=== PATIENT | male | born 1950 | race Caucasian/White ===

== ENCOUNTER 2016-09-24 10:44 | Inpatient (IN) | payer OTHER, BC ==
[2016-09-24] VITALS (10 sets, daily range): BP systolic 129–177; BP diastolic 84–101
[~2016-09-24] VITALS: Ht 188 cm; Wt 105.7 kg
--- OUTSIDE RECORDS SUMMARY | 2016-09-24 10:48 | XMS REPORT | Continuity of Care Document ---
Author Author [facility] Organization [facility] Address Unknown Phone Unavailable Care Team Providers Care Security Public Safety Officer Name Role Phone PCP Unavailable Source Comments Some departments are not documenting in the electronic medical record. If you do not see the information that you expected, contact Release of Information in the Health Information Management department at [phone] for further assistance in locating additional records.[facility] Active Allergies and Adverse Reactions Not on File Current Medications Not on file Active Problems Not on file Social History Tobacco Use Types Packs/Day Years Used Date Never Assessed Plan of Care Health Maintenance Due Date Last Done Comments Hepatitis C Screening 1950 Physical (Comprehensive) 1959 Exam Pertussis Vaccine 1963 Tetanus Vaccine 1969 Colorectal Cancer 2002 Screening Shingles Vaccine 2012 Influenza Vaccine 04/06/2016 Results from Last 3 Months Not on file
[2016-09-24] MEDS ORDERED: fentaNYL INJECTION 100 MCG/2 ML AMP ONE (10:58)
[2016-09-24] MEDS ORDERED: RT-ALBUINH INH (11:09)
[2016-09-24] MEDS ORDERED: CITA20TA7 PO (11:09)
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
[2016-09-24 11:30] LABS: INR 1.2 (0.8-1.4); MEAN PLATELET VOLUME 8.7 FL (7.4-10.4); PARTIAL THROMBOPLASTIN TIME 36 SEC (24-35); PROTHROMBIN TIME PATIENT 15.2 SEC (12.2-14.7); RED BLOOD COUNT 3.92 10^6/uL (4.35-5.85); RED CELL DISTRIBUTION WIDTH 12.1 % (10.0-14.5); WHITE BLOOD COUNT 12.7 10^3/uL (4.3-11.0)
[2016-09-24] MEDS ORDERED: TETANUS,DIPTH,PERTUSS P/F (BOOSTRIX) 0.5 ML VIAL IM STA (11:37)
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
[2016-09-24 11:43] LABS: ALANINE AMINOTRANSFERASE 159 U/L (0-55); ALBUMIN 3.7 G/DL (3.2-4.5); ALCOHOL 29 MG/DL (<10); ANION GAP 31 MMOL/L (5-14); ASPARTATE AMINO TRANSFERASE 329 U/L (5-34); BILIRUBIN,DIRECT 0.3 MG/DL (0.0-0.3); BILIRUBIN,INDIRECT 0.5 MG/DL; BILIRUBIN,TOTAL 0.8 MG/DL (0.1-1.0); BLOOD UREA NITROGEN 21 MG/DL (7-18); BUN/CREATININE RATIO 12; CARBON DIOXIDE 10 MMOL/L (21-32); CHLORIDE 85 MMOL/L (98-107); CREATINE KINASE 8308 U/L (30-200); CREATININE SERUM 1.72 MG/DL (0.60-1.30); GFR ESTIMATED 40; GLUCOSE 98 MG/DL (70-105); MAGNESIUM 2.3 MG/DL (1.8-2.4); PHOSPHORUS 4.1 MG/DL (2.3-4.7); POTASSIUM 3.8 MMOL/L (3.6-5.0); SODIUM 126 MMOL/L (135-145); TOTAL PROTEIN 6.2 G/DL (6.4-8.2)
[2016-09-24] MEDS ORDERED: DOPamine DRIP 250 ML IV ONE (11:45)
[2016-09-24 11:58] LABS: FIBRINOGEN 215 MG/DL (221-496)
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
--- NOTE | 2016-09-24 12:50 | Diagnostic Imaging Report ---
INDICATION: Line placement. FINDINGS: Right jugular line is present. Tip overlies the confluence of the superior venocaval shadow in right atrium. The lungs are well aerated and clear. The heart is not enlarged. No pneumothorax or pleural effusion. IMPRESSION: Satisfactory right central line placement. Dictated by: Dictated on workstation # [id number]
[2016-09-24] MEDS ORDERED: NS IV 1000 ML 1,000 ML IV ONE (12:51)
[2016-09-24 12:54] LABS: KETONES,URINE 1+ (NEGATIVE); LEUKOCYTE ESTERASE ,URINE 1+ (NEGATIVE); NITRITE,URINE NEGATIVE (NEGATIVE); PH,URINE 5 (5-9); PROTEIN,URINE 3+ (NEGATIVE); UROBILINOGEN,URINE 4 MG/DL (NORMAL)
[2016-09-24] MEDS ORDERED: fentaNYL INJECTION 100 MCG/2 ML AMP IVP STA (12:56)
[2016-09-24] MEDS: NOREPINEPHRINE 4 MG in D5W 250 ML (IVPB) 250 ML IV SCH ×2 (12:59→23:09)
[2016-09-24] MEDS ORDERED: HYDROCORTISONE 100 MG/2 ML (Solu-CORTEF) VIAL IV ONE (13:15)
[2016-09-24 13:25] LABS: BILIRUBIN,URINE 1+ (NEGATIVE); WBC,URINE RARE /HPF
[2016-09-24] MEDS ORDERED: fentaNYL INJECTION 100 MCG/2 ML AMP INJ ONE (14:33)
[2016-09-24] MEDS ORDERED: LEVOTHYROXINE 100 MCG INJ (SYNTHROID) VIAL IV SCH (15:30)
[2016-09-24] MEDS ORDERED: ONDANSETRON 4 MG/2 ML (SDV) Z0FRAN IV PRN (15:30)
[2016-09-24] MEDS ORDERED: SENNA W/DOCUSATE (SENOKOT S) TABLET PO PRN (15:30)
[2016-09-24] MEDS ORDERED: ANTACID SUSP 30 ML UDC (MYLANTA) PO PRN (15:30)
[2016-09-24] MEDS ORDERED: LORazepam INJ 2 MG/ML (ATIVAN) VIAL IM/IV PRN (15:30)
[2016-09-24] MEDS ORDERED: THIAMINE INJECTION 100 MG, FOLIC ACID INJECTION 1 MG, MAGNESIUM SULFATE 2 GM, VITAMIN M... IV SCH ×5 (15:30)
[2016-09-24] MEDS ORDERED: ONDANSETRON 4 MG (ZOFRAN) ORAL DISSOLVE TAB SL PRN (15:30)
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
[2016-09-24] MEDS: THIAMINE IV SCH ×5 (17:00)
[2016-09-24] MEDS: FOLIC ACID IV SCH ×5 (17:00)
[2016-09-24] MEDS: [UNRECOGNIZED DRUG - OTHER] IV SCH ×5 (17:00)
[2016-09-24] MEDS: SODIUM BICARBONATE 8.4% VIAL 100 MEQ in D5W 1000 ML IV SOLUTION 1,000 ML IV SCH ×2 (17:00→23:05)
[2016-09-24] MEDS: MAGNESIUM SULFATE IV SCH ×5 (17:00)
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
[2016-09-24] MEDS: LEVOTHYROXINE 100 MCG (LEVOTHROID) TAB PO SCH (18:50)
[2016-09-24] MEDS: LORazepam 1 MG (ATIVAN) TAB PO PRN (23:09)
[2016-09-25] VITALS (14 sets, daily range): BP systolic 113–148; BP diastolic 70–101
[2016-09-25 04:06] LABS: BASOPHILS % (AUTO) 0 % (0-10); EOSINOPHILS % (AUTO) 0 % (0-10); LYMPHOCYTES # (AUTO) 0.5 X 10^3 (1.0-4.0); LYMPHOCYTES % (AUTO) 5 % (12-44); MEAN CORPUSCULAR HEMOGLOBIN 34 PG (25-34); MEAN CORPUSCULAR HGB CONC 36 G/DL (32-36); MEAN CORPUSCULAR VOLUME 95 FL (80-99); MEAN PLATELET VOLUME 8.6 FL (7.4-10.4); MONOCYTES # (AUTO) 0.9 X 10^3 (0.0-1.0); MONOCYTES % (AUTO) 11 % (0-12); NEUTROPHILS # (AUTO) 7.6 X 10^3 (1.8-7.8); NEUTROPHILS % (AUTO) 84 % (42-75); PLATELET COUNT 147 10^3/uL (130-400); RED BLOOD COUNT 3.53 10^6/uL (4.35-5.85); RED CELL DISTRIBUTION WIDTH 12.5 % (10.0-14.5)
[2016-09-25 04:28] LABS: ALANINE AMINOTRANSFERASE 152 U/L (0-55); ALBUMIN 3.3 G/DL (3.2-4.5); ANION GAP 13 MMOL/L (5-14); ASPARTATE AMINO TRANSFERASE 371 U/L (5-34); BILIRUBIN,TOTAL 1.1 MG/DL (0.1-1.0); BLOOD UREA NITROGEN 19 MG/DL (7-18); BUN/CREATININE RATIO 18; CALCIUM 7.9 MG/DL (8.5-10.1); CARBON DIOXIDE 28 MMOL/L (21-32); CHLORIDE 87 MMOL/L (98-107); CREATININE SERUM 1.05 MG/DL (0.60-1.30); GFR ESTIMATED > 60; GLUCOSE 125 MG/DL (70-105); MAGNESIUM 2.3 MG/DL (1.8-2.4); PHOSPHORUS 2.4 MG/DL (2.3-4.7); SODIUM 128 MMOL/L (135-145); TOTAL PROTEIN 5.3 G/DL (6.4-8.2)
[2016-09-25 04:51] LABS: BAND NEUTROPHILS 7 %; BASOPHILS % (MANUAL) 0 %; EOSINOPHILS % (MANUAL) 0 %; LYMPHOCYTES % (MANUAL) 6 %; NEUTROPHILS % (MANUAL) 72 %
[2016-09-25] MEDS: KCL 20 MEQ TAB (K-DUR) PO SCH ×3 (05:25→13:09)
[2016-09-25] MEDS: LEVOTHYROXINE 100 MCG (LEVOTHROID) TAB PO SCH (05:25)
[2016-09-25] MEDS: SODIUM BICARBONATE 8.4% VIAL 100 MEQ in D5W 1000 ML IV SOLUTION 1,000 ML IV SCH (05:26)
[2016-09-25 05:43] LABS: CREATINE KINASE 15906 U/L (30-200)
[2016-09-25] MEDS ORDERED: MAGNESIUM 1 GM/100 ML IVPB 100 ML IV SCH (06:00)
[2016-09-25] MEDS ORDERED: KCL 20 MEQ TAB (K-DUR) PO SCH (06:00)
[2016-09-25] MEDS ORDERED: POTASSIUM CL 10MEQ/50ML IVPB 50 ML IV SCH (06:00)
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
[2016-09-25] MEDS: RT-ALBUTEROL/IPRATROPIUM 3 ML (DUONEB) VIAL INH SCH ×4 (08:26→19:22)
[2016-09-25] MEDS ORDERED: NS IV 1000 ML 1,000 ML ONE (08:53)
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
[2016-09-25] MEDS: NS IV 1000 ML 1,000 ML IV SCH ×2 (09:00→16:04)
[2016-09-25] MEDS ORDERED: LISI1TAB10 PO (09:49)
[2016-09-25] MEDS ORDERED: LEVO175T2 PO (09:49)
[2016-09-25] MEDS ORDERED: ASPI325T32 PO (09:49)
[2016-09-25] MEDS ORDERED: MULT-35 PO (09:49)
[2016-09-25] MEDS ORDERED: OMEP20TA33 PO (09:49)
[2016-09-25] MEDS ORDERED: TRAZ150T72 PO (09:49)
[2016-09-25] MEDS ORDERED: CYAN5000 SL (09:49)
[2016-09-25] MEDS ORDERED: NAPR220T66 PO (09:49)
[2016-09-25] MEDS: LORazepam 1 MG (ATIVAN) TAB PO PRN (10:06)
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
[2016-09-25] MEDS: RT-ALBUTEROL/IPRATROPIUM 3 ML (DUONEB) VIAL INH PRN (11:36)
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
[2016-09-25] MEDS: ENOXAPARIN 40 MG/0.4 ML (LOVENOX) SYR SC SCH (13:10)
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
[2016-09-25] MEDS: fentaNYL INJECTION 100 MCG/2 ML AMP IV PRN ×2 (15:03→18:32)
[2016-09-25] MEDS: MAGNESIUM SULFATE IV SCH ×5 (16:15)
[2016-09-25] MEDS: [UNRECOGNIZED DRUG - OTHER] IV SCH ×5 (16:15)
[2016-09-25] MEDS: FOLIC ACID IV SCH ×5 (16:15)
[2016-09-25] MEDS: THIAMINE IV SCH ×5 (16:15)
[2016-09-25] MEDS: LORazepam INJ 2 MG/ML (ATIVAN) VIAL IV PRN (22:22)
[2016-09-26] VITALS: BP 147/86
[2016-09-26] MEDS: RT-ALBUTEROL/IPRATROPIUM 3 ML (DUONEB) VIAL INH SCH ×2 (02:10→07:12)
[2016-09-26] MEDS: LORazepam INJ 2 MG/ML (ATIVAN) VIAL IV PRN (02:30)
[2016-09-26 05:17] LABS: BASOPHILS % (AUTO) 0 % (0-10); EOSINOPHILS % (AUTO) 0 % (0-10); LYMPHOCYTES # (AUTO) 0.4 X 10^3 (1.0-4.0); LYMPHOCYTES % (AUTO) 5 % (12-44); MEAN CORPUSCULAR HEMOGLOBIN 35 PG (25-34); MEAN CORPUSCULAR HGB CONC 36 G/DL (32-36); MEAN CORPUSCULAR VOLUME 98 FL (80-99); MEAN PLATELET VOLUME 8.6 FL (7.4-10.4); MONOCYTES # (AUTO) 1.2 X 10^3 (0.0-1.0); MONOCYTES % (AUTO) 13 % (0-12); NEUTROPHILS # (AUTO) 7.5 X 10^3 (1.8-7.8); NEUTROPHILS % (AUTO) 82 % (42-75); PLATELET COUNT 134 10^3/uL (130-400); RED BLOOD COUNT 2.98 10^6/uL (4.35-5.85); RED CELL DISTRIBUTION WIDTH 12.5 % (10.0-14.5); WHITE BLOOD COUNT 9.1 10^3/uL (4.3-11.0)
[2016-09-26 05:31] LABS: ANION GAP 10 MMOL/L (5-14); BLOOD UREA NITROGEN 15 MG/DL (7-18); BUN/CREATININE RATIO 19; CALCIUM 8.1 MG/DL (8.5-10.1); CARBON DIOXIDE 29 MMOL/L (21-32); CHLORIDE 92 MMOL/L (98-107); CREATININE SERUM 0.78 MG/DL (0.60-1.30); GFR ESTIMATED > 60; GLUCOSE 108 MG/DL (70-105); POTASSIUM 3.7 MMOL/L (3.6-5.0); SODIUM 131 MMOL/L (135-145)
[2016-09-26 05:57] LABS: CREATINE KINASE 11726 U/L (30-200)
[2016-09-26] MEDS: NS IV 1000 ML 1,000 ML IV SCH ×2 (06:22→12:02)
[2016-09-26] MEDS: LEVOTHYROXINE 100 MCG (LEVOTHROID) TAB PO SCH (06:22)
[2016-09-26 08:00] VITALS: BP 198/106
[2016-09-26] MEDS: RT-ALBUTEROL/IPRATROPIUM 3 ML (DUONEB) VIAL INH PRN (09:23)
[2016-09-26] MEDS ORDERED: methylPREDNISolone 125 MG (Solu-MEDROL) VIAL IVP NR (09:30)
--- NOTE | 2016-09-26 09:33 | Physical Therapy Daily Note ---
PT Daily Note-Current Subjective Patient agrees to PT. Pain Numeric Pain Scale: 5-Moderate Pain Location: Right Location Body Site: Thigh Pain Description: Ache Appearance agitated, anxious, etc Mental Status Patient Orientation: Person, Time, Situation Attachments: IV Transfers Functional [place] Measure 0=Not Assessed/NA 4=Minimal Assistance 1=Total Assistance 5=Supervision or Setup 2=Maximal Assistance 6=Modified [place] 3=Moderate Assistance 7=Complete IndependenceIRFPAI Quality Coding Scale 6 Independent with activity with or without an assistive device 5 Patient requires set up or clean up by helper. Patient completes activity by themselves 4 Supervision or touching assist (CGA). [place] provide cues , steadying assist 3 The helper provides less than half the effort to complete the activity 2 The helper provides more than half the effort to complete the activity 1 Dependent. The helper does all the effort to complete an activity 7 Patient refused to complete or attempt activity 9 The patient did not perform the activity before the current illness or injury 88 Not attempted due to Medical conditions or safety concerns Transfers (B, C, W/C) (FIM): 4 Scootin Sit to/from Stand: 4 Patient requires skilled verbal instruction for hand placement to stand and sit to prevent vertebral compression. Gait Training Gait (FIM): 4 Distance (FIM): 3=150 ft Distance: 300' Gait Level of Assist: 4 Gait Persons Needed: 1 Gait Assistive Device: FWW ataxic and unsafe; 2 episodes LOB with PT correction Exercises Seated Therapy Exercises: Ankle pumps, Long arc quads, Hip flexion Seated Reps: 25 Assessment Patient appears to be anxious and slightly agitated due to alcohol detox process. RN is aware. Patient tolerates minimal activity and presents with elevated HR of 154 after ambulation. PT to increase activity as tolerated by patient. PT Printer'S Devil Goals Intermediate Goals PT Printer'S Devil Goals Time Frame: Oct 02, 2016 Transfers (B,C,W/C) (FIM): 7 Gait (FIM): 7 Gait distance (FIM): 3=150 ft Gait Level of Assist: 7 Gait Assistive Device: None, FWW PT Plan Treatment/Plan Treatment Plan: Continue Plan of Care Treatment Plan: Education, Functional Activity Mya, Functional Strength, Gait , Safety, Therapeutic Exercise Treatment Duration: Oct 02, 2016 Visits Per Week: 5-6 Time/GCodes Time In: 851 Time Out: 914 Total Billed Treatment Time: 23 Total Billed Treatment 1 visit GT 15 min EX 8 min SAI BILLINGSLEY PT Sep 26, 2016 09:33
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
--- NOTE | 2016-09-26 11:40 | Occupational Ther Daily Note ---
OT Current Status-Daily Note Subjective Pt. does not report pain but reports that she is short of breath. Pt. showered with no oxygen on. Sats taken at end of shower. Sats at 96%. Notified respiratory therapy. Appearance Pt. is up in chair. Agrees to shower reluctantly. Pt. is encouraged and then agrees. Mental Status/Objective Patient Orientation: Unable to Assess Functional [place] Measure 0=Not Assessed/NA 4=Minimal Assistance 1=Total Assistance 5=Supervision or Setup 2=Maximal Assistance 6=Modified [place] 3=Moderate Assistance 7=Complete [place] Pt. is somewhat slow to respond at times. Impulsive. Required frequent cues to take his time. ADL-Treatment Grooming (FIM): 2 (Max assist to comb hair due to wounds on head.) Lower Body Dressing (FIM): 2 (Pt. requires max assist to don socks.) Toileting (FIM): 3 (Pt. requires mod assist to cleanse self after toileting.) Transfers (B, C, W/C) (FIM): 4 (Pt. requires min assist to stand out of chair, and to ambulate to shower.) Toilet/Commode Transfer (FIM): 4 Shower Transfer(FIM): 4 Education OT Patient Education: Correct positioning, Modified ADL techniques, Progress toward Goal/Update tx plan, Purpose of tx/functional activities, Reviewed precautions, Rehab process, Transfer techniques Teaching Recipient: Patient Teaching Methods: Demonstration, Discussion Response to Teaching: Verbalize Understanding, Return Demonstration OT Short Term Goals Short Term Goals 1=Demonstrate adherence to instructed precautions during ADL tasks. 2=Patient will verbalize/demonstrate understanding of assistive devices/ modifications for ADL. 3=Patient will improve strength/tolerance for activity to enable patient to perform ADL's. OT [facility] Goals Vulcanizing Press Operator Goals Time Frame: Oct 09, 2016 Eating (FIM): 6 Grooming(FIM): 6 Bathing(FIM): 6 Upper Body Dressing(FIM): 6 Lower Body Dressing(FIM): 6 Toileting(FIM): 6 Toilet/Commode Transfer(FIM): 6 Shower Transfer(FIM): 6 Additional Goals: 1-Demonstrate ADL Tasks, 2-Verbalize Understanding, 3- ImproveStrength/Mya 1=Demonstrate adherence to instructed precautions during ADL tasks. 2=Patient will verbalize/demonstrate understanding of assistive devices/ modifications for ADL. 3=Patient will improve strength/tolerance for activity to enable patient to perform ADL's. OT Education/Plan Problem List/Assessment Assessment: Decreased Activ Tolerance, Decreased UE Strength, Dependent Transfers, Impaired Bed Mobility, Impaired Funct Balance, Impaired I ADL's, Impaired Self-Care Skills, Restricted Funct UE ROM Pt to benefit from skilled OT intervention for ADL training, transfers, strengthening, and home safety education to maximize level of function and allow safe return home. Discharge Recommendations Plan/Recommendations: Continue POC Therapy D/C Recommendations: Acute Rehab Barriers to Progress cognition, impulsivity Treatment Plan/Plan of Care Treatment,Training & Education: Yes Patient would benefit from OT for education, treatment and training to promote independence in ADL's, mobility, safety and/or upper extremity function for ADL' s. Plan of Care: ADL Retraining, Functional Mobility, UE Funct Exercise/Act Treatment Duration: Oct 09, 2016 Visits Per Week: 5 Agreement: Yes Rehab Potential: Good Time/GCodes Start Time: 10:00 Stop Time: 10:35 Total Time Billed (hr/min): 35 Billed Treatment Time 1, ADL x 2 ALINA JARRELL OT Sep 26, 2016 11:40
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
[2016-09-26] MEDS: ENOXAPARIN 40 MG/0.4 ML (LOVENOX) SYR SC SCH (11:56)
[2016-09-26] MEDS: fentaNYL INJECTION 100 MCG/2 ML AMP IV PRN (12:02)
--- NOTE | 2016-09-26 12:20 | Progress Note ---
Subjective Subjective/Events-last exam Pt seen and examined. Pt reports he is better today, still some back pain. Tolerating diet, pain mostly controlled. Appreciate PT and OT consults and recommendations. Review of Systems HEENT: Head AchesNo Visual Changes Pulmonary: No Dyspnea, No Cough Cardiovascular: : Chest Pain Gastrointestinal: No: Abdominal Pain, Nausea, Vomiting Objective Exam Vital Signs Date Time Temp Pulse Resp B/P Pulse Ox O2 Delivery O2 Flow Rate FiO2 09/26/16 09:23 98 09/26/16 08:00 98.8 113 20 198/106 97 Nasal Cannula 4.00 09/26/16 07:13 94 09/26/16 02:10 92 09/26/16 00:00 97.8 85 20 147/86 94 Nasal Cannula 4.00 09/25/16 22:00 93 4.00 09/25/16 20:00 99.3 86 20 130/78 94 Room Air 09/25/16 19:22 92 09/25/16 19:00 86 09/25/16 16:00 98.5 83 20 133/79 92 Nasal Cannula 4.00 09/25/16 13:00 89 I & O 09/26/16 07:00 Intake Total 900 ml Output Total 1650 ml Balance -750 ml Capillary Refill : Less Than 3 SecondsLess Than 3 Seconds General Appearance: Mild Distress Other HEENT: PERRL/EOMI Other Neck: Full Range of Motion Normal Inspection Non Tender Supple Other Respiratory: Chest Non Tender Decreased Breath Sounds Wheezing Cardiovascular: Regular Rate, Rhythm No Gallop No JVD No Murmur Gastrointestinal: normal bowel sounds soft Extremity: Normal Capillary Refill Normal Range of Motion No Calf Tenderness No Pedal Edema Other Neurologic/Psychiatric: Alert Oriented x3 No Motor/Sensory Deficits Normal Mood/Affect Depressed Affect Skin: Normal Color Warm/Dry Results Lab Laboratory Tests 09/25/16 14:06: Glucometer 158H 09/25/16 15:24: Potassium Level 3.8 09/25/16 16:05: Glucometer 124H 09/25/16 21:38: Glucometer 136H 09/26/16 05:00: Anion Gap 10, BUN/Creatinine Ratio 19, Basophils # (Auto) 0.0, Basophils (%) ( Auto) 0, Blood Urea Nitrogen 15, Calcium Level 8.1L, Carbon Dioxide Level 29, Chloride Level 92L, Creatinine 0.78, Eosinophils # (Auto) 0.0, Eosinophils (%) ( Auto) 0, Estimat Glomerular Filtration Rate > 60, Glucose Level 108H, Hematocrit 29L, Hemoglobin 10.4L, Lymphocytes # (Auto) 0.4L, Lymphocytes (%) ( Auto) 5L, Mean Corpuscular Hemoglobin 35H, Mean Corpuscular Hemoglobin Concent 36, Mean Corpuscular Volume 98, Mean Platelet Volume 8.6, Monocytes # (Auto) 1.2H, Monocytes (%) (Auto) 13H, Neutrophils # (Auto) 7.5, Neutrophils (%) (Auto ) 82H, Platelet Count 134, Potassium Level 3.7, Red Blood Count 2.98L, Red Cell Distribution Width 12.5, Sodium Level 131L, Total Creatine Kinase 61996J, White Blood Count 9.1 09/26/16 10:45: Glucometer 142H Assessment/Plan Assessment/Plan Assessment/Plan Anemia- probably dilutional, but will stop Lovenox, pt is ambulating and will not need S/P Trauma Level 1 Activation Transverse process fracture - non-operative management L4 and L5 compression fractures with minimal height loss Hypotensive - resolved now, off levophed Renal insufficiency - resolved, Creatnine normal, pt with good urine output Plan continue PT/OT and transfer to Short term care Multiple episodes of syncope, ? siezures. Pt probably will need to be sent to Neurologist and won't be able to drive until cleared. Clinical Quality Measures DVT/VTE Risk/Contraindication: Risk Factor Score Per Nursin RFS Level Per Nursing on Admit: 4+=Very High TEE LAMBERT DO Sep 26, 2016 12:20
[2016-09-26] MEDS ORDERED: RT-ADVAIR HFA 115/21 MCG PER PUFF IH SCH (20:00)
[2016-09-27] MEDS ORDERED: predniSONE 10 MG TAB PO SCH (12:00)
[2016-10-09] MEDS ORDERED: predniSONE 5 MG TAB PO SCH (12:00)
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
[2016-10-24] MEDS ORDERED: LISI40TA PO (12:31)
[2016-10-24] MEDS ORDERED: HYDR-756 PO ×2 (13:17→13:25)
== END 2016-09-26 12:40 | DRG 89 ==
LOC: EDUNIT# 10:44 → ER 10:45 → ICU 13:20 → 4TH 09-25 14:34
PROVIDERS: ADMIT Surgery; ATTEND Surgery
DX: S06.0X1A Concussion with loss of consciousness of 30 minutes or less, initial encounter (principal); S32.029A Unspecified fracture of second lumbar vertebra, initial encounter for closed fracture; S32.039A Unspecified fracture of third lumbar vertebra, initial encounter for closed fracture; S32.049A Unspecified fracture of fourth lumbar vertebra, initial encounter for closed fracture; E87.1 Hypo-osmolality and hyponatremia; S20.211A Contusion of right front wall of thorax, initial encounter; S30.1XXA Contusion of abdominal wall, initial encounter; S70.11XA Contusion of right thigh, initial encounter; S70.12XA Contusion of left thigh, initial encounter; S40.021A Contusion of right upper arm, initial encounter; S40.022A Contusion of left upper arm, initial encounter; S00.83XA Contusion of other part of head, initial encounter; E89.0 Postprocedural hypothyroidism; I10 Essential (primary) hypertension; I95.9 Hypotension, unspecified; F10.20 Alcohol dependence, uncomplicated; Y90.8 Blood alcohol level of 240 mg/100 ml or more; N28.9 Disorder of kidney and ureter, unspecified; J44.9 Chronic obstructive pulmonary disease, unspecified; J45.909 Unspecified asthma, uncomplicated; R55 Syncope and collapse; E87.6 Hypokalemia; F17.210 Nicotine dependence, cigarettes, uncomplicated; V48.5XXA Car driver injured in noncollision transport accident in traffic accident, initial encounter; Y92.488 Other paved roadways as the place of occurrence of the external cause; Y99.8 Other external cause status
CPT/HCPCS: 36415; 51702; 70450; 71010; 71260; 72125; 72170; 74177; 80048; 80053; 80076; 80306; 80320; 81000; 82533; 82550; 82962; 83735; 84100; 84132; 84439; 84443; 84484; 85007; 85025; 85027; 85379; 85384; 85610; 85730; 86850; 86900; 86901; 86920; 90471; 90715; 94640; 96365; 96366; 96367; 96375; 99291; 99292

== ENCOUNTER 2016-09-26 12:40 | Inpatient (IN) | payer OTHER, BC ==
[~2016-09-26] VITALS: Ht 188 cm; Wt 105.7 kg
[~2016-09-26 12:40] MED LIST: ASPI325T32 PO; CITA20TA7 PO; CYAN5000 SL; LEVO175T2 PO; LISI1TAB10 PO; MULT-35 PO; NAPR220T66 PO; OMEP20TA33 PO; RT-ALBUINH INH; TRAZ150T72 PO
--- OUTSIDE RECORDS SUMMARY | 2016-09-26 13:41 | XMS REPORT | Continuity of Care Document ---
Author Author [facility] Organization [facility] Address Unknown Phone Unavailable Care Team Providers Care Job Change Crew Member Name Role Phone PCP Unavailable Source Comments Some departments are not documenting in the electronic medical record. If you do not see the information that you expected, contact Release of Information in the Health Information Management department at [phone] for further assistance in locating additional records.[facility] Active Allergies and Adverse Reactions Not [...]
[2016-09-26] MEDS ORDERED: SENNA W/DOCUSATE (SENOKOT S) TABLET PO PRN (14:00)
[2016-09-26] MEDS ORDERED: RT-ALBUTEROL/IPRATROPIUM 3 ML (DUONEB) VIAL INH PRN (14:00)
[2016-09-26] MEDS ORDERED: ASPIRIN 325 MG (5 GR) TABLET PO PRN (14:00)
[2016-09-26] MEDS ORDERED: ONDANSETRON 4 MG (ZOFRAN) ORAL DISSOLVE TAB SL PRN (14:00)
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
[2016-09-26] MEDS: RT-ALBUTEROL/IPRATROPIUM 3 ML (DUONEB) VIAL INH SCH ×3 (15:37→22:37)
[2016-09-26] MEDS: LORazepam 1 MG (ATIVAN) TAB PO PRN ×2 (15:40→19:25)
[2016-09-26 16:28] VITALS: BP 188/91
[2016-09-26] MEDS ORDERED: cloNIDine 0.1 MG (CATAPRES) TAB PO NR (16:45)
[2016-09-26 18:11] VITALS: BP 142/83
[2016-09-26] MEDS: RT-ADVAIR HFA 115/21 MCG PER PUFF IH SCH (19:40)
[2016-09-26] MEDS: traZODone 150 MG (DESYREL) TABLET PO SCH (19:46)
[2016-09-26] MEDS ORDERED: FOLIC ACID IV NR ×5 (20:30)
[2016-09-26] MEDS ORDERED: MAGNESIUM SULFATE IV NR ×5 (20:30)
[2016-09-26] MEDS ORDERED: THIAMINE IV NR ×5 (20:30)
[2016-09-26] MEDS ORDERED: [UNRECOGNIZED DRUG - OTHER] IV NR ×5 (20:30)
[2016-09-27] MEDS: LORazepam 1 MG (ATIVAN) TAB PO PRN ×2 (00:57→13:33)
[2016-09-27] MEDS: NAPROXEN 250 MG (NAPROSYN) TABLET PO PRN ×3 (00:57→18:10)
[2016-09-27] MEDS: RT-ALBUTEROL/IPRATROPIUM 3 ML (DUONEB) VIAL INH SCH ×6 (02:18→22:00)
[2016-09-27 06:00] VITALS: BP 146/74
[2016-09-27] MEDS: MULTIVIT W/MINERALS TAB (THERAGRAN M) PO SCH (06:26)
[2016-09-27] MEDS: LEVOTHYROXINE 75 MCG (LEVOTHROID) TABLET PO SCH (06:26)
[2016-09-27] MEDS: PANTOPRAZOLE 20 MG TABLET (PROTONIX) PO SCH (06:27)
[2016-09-27] MEDS: LEVOTHYROXINE 100 MCG (LEVOTHROID) TAB PO SCH (06:27)
[2016-09-27] MEDS ORDERED: LEVOTHYROXINE 100 MCG (LEVOTHROID) TAB PO SCH (06:30)
[2016-09-27 06:46] LABS: BASOPHILS % (AUTO) 0 % (0-10); EOSINOPHILS % (AUTO) 0 % (0-10); LYMPHOCYTES # (AUTO) 0.4 X 10^3 (1.0-4.0); LYMPHOCYTES % (AUTO) 5 % (12-44); MEAN CORPUSCULAR HEMOGLOBIN 35 PG (25-34); MEAN CORPUSCULAR HGB CONC 35 G/DL (32-36); MEAN CORPUSCULAR VOLUME 100 FL (80-99); MEAN PLATELET VOLUME 8.6 FL (7.4-10.4); MONOCYTES # (AUTO) 0.9 X 10^3 (0.0-1.0); MONOCYTES % (AUTO) 11 % (0-12); NEUTROPHILS # (AUTO) 6.6 X 10^3 (1.8-7.8); NEUTROPHILS % (AUTO) 84 % (42-75); PLATELET COUNT 116 10^3/uL (130-400); RED BLOOD COUNT 2.42 10^6/uL (4.35-5.85); RED CELL DISTRIBUTION WIDTH 12.7 % (10.0-14.5); WHITE BLOOD COUNT 7.8 10^3/uL (4.3-11.0)
[2016-09-27 07:06] LABS: ALANINE AMINOTRANSFERASE 130 U/L (0-55); ALBUMIN 3.1 G/DL (3.2-4.5); ANION GAP 8 MMOL/L (5-14); ASPARTATE AMINO TRANSFERASE 213 U/L (5-34); BILIRUBIN,TOTAL 0.9 MG/DL (0.1-1.0); BLOOD UREA NITROGEN 21 MG/DL (7-18); BUN/CREATININE RATIO 28; CALCIUM 8.1 MG/DL (8.5-10.1); CARBON DIOXIDE 29 MMOL/L (21-32); CHLORIDE 95 MMOL/L (98-107); CREATININE SERUM 0.75 MG/DL (0.60-1.30); GFR ESTIMATED > 60; GLUCOSE 98 MG/DL (70-105); POTASSIUM 3.4 MMOL/L (3.6-5.0); SODIUM 132 MMOL/L (135-145)
[2016-09-27] MEDS: RT-ADVAIR HFA 115/21 MCG PER PUFF IH SCH ×2 (07:17→18:18)
[2016-09-27] MEDS: lisINopril 20 MG (ZESTRIL) TAB PO SCH (08:18)
[2016-09-27] MEDS: HYDROCHLOROTHIAZIDE 25 MG (HCTZ) TAB PO SCH (08:18)
[2016-09-27] MEDS: CYANOCOBALAMIN 500 MCG TAB (VITAMIN B-12) PO SCH (08:18)
[2016-09-27] MEDS ORDERED: KCL 20 MEQ TAB (K-DUR) PO NR (08:45)
[2016-09-27] MEDS ORDERED: NON-FORMULARY MEDICATION 1 EA EA PO SCH (09:00)
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
[2016-09-27] MEDS: DICLOFENAC 1% GEL 100 GM (VOLTAREN) TUBE TOP SCH ×4 (09:15→19:50)
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
--- NOTE | 2016-09-27 09:35 | Speech Therapy Daily Note ---
Speech Daily Progress Note Subjective The patient was seated on the edge of bed upon entrance. The patient reported discomfort in his back and legs and stated he had recently requested pain medication from his RN. The RN was notified by the clinician and stated she was aware of the patient's current pain level. The patient was agreeable to continued cognitive assessment on this date. Objective The patient was administrated the Rinku Cognitive Assessment (Version One): - Visuospatial/Executive: The patient was able to accurately complete trail- making activity, as well as, cube copying. The patient was able to draw a clock face with accurate numbers, however, was unable to place the accurate time on the clock. - Naming: The patient was able to provide the names of three of three single words. - Memory: The patient was able to recall four of five single words immediately. - Attention: The patient was able to identify a letter from a list of letters read by the clinician and repeat five digits immediately. The patient demonstrated mild difficulty with serial subtraction of seven. - Language: The patient was able to repeat two simple phrases. - Abstraction: The patient was able to provide a similarity between two items. - Delayed Recall: The patient recalled four of five single words following a five minute delay. - Orientation: The patient was oriented to location, city, month, day of week, date, and year. The patient demonstrated an overall score of +27/30 which correlates to cognitive linguistic functions within normal limits. The patient demonstrated impairments with delayed recall and attention. As the patient lives alone and does report intermittent memory issues, the clinician believes he will benefit from continued skilled speech services to target functional memory strategies for improved safety at home. Assessment Assessment Current Status: Good Progress Treatment Plan Continue Plan of Care Communication Comprehension: 3 Expression: 4 Social Cognition Social Interaction: 3 Problem Solvin Memory: 3 Speech Short Term Goals Short Term Goals Short Term Goals 1. The patient will display 80% accuracy with functional safety problem solving (independently). 2. The patient will recall and demonstrate three functional memory strategies for use at home and throughout skilled tasks (mild clinician prompting). 3. The patient will recall three to four items immediately and following a five minute delay (independently). Time Frame-STG: Two Weeks Speech Security Solutions Architect Goals Retirement Goals 1. The patient will display improved cognitive skills for increased function and safety with ADL's in the least restrictive setting. Time Frame: Four Weeks Comprehension: 5 Expression: 5 Social Interaction: 5 Problem Solvin Memory: 4 Speech-Plan Treatment Plan Speech Therapy Treatment Plan: Continue Plan of Care Continue skilled speech services to target functional problem solving and memory strategies. Treatment Duration: Oct 24, 2016 # of days/week Four to five. Visits Per Week: Four to five Minutes/Day (M-F): 30 Rehab Potential: Guarded Safety Risks/Education Teaching Recipient: Patient Teaching Methods: Discussion Response to Teaching: Reinforcement Needed Education Topics Provided: Plan of Care Time Speech Therapy Time In: 08:45 Speech Therapy Time Out: 09:15 Total Billed Time: 30 Billed Treatment Time 1, NICKIE NEWMAN Sep 27, 2016 09:35
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
[2016-09-27] MEDS: ENOXAPARIN 40 MG/0.4 ML (LOVENOX) SYR SC SCH (11:49)
[2016-09-27] MEDS: predniSONE 10 MG TAB PO SCH (11:50)
[2016-09-27] MEDS: HYDROcodone/APAP 7.5 MG/325 MG (LORTAB, LORCET PLUS) TABLET PO PRN ×3 (11:50→19:50)
[2016-09-27] MEDS ORDERED: predniSONE 5 MG TAB PO SCH (12:00)
--- NOTE | 2016-09-27 14:55 | Occupational Ther Daily Note ---
OT Current Status-Daily Note Subjective Pt. reports pain in upper right thigh, but does not give a pain level. Nursing notified and asked for pain meds. Appearance Pt. is sitting on side of bed. Agrees to shower. Mental Status/Objective Patient Orientation: Person Functional [place] Measure 0=Not Assessed/NA 4=Minimal Assistance 1=Total Assistance 5=Supervision or Setup 2=Maximal Assistance 6=Modified [place] 3=Moderate Assistance 7=Complete [place] ADL-Treatment Functional [place] Measure 0=Not Assessed/NA 4=Minimal Assistance 1=Total Assistance 5=Supervision or Setup 2=Maximal Assistance 6=Modified [place] 3=Moderate Assistance 7=Complete IndependenceIRFPAI Quality Coding Scale 6 Independent with activity with or without an assistive device 5 Patient requires set up or clean up by helper. Patient completes activity by themselves 4 Supervision or touching assist (CGA). [place] provide cues , steadying assist 3 The helper provides less than half the effort to complete the activity 2 The helper provides more than half the effort to complete the activity 1 Dependent. The helper does all the effort to complete an activity 7 Patient refused to complete or attempt activity 9 The patient did not perform the activity before the current illness or injury 88 Not attempted due to Medical conditions or safety concerns Grooming (FIM): 5 (Pt. requires SBA to comb hair.) Bathing (FIM): 4 (Pt. requires CGA for stance in shower.) Shower/Bathe Self (QC): 4 Upper Body (FIM): 5 (Set up with shirt.) Upper Body Dressing (QC): 5 Lower Body Dressing (FIM): 3 (Pt. requires mod assist overall for LE dressing. Has difficulty manipulating pants over feet., or donning socks.) Lower Body Dressing (QC): 3 On/Off Footwear (QC): 3 (Able to doff them, but has difficulty in shower setting getting feet up to put them back on.) Toileting (FIM): 5 (Pt. is able to cleanse rear thu area after toileting.) Toileting Hygiene (QC): 4 Transfers (B, C, W/C) (FIM): 4 (CGA in stance to ambualate to therapy gym.) Toilet/Commode Transfer (FIM): 4 Toilet Transfer (QC): 4 Pt. ambulated to therapy gym. Donned 1 lb. wrist weights and completed series of fine motor coordination tasks. Noted that pt. seemed to be having difficulty with pincer grasp strength on left hand. Did not note this yesterday , but pt. states that he was having this weakness for at least the last two months. Does not know why. Tolerated treatment well but continued to have difficulty with pincer grasp with small items. Ambulated back to room after treatment. Education OT Patient Education: Correct positioning, Exercise program, Modified ADL techniques, Progress toward Goal/Update tx plan, Purpose of tx/functional activities, Reviewed precautions, Rehab process, Transfer techniques Teaching Recipient: Patient Teaching Methods: Demonstration, Discussion Response to Teaching: Verbalize Understanding, Return Demonstration OT Short Term Goals Short Term Goals Time Frame: Oct 03, 2016 Eating(FIM): 5 Grooming(FIM): 5 Bathing(FIM): 5 Upper Body Dressing(FIM): 5 Lower Body Dressing(FIM): 5 Toileting(FIM): 5 Transfers (B,C,W/C) (FIM): 5 Toilet/Commode Transfer(FIM): 5 Shower Transfer(FIM): 5 Additional Short Term Goals: 1-Demonstrate ADL Tasks, 2-Verbalize Understanding , 3-ImproveStrength/Mya 1=Demonstrate adherence to instructed precautions during ADL tasks. 2=Patient will verbalize/demonstrate understanding of assistive devices/ modifications for ADL. 3=Patient will improve strength/tolerance for activity to enable patient to perform ADL's. OT Ethnology Teacher Goals Skilled Nursing Goals Time Frame: Oct 10, 2016 Eating (FIM): 6 Eating (QC): 6 Groomin Oral Hygiene (QC): 6 Bathing(FIM): 5 Shower/Bathe Self (QC): 5 Upper Body Dressing(FIM): 6 Upper Body Dressing (QC): 6 Lower Body Dressing(FIM): 6 Lower Body Dressing (QC): 6 On/Off Footwear (QC): 6 Toileting(FIM): 6 Toileting Hygiene (QC): 6 Transfers (B,C,W/C) (FIM): 6 Toilet/Commode Transfer(FIM): 6 Toilet/Commode Transfer (QC): 6 Shower Transfer(FIM): 5 Comprehension(FIM): 5 Expression (FIM): 5 Social Interaction(FIM): 5 Problem Solving(FIM): 4 Memory(FIM): 4 Additional Goals: 1-Demonstrate ADL Tasks, 2-Verbalize Understanding, 3- ImproveStrength/Mya 1=Demonstrate adherence to instructed precautions during ADL tasks. 2=Patient will verbalize/demonstrate understanding of assistive devices/ modifications for ADL. 3=Patient will improve strength/tolerance for activity to enable patient to perform ADL's. OT Education/Plan Problem List/Assessment Assessment: Decreased Activ Tolerance, Decreased Safety Aware, Decreased UE Strength, Dependent Transfers, Impaired Bed Mobility, Impaired Cognition, Impaired Coordination, Impaired Funct Balance, Impaired I ADL's, Impaired Self- Care Skills, Restricted Funct UE ROM Discharge Recommendations Plan/Recommendations: Continue POC Therapy D/C Recommendations: Assisted Living Equpiment Recommendations-D/C: Bath Chair Barriers to Progress Cognition Target Placement Pt. to transfer home. However, would benefit from assisted living. Treatment Plan/Plan of Care Treatment,Training & Education: Yes Patient would benefit from OT for education, treatment and training to promote independence in ADL's, mobility, safety and/or upper extremity function for ADL' s. Plan of Care: ADL Retraining, Functional Mobility, UE Funct Exercise/Act Treatment Duration: Oct 10, 2016 Visits Per Week: 10-12 Agreement: Yes (-) Rehab Potential: Fair Time/GCodes Start Time: 10:30 Stop Time: 11:45 Total Time Billed (hr/min): 75 Billed Treatment Time 1, ADL x 45minutes, FA x 30minutes ALINA JARRELL OT Sep 27, 2016 14:55
--- NOTE | 2016-09-27 15:07 | Physical Therapy Daily Note ---
PT Daily Note-Current Subjective Pt sitting at EOB with nursing assisting pt in dressing upon arrival. Pt reports pain of 8/10 in both BLE and low back. Pt agrees to PT. Pain Numeric Pain Scale: 8 Location: Lower, Dorsal Location Body Site: Back Pain Description: Ache Comment: Pt reports pain in both low back and BLE. Mental Status Patient Orientation: Person, Confused Transfers Functional [place] Measure 0=Not Assessed/NA 4=Minimal Assistance 1=Total Assistance 5=Supervision or Setup 2=Maximal Assistance 6=Modified [place] 3=Moderate Assistance 7=Complete IndependenceIRFPAI Quality Coding Scale 6 Independent with activity with or without an assistive device 5 Patient requires set up or clean up by helper. Patient completes activity by themselves 4 Supervision or touching assist (CGA). [place] provide cues , steadying assist 3 The helper provides less than half the effort to complete the activity 2 The helper provides more than half the effort to complete the activity 1 Dependent. The helper does all the effort to complete an activity 7 Patient refused to complete or attempt activity 9 The patient did not perform the activity before the current illness or injury 88 Not attempted due to Medical conditions or safety concerns Transfers (B, C, W/C) (FIM): 5 Scootin Sit to/from Stand: 5 Sit to Stand (QC): 5 Weight Bearing Weight Bearing Restriction: Full Weight Bearing Location Restriction: LE Bilateral Gait Training Does the Patient Walk?: Yes Gait (FIM): 4 Distance (FIM): 3=150 ft Distance: 100 + 150= 250' Walk 10 feet (QC): 5 Walk 50 ft with 2 Turns(QC): 4 Walk 150 ft (QC): 4 Gait Level of Assist: 4 Gait Persons Needed: 1 Gait Assistive Device: FWW Pt walks with normalized gait pattern although pt fatigues easy and gets SOB. Wheelchair Training Does the Pt Use a Wheelchair?: No Stair Training Stair Training: Handrails/: 2 handrails Stairs (FIM): 2 #of Steps: 4 1 Step (curb) (QC): 5 4 Steps (QC): 5 12 Steps (QC): 88 Stairs: Pattern: Reciprocal Level of Assist: 5 Pt is unsteady when ambulating stairs at the end of descending last couple of stairs and is fatigued. Pt didn't attempt additional stairs due to SOB and fatigue. Exercises NuStep Minutes: 8 NuStep Workload: 3 Treatments Pt transfers from EOB to standing using FWW at close SBA. Pt ambulates in [facility] using FWW at [facility] due to unsteadiness and fatigue. Pt transfers to NuStep chair at SBA to rest before using for 8m at Workload 3. Pt again takes short rest break before ambulating stairs. Pt then takes short rest and transfers from chair to standing using FWW at close SBA. Pt ambulates back to room using FWW at [facility]. Pt transfers back to EOB at SBA with all needs met at end of tx. Assessment Current Status: Fair Progress Pt is impulsive and unaware of when he gets SOB and fatigued. Pt needs VC for hand placement and sequencing during transfers. PT Short Term Goals Short Term Goals Time Frame: Oct 03, 2016 Transfers (B,C,W/C) (FIM): 5 Gait (FIM): 5 Gait Distance Comment: 200' Gait Level of Assist: 5 Gait Assistive Device: FWW PT Chcf Goals Product Marketing Manager Goals PT Product Marketing Manager Goals Time Frame: Oct 17, 2016 Transfers (B,C,W/C) (FIM): 6 Sit to Lying (QC): 6 Lying-Sitting on Side/Bed(QC): 6 Sit to Stand (QC): 6 Rollin Roll Left to Right (QC): 6 Car Transfer (QC): 4 Does the Patient Walk: Yes Gait (FIM): 6 Distance: 300' Walk 10 feet (QC): 6 Walk 10ft-Uneven Surface(QC): 6 Walk 50ft with 2 Turns (QC): 6 Walk 150 ft (QC): 6 Gait Assistive Device: FWW Stairs (FIM): 5 # of Steps: 12 1 Step (curb) (QC): 4 4 Steps (QC): 4 12 Steps (QC): 4 Stairs Level Of Assist: 5 Picking up an Object (QC): 4 PT Plan Problem List Problem List: Activity Tolerance, Functional Strength, Safety, Balance, Gait, Transfer Treatment/Plan Treatment Plan: Continue Plan of Care Treatment Plan: Bed Mobility, Education, Functional Activity Mya, Functional Strength, Group Therapy, Gait, Safety, Therapeutic Exercise, Transfers Treatment Duration: Oct 17, 2016 Visits Per Week: 10-11 Minutes/Day (M-F): 60-90 Minutes/Day (Sat/[place]ardo): 15-30 Safety Risks/Education Patient Education: Gait Training, Transfer Techniques, Correct Positioning, Safety Issues Teaching Recipient: Patient Teaching Methods: Discussion Response to Teaching: Reinforcement Needed Time/GCodes Time In: 915 Time Out: 1000 Total Billed Treatment Time: 45 Total Billed Treatment visit, EX (15m), GT (15m) & FA (15m) AUSTIN JAMES PTA Sep 27, 2016 15:07
--- NOTE | 2016-09-27 16:39 | Physical Therapy Daily Note ---
PT Daily Note-Current Subjective Pt sitting at EOB upon arrival. Pt agrees to PT. Pain Numeric Pain Scale: 8 Location: Right, Left Location Body Site: Thigh Pain Description: Ache Mental Status Patient Orientation: Person, Place Transfers Functional [place] Measure 0=Not Assessed/NA 4=Minimal Assistance 1=Total Assistance 5=Supervision or Setup 2=Maximal Assistance 6=Modified [place] 3=Moderate Assistance 7=Complete IndependenceIRFPAI Quality Coding Scale 6 Independent with activity with or without an assistive device 5 Patient requires set up or clean up by helper. Patient completes activity by themselves 4 Supervision or touching assist (CGA). [place] provide cues , steadying assist 3 The helper provides less than half the effort to complete the activity 2 The helper provides more than half the effort to complete the activity 1 Dependent. The helper does all the effort to complete an activity 7 Patient refused to complete or attempt activity 9 The patient did not perform the activity before the current illness or injury 88 Not attempted due to Medical conditions or safety concerns Transfers (B, C, W/C) (FIM): 5 Scootin Sit to/from Stand: 5 Sit to Stand (QC): 5 Weight Bearing Weight Bearing Restriction: Full Weight Bearing Location Restriction: LE Bilateral Gait Training Does the Patient Walk?: Yes Gait (FIM): 4 Distance (FIM): 3=150 ft Distance: 200' Walk 10 feet (QC): 4 Walk 50 ft with 2 Turns(QC): 4 Walk 150 ft (QC): 4 Gait Level of Assist: 4 Gait Persons Needed: 1 Gait Assistive Device: FWW Pt walks with FWW but is slightly unsteady so PT uses [facility] for ambulation. Wheelchair Training Does the Pt Use a Wheelchair?: No Exercises Standing: Hip Abduction, Heel/toe raises, Marching, Mini squats, Sit to Stand ( 5 reps) Standing Reps: 20 Treatments Pt transferred from EOB to standing using FWW at A. Pt ambulates using FWW at [facility]. Pt ambulates to Therapy Gym and rest in chair when arrived. Pt then completes sit to stands at //bars with brief rest in between each. Pt then completes standing EX at //bars with a couple short rests. Pt then ambulates back to room due to fatigue. Pt transfers to EOB at A at end of tx. Pt is left with all needs met. Assessment Current Status: Good Progress Pt reports ambulation was easier to complete and able to increase trisha after EX. Pt is making progress with strengthening. PT Short Term Goals Short Term Goals Time Frame: Oct 03, 2016 Transfers (B,C,W/C) (FIM): 5 Gait (FIM): 5 Gait Distance Comment: 200' Gait Level of Assist: 5 Gait Assistive Device: FWW PT Nut Picker Goals Half-Way Goals PT Half-Way Goals Time Frame: Oct 17, 2016 Transfers (B,C,W/C) (FIM): 6 Sit to Lying (QC): 6 Lying-Sitting on Side/Bed(QC): 6 Sit to Stand (QC): 6 Rollin Roll Left to Right (QC): 6 Car Transfer (QC): 4 Does the Patient Walk: Yes Gait (FIM): 6 Distance: 300' Walk 10 feet (QC): 6 Walk 10ft-Uneven Surface(QC): 6 Walk 50ft with 2 Turns (QC): 6 Walk 150 ft (QC): 6 Gait Assistive Device: FWW Stairs (FIM): 5 # of Steps: 12 1 Step (curb) (QC): 4 4 Steps (QC): 4 12 Steps (QC): 4 Stairs Level Of Assist: 5 Picking up an Object (QC): 4 PT Plan Problem List Problem List: Activity Tolerance, Functional Strength, Safety, Balance, Gait Treatment/Plan Treatment Plan: Continue Plan of Care Treatment Plan: Bed Mobility, Education, Functional Activity Mya, Functional Strength, Group Therapy, Gait, Safety, Therapeutic Exercise, Transfers Treatment Duration: Oct 17, 2016 Visits Per Week: 10-11 Minutes/Day (M-F): 60-90 Minutes/Day (Sat/Fajardo): 15-30 Safety Risks/Education Patient Education: Gait Training, Transfer Techniques, Correct Positioning, Safety Issues Teaching Recipient: Patient Teaching Methods: Discussion Response to Teaching: Verbalize Understanding Time/GCodes Time In: 1400 Time Out: 1430 Total Billed Treatment Time: 30 Total Billed Treatment visit, GT (15m) & EX (15m) AUSTIN JAMES PTA Sep 27, 2016 16:39
[2016-09-27 17:25] VITALS: BP 147/88
[2016-09-27] MEDS: traZODone 150 MG (DESYREL) TABLET PO SCH (19:50)
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
[2016-09-28] MEDS: RT-ALBUTEROL/IPRATROPIUM 3 ML (DUONEB) VIAL INH SCH ×5 (02:00→20:56)
[2016-09-28] MEDS: LEVOTHYROXINE 100 MCG (LEVOTHROID) TAB PO SCH (05:37)
[2016-09-28] MEDS: PANTOPRAZOLE 20 MG TABLET (PROTONIX) PO SCH (05:37)
[2016-09-28] MEDS: LEVOTHYROXINE 75 MCG (LEVOTHROID) TABLET PO SCH (05:37)
[2016-09-28] MEDS: MULTIVIT W/MINERALS TAB (THERAGRAN M) PO SCH (05:38)
[2016-09-28] MEDS: HYDROcodone/APAP 7.5 MG/325 MG (LORTAB, LORCET PLUS) TABLET PO PRN ×4 (05:38→18:01)
[2016-09-28 05:41] VITALS: BP 170/93
[2016-09-28] MEDS: RT-ADVAIR HFA 115/21 MCG PER PUFF IH SCH ×2 (06:16→20:56)
[2016-09-28] MEDS: DICLOFENAC 1% GEL 100 GM (VOLTAREN) TUBE TOP SCH ×4 (08:15→20:23)
[2016-09-28] MEDS: lisINopril 20 MG (ZESTRIL) TAB PO SCH (08:15)
[2016-09-28] MEDS: CYANOCOBALAMIN 500 MCG TAB (VITAMIN B-12) PO SCH (08:15)
[2016-09-28] MEDS: HYDROCHLOROTHIAZIDE 25 MG (HCTZ) TAB PO SCH (08:15)
[2016-09-28] MEDS: NAPROXEN 250 MG (NAPROSYN) TABLET PO PRN ×2 (08:19→18:23)
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
[2016-09-28] MEDS: MUPIROCIN 2% OINT 22 GM (BACTROBAN) TUBE TOP SCH ×2 (11:24→20:24)
[2016-09-28] MEDS: ENOXAPARIN 40 MG/0.4 ML (LOVENOX) SYR SC SCH (11:24)
[2016-09-28] MEDS: predniSONE 10 MG TAB PO SCH (11:25)
[2016-09-28] MEDS: LORazepam 1 MG (ATIVAN) TAB PO PRN (11:48)
--- NOTE | 2016-09-28 13:06 | Occupational Ther Daily Note ---
OT Current Status-Daily Note Subjective Pt. reports pain in calf of right LE. Does not state pain level, and has had pain medication per nursing. Pt. does report that he is unsure of why he has this pain, but that he does have some bruising in calf. Appearance Pt. is on side of bed. Declines showering, as he had a shower yesterday. Does agree however to work with OT. Mental Status/Objective Patient Orientation: Person Functional [place] Measure 0=Not Assessed/NA 4=Minimal Assistance 1=Total Assistance 5=Supervision or Setup 2=Maximal Assistance 6=Modified [place] 3=Moderate Assistance 7=Complete [place] ADL-Treatment Functional [place] Measure 0=Not Assessed/NA 4=Minimal Assistance 1=Total Assistance 5=Supervision or Setup 2=Maximal Assistance 6=Modified [place] 3=Moderate Assistance 7=Complete IndependenceIRFPAI Quality Coding Scale 6 Independent with activity with or without an assistive device 5 Patient requires set up or clean up by helper. Patient completes activity by themselves 4 Supervision or touching assist (CGA). [place] provide cues , steadying assist 3 The helper provides less than half the effort to complete the activity 2 The helper provides more than half the effort to complete the activity 1 Dependent. The helper does all the effort to complete an activity 7 Patient refused to complete or attempt activity 9 The patient did not perform the activity before the current illness or injury 88 Not attempted due to Medical conditions or safety concerns On/Off Footwear (QC): 4 (Pt. issued adaptive equipment today. Practiced doffing/donning socks with dressing stick, drill press set up operator radial, and sock aide. Required frequent cues and min assist.) Pt. ambulated to therapy gym with CGA. Pt. does require cues each time he goes to stand up, to push up from chair. Once in the gym, pt. practiced doffing/ donning socks utilizing adaptive equipment. Required min assist for this, even after practicing a couple of times. In therapy gym, pt. tolerated 15 minutes on armbike, at 5 minute intervals. OT continually monitored oxygen sats, as he did not have oxygen on. Sats stayed between 91-96%. Completed armbike to increase overall strength for daily tasks. Pt. states that his left hand feels weaker. States that he does not know why this is, but that he thinks it has been this way for several months. Completed several brief fine motor coordination tasks. Pt. completed peg activity with left hand, but quit detention through stating, "I'm tired." Pt. then participated in beading activity with left hand, and was able to complete this task well. Ambulated again approximately 150 feet, but requested to sit down. Rested approximately 5 minutes, and then finished ambulating. Went back to room where all needs were met. Education OT Patient Education: Correct positioning, Exercise program, Modified ADL techniques, Progress toward Goal/Update tx plan, Purpose of tx/functional activities, Reviewed precautions, Rehab process, Transfer techniques, Use of adapted equipment Teaching Recipient: Patient Teaching Methods: Demonstration, Discussion Response to Teaching: Verbalize Understanding, Return Demonstration OT Short Term Goals Short Term Goals Time Frame: Oct 03, 2016 Eating(FIM): 5 Grooming(FIM): 5 Bathing(FIM): 5 Upper Body Dressing(FIM): 5 Lower Body Dressing(FIM): 5 Toileting(FIM): 5 Transfers (B,C,W/C) (FIM): 5 Toilet/Commode Transfer(FIM): 5 Shower Transfer(FIM): 5 Additional Short Term Goals: 1-Demonstrate ADL Tasks, 2-Verbalize Understanding , 3-ImproveStrength/Mya 1=Demonstrate adherence to instructed precautions during ADL tasks. 2=Patient will verbalize/demonstrate understanding of assistive devices/ modifications for ADL. 3=Patient will improve strength/tolerance for activity to enable patient to perform ADL's. OT Detention Goals Highway Maintenance Worker Goals Time Frame: Oct 10, 2016 Eating (FIM): 6 Eating (QC): 6 Groomin Oral Hygiene (QC): 6 Bathing(FIM): 5 Shower/Bathe Self (QC): 5 Upper Body Dressing(FIM): 6 Upper Body Dressing (QC): 6 Lower Body Dressing(FIM): 6 Lower Body Dressing (QC): 6 On/Off Footwear (QC): 6 Toileting(FIM): 6 Toileting Hygiene (QC): 6 Transfers (B,C,W/C) (FIM): 6 Toilet/Commode Transfer(FIM): 6 Toilet/Commode Transfer (QC): 6 Shower Transfer(FIM): 5 Comprehension(FIM): 5 Expression (FIM): 5 Social Interaction(FIM): 5 Problem Solving(FIM): 4 Memory(FIM): 4 Additional Goals: 1-Demonstrate ADL Tasks, 2-Verbalize Understanding, 3- ImproveStrength/Mya 1=Demonstrate adherence to instructed precautions during ADL tasks. 2=Patient will verbalize/demonstrate understanding of assistive devices/ modifications for ADL. 3=Patient will improve strength/tolerance for activity to enable patient to perform ADL's. OT Education/Plan Problem List/Assessment Assessment: Decreased Activ Tolerance, Decreased Safety Aware, Decreased UE Strength, Dependent Transfers, Impaired Bed Mobility, Impaired Cognition, Impaired Coordination, Impaired Funct Balance, Impaired I ADL's, Impaired Self- Care Skills, Restricted Funct UE ROM Discharge Recommendations Plan/Recommendations: Continue POC Therapy D/C Recommendations: Home Independently, Occupational Therapy Home Care Treatment Plan/Plan of Care Treatment,Training & Education: Yes Patient would benefit from OT for education, treatment and training to promote independence in ADL's, mobility, safety and/or upper extremity function for ADL' s. Plan of Care: ADL Retraining, Functional Mobility, UE Funct Exercise/Act Treatment Duration: Oct 10, 2016 Visits Per Week: 10-12 Minutes/Day (M-F): 60-90 Minutes/Day (Sat/Fajardo): 15-30 Agreement: Yes (10-12) Rehab Potential: Fair Time/GCodes Start Time: 09:30 Stop Time: 10:45 Total Time Billed (hr/min): 75 Billed Treatment Time 1, EX x 30minutes, FA x 45minutes ALINA JARRELL OT Sep 28, 2016 13:06
--- NOTE | 2016-09-28 13:12 | Speech Therapy Daily Note ---
Speech Daily Progress Note Subjective The patient was seated upright in bed upon entrance. The patient greeted the clinician appropriately and agreed to participate in the cognitive treatment session on this date. Objective Assessment of Language Related Functional Activities (FABIO) was initiated on this date to evaluate functional tasks in the patient's environment: - Telling Time: The patient demonstrated 90% accuracy with telling time on an analog clock. - Solving Daily Math Problems: The patient demonstrated 70% accuracy with mild clinician verbal cueing with simple math problems (time calculations, bill addition, etc.) - Reading a Calendar: The patient was unable to complete all calendar tasks due to reduced vision and the absence of his reading glasses. The verbal portions of the calendar, the patient completed with 100% accuracy, independently. - Writing a Phone Message: The patient was able to repeat phone messages ( important details) with 70% accuracy and moderate clinician verbal cueing for repetition. Assessment Assessment Current Status: Fair Progress Treatment Plan Continue Plan of Care Communication Comprehension: 3 Expression: 3 Social Cognition Social Interaction: 3 Problem Solvin Memory: 2 Speech Short Term Goals Short Term Goals Short Term Goals 1. The patient will display 80% accuracy with functional safety problem solving (independently). 2. The patient will recall and demonstrate three functional memory strategies for use at home and throughout skilled tasks (mild clinician prompting). 3. The patient will recall three to four items immediately and following a five minute delay (independently). Time Frame-STG: Two Weeks Speech Dispatcher Radio Goals [facility] Goals 1. The patient will display improved cognitive skills for increased function and safety with ADL's in the least restrictive setting. Time Frame: Four Weeks Comprehension: 5 Expression: 5 Social Interaction: 5 Problem Solvin Memory: 4 Speech-Plan Treatment Plan Speech Therapy Treatment Plan: Continue Plan of Care Continued skilled speech services to target functional problem solving and memory strategies for use at home. Treatment Duration: Oct 24, 2016 # of days/week Four to five. Visits Per Week: Four to five Minutes/Day (M-F): 30 Rehab Potential: Fair Safety Risks/Education Teaching Recipient: Patient Teaching Methods: Discussion Response to Teaching: Verbalize Understanding, Return Demonstration Education Topics Provided: Orientation Strategies Time Speech Therapy Time In: 08:45 Speech Therapy Time Out: 09:15 Total Billed Time: 30 Billed Treatment Time 1EDER ELIZABETH Sep 28, 2016 13:12
--- NOTE | 2016-09-28 15:25 | Physical Therapy Daily Note ---
PT Daily Note-Current Subjective Pt sitting at EOB upon arrival. Pt reports 10/10 pain in BLE as well as low back. Pt is given pain meds per nursing. Pt reports more pain while ambulating /WB then when not. Pt agrees to PT. Pt needs breathing tx before leaving room for PT. Pain Numeric Pain Scale: 10-Worst Possible Pain Location: Right, Lower Location Body Site: Calf Pain Description: Sharp Mental Status Patient Orientation: Person, Place, Situation Transfers Functional [place] Measure 0=Not Assessed/NA 4=Minimal Assistance 1=Total Assistance 5=Supervision or Setup 2=Maximal Assistance 6=Modified [place] 3=Moderate Assistance 7=Complete IndependenceIRFPAI Quality Coding Scale 6 Independent with activity with or without an assistive device 5 Patient requires set up or clean up by helper. Patient completes activity by themselves 4 Supervision or touching assist (CGA). [place] provide cues , steadying assist 3 The helper provides less than half the effort to complete the activity 2 The helper provides more than half the effort to complete the activity 1 Dependent. The helper does all the effort to complete an activity 7 Patient refused to complete or attempt activity 9 The patient did not perform the activity before the current illness or injury 88 Not attempted due to Medical conditions or safety concerns Scootin Sit to/from Stand: 5 Sit to Stand (QC): 5 Weight Bearing Weight Bearing Restriction: Full Weight Bearing Location Restriction: LE Bilateral Gait Training Does the Patient Walk?: Yes Gait (FIM): 5 Distance (FIM): 3=150 ft Distance: 150' Walk 10 feet (QC): 5 Walk 50 ft with 2 Turns(QC): 5 Walk 150 ft (QC): 5 Gait Level of Assist: 5 Gait Persons Needed: 1 Gait Assistive Device: FWW Pt walks with slight antalgic gait pattern due to pain in LE. Wheelchair Training Does the Pt Use a Wheelchair?: No Exercises Standing: Hip Abduction, Heel/toe raises, Marching, Mini squats Standing Reps: 20 NuStep Minutes: 16 NuStep Workload: 3 Treatments Pt transfers sit to stand from EOB using FWW at SBA. RT then arrives for breathing tx. After Pt ambulates in Therapy Commons to Therapy Gym. Pt is a little SOB and rests at NuStep at SBA. Pt uses NuStep for 16m at Workload 3. Pt takes rest break at 10m adwoa but wants to continue using NuStep a little longer due to less pain when working. Pt transfers to standing and completes Standing Ex at //bars with a couple of brief rest breaks during Ex. Pt then ambulates back to room to rest at EOB. Pt is left with all needs met at end of tx. Assessment Current Status: Good Progress RT reports to PT that pt is suppose to be on 3L of O2 so PT puts pt on O2 during tx and continues when back in room. O2 SATs at WNL with O2 on. Pt tolerates tx better after NuStep. Pt reports it helps loosen up tight LE muscles. Pt still fatigues easy but not as SOB. PT Short Term Goals Short Term Goals Time Frame: Oct 03, 2016 Transfers (B,C,W/C) (FIM): 5 Gait (FIM): 5 Gait Distance Comment: 200' Gait Level of Assist: 5 Gait Assistive Device: FWW PT Manager Patient Goals Manager Patient Goals PT Residential Goals Time Frame: Oct 17, 2016 Transfers (B,C,W/C) (FIM): 6 Sit to Lying (QC): 6 Lying-Sitting on Side/Bed(QC): 6 Sit to Stand (QC): 6 Rollin Roll Left to Right (QC): 6 Car Transfer (QC): 4 Does the Patient Walk: Yes Gait (FIM): 6 Distance: 300' Walk 10 feet (QC): 6 Walk 10ft-Uneven Surface(QC): 6 Walk 50ft with 2 Turns (QC): 6 Walk 150 ft (QC): 6 Gait Assistive Device: FWW Stairs (FIM): 5 # of Steps: 12 1 Step (curb) (QC): 4 4 Steps (QC): 4 12 Steps (QC): 4 Stairs Level Of Assist: 5 Picking up an Object (QC): 4 PT Plan Problem List Problem List: Activity Tolerance, Safety, Balance, Gait Treatment/Plan Treatment Plan: Continue Plan of Care Treatment Plan: Bed Mobility, Education, Functional Activity Mya, Functional Strength, Group Therapy, Gait, Safety, Therapeutic Exercise, Transfers Treatment Duration: Oct 17, 2016 Visits Per Week: 10-11 Minutes/Day (M-F): 60-90 Minutes/Day (Sat/[place]): 15-30 Safety Risks/Education Patient Education: Gait Training, Transfer Techniques, Correct Positioning, Safety Issues Teaching Recipient: Patient Teaching Methods: Discussion Response to Teaching: Verbalize Understanding Time/GCodes Time In: 1045 Time Out: 1130 Total Billed Treatment Time: 45 Total Billed Treatment visit, GT (15m) & EX X2 (30m) AUSTIN JAMES CONTINUOUS IMPROVEMENT DIRECTOR Sep 28, 2016 15:25
--- NOTE | 2016-09-28 15:54 | Physical Therapy Daily Note ---
PT Daily Note-Current Subjective Pt is supine in bed upon arrival. Pt agrees to PT although reports pain in BLE. Pain Numeric Pain Scale: 8 Location: Right, Left Location Body Site: Thigh Pain Description: Ache, Tightness Mental Status Patient Orientation: Person, Place, Situation Attachments: Oxygen Transfers Functional [place] Measure 0=Not Assessed/NA 4=Minimal Assistance 1=Total Assistance 5=Supervision or Setup 2=Maximal Assistance 6=Modified [place] 3=Moderate Assistance 7=Complete IndependenceIRFPAI Quality Coding Scale 6 Independent with activity with or without an assistive device 5 Patient requires set up or clean up by helper. Patient completes activity by themselves 4 Supervision or touching assist (CGA). [place] provide cues , steadying assist 3 The helper provides less than half the effort to complete the activity 2 The helper provides more than half the effort to complete the activity 1 Dependent. The helper does all the effort to complete an activity 7 Patient refused to complete or attempt activity 9 The patient did not perform the activity before the current illness or injury 88 Not attempted due to Medical conditions or safety concerns Transfers (B, C, W/C) (FIM): 5 Scootin Rollin Roll Left to Right (QC): 5 Supine to/from Sit: 5 Sit to/from Stand: 5 Sit to Lying (QC): 5 Sit to Stand (QC): 5 Weight Bearing Weight Bearing Restriction: Full Weight Bearing Location Restriction: LE Bilateral Gait Training Does the Patient Walk?: Yes Gait (FIM): 2 Distance (FIM): 1=up to 49 ft Distance: 25' Walk 10 feet (QC): 5 Gait Assistive Device: FWW Pt reports pain with ambulation/WB in R calf. Wheelchair Training Does the Pt Use a Wheelchair?: No Exercises Supine Ex: Ankle pumps, Quad Set, Rolling, Heel Slides, Scooting, Straight leg raise, Hip abd/add Supine Reps: 20 Treatments Pt completes supine EX in bed. Pt then reports needing to use restroom for BM. Pt ambulates to restroom using FWW at SBA. After toileting, pt returns to supine in bed using FWW at SBA. Pt left with all needs met at end of tx. Assessment Pt not able to have BM. PT reports pain with WB/ambulation. PT Short Term Goals Short Term Goals Time Frame: Oct 03, 2016 Transfers (B,C,W/C) (FIM): 5 Gait (FIM): 5 Gait Distance Comment: 200' Gait Level of Assist: 5 Gait Assistive Device: FWW PT Skilled Nursing Goals Skilled Nursing Goals PT Skilled Nursing Goals Time Frame: Oct 17, 2016 Transfers (B,C,W/C) (FIM): 6 Sit to Lying (QC): 6 Lying-Sitting on Side/Bed(QC): 6 Sit to Stand (QC): 6 Rollin Roll Left to Right (QC): 6 Car Transfer (QC): 4 Does the Patient Walk: Yes Gait (FIM): 6 Distance: 300' Walk 10 feet (QC): 6 Walk 10ft-Uneven Surface(QC): 6 Walk 50ft with 2 Turns (QC): 6 Walk 150 ft (QC): 6 Gait Assistive Device: FWW Stairs (FIM): 5 # of Steps: 12 1 Step (curb) (QC): 4 4 Steps (QC): 4 12 Steps (QC): 4 Stairs Level Of Assist: 5 Picking up an Object (QC): 4 PT Plan Problem List Problem List: Activity Tolerance, Functional Strength, Safety, Balance, Gait Treatment/Plan Treatment Plan: Continue Plan of Care Treatment Plan: Bed Mobility, Education, Functional Activity Mya, Functional Strength, Group Therapy, Gait, Safety, Therapeutic Exercise, Transfers Treatment Duration: Oct 17, 2016 Visits Per Week: 10-11 Minutes/Day (M-F): 60-90 Minutes/Day (Sat/[place]): 15-30 Safety Risks/Education Patient Education: Gait Training, Transfer Techniques, Correct Positioning, Safety Issues Teaching Recipient: Patient Teaching Methods: Discussion Response to Teaching: Verbalize Understanding Time/GCodes Time In: 1345 Time Out: 1415 Total Billed Treatment Time: 30 Total Billed Treatment visit, FA (10m) & EX (20m) AUSTIN JAMES JOB PLACEMENT COUNSELOR Sep 28, 2016 15:54
[2016-09-28 17:59] VITALS: BP 145/80
[2016-09-28] MEDS: traZODone 150 MG (DESYREL) TABLET PO SCH (20:23)
[2016-09-29] MEDS: RT-ALBUTEROL/IPRATROPIUM 3 ML (DUONEB) VIAL INH SCH ×6 (02:25→20:38)
[2016-09-29] MEDS: HYDROcodone/APAP 7.5 MG/325 MG (LORTAB, LORCET PLUS) TABLET PO PRN ×5 (02:36→20:03)
[2016-09-29 05:50] VITALS: BP 147/83
[2016-09-29] MEDS: LEVOTHYROXINE 100 MCG (LEVOTHROID) TAB PO SCH (06:14)
[2016-09-29] MEDS: PANTOPRAZOLE 20 MG TABLET (PROTONIX) PO SCH (06:15)
[2016-09-29] MEDS: LEVOTHYROXINE 75 MCG (LEVOTHROID) TABLET PO SCH (06:15)
[2016-09-29] MEDS: MULTIVIT W/MINERALS TAB (THERAGRAN M) PO SCH (06:15)
[2016-09-29 06:39] LABS: BASOPHILS % (AUTO) 0 % (0-10); EOSINOPHILS % (AUTO) 0 % (0-10); LYMPHOCYTES # (AUTO) 0.7 X 10^3 (1.0-4.0); LYMPHOCYTES % (AUTO) 10 % (12-44); MEAN CORPUSCULAR HEMOGLOBIN 35 PG (25-34); MEAN CORPUSCULAR HGB CONC 34 G/DL (32-36); MEAN CORPUSCULAR VOLUME 103 FL (80-99); MEAN PLATELET VOLUME 8.4 FL (7.4-10.4); MONOCYTES # (AUTO) 0.9 X 10^3 (0.0-1.0); MONOCYTES % (AUTO) 13 % (0-12); NEUTROPHILS # (AUTO) 5.4 X 10^3 (1.8-7.8); NEUTROPHILS % (AUTO) 78 % (42-75); PLATELET COUNT 192 10^3/uL (130-400); RED CELL DISTRIBUTION WIDTH 13.2 % (10.0-14.5); WHITE BLOOD COUNT 6.9 10^3/uL (4.3-11.0)
[2016-09-29] MEDS: RT-ADVAIR HFA 115/21 MCG PER PUFF IH SCH ×2 (06:39→20:37)
[2016-09-29 06:56] LABS: ANION GAP 8 MMOL/L (5-14); BLOOD UREA NITROGEN 23 MG/DL (7-18); BUN/CREATININE RATIO 27; CALCIUM 9.1 MG/DL (8.5-10.1); CARBON DIOXIDE 31 MMOL/L (21-32); CHLORIDE 94 MMOL/L (98-107); CREATININE SERUM 0.85 MG/DL (0.60-1.30); GFR ESTIMATED > 60; GLUCOSE 90 MG/DL (70-105); POTASSIUM 4.5 MMOL/L (3.6-5.0); SODIUM 133 MMOL/L (135-145)
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
--- NOTE | 2016-09-29 08:42 | Physical Therapy Daily Note ---
PT Daily Note-Current Subjective Pt supine in bed with head raised upon arrival. Pt reports still having pain of 8-9/10 in R calf when WB/ambulating. Pt reports Dr Laguna has ordered an Xray due to pain, nursing confirmed. Pt's O2 is at 2L at beginning of tx. PT used portable tank at 2L during tx and monitored with Pulse Ox. Pt agreed to PT. Pain Numeric Pain Scale: 9 Location: Right Location Body Site: Calf Pain Description: Ache Mental Status Patient Orientation: Person, Place, Situation Attachments: Oxygen Transfers Functional [place] Measure 0=Not Assessed/NA 4=Minimal Assistance 1=Total Assistance 5=Supervision or Setup 2=Maximal Assistance 6=Modified [place] 3=Moderate Assistance 7=Complete IndependenceIRFPAI Quality Coding Scale 6 Independent with activity with or without an assistive device 5 Patient requires set up or clean up by helper. Patient completes activity by themselves 4 Supervision or touching assist (CGA). [place] provide cues , steadying assist 3 The helper provides less than half the effort to complete the activity 2 The helper provides more than half the effort to complete the activity 1 Dependent. The helper does all the effort to complete an activity 7 Patient refused to complete or attempt activity 9 The patient did not perform the activity before the current illness or injury 88 Not attempted due to Medical conditions or safety concerns Scootin Rollin Roll Left to Right (QC): 6 Supine to/from Sit: 6 Sit to/from Stand: 5 Sit to Lying (QC): 5 Sit to Stand (QC): 5 Weight Bearing Weight Bearing Restriction: Full Weight Bearing Location Restriction: LE Bilateral Gait Training Does the Patient Walk?: Yes Gait (FIM): 5 Distance (FIM): 3=150 ft Distance: 250' Walk 10 feet (QC): 5 Walk 50 ft with 2 Turns(QC): 5 Walk 150 ft (QC): 5 Gait Level of Assist: 5 Gait Persons Needed: 1 Gait Assistive Device: FWW Pt walks with normalized gait pattern.despite report of pain. PT walks with pt at A due to pain. Wheelchair Training Does the Pt Use a Wheelchair?: No Exercises NuStep Minutes: 8 NuStep Workload: 5 Treatments Pt transfers from supine to EOB at Mod I then EOB to standing using FWW at [facility]. Pt ambulates in Therapy Commons using FWW at [facility] to Therapy Gym. Pt rests at NuStep. Pt uses NuStep for 4m at Workload 5 then 4m at Workload 4. Pt's O2 stay between 95-97% during Ex. Pt takes brief rest in chair before standing to ambulate in Therapy Commons. Pt ambulates using FWW at SBA. Xray arrives to take pt for Xray. Pt is left with Xray staff and PT will see pt for session this afternoon. Assessment Current Status: Good Progress Pt's O2 stays between 95-97% during tx at 2L. Pt is more steady with ambulation today although still reporting pain in R calf upon WB/ambulation. PT Short Term Goals Short Term Goals Time Frame: Oct 03, 2016 Transfers (B,C,W/C) (FIM): 5 Gait (FIM): 5 Gait Distance Comment: 200' Gait Level of Assist: 5 Gait Assistive Device: FWW PT Range Technician Goals Range Technician Goals PT Range Technician Goals Time Frame: Oct 17, 2016 Transfers (B,C,W/C) (FIM): 6 Sit to Lying (QC): 6 Lying-Sitting on Side/Bed(QC): 6 Sit to Stand (QC): 6 Rollin Roll Left to Right (QC): 6 Car Transfer (QC): 4 Does the Patient Walk: Yes Gait (FIM): 6 Distance: 300' Walk 10 feet (QC): 6 Walk 10ft-Uneven Surface(QC): 6 Walk 50ft with 2 Turns (QC): 6 Walk 150 ft (QC): 6 Gait Assistive Device: FWW Stairs (FIM): 5 # of Steps: 12 1 Step (curb) (QC): 4 4 Steps (QC): 4 12 Steps (QC): 4 Stairs Level Of Assist: 5 Picking up an Object (QC): 4 PT Plan Problem List Problem List: Activity Tolerance, Safety, Balance, Gait Treatment/Plan Treatment Plan: Continue Plan of Care Treatment Plan: Bed Mobility, Education, Functional Activity Mya, Functional Strength, Group Therapy, Gait, Safety, Therapeutic Exercise, Transfers Treatment Duration: Oct 17, 2016 Visits Per Week: 10-11 Minutes/Day (M-F): 60-90 Minutes/Day (Sat/[place]): 15-30 Safety Risks/Education Patient Education: Gait Training, Transfer Techniques, Correct Positioning, Safety Issues Teaching Recipient: Patient Teaching Methods: Discussion Response to Teaching: Verbalize Understanding Time/GCodes Time In: 800 Time Out: 830 Total Billed Treatment Time: 30 Total Billed Treatment visit, GT (15m) & EX (15m) AUSTIN JAMES PTA Sep 29, 2016 08:41
[2016-09-29] MEDS: HYDROCHLOROTHIAZIDE 25 MG (HCTZ) TAB PO SCH (08:52)
[2016-09-29] MEDS: CYANOCOBALAMIN 500 MCG TAB (VITAMIN B-12) PO SCH (08:52)
[2016-09-29] MEDS: lisINopril 20 MG (ZESTRIL) TAB PO SCH (08:52)
[2016-09-29] MEDS: MUPIROCIN 2% OINT 22 GM (BACTROBAN) TUBE TOP SCH ×2 (08:52→20:03)
[2016-09-29] MEDS: DICLOFENAC 1% GEL 100 GM (VOLTAREN) TUBE TOP SCH ×4 (08:53→20:03)
[2016-09-29] MEDS: NAPROXEN 250 MG (NAPROSYN) TABLET PO PRN (09:16)
--- NOTE | 2016-09-29 10:32 | Speech Therapy Daily Note ---
Speech Daily Progress Note Subjective The patient was seated upright in bed upon entrance. The patient reported a headache and asked for pain medication. The RN was notified of the patient's request and addressed the discomfort for the patient. The patient was agreeable to cognitive treatment on this date. Objective Functional Safety Problem Solving (Picture Description): The patient was provided pictures that showed safety issues in the home environment. The patient was asked to describe the photograph to the clinician, state the safety issue, and provide a solution to make the situation more safe. The patient demonstrated fair accuracy with this task with mild clinician verbal cueing for more complete, lengthy, descriptive responses. Assessment Assessment Current Status: Good Progress Treatment Plan Continue Plan of Care Communication Comprehension: 3 Expression: 4 Social Cognition Social Interaction: 4 Problem Solvin Memory: 3 Speech Short Term Goals Short Term Goals Short Term Goals 1. The patient will display 80% accuracy with functional safety problem solving (independently). 2. The patient will recall and demonstrate three functional memory strategies for use at home and throughout skilled tasks (mild clinician prompting). 3. The patient will recall three to four items immediately and following a five minute delay (independently). Time Frame-STG: Two Weeks Speech Live In Housekeeper Goals Live In Housekeeper Goals 1. The patient will display improved cognitive skills for increased function and safety with ADL's in the least restrictive setting. Time Frame: Four Weeks Comprehension: 5 Expression: 5 Social Interaction: 5 Problem Solvin Memory: 4 Speech-Plan Treatment Plan Speech Therapy Treatment Plan: Continue Plan of Care Continue cognitive therapy to focus on safety problem solving and functional memory strategies for use at home. Treatment Duration: Oct 24, 2016 # of days/week Four to five. Visits Per Week: Four to five Minutes/Day (M-F): 30 Rehab Potential: Fair Safety Risks/Education Teaching Recipient: Patient Teaching Methods: Discussion Response to Teaching: Verbalize Understanding, Reinforcement Needed Education Topics Provided: Orientation Strategies (use of in-room white board) Time Speech Therapy Time In: 08:45 Speech Therapy Time Out: 09:15 Total Billed Time: 30 Billed Treatment Time EDER Zamora ELIZABETH Sep 29, 2016 10:32
--- NOTE | 2016-09-29 11:49 | Occupational Ther Daily Note ---
OT Current Status-Daily Note Subjective Pt sitting EOB, requests shower this morning. Mental Status/Objective Functional [place] Measure 0=Not Assessed/NA 4=Minimal Assistance 1=Total Assistance 5=Supervision or Setup 2=Maximal Assistance 6=Modified [place] 3=Moderate Assistance 7=Complete [place] Attachments: Oxygen (2L via nasal cannula) ADL-Treatment Pt sit to stand with SBA. Gait to restroom with FWW. Transfer to walk in shower with SBA. Pt requires minimal assistance for LE bathing. Able to bathe all other areas. Don pullover shirt with set up. Pt donned shorts with minimal assistance to start over feet. Stood with supervision for balance during pant hike. Pt donned socks with minimal assistance using sock aid. Stood at sink to trim rodgers with electric razor with SBA. Increased time for ADL tasks. Functional [place] Measure 0=Not Assessed/NA 4=Minimal Assistance 1=Total Assistance 5=Supervision or Setup 2=Maximal Assistance 6=Modified [place] 3=Moderate Assistance 7=Complete IndependenceIRFPAI Quality Coding Scale 6 Independent with activity with or without an assistive device 5 Patient requires set up or clean up by helper. Patient completes activity by themselves 4 Supervision or touching assist (CGA). [place] provide cues , steadying assist 3 The helper provides less than half the effort to complete the activity 2 The helper provides more than half the effort to complete the activity 1 Dependent. The helper does all the effort to complete an activity 7 Patient refused to complete or attempt activity 9 The patient did not perform the activity before the current illness or injury 88 Not attempted due to Medical conditions or safety concerns Grooming (FIM): 5 Bathing (FIM): 4 Upper Body (FIM): 5 Lower Body Dressing (FIM): 4 Shower Transfer(FIM): 5 Other Treatment Gait to therapy gym with FWW. Arm bike [id number] to increase overall strength and activity tolerance needed for functional tasks. Pt completed activity with minimal resistance and slow pace. Two rest breaks needed. Graded clothespin activity with bilateral hands to increase energy and conservation technician/pinch strength. Pt has some difficulty with left hand, but able to complete with increased time. Grooved pegboard activity with bilateral hands to increase coordination skills. Pt has increased difficulty with left hand with fatigue. Pt returned to room with needs met after session. OT Short Term Goals Short Term Goals Time Frame: Oct 03, 2016 Eating(FIM): 5 Grooming(FIM): 5 Bathing(FIM): 5 Upper Body Dressing(FIM): 5 Lower Body Dressing(FIM): 5 Toileting(FIM): 5 Transfers (B,C,W/C) (FIM): 5 Toilet/Commode Transfer(FIM): 5 Shower Transfer(FIM): 5 Additional Short Term Goals: 1-Demonstrate ADL Tasks, 2-Verbalize Understanding , 3-ImproveStrength/Mya 1=Demonstrate adherence to instructed precautions during ADL tasks. 2=Patient will verbalize/demonstrate understanding of assistive devices/ modifications for ADL. 3=Patient will improve strength/tolerance for activity to enable patient to perform ADL's. OT Non Licensed Operator Goals Non Licensed Operator Goals Time Frame: Oct 10, 2016 Eating (FIM): 6 Eating (QC): 6 Groomin Oral Hygiene (QC): 6 Bathing(FIM): 5 Shower/Bathe Self (QC): 5 Upper Body Dressing(FIM): 6 Upper Body Dressing (QC): 6 Lower Body Dressing(FIM): 6 Lower Body Dressing (QC): 6 On/Off Footwear (QC): 6 Toileting(FIM): 6 Toileting Hygiene (QC): 6 Transfers (B,C,W/C) (FIM): 6 Toilet/Commode Transfer(FIM): 6 Toilet/Commode Transfer (QC): 6 Shower Transfer(FIM): 5 Comprehension(FIM): 5 Expression (FIM): 5 Social Interaction(FIM): 5 Problem Solving(FIM): 4 Memory(FIM): 4 Additional Goals: 1-Demonstrate ADL Tasks, 2-Verbalize Understanding, 3- ImproveStrength/Mya 1=Demonstrate adherence to instructed precautions during ADL tasks. 2=Patient will verbalize/demonstrate understanding of assistive devices/ modifications for ADL. 3=Patient will improve strength/tolerance for activity to enable patient to perform ADL's. OT Education/Plan Discharge Recommendations Plan/Recommendations: Continue POC Treatment Plan/Plan of Care Patient would benefit from OT for education, treatment and training to promote independence in ADL's, mobility, safety and/or upper extremity function for ADL' s. Plan of Care: ADL Retraining, Functional Mobility, UE Funct Exercise/Act Treatment Duration: Oct 10, 2016 Visits Per Week: 10-12 Minutes/Day (M-F): 60-90 Minutes/Day (Sat/[place]): 15-30 Agreement: Yes (05-17) Rehab Potential: Fair Time/GCodes Start Time: 09:15 Stop Time: 10:30 Total Time Billed (hr/min): 75 Billed Treatment Time 1 visit, ADLx3(45minutes), EXx2(30minutes) SACHA GODINEZ OT Sep 29, 2016 11:49
[2016-09-29] MEDS: ENOXAPARIN 40 MG/0.4 ML (LOVENOX) SYR SC SCH (12:16)
[2016-09-29] MEDS: predniSONE 10 MG TAB PO SCH (12:16)
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
--- NOTE | 2016-09-29 14:21 | Physical Therapy Daily Note ---
PT Daily Note-Current Subjective Pt supine in bed upon arrival. Pt continues to report pain in R calf. Per nursing, Xray came back okay. Pt agreed to PT. Pain Numeric Pain Scale: 4 Location: Right Location Body Site: Calf Pain Description: Ache Mental Status Patient Orientation: Person, Place, Situation Attachments: Oxygen Pt decreased to 1.5 L of O2 during tx and O2 stayed at 95-97%. Transfers Functional [place] Measure 0=Not Assessed/NA 4=Minimal Assistance 1=Total Assistance 5=Supervision or Setup 2=Maximal Assistance 6=Modified [place] 3=Moderate Assistance 7=Complete IndependenceIRFPAI Quality Coding Scale 6 Independent with activity with or without an assistive device 5 Patient requires set up or clean up by helper. Patient completes activity by themselves 4 Supervision or touching assist (CGA). [place] provide cues , steadying assist 3 The helper provides less than half the effort to complete the activity 2 The helper provides more than half the effort to complete the activity 1 Dependent. The helper does all the effort to complete an activity 7 Patient refused to complete or attempt activity 9 The patient did not perform the activity before the current illness or injury 88 Not attempted due to Medical conditions or safety concerns Scootin Rollin Roll Left to Right (QC): 6 Supine to/from Sit: 6 Sit to/from Stand: 5 Sit to Lying (QC): 6 Sit to Stand (QC): 5 Weight Bearing Weight Bearing Restriction: Full Weight Bearing Location Restriction: LE Bilateral Gait Training Does the Patient Walk?: Yes Gait (FIM): 5 Distance (FIM): 3=150 ft Distance: 150' Walk 10 feet (QC): 5 Walk 50 ft with 2 Turns(QC): 5 Walk 150 ft (QC): 5 Gait Level of Assist: 5 Gait Persons Needed: 1 Gait Assistive Device: FWW Pt ambulates at beginning of tx with normalized gait but starts to limp a little on RLE by end of tx. Wheelchair Training Does the Pt Use a Wheelchair?: No Exercises Standing: Hip Abduction, Heel/toe raises, Marching, Mini squats, Weight shifts Standing Reps: 20 NuStep Minutes: 15 NuStep Workload: 4 Treatments Pt transfers from supine to EOB at Mod I then EOB to standing at SBA using FWW. Pt ambulates to Therapy Gym at [facility] using FWW. Pt uses NuStep for 15m at Workload 4. Pt then takes short rest break for standing at //bars for Standing EX. Pt then ambulates back to room to rest at end of tx. Pt transfers from standing to EOB to supine at Mod I. Pt is left with all needs met at end of tx. Assessment Current Status: Good Progress Pt reports continued pain in R calf when WB/ambulation. PT Short Term Goals Short Term Goals Time Frame: Oct 03, 2016 Transfers (B,C,W/C) (FIM): 5 Gait (FIM): 5 Gait Distance Comment: 200' Gait Level of Assist: 5 Gait Assistive Device: FWW PT Assisted Goals Assisted Goals PT Hospital Education Coordinator Goals Time Frame: Oct 17, 2016 Transfers (B,C,W/C) (FIM): 6 Sit to Lying (QC): 6 Lying-Sitting on Side/Bed(QC): 6 Sit to Stand (QC): 6 Rollin Roll Left to Right (QC): 6 Car Transfer (QC): 4 Does the Patient Walk: Yes Gait (FIM): 6 Distance: 300' Walk 10 feet (QC): 6 Walk 10ft-Uneven Surface(QC): 6 Walk 50ft with 2 Turns (QC): 6 Walk 150 ft (QC): 6 Gait Assistive Device: FWW Stairs (FIM): 5 # of Steps: 12 1 Step (curb) (QC): 4 4 Steps (QC): 4 12 Steps (QC): 4 Stairs Level Of Assist: 5 Picking up an Object (QC): 4 PT Plan Problem List Problem List: Activity Tolerance, Functional Strength, Balance, Gait Treatment/Plan Treatment Plan: Continue Plan of Care Treatment Plan: Bed Mobility, Education, Functional Activity Mya, Functional Strength, Group Therapy, Gait, Safety, Therapeutic Exercise, Transfers Treatment Duration: Oct 17, 2016 Visits Per Week: 10-11 Minutes/Day (M-F): 60-90 Minutes/Day (Sat/[place]ardo): 15-30 Safety Risks/Education Patient Education: Transfer Techniques, Correct Positioning, Safety Issues Teaching Recipient: Patient Teaching Methods: Discussion Response to Teaching: Verbalize Understanding Time/GCodes Time In: 1245 Time Out: 1330 Total Billed Treatment Time: 45 Total Billed Treatment visit, GT (15m) & EX X2 (30m) AUSTIN JAMES PTA Sep 29, 2016 14:20
[2016-09-29] MEDS: LORazepam 1 MG (ATIVAN) TAB PO PRN (14:58)
[2016-09-29 18:31] VITALS: BP 154/91
[2016-09-29] MEDS: traZODone 150 MG (DESYREL) TABLET PO SCH (20:03)
[2016-09-30 05:13] LABS: BASOPHILS % (AUTO) 0 % (0-10); EOSINOPHILS % (AUTO) 0 % (0-10); LYMPHOCYTES # (AUTO) 0.8 X 10^3 (1.0-4.0); LYMPHOCYTES % (AUTO) 11 % (12-44); MEAN CORPUSCULAR HEMOGLOBIN 34 PG (25-34); MEAN CORPUSCULAR HGB CONC 34 G/DL (32-36); MEAN CORPUSCULAR VOLUME 103 FL (80-99); MEAN PLATELET VOLUME 8.6 FL (7.4-10.4); MONOCYTES # (AUTO) 0.9 X 10^3 (0.0-1.0); MONOCYTES % (AUTO) 13 % (0-12); NEUTROPHILS # (AUTO) 5.5 X 10^3 (1.8-7.8); NEUTROPHILS % (AUTO) 76 % (42-75); PLATELET COUNT 211 10^3/uL (130-400); RED BLOOD COUNT 2.59 10^6/uL (4.35-5.85); RED CELL DISTRIBUTION WIDTH 13.4 % (10.0-14.5); WHITE BLOOD COUNT 7.2 10^3/uL (4.3-11.0)
[2016-09-30] MEDS: MULTIVIT W/MINERALS TAB (THERAGRAN M) PO SCH (05:16)
[2016-09-30] MEDS: LEVOTHYROXINE 100 MCG (LEVOTHROID) TAB PO SCH (05:16)
[2016-09-30] MEDS: HYDROcodone/APAP 7.5 MG/325 MG (LORTAB, LORCET PLUS) TABLET PO PRN ×3 (05:16→19:24)
[2016-09-30] MEDS: LEVOTHYROXINE 75 MCG (LEVOTHROID) TABLET PO SCH (05:16)
[2016-09-30] MEDS: PANTOPRAZOLE 20 MG TABLET (PROTONIX) PO SCH (05:16)
[2016-09-30 05:28] VITALS: BP 168/95
[2016-09-30 05:35] LABS: ALANINE AMINOTRANSFERASE 105 U/L (0-55); ALBUMIN 3.3 G/DL (3.2-4.5); ANION GAP 10 MMOL/L (5-14); ASPARTATE AMINO TRANSFERASE 85 U/L (5-34); BLOOD UREA NITROGEN 21 MG/DL (7-18); BUN/CREATININE RATIO 25; CALCIUM 9.1 MG/DL (8.5-10.1); CARBON DIOXIDE 28 MMOL/L (21-32); CHLORIDE 94 MMOL/L (98-107); CREATININE SERUM 0.83 MG/DL (0.60-1.30); GFR ESTIMATED > 60; GLUCOSE 88 MG/DL (70-105); POTASSIUM 4.4 MMOL/L (3.6-5.0); SODIUM 132 MMOL/L (135-145); TOTAL PROTEIN 5.3 G/DL (6.4-8.2)
[2016-09-30] MEDS: RT-ALBUTEROL/IPRATROPIUM 3 ML (DUONEB) VIAL INH SCH ×3 (08:12→20:06)
[2016-09-30] MEDS: RT-ADVAIR HFA 115/21 MCG PER PUFF IH SCH ×2 (08:13→20:06)
[2016-09-30] MEDS: DICLOFENAC 1% GEL 100 GM (VOLTAREN) TUBE TOP SCH ×4 (08:33→20:06)
[2016-09-30] MEDS: CYANOCOBALAMIN 500 MCG TAB (VITAMIN B-12) PO SCH (08:33)
[2016-09-30] MEDS: MUPIROCIN 2% OINT 22 GM (BACTROBAN) TUBE TOP SCH ×2 (08:33→20:06)
[2016-09-30] MEDS: HYDROCHLOROTHIAZIDE 25 MG (HCTZ) TAB PO SCH (08:33)
[2016-09-30] MEDS: lisINopril 20 MG (ZESTRIL) TAB PO SCH (08:33)
--- NOTE | 2016-09-30 10:15 | Occupational Ther Daily Note ---
OT Current Status-Daily Note Subjective Pt. reports that his right leg is hurting when he is completing armbike activity. Does not report pain level. Has had pain medication per pt. Appearance Pt. is up in chair in gym. Nursing had ambulated him there as he was asking to walk. OT came in to work with pt. Mental Status/Objective Patient Orientation: Person Functional [place] Measure 0=Not Assessed/NA 4=Minimal Assistance 1=Total Assistance 5=Supervision or Setup 2=Maximal Assistance 6=Modified [place] 3=Moderate Assistance 7=Complete [place] ADL-Treatment Functional [place] Measure 0=Not Assessed/NA 4=Minimal Assistance 1=Total Assistance 5=Supervision or Setup 2=Maximal Assistance 6=Modified [place] 3=Moderate Assistance 7=Complete IndependenceIRFPAI Quality Coding Scale 6 Independent with activity with or without an assistive device 5 Patient requires set up or clean up by helper. Patient completes activity by themselves 4 Supervision or touching assist (CGA). [place] provide cues , steadying assist 3 The helper provides less than half the effort to complete the activity 2 The helper provides more than half the effort to complete the activity 1 Dependent. The helper does all the effort to complete an activity 7 Patient refused to complete or attempt activity 9 The patient did not perform the activity before the current illness or injury 88 Not attempted due to Medical conditions or safety concerns Other Treatment Pt. completed 15 minutes on armbike to improve UE strength and endurance. Pt. required several brief rest breaks. Tolerated armbike at moderate resistance. Ambulated back to room with CGA. All needs met in room. Education OT Patient Education: Correct positioning, Exercise program, Progress toward Goal/Update tx plan, Purpose of tx/functional activities, Reviewed precautions, Rehab process, Transfer techniques Teaching Recipient: Patient Teaching Methods: Demonstration, Discussion Response to Teaching: Verbalize Understanding, Return Demonstration OT Short Term Goals Short Term Goals Time Frame: Oct 03, 2016 Eating(FIM): 5 Grooming(FIM): 5 Bathing(FIM): 5 Upper Body Dressing(FIM): 5 Lower Body Dressing(FIM): 5 Toileting(FIM): 5 Transfers (B,C,W/C) (FIM): 5 Toilet/Commode Transfer(FIM): 5 Shower Transfer(FIM): 5 Additional Short Term Goals: 1-Demonstrate ADL Tasks, 2-Verbalize Understanding , 3-ImproveStrength/Mya 1=Demonstrate adherence to instructed precautions during ADL tasks. 2=Patient will verbalize/demonstrate understanding of assistive devices/ modifications for ADL. 3=Patient will improve strength/tolerance for activity to enable patient to perform ADL's. OT Alf Goals Alf Goals Time Frame: Oct 10, 2016 Eating (FIM): 6 Eating (QC): 6 Groomin Oral Hygiene (QC): 6 Bathing(FIM): 5 Shower/Bathe Self (QC): 5 Upper Body Dressing(FIM): 6 Upper Body Dressing (QC): 6 Lower Body Dressing(FIM): 6 Lower Body Dressing (QC): 6 On/Off Footwear (QC): 6 Toileting(FIM): 6 Toileting Hygiene (QC): 6 Transfers (B,C,W/C) (FIM): 6 Toilet/Commode Transfer(FIM): 6 Toilet/Commode Transfer (QC): 6 Shower Transfer(FIM): 5 Comprehension(FIM): 5 Expression (FIM): 5 Social Interaction(FIM): 5 Problem Solving(FIM): 4 Memory(FIM): 4 Additional Goals: 1-Demonstrate ADL Tasks, 2-Verbalize Understanding, 3- ImproveStrength/Mya 1=Demonstrate adherence to instructed precautions during ADL tasks. 2=Patient will verbalize/demonstrate understanding of assistive devices/ modifications for ADL. 3=Patient will improve strength/tolerance for activity to enable patient to perform ADL's. OT Education/Plan Problem List/Assessment Assessment: Decreased Activ Tolerance, Impaired Bed Mobility, Impaired Funct Balance, Impaired I ADL's, Impaired Self-Care Skills Discharge Recommendations Plan/Recommendations: Continue POC Therapy D/C Recommendations: Home w/ Family Support Treatment Plan/Plan of Care Treatment,Training & Education: Yes Patient would benefit from OT for education, treatment and training to promote independence in ADL's, mobility, safety and/or upper extremity function for ADL' s. Plan of Care: ADL Retraining, Functional Mobility, UE Funct Exercise/Act Treatment Duration: Oct 10, 2016 Visits Per Week: 10-12 Minutes/Day (M-F): 60-90 Minutes/Day (Sat/Fajardo): 15-30 Agreement: Yes (-12) Rehab Potential: Fair Time/GCodes Start Time: 09:35 Stop Time: 10:00 Total Time Billed (hr/min): 25 Billed Treatment Time 1, EXx 25minutes LAINA JARRELL OT Sep 30, 2016 10:15
--- NOTE | 2016-09-30 11:09 | Physical Therapy Daily Note ---
PT Daily Note-Current Subjective Agrees to PT. Transfers Functional [place] Measure 0=Not Assessed/NA 4=Minimal Assistance 1=Total Assistance 5=Supervision or Setup 2=Maximal Assistance 6=Modified [place] 3=Moderate Assistance 7=Complete IndependenceIRFPAI Quality Coding Scale 6 Independent with activity with or without an assistive device 5 Patient requires set up or clean up by helper. Patient completes activity by themselves 4 Supervision or touching assist (CGA). [place] provide cues , steadying assist 3 The helper provides less than half the effort to complete the activity 2 The helper provides more than half the effort to complete the activity 1 Dependent. The helper does all the effort to complete an activity 7 Patient refused to complete or attempt activity 9 The patient did not perform the activity before the current illness or injury 88 Not attempted due to Medical conditions or safety concerns Treatments Pt is SBA with bed mobility. Pt ambulated x 150ft, 200 ft and 150 ft with FWW with SBA. Nu step x 10 minutes. Kept oxygen off throughout treatment and patient's sats were 94% or greater throughout entire treatment. Pt in bed post treatment with needs met. O2 in situ post treatment Assessment Current Status: Good Progress PT Short Term Goals Short Term Goals Time Frame: Oct 03, 2016 Transfers (B,C,W/C) (FIM): 5 (met) Gait (FIM): 5 (met) Gait Distance Comment: 200' Gait Level of Assist: 5 Gait Assistive Device: FWW PT Group Home Goals Appellate Court Judge Goals PT Appellate Court Judge Goals Time Frame: Oct 17, 2016 Transfers (B,C,W/C) (FIM): 6 Sit to Lying (QC): 6 Lying-Sitting on Side/Bed(QC): 6 Sit to Stand (QC): 6 Rollin Roll Left to Right (QC): 6 Car Transfer (QC): 4 Does the Patient Walk: Yes Gait (FIM): 6 Distance: 300' Walk 10 feet (QC): 6 Walk 10ft-Uneven Surface(QC): 6 Walk 50ft with 2 Turns (QC): 6 Walk 150 ft (QC): 6 Gait Assistive Device: FWW Stairs (FIM): 5 # of Steps: 12 1 Step (curb) (QC): 4 4 Steps (QC): 4 12 Steps (QC): 4 Stairs Level Of Assist: 5 Picking up an Object (QC): 4 PT Plan Problem List Problem List: Activity Tolerance, Functional Strength Treatment/Plan Treatment Plan: Continue Plan of Care Treatment Plan: Bed Mobility, Education, Functional Activity Mya, Functional Strength, Group Therapy, Gait, Safety, Therapeutic Exercise, Transfers Treatment Duration: Oct 17, 2016 Visits Per Week: 10-11 Minutes/Day (M-F): 60-90 Minutes/Day (Sat/Fajardo): 15-30 Safety Risks/Education Patient Education: Gait Training, Transfer Techniques Teaching Recipient: Patient Teaching Methods: Demonstration, Discussion Response to Teaching: Reinforcement Needed Time/GCodes Time In: 745 Time Out: 808 Total Billed Treatment Time: 23 Total Billed Treatment visit EX 10 GT 13 KANE MALAVE PT Sep 30, 2016 11:09
[2016-09-30] MEDS: ENOXAPARIN 40 MG/0.4 ML (LOVENOX) SYR SC SCH (11:34)
[2016-09-30] MEDS: predniSONE 10 MG TAB PO SCH (11:34)
[2016-09-30] MEDS: ANTACID SUSP 30 ML UDC (MYLANTA) PO PRN (13:48)
[2016-09-30 18:00] VITALS: BP 167/91
[2016-09-30] MEDS: traZODone 150 MG (DESYREL) TABLET PO SCH (20:06)
[2016-10-01] MEDS: HYDROcodone/APAP 7.5 MG/325 MG (LORTAB, LORCET PLUS) TABLET PO PRN ×4 (05:14→20:02)
[2016-10-01] MEDS: LEVOTHYROXINE 100 MCG (LEVOTHROID) TAB PO SCH (05:14)
[2016-10-01] MEDS: LEVOTHYROXINE 75 MCG (LEVOTHROID) TABLET PO SCH (05:14)
[2016-10-01 05:38] VITALS: BP 170/91
[2016-10-01] MEDS: MULTIVIT W/MINERALS TAB (THERAGRAN M) PO SCH (06:07)
[2016-10-01] MEDS: PANTOPRAZOLE 20 MG TABLET (PROTONIX) PO SCH (06:07)
[2016-10-01] MEDS: ANTACID SUSP 30 ML UDC (MYLANTA) PO PRN (07:32)
[2016-10-01] MEDS: RT-ADVAIR HFA 115/21 MCG PER PUFF IH SCH ×2 (07:37→19:51)
[2016-10-01] MEDS: RT-ALBUTEROL/IPRATROPIUM 3 ML (DUONEB) VIAL INH SCH ×3 (07:47→19:51)
[2016-10-01] MEDS: DICLOFENAC 1% GEL 100 GM (VOLTAREN) TUBE TOP SCH ×4 (08:14→20:02)
[2016-10-01] MEDS: MUPIROCIN 2% OINT 22 GM (BACTROBAN) TUBE TOP SCH ×2 (08:15→20:02)
[2016-10-01] MEDS: lisINopril 20 MG (ZESTRIL) TAB PO SCH (08:15)
[2016-10-01] MEDS: CYANOCOBALAMIN 500 MCG TAB (VITAMIN B-12) PO SCH (08:15)
[2016-10-01] MEDS: HYDROCHLOROTHIAZIDE 25 MG (HCTZ) TAB PO SCH (08:15)
[2016-10-01] MEDS: ENOXAPARIN 40 MG/0.4 ML (LOVENOX) SYR SC SCH (11:11)
[2016-10-01] MEDS: predniSONE 10 MG TAB PO SCH (11:11)
[2016-10-01 17:55] VITALS: BP 149/86
[2016-10-01] MEDS: traZODone 150 MG (DESYREL) TABLET PO SCH (20:01)
[2016-10-02] MEDS: HYDROcodone/APAP 7.5 MG/325 MG (LORTAB, LORCET PLUS) TABLET PO PRN ×5 (02:25→18:35)
[2016-10-02 05:28] VITALS: BP 153/94
[2016-10-02] MEDS: MULTIVIT W/MINERALS TAB (THERAGRAN M) PO SCH (06:07)
[2016-10-02] MEDS: LEVOTHYROXINE 100 MCG (LEVOTHROID) TAB PO SCH (06:07)
[2016-10-02] MEDS: LEVOTHYROXINE 75 MCG (LEVOTHROID) TABLET PO SCH (06:07)
[2016-10-02] MEDS: PANTOPRAZOLE 20 MG TABLET (PROTONIX) PO SCH (06:07)
[2016-10-02] MEDS: RT-ADVAIR HFA 115/21 MCG PER PUFF IH SCH ×2 (06:55→19:35)
[2016-10-02] MEDS: RT-ALBUTEROL/IPRATROPIUM 3 ML (DUONEB) VIAL INH SCH ×3 (06:55→19:35)
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
[2016-10-02] MEDS: lisINopril 20 MG (ZESTRIL) TAB PO SCH (08:16)
[2016-10-02] MEDS: CYANOCOBALAMIN 500 MCG TAB (VITAMIN B-12) PO SCH (08:16)
[2016-10-02] MEDS: HYDROCHLOROTHIAZIDE 25 MG (HCTZ) TAB PO SCH (08:16)
[2016-10-02] MEDS: MUPIROCIN 2% OINT 22 GM (BACTROBAN) TUBE TOP SCH ×2 (08:16→20:51)
[2016-10-02] MEDS: DICLOFENAC 1% GEL 100 GM (VOLTAREN) TUBE TOP SCH ×4 (08:16→20:50)
--- NOTE | 2016-10-02 08:57 | Physical Therapy Daily Note ---
PT Daily Note-Current Subjective Pt supine in bed with head raised upon arrival. Pt reports pain of 4/10 to start tx in R calf. Nursing gives morning meds. Pt agrees to PT. Pain Numeric Pain Scale: 4 Location: Right, Lateral Location Body Site: Calf Pain Description: Ache, Tingling, Numbness Comment: Pt reports pain that radiates from LB down through lat. calf 8/10 w /move. Mental Status Patient Orientation: Person, Place, Time, Situation Attachments: Oxygen Pt is on 2L of O2 during tx as well as back in room. Transfers Functional [place] Measure 0=Not Assessed/NA 4=Minimal Assistance 1=Total Assistance 5=Supervision or Setup 2=Maximal Assistance 6=Modified [place] 3=Moderate Assistance 7=Complete IndependenceIRFPAI Quality Coding Scale 6 Independent with activity with or without an assistive device 5 Patient requires set up or clean up by helper. Patient completes activity by themselves 4 Supervision or touching assist (CGA). [place] provide cues , steadying assist 3 The helper provides less than half the effort to complete the activity 2 The helper provides more than half the effort to complete the activity 1 Dependent. The helper does all the effort to complete an activity 7 Patient refused to complete or attempt activity 9 The patient did not perform the activity before the current illness or injury 88 Not attempted due to Medical conditions or safety concerns Scootin Rollin Roll Left to Right (QC): 6 Supine to/from Sit: 6 Sit to/from Stand: 6 Sit to Lying (QC): 6 Sit to Stand (QC): 6 Weight Bearing Weight Bearing Restriction: Full Weight Bearing Location Restriction: LE Bilateral Gait Training Does the Patient Walk?: Yes Gait (FIM): 3 Distance (FIM): 6=065-66 ft Distance: 125' Walk 10 feet (QC): 5 Walk 50 ft with 2 Turns(QC): 5 Walk 150 ft (QC): 88 (Didn't attempt due to pain pt reports whle ambulating) Gait Level of Assist: 5 Gait Persons Needed: 1 Gait Assistive Device: FWW Pt walks with antalgic gait pattern on RLE. Pt reports increase in pain from 4 to 7-8/10 with WB and ambulation. Pt discribes sciatic pain starting in LB and radiates down lateral side of RLE with numbness & tingling. Wheelchair Training Does the Pt Use a Wheelchair?: No Exercises Standing: Heel/toe raises (20 reps), Side steps, Weight shifts Standing Reps: 10 NuStep Minutes: 12 NuStep Workload: 4 Treatments Pt transfers from supine to EOB to standing at Mod I. Pt ambulates to use restroom before leaving for tx. Nursing gives morning meds. Pt transfers to NuStep at Mod I and uses for 12m at Workload 4. Pt reports continued pain during tx. Pt takes short rest break before ambulating to //bars for Standing EX. Pt takes short rest in between EX. Pt then ambulates back to room to rest. Pt transfers standing to EOB to supine in bed at Mod I. Pt is left with all needs met at end of tx. Assessment Current Status: Fair Progress Pt reports pain in LB and RLE but is inconsistent with what he reports to PT and what he reports to nursing. Pt is walking with more of antalgic gait pattern than when seen by PT on Sunday. PT Short Term Goals Short Term Goals Time Frame: Oct 03, 2016 Transfers (B,C,W/C) (FIM): 5 (met) Gait (FIM): 5 (met) Gait Distance Comment: 200' Gait Level of Assist: 5 Gait Assistive Device: FWW PT Retirement Goals Retirement Goals PT Hose Sprayer Goals Time Frame: Oct 17, 2016 Transfers (B,C,W/C) (FIM): 6 Sit to Lying (QC): 6 Lying-Sitting on Side/Bed(QC): 6 Sit to Stand (QC): 6 Rollin Roll Left to Right (QC): 6 Car Transfer (QC): 4 Does the Patient Walk: Yes Gait (FIM): 6 Distance: 300' Walk 10 feet (QC): 6 Walk 10ft-Uneven Surface(QC): 6 Walk 50ft with 2 Turns (QC): 6 Walk 150 ft (QC): 6 Gait Assistive Device: FWW Stairs (FIM): 5 # of Steps: 12 1 Step (curb) (QC): 4 4 Steps (QC): 4 12 Steps (QC): 4 Stairs Level Of Assist: 5 Picking up an Object (QC): 4 PT Plan Problem List Problem List: Activity Tolerance, Functional Strength, Gait Treatment/Plan Treatment Plan: Continue Plan of Care Treatment Plan: Bed Mobility, Education, Functional Activity Mya, Functional Strength, Group Therapy, Gait, Safety, Therapeutic Exercise, Transfers Treatment Duration: Oct 17, 2016 Visits Per Week: 10-11 Minutes/Day (M-F): 60-90 Minutes/Day (Sat/Fajardo): 15-30 Safety Risks/Education Patient Education: Gait Training, Correct Positioning, Disease Process, Safety Issues Teaching Recipient: Patient Teaching Methods: Discussion Response to Teaching: Verbalize Understanding Time/GCodes Time In: 800 Time Out: 845 Total Billed Treatment Time: 45 Total Billed Treatment visit, FA (15m), GT (15m) & EX (15m) AUSTIN JAMES RN PRODUCTION Oct 02, 2016 08:57
--- NOTE | 2016-10-02 09:53 | Speech Therapy Daily Note ---
Speech Daily Progress Note Subjective The patient was seated upright in bed upon entrance. The patient greeted the clinician appropriately and agreed to participate in the cognitive treatment session on this date. Objective Functional Memory Tasks: The patient was read short paragraphs containing functional information, such as, doctor's appointments and meeting agendas. The patient was asked questions regarding the information immediately following two readings of the information. The patient demonstrated +33/43 (77%) accuracy with mild clinician verbal cueing. Orientation: The patient was oriented to month, date, day of week, and year ( independently). Assessment Assessment Current Status: Good Progress Treatment Plan Continue Plan of Care Communication Comprehension: 4 Expression: 4 Social Cognition Social Interaction: 4 Problem Solvin Memory: 3 Speech Short Term Goals Short Term Goals Short Term Goals 1. The patient will display 80% accuracy with functional safety problem solving (independently). 2. The patient will recall and demonstrate three functional memory strategies for use at home and throughout skilled tasks (mild clinician prompting). 3. The patient will recall three to four items immediately and following a five minute delay (independently). Time Frame-STG: Two Weeks Speech Nuclear Power Plant Engineer Goals Nuclear Power Plant Engineer Goals 1. The patient will display improved cognitive skills for increased function and safety with ADL's in the least restrictive setting. Time Frame: Four Weeks Comprehension: 5 Expression: 5 Social Interaction: 5 Problem Solvin Memory: 4 Speech-Plan Treatment Plan Speech Therapy Treatment Plan: Continue Plan of Care Continue skilled speech therapy to focus on functional problem solving and memory strategies. Treatment Duration: Oct 24, 2016 # of days/week Four to five. Visits Per Week: Four to five Minutes/Day (M-F): 30 Rehab Potential: Fair Safety Risks/Education Teaching Recipient: Patient Teaching Methods: Demonstration, Discussion Response to Teaching: Verbalize Understanding, Return Demonstration, Reinforcement Needed Education Topics Provided: Memory Strategies Time Speech Therapy Time In: 08:45 Speech Therapy Time Out: 09:15 Total Billed Time: 30 Billed Treatment Time 1EDER ELIZABETH Oct 02, 2016 09:53
--- NOTE | 2016-10-02 10:43 | Occupational Ther Daily Note ---
OT Current Status-Daily Note Subjective Pt in bed, agrees to treatment. Pt reports 7/10 pain in right LE. RN notified of pt's request for pain medication. Mental Status/Objective Functional [place] Measure 0=Not Assessed/NA 4=Minimal Assistance 1=Total Assistance 5=Supervision or Setup 2=Maximal Assistance 6=Modified [place] 3=Moderate Assistance 7=Complete [place] Attachments: Oxygen ADL-Treatment Supine to sit with modified independence. Sit to stand with modified independence. Gait to restroom with FWW. Transfer to walk in shower with SBA using grab bars; cues for safety. Pt able to wash all areas with SBA and increased time. Stood with supervision for balance while washing buttocks. Don pullover shirt with set up. Pt donned shorts with SBA for balance during pant hike. Dons socks with SBA using sock aid. Increased time for ADL tasks. [place] hair with modified independence. Functional [place] Measure 0=Not Assessed/NA 4=Minimal Assistance 1=Total Assistance 5=Supervision or Setup 2=Maximal Assistance 6=Modified [place] 3=Moderate Assistance 7=Complete IndependenceIRFPAI Quality Coding Scale 6 Independent with activity with or without an assistive device 5 Patient requires set up or clean up by helper. Patient completes activity by themselves 4 Supervision or touching assist (CGA). [place] provide cues , steadying assist 3 The helper provides less than half the effort to complete the activity 2 The helper provides more than half the effort to complete the activity 1 Dependent. The helper does all the effort to complete an activity 7 Patient refused to complete or attempt activity 9 The patient did not perform the activity before the current illness or injury 88 Not attempted due to Medical conditions or safety concerns Bathing (FIM): 5 Upper Body (FIM): 5 Lower Body Dressing (FIM): 5 Shower Transfer(FIM): 5 Other Treatment Gait to therapy gym with FWW. Arm bike x15 minutes to increase overall strength and activity tolerance needed for functional tasks. Pt completed activity with moderate resistance and steady pace. Two brief rest breaks taken during activity. Pt returned to room and completed bilateral UE exercises to increase strength needed for ADLs and transfers. Pt performed shoulder flexion, abduction , biceps curls, and triceps extension exercises x20 reps with moderate resistance (red) theraband. Rest breaks between exercises. Pt resting in bed with needs met after session. OT Short Term Goals Short Term Goals Time Frame: Oct 03, 2016 Eating(FIM): 5 Grooming(FIM): 5 Bathing(FIM): 5 Upper Body Dressing(FIM): 5 Lower Body Dressing(FIM): 5 Toileting(FIM): 5 Transfers (B,C,W/C) (FIM): 5 (met) Toilet/Commode Transfer(FIM): 5 Shower Transfer(FIM): 5 Additional Short Term Goals: 1-Demonstrate ADL Tasks, 2-Verbalize Understanding , 3-ImproveStrength/Mya 1=Demonstrate adherence to instructed precautions during ADL tasks. 2=Patient will verbalize/demonstrate understanding of assistive devices/ modifications for ADL. 3=Patient will improve strength/tolerance for activity to enable patient to perform ADL's. OT Special Deputy Sheriff Goals Special Deputy Sheriff Goals Time Frame: Oct 10, 2016 Eating (FIM): 6 Eating (QC): 6 Groomin Oral Hygiene (QC): 6 Bathing(FIM): 5 Shower/Bathe Self (QC): 5 Upper Body Dressing(FIM): 6 Upper Body Dressing (QC): 6 Lower Body Dressing(FIM): 6 Lower Body Dressing (QC): 6 On/Off Footwear (QC): 6 Toileting(FIM): 6 Toileting Hygiene (QC): 6 Transfers (B,C,W/C) (FIM): 6 Toilet/Commode Transfer(FIM): 6 Toilet/Commode Transfer (QC): 6 Shower Transfer(FIM): 5 Comprehension(FIM): 5 Expression (FIM): 5 Social Interaction(FIM): 5 Problem Solving(FIM): 4 Memory(FIM): 4 Additional Goals: 1-Demonstrate ADL Tasks, 2-Verbalize Understanding, 3- ImproveStrength/Mya 1=Demonstrate adherence to instructed precautions during ADL tasks. 2=Patient will verbalize/demonstrate understanding of assistive devices/ modifications for ADL. 3=Patient will improve strength/tolerance for activity to enable patient to perform ADL's. OT Education/Plan Discharge Recommendations Plan/Recommendations: Continue POC Treatment Plan/Plan of Care Patient would benefit from OT for education, treatment and training to promote independence in ADL's, mobility, safety and/or upper extremity function for ADL' s. Plan of Care: ADL Retraining, Functional Mobility, UE Funct Exercise/Act Treatment Duration: Oct 10, 2016 Visits Per Week: 10-12 Minutes/Day (M-F): 60-90 Minutes/Day (Sat/[place]): 15-30 Agreement: Yes (05-17) Rehab Potential: Fair Time/GCodes Start Time: 09:15 Stop Time: 10:30 Total Time Billed (hr/min): 75 Billed Treatment Time 1 visit, ADLx3(45minutes), EXx2(30minutes) SACHA GODINEZ OT Oct 02, 2016 10:43
[2016-10-02] MEDS: predniSONE 10 MG TAB PO SCH (12:43)
[2016-10-02] MEDS: ENOXAPARIN 40 MG/0.4 ML (LOVENOX) SYR SC SCH (12:44)
--- NOTE | 2016-10-02 15:19 | Physical Therapy Daily Note ---
PT Daily Note-Current Subjective Pt supine in bed with head raised upon arrival. Pt reports wanting pain med but nursing advised could not have until 1430. Pt agreed to PT. Pain Numeric Pain Scale: 5-Moderate Pain Location: Right, Lateral Location Body Site: Calf Pain Description: Ache Mental Status Patient Orientation: Person, Place, Situation Attachments: Oxygen Transfers Functional [place] Measure 0=Not Assessed/NA 4=Minimal Assistance 1=Total Assistance 5=Supervision or Setup 2=Maximal Assistance 6=Modified [place] 3=Moderate Assistance 7=Complete IndependenceIRFPAI Quality Coding Scale 6 Independent with activity with or without an assistive device 5 Patient requires set up or clean up by helper. Patient completes activity by themselves 4 Supervision or touching assist (CGA). [place] provide cues , steadying assist 3 The helper provides less than half the effort to complete the activity 2 The helper provides more than half the effort to complete the activity 1 Dependent. The helper does all the effort to complete an activity 7 Patient refused to complete or attempt activity 9 The patient did not perform the activity before the current illness or injury 88 Not attempted due to Medical conditions or safety concerns Scootin Rollin Roll Left to Right (QC): 6 Supine to/from Sit: 6 Sit to/from Stand: 6 Sit to Lying (QC): 6 Sit to Stand (QC): 6 Weight Bearing Weight Bearing Restriction: Full Weight Bearing Location Restriction: LE Bilateral Gait Training Does the Patient Walk?: Yes Gait (FIM): 5 Distance (FIM): 3=150 ft Distance: 150' Walk 10 feet (QC): 5 Walk 50 ft with 2 Turns(QC): 5 Walk 150 ft (QC): 5 Gait Level of Assist: 5 Gait Persons Needed: 1 Gait Assistive Device: FWW Pt reports continued sciatic pain from LB radiating down RLE with numbness & tingling. Pt walks with more antalgic gait pattern today. Pt has no LOB. Wheelchair Training Does the Pt Use a Wheelchair?: No Exercises NuStep Minutes: 11 NuStep Workload: 4 Treatments Pt transfers from supine in bed to EOB to standing using FWW at Mod I. Pt ambulates to Therapy Gym using FWW at SBA. Pt then wants to use NuStep for 11m at Workload 4. Pt then takes short rest break. Pt then ambulates back to room using FWW at Mod I. Pt transfers from standing to EOB to supine in bed at Mod I. Pt is left with all needs met at end of tx. Nursing is present to give pt hsi pain med. Assessment Current Status: Fair Progress Pt reports needing pain med although pain level rated wasn't high. Pt also wanting to make sure he will have pain meds when he goes home. Pt's O2 was monitored during tx & remained 93-95% w/o O2 on during tx. PT put pt back on 1L of O2 when back in room although pt seems fine w/o it. PT Short Term Goals Short Term Goals Time Frame: Oct 03, 2016 Transfers (B,C,W/C) (FIM): 5 (met) Gait (FIM): 5 (met) Gait Distance Comment: 200' Gait Level of Assist: 5 Gait Assistive Device: FWW PT Fpc Goals Fpc Goals PT Lard Bleacher Goals Time Frame: Oct 17, 2016 Transfers (B,C,W/C) (FIM): 6 Sit to Lying (QC): 6 Lying-Sitting on Side/Bed(QC): 6 Sit to Stand (QC): 6 Rollin Roll Left to Right (QC): 6 Car Transfer (QC): 4 Does the Patient Walk: Yes Gait (FIM): 6 Distance: 300' Walk 10 feet (QC): 6 Walk 10ft-Uneven Surface(QC): 6 Walk 50ft with 2 Turns (QC): 6 Walk 150 ft (QC): 6 Gait Assistive Device: FWW Stairs (FIM): 5 # of Steps: 12 1 Step (curb) (QC): 4 4 Steps (QC): 4 12 Steps (QC): 4 Stairs Level Of Assist: 5 Picking up an Object (QC): 4 PT Plan Problem List Problem List: Activity Tolerance, Safety, Gait Treatment/Plan Treatment Plan: Continue Plan of Care Treatment Plan: Bed Mobility, Education, Functional Activity Mya, Functional Strength, Group Therapy, Gait, Safety, Therapeutic Exercise, Transfers Treatment Duration: Oct 17, 2016 Visits Per Week: 10-11 Minutes/Day (M-F): 60-90 Minutes/Day (Sat/[place]): 15-30 Safety Risks/Education Patient Education: Gait Training, Safety Issues Teaching Recipient: Patient Teaching Methods: Discussion Response to Teaching: Verbalize Understanding Time/GCodes Time In: 1400 Time Out: 1430 Total Billed Treatment Time: 30 Total Billed Treatment visit, GT (15m) & EX (15m) AUSTIN JAMES SENIOR UX DEVELOPER Oct 02, 2016 15:19
[2016-10-02 18:15] VITALS: BP 140/80
[2016-10-02] MEDS: ANTACID SUSP 30 ML UDC (MYLANTA) PO PRN (18:36)
[2016-10-02] MEDS: traZODone 150 MG (DESYREL) TABLET PO SCH (20:47)
[2016-10-02] MEDS: NAPROXEN 250 MG (NAPROSYN) TABLET PO PRN (20:50)
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
[2016-10-02] MEDS: CYCLOBENZAPRINE 10 MG (FLEXERIL) TAB PO SCH (22:57)
[2016-10-03] MEDS: HYDROcodone/APAP 7.5 MG/325 MG (LORTAB, LORCET PLUS) TABLET PO PRN ×4 (04:11→17:59)
[2016-10-03] MEDS: LEVOTHYROXINE 75 MCG (LEVOTHROID) TABLET PO SCH (05:43)
[2016-10-03] MEDS: LEVOTHYROXINE 100 MCG (LEVOTHROID) TAB PO SCH (05:43)
[2016-10-03 06:00] VITALS: BP 135/83
[2016-10-03] MEDS: MULTIVIT W/MINERALS TAB (THERAGRAN M) PO SCH (06:17)
[2016-10-03] MEDS: PANTOPRAZOLE 20 MG TABLET (PROTONIX) PO SCH (06:18)
[2016-10-03 06:47] LABS: ALANINE AMINOTRANSFERASE 93 U/L (0-55); ALBUMIN 3.6 G/DL (3.2-4.5); ANION GAP 11 MMOL/L (5-14); ASPARTATE AMINO TRANSFERASE 44 U/L (5-34); BLOOD UREA NITROGEN 20 MG/DL (7-18); BUN/CREATININE RATIO 24; CARBON DIOXIDE 27 MMOL/L (21-32); CHLORIDE 93 MMOL/L (98-107); CREATININE SERUM 0.84 MG/DL (0.60-1.30); GFR ESTIMATED > 60; GLUCOSE 87 MG/DL (70-105); POTASSIUM 4.8 MMOL/L (3.6-5.0); SODIUM 131 MMOL/L (135-145); TOTAL PROTEIN 5.7 G/DL (6.4-8.2)
[2016-10-03] MEDS: ANTACID SUSP 30 ML UDC (MYLANTA) PO PRN (07:52)
[2016-10-03] MEDS: lisINopril 20 MG (ZESTRIL) TAB PO SCH (07:54)
[2016-10-03] MEDS: CYANOCOBALAMIN 500 MCG TAB (VITAMIN B-12) PO SCH (07:54)
[2016-10-03] MEDS: HYDROCHLOROTHIAZIDE 25 MG (HCTZ) TAB PO SCH (07:54)
[2016-10-03] MEDS: CYCLOBENZAPRINE 10 MG (FLEXERIL) TAB PO SCH ×3 (07:54→20:53)
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
[2016-10-03] MEDS: MUPIROCIN 2% OINT 22 GM (BACTROBAN) TUBE TOP SCH ×2 (08:31→20:55)
[2016-10-03] MEDS: DICLOFENAC 1% GEL 100 GM (VOLTAREN) TUBE TOP SCH ×4 (08:31→20:54)
--- NOTE | 2016-10-03 09:15 | Physical Therapy Daily Note ---
PT Daily Note-Current Subjective Pt supine in bed with head raised upon arrival. Pt report pain of 8/10 when WB/ ambulation in LB and radiates down RLE especially in R calf. Pt agreed to PT. Pain Numeric Pain Scale: 8 Location: Right, Lateral Location Body Site: Calf Pain Description: Ache Mental Status Patient Orientation: Person, Place, Time, Situation Attachments: Oxygen Pt doesn't use O2 during tx although PT keeps nasal canula on and monitors O2 for drop during tx. O2 remains 95% during tx. Transfers Functional [place] Measure 0=Not Assessed/NA 4=Minimal Assistance 1=Total Assistance 5=Supervision or Setup 2=Maximal Assistance 6=Modified [place] 3=Moderate Assistance 7=Complete IndependenceIRFPAI Quality Coding Scale 6 Independent with activity with or without an assistive device 5 Patient requires set up or clean up by helper. Patient completes activity by themselves 4 Supervision or touching assist (CGA). [place] provide cues , steadying assist 3 The helper provides less than half the effort to complete the activity 2 The helper provides more than half the effort to complete the activity 1 Dependent. The helper does all the effort to complete an activity 7 Patient refused to complete or attempt activity 9 The patient did not perform the activity before the current illness or injury 88 Not attempted due to Medical conditions or safety concerns Scootin Rollin Roll Left to Right (QC): 6 Supine to/from Sit: 6 Sit to/from Stand: 6 Sit to Lying (QC): 6 Sit to Stand (QC): 6 Weight Bearing Weight Bearing Restriction: Full Weight Bearing Location Restriction: LE Bilateral Gait Training Does the Patient Walk?: Yes Gait (FIM): 5 Distance (FIM): 3=150 ft Distance: 150' Walk 10 feet (QC): 5 Walk 50 ft with 2 Turns(QC): 5 Walk 150 ft (QC): 5 Gait Level of Assist: 5 Gait Persons Needed: 1 Gait Assistive Device: FWW Pt reports pain of 8/10 from LB radiating down RLE when WB/ambulating. Pt walks with only slight antalgic gait pattern. Pt has no LOB and doesn't use O2 during tx. Wheelchair Training Does the Pt Use a Wheelchair?: No Exercises Seated Therapy Exercises: Ankle pumps, Long arc quads, Hip flexion, Kicking activity Seated Reps: 15 NuStep Minutes: 10 NuStep Workload: 4 Treatments PT transfers from supine to EOB to standing using FWW at Mod I. Pt ambulates in Therapy Commons to Therapy Gym using FWW at SBA due to pt reporting pain. Pt then transfers to NuStep at Mod I. Pt uses NuStep for 10m at Workload 4. Pt takes a couple brief rests (a couple seconds)due to pt reported pain although when rated pt rates 3/10. After finished, pt transfers from NuStep to standing using FWW at Mod I then to sitting in chair at Mod I. Pt completes seated Ex. Pt takes short rest before returning to room to use urinal. Pt transfers from standing to EOB to supine in bed at Mod I. Pt is left with all needs met at end of tx. Assessment Current Status: Fair Progress Pt continues to report pain especially when WB/ambulating although pt has no facial grimace or Flax scale to indicate pain. Pt is more anxious to receive pain med and often asks when he can receive even if it has not been long since last given. Pt has improved with safety and independence of mobility and transfers. PT Short Term Goals Short Term Goals Time Frame: Oct 03, 2016 Transfers (B,C,W/C) (FIM): 5 (met) Gait (FIM): 5 (met) Gait Distance Comment: 200' Gait Level of Assist: 5 Gait Assistive Device: FWW PT Halfway Goals Halfway Goals PT Construction Project Assistant Goals Time Frame: Oct 17, 2016 Transfers (B,C,W/C) (FIM): 6 Sit to Lying (QC): 6 Lying-Sitting on Side/Bed(QC): 6 Sit to Stand (QC): 6 Rollin Roll Left to Right (QC): 6 Car Transfer (QC): 4 Does the Patient Walk: Yes Gait (FIM): 6 Distance: 300' Walk 10 feet (QC): 6 Walk 10ft-Uneven Surface(QC): 6 Walk 50ft with 2 Turns (QC): 6 Walk 150 ft (QC): 6 Gait Assistive Device: FWW Stairs (FIM): 5 # of Steps: 12 1 Step (curb) (QC): 4 4 Steps (QC): 4 12 Steps (QC): 4 Stairs Level Of Assist: 5 Picking up an Object (QC): 4 PT Plan Problem List Problem List: Activity Tolerance, Gait Treatment/Plan Treatment Plan: Continue Plan of Care Treatment Plan: Bed Mobility, Education, Functional Activity Mya, Functional Strength, Group Therapy, Gait, Safety, Therapeutic Exercise, Transfers Treatment Duration: Oct 17, 2016 Visits Per Week: 10-11 Minutes/Day (M-F): 60-90 Minutes/Day (Sat/[place]): 15-30 Safety Risks/Education Patient Education: Gait Training, Correct Positioning, Disease Process, Safety Issues Teaching Recipient: Patient Teaching Methods: Discussion Response to Teaching: Verbalize Understanding Time/GCodes Time In: 800 Time Out: 845 Total Billed Treatment Time: 45 Total Billed Treatment visit, GT (15m) & EX X2 (30m) AUSTIN JAMES PTA Oct 03, 2016 09:15
--- NOTE | 2016-10-03 09:17 | Speech Therapy Daily Note ---
Speech Daily Progress Note Subjective The patient was seated upright in bed upon entrance. The patient was agreeable to ST on this date. Objective Functional Memory Tasks: The patient was read short paragraphs containing functional information, such as, meetings and appointments. The patient was asked questions regarding the information immediately following two readings of the information. The patient demonstrated +44/50 (88%) accuracy with mild clinician verbal cueing. The patient demonstrated improvement from the previous session. Orientation: The patient was oriented to month, date, day of week, and year ( independently). Assessment Assessment Current Status: Good Progress Treatment Plan Continue Plan of Care Communication Comprehension: 4 Expression: 4 Social Cognition Social Interaction: 5 Problem Solvin Memory: 4 Speech Short Term Goals Short Term Goals Short Term Goals 1. The patient will display 80% accuracy with functional safety problem solving (independently). 2. The patient will recall and demonstrate three functional memory strategies for use at home and throughout skilled tasks (mild clinician prompting). 3. The patient will recall three to four items immediately and following a five minute delay (independently). Time Frame-STG: Two Weeks Speech Fci Goals Fci Goals 1. The patient will display improved cognitive skills for increased function and safety with ADL's in the least restrictive setting. Time Frame: Four Weeks Comprehension: 5 Expression: 5 Social Interaction: 5 Problem Solvin Memory: 4 Speech-Plan Treatment Plan Speech Therapy Treatment Plan: Continue Plan of Care Continue skilled speech services to target functional memory strategies and safety problem solving. Treatment Duration: Oct 24, 2016 # of days/week Four to five. Visits Per Week: Four to five Minutes/Day (M-F): 30 Rehab Potential: Fair Safety Risks/Education Teaching Recipient: Patient Teaching Methods: Discussion Response to Teaching: Verbalize Understanding, Return Demonstration, Reinforcement Needed Education Topics Provided: Memory Strategies Time Speech Therapy Time In: 08:45 Speech Therapy Time Out: 09:15 Total Billed Time: 30 Billed Treatment Time 1 KIMGLORIA ZAIDISHEY SUTTON Oct 03, 2016 09:16
[2016-10-03] MEDS: RT-ALBUTEROL/IPRATROPIUM 3 ML (DUONEB) VIAL INH SCH ×3 (09:24→20:36)
[2016-10-03] MEDS: RT-ADVAIR HFA 115/21 MCG PER PUFF IH SCH ×2 (09:24→20:36)
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
--- NOTE | 2016-10-03 11:17 | Occupational Ther Daily Note ---
OT Current Status-Daily Note Subjective Pt seen in room, u p in bed, agreeable to OT (sponge bath but not shower). Pain increased R leg to 6/10 when sitting in gym, 9/10 when walking, 0/10 when supine in bed. Not described Appearance Alert, cooperative Mental Status/Objective Functional [place] Measure 0=Not Assessed/NA 4=Minimal Assistance 1=Total Assistance 5=Supervision or Setup 2=Maximal Assistance 6=Modified [place] 3=Moderate Assistance 7=Complete [place] ADL-Treatment Pt did a sponge bath with setup but did not wash feet or lower legs. SBA to stand to wash thu area and bottom. Pt has smell of stale urine even after washing and changing clothes. Functional [place] Measure 0=Not Assessed/NA 4=Minimal Assistance 1=Total Assistance 5=Supervision or Setup 2=Maximal Assistance 6=Modified [place] 3=Moderate Assistance 7=Complete IndependenceIRFPAI Quality Coding Scale 6 Independent with activity with or without an assistive device 5 Patient requires set up or clean up by helper. Patient completes activity by themselves 4 Supervision or touching assist (CGA). [place] provide cues , steadying assist 3 The helper provides less than half the effort to complete the activity 2 The helper provides more than half the effort to complete the activity 1 Dependent. The helper does all the effort to complete an activity 7 Patient refused to complete or attempt activity 9 The patient did not perform the activity before the current illness or injury 88 Not attempted due to Medical conditions or safety concerns Upper Body (FIM): 5 (setup) Lower Body Dressing (FIM): 5 (SBA. Struggled to get pants over slipper socks) Toileting (FIM): 5 (SBA, tall toilet, grab bar, FWW. Managed clothing and hygiene) Transfers (B, C, W/C) (FIM): 5 (SBA, FWW. ) Toilet/Commode Transfer (FIM): 5 (Struggled a little getting off taller toilet , grab bar, FWW) Other Treatment Pt walked to gym, SBA for safety, FWW. In gym he did 16 minutes bilat UE exercise (increased time) set at 15W resistance (moderate), taking a couple of breaks to shift R leg to try to manage pain. Pt walked back to room and transferred back to bed without assistance. Pain in R leg went away, per his report. In room, pt did bilat UE exercise with red theraband, doing 20 reps several different exercises. Also did bilat UE ex with 2# weight, working on shoulders, elbows, forearms and wrists. All exercise to strengthen muscles used in transfers, especially sit to stand where he struggles. Pt left up in bed, all needs met. Education OT Patient Education: Exercise program, Modified ADL techniques, Progress toward Goal/Update tx plan, Transfer techniques Teaching Recipient: Patient Teaching Methods: Discussion Response to Teaching: Return Demonstration OT Short Term Goals Short Term Goals Time Frame: Oct 03, 2016 Eating(FIM): 5 Grooming(FIM): 5 Bathing(FIM): 5 Upper Body Dressing(FIM): 5 Lower Body Dressing(FIM): 5 Toileting(FIM): 5 Transfers (B,C,W/C) (FIM): 5 (met) Toilet/Commode Transfer(FIM): 5 Shower Transfer(FIM): 5 Additional Short Term Goals: 1-Demonstrate ADL Tasks, 2-Verbalize Understanding , 3-ImproveStrength/Mya 1=Demonstrate adherence to instructed precautions during ADL tasks. 2=Patient will verbalize/demonstrate understanding of assistive devices/ modifications for ADL. 3=Patient will improve strength/tolerance for activity to enable patient to perform ADL's. OT Senior Living Goals Senior Living Goals Time Frame: Oct 10, 2016 Eating (FIM): 6 Eating (QC): 6 Groomin Oral Hygiene (QC): 6 Bathing(FIM): 5 Shower/Bathe Self (QC): 5 Upper Body Dressing(FIM): 6 Upper Body Dressing (QC): 6 Lower Body Dressing(FIM): 6 Lower Body Dressing (QC): 6 On/Off Footwear (QC): 6 Toileting(FIM): 6 Toileting Hygiene (QC): 6 Transfers (B,C,W/C) (FIM): 6 Toilet/Commode Transfer(FIM): 6 Toilet/Commode Transfer (QC): 6 Shower Transfer(FIM): 5 Comprehension(FIM): 5 Expression (FIM): 5 Social Interaction(FIM): 5 Problem Solving(FIM): 4 Memory(FIM): 4 Additional Goals: 1-Demonstrate ADL Tasks, 2-Verbalize Understanding, 3- ImproveStrength/Mya 1=Demonstrate adherence to instructed precautions during ADL tasks. 2=Patient will verbalize/demonstrate understanding of assistive devices/ modifications for ADL. 3=Patient will improve strength/tolerance for activity to enable patient to perform ADL's. OT Education/Plan Discharge Recommendations Plan/Recommendations: Continue POC Treatment Plan/Plan of Care Patient would benefit from OT for education, treatment and training to promote independence in ADL's, mobility, safety and/or upper extremity function for ADL' s. Plan of Care: ADL Retraining, Functional Mobility, UE Funct Exercise/Act Treatment Duration: Oct 10, 2016 Visits Per Week: 10-12 Minutes/Day (M-F): 60-90 Minutes/Day (Sat/[place]): 15-30 Agreement: Yes (-12) Rehab Potential: Fair Time/GCodes Start Time: 09:30 Stop Time: 10:45 Total Time Billed (hr/min): 75 Billed Treatment Time visit, 30 minutes ADL, 45 minutes exercise ARMANDO COWAN OT Oct 03, 2016 11:17
--- NOTE | 2016-10-03 13:01 | Diagnostic Imaging Report ---
EXAMINATION: AP and lateral views of the lumbar spine. INDICATION: Right leg pain. FINDINGS: There is suggestion of mild compression fractures depressing the inferior endplates of the L4 and L5 vertebral bodies. This is associated with small posterior osteophytes at L4-5 without significant alignment abnormality. There is mild disc height loss at the L4-5 level. There is satisfactory alignment at the SI joints with mild degenerative changes. IMPRESSION: Compression fractures mildly depress the inferior endplates of the L4 and L5 vertebral bodies. This was seen on the recent CT scan of the abdomen and pelvis. Dictated by: Dictated on workstation # [id number]
[2016-10-03] MEDS: predniSONE 10 MG TAB PO SCH (13:10)
[2016-10-03] MEDS: ENOXAPARIN 40 MG/0.4 ML (LOVENOX) SYR SC SCH (13:11)
--- NOTE | 2016-10-03 14:45 | Physical Therapy Daily Note ---
PT Daily Note-Current Subjective Pt supine in bed with head raised upon arrival. Pt reports pain in LB & radiating down RLE. Pt agrees to PT. Pain Numeric Pain Scale: 8 Location: Right, Lateral Location Body Site: Thigh Pain Description: Ache Mental Status Patient Orientation: Person, Place, Situation Attachments: Oxygen Pt is still on 1L O2 in room although O2 stays 95% during tx w/o O2 used. Transfers Functional [place] Measure 0=Not Assessed/NA 4=Minimal Assistance 1=Total Assistance 5=Supervision or Setup 2=Maximal Assistance 6=Modified [place] 3=Moderate Assistance 7=Complete IndependenceIRFPAI Quality Coding Scale 6 Independent with activity with or without an assistive device 5 Patient requires set up or clean up by helper. Patient completes activity by themselves 4 Supervision or touching assist (CGA). [place] provide cues , steadying assist 3 The helper provides less than half the effort to complete the activity 2 The helper provides more than half the effort to complete the activity 1 Dependent. The helper does all the effort to complete an activity 7 Patient refused to complete or attempt activity 9 The patient did not perform the activity before the current illness or injury 88 Not attempted due to Medical conditions or safety concerns Transfers (B, C, W/C) (FIM): 6 Scootin Rollin Roll Left to Right (QC): 6 Supine to/from Sit: 6 Sit to/from Stand: 6 Sit to Lying (QC): 6 Sit to Stand (QC): 6 Chair/[id number]-[id number] Xfer(QC): 6 Bed to/from Chair: 6 Weight Bearing Weight Bearing Restriction: Full Weight Bearing Location Restriction: LE Bilateral Gait Training Does the Patient Walk?: Yes Gait (FIM): 5 Distance (FIM): 3=150 ft Distance: 200' Walk 10 feet (QC): 5 Walk 50 ft with 2 Turns(QC): 5 Walk 150 ft (QC): 5 Gait Level of Assist: 5 Gait Persons Needed: 1 Gait Assistive Device: FWW Pt walks with more normalized gait pattern and less antalgic gait. Pt has no LOB. Wheelchair Training Does the Pt Use a Wheelchair?: No Exercises Seated Therapy Exercises: Ankle pumps, Long arc quads, Hip flexion, Kicking activity Seated Reps: 20 Standing: Hamstring curls, 3 way Ex=Flex, Abd, Ext, Mini squats (Attempted but caused too much pain so discontinued) Standing Reps: 20 Treatments Pt transferred from supine to EOB to standing using FWW at Mod I. Pt ambulated using FWW at SBA. Pt then transfers to chair for short rest and then seated EX. Pt takes short rest then transfers to standing at //bars for Standing Ex. Pt then ambulates back to room and transfers from standing to EOB to supine in bed at Mod I. Pt is put back on O2 and is left with all needs met at end of tx. Assessment Current Status: Good Progress Pt has improved with independence and safety of transfers and mobility. Pt still has pain in LB & RLE. PT Short Term Goals Short Term Goals Time Frame: Oct 03, 2016 Transfers (B,C,W/C) (FIM): 5 (met) Gait (FIM): 5 (met) Gait Distance Comment: 200' Gait Level of Assist: 5 Gait Assistive Device: FWW PT Men'S Basketball Coach Goals Men'S Basketball Coach Goals PT Group Home Goals Time Frame: Oct 17, 2016 Transfers (B,C,W/C) (FIM): 6 Sit to Lying (QC): 6 Lying-Sitting on Side/Bed(QC): 6 Sit to Stand (QC): 6 Rollin Roll Left to Right (QC): 6 Car Transfer (QC): 4 Does the Patient Walk: Yes Gait (FIM): 6 Distance: 300' Walk 10 feet (QC): 6 Walk 10ft-Uneven Surface(QC): 6 Walk 50ft with 2 Turns (QC): 6 Walk 150 ft (QC): 6 Gait Assistive Device: FWW Stairs (FIM): 5 # of Steps: 12 1 Step (curb) (QC): 4 4 Steps (QC): 4 12 Steps (QC): 4 Stairs Level Of Assist: 5 Picking up an Object (QC): 4 PT Plan Problem List Problem List: Activity Tolerance, Gait Treatment/Plan Treatment Plan: Continue Plan of Care Treatment Plan: Bed Mobility, Education, Functional Activity Mya, Functional Strength, Group Therapy, Gait, Safety, Therapeutic Exercise, Transfers Treatment Duration: Oct 17, 2016 Visits Per Week: 10-11 Minutes/Day (M-F): 60-90 Minutes/Day (Sat/[place]): 15-30 Safety Risks/Education Patient Education: Gait Training, Correct Positioning, Safety Issues Teaching Recipient: Patient Teaching Methods: Discussion Response to Teaching: Verbalize Understanding Time/GCodes Time In: 1300 Time Out: 1330 Total Billed Treatment Time: 30 Total Billed Treatment visit, GT (10m) & EX (20m) AUSTIN JAMES PTA Oct 03, 2016 14:45
[2016-10-03 18:19] VITALS: BP 126/76
[2016-10-03] MEDS: traZODone 150 MG (DESYREL) TABLET PO SCH (20:52)
[2016-10-04] MEDS: HYDROcodone/APAP 7.5 MG/325 MG (LORTAB, LORCET PLUS) TABLET PO PRN ×5 (00:49→23:25)
[2016-10-04 06:00] VITALS: BP 133/69
[2016-10-04] MEDS: MULTIVIT W/MINERALS TAB (THERAGRAN M) PO SCH (06:03)
[2016-10-04] MEDS: LEVOTHYROXINE 75 MCG (LEVOTHROID) TABLET PO SCH (06:03)
[2016-10-04] MEDS: LEVOTHYROXINE 100 MCG (LEVOTHROID) TAB PO SCH (06:03)
[2016-10-04] MEDS: PANTOPRAZOLE 20 MG TABLET (PROTONIX) PO SCH (06:03)
[2016-10-04] MEDS: RT-ALBUTEROL/IPRATROPIUM 3 ML (DUONEB) VIAL INH SCH ×3 (07:32→20:23)
[2016-10-04] MEDS: RT-ADVAIR HFA 115/21 MCG PER PUFF IH SCH ×2 (07:38→20:23)
[2016-10-04] MEDS: HYDROCHLOROTHIAZIDE 25 MG (HCTZ) TAB PO SCH (08:12)
[2016-10-04] MEDS: lisINopril 20 MG (ZESTRIL) TAB PO SCH (08:12)
[2016-10-04] MEDS: CYCLOBENZAPRINE 10 MG (FLEXERIL) TAB PO SCH ×3 (08:12→20:30)
[2016-10-04] MEDS: CYANOCOBALAMIN 500 MCG TAB (VITAMIN B-12) PO SCH (08:12)
[2016-10-04] MEDS: MUPIROCIN 2% OINT 22 GM (BACTROBAN) TUBE TOP SCH ×2 (08:15→20:31)
[2016-10-04] MEDS: DICLOFENAC 1% GEL 100 GM (VOLTAREN) TUBE TOP SCH ×4 (08:15→20:31)
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
--- NOTE | 2016-10-04 09:44 | Physical Therapy Daily Note ---
PT Daily Note-Current Subjective Pt supine in bed with head raised upon arrival. Pt reports pain of 8/10 in LB radiating down RLE lateral side. Nursing has already given morning meds including pain med. Pt agrees to PT. Pain Numeric Pain Scale: 8 Location: Right, Lateral Location Body Site: Calf Pain Description: Ache Comment: Pt reports pain increases during WB/ambulation. Mental Status Patient Orientation: Person, Place, Situation Attachments: Oxygen Pt continues to be on 1L of O2 in room but pt's O2 is staying at 95% or above during tx so pt doesn't use O2 during tx but is monitored. Transfers Functional [place] Measure 0=Not Assessed/NA 4=Minimal Assistance 1=Total Assistance 5=Supervision or Setup 2=Maximal Assistance 6=Modified [place] 3=Moderate Assistance 7=Complete IndependenceIRFPAI Quality Coding Scale 6 Independent with activity with or without an assistive device 5 Patient requires set up or clean up by helper. Patient completes activity by themselves 4 Supervision or touching assist (CGA). [place] provide cues , steadying assist 3 The helper provides less than half the effort to complete the activity 2 The helper provides more than half the effort to complete the activity 1 Dependent. The helper does all the effort to complete an activity 7 Patient refused to complete or attempt activity 9 The patient did not perform the activity before the current illness or injury 88 Not attempted due to Medical conditions or safety concerns Transfers (B, C, W/C) (FIM): 6 Scootin Rollin Roll Left to Right (QC): 6 Supine to/from Sit: 6 Sit to/from Stand: 6 Sit to Lying (QC): 6 Sit to Stand (QC): 6 Chair/Mbn-zg-[id number] Xfer(QC): 6 Bed to/from Chair: 6 Car Transfer (QC): 6 Pt performs simulated car transfer in Therapy Gym. Weight Bearing Weight Bearing Restriction: Full Weight Bearing Location Restriction: LE Bilateral Gait Training Does the Patient Walk?: Yes Gait (FIM): 6 Distance (FIM): 3=150 ft Distance: 200' Walk 10 feet (QC): 6 Walk 50 ft with 2 Turns(QC): 6 Walk 150 ft (QC): 6 Walking 10ft/uneven surface-QC: 6 Gait Level of Assist: 6 Gait Persons Needed: 1 Gait Assistive Device: FWW Pt walks with slight antalgic gait pattern at beginning of tx although after using NuStep and completing sitting and standing EX, pt walks with normalized gait pattern and less tightness and pain. Wheelchair Training Does the Pt Use a Wheelchair?: No Stair Training Stair Training: Handrails/: 2 handrails Stairs (FIM): 3 #of Steps: 8 1 Step (curb) (QC): 5 4 Steps (QC): 5 12 Steps (QC): 88 Stairs: Pattern: Step to Level of Assist: 5 Pt felt fatigued at end of 2 sets/8 stairs so didn't continue with 3 set. Balance Picking up an Object (QC): 4 Special Test Comments Pt is able to complete activity independently although pt is a little unsteady so PT is CGA to complete task. Exercises Seated Therapy Exercises: Ankle pumps, Long arc quads, Hip flexion, Kicking activity Seated Reps: 20 Standing: Hamstring curls, 3 way Ex=Flex, Abd, Ext, Marching, Weight shifts Standing Reps: 20 NuStep Minutes: 10 NuStep Workload: 4 Treatments Pt transfers from supine to EOB to standing at [facility] using FWW. Pt ambulates to Therapy Gym for tx using FWW at [facility]. Pt transfers to Step at [facility] and uses it for 10m at Workload 4. Pt then takes a short rest break before ambulating to chair at //bars. Pt completes seated EX in chair before short rest. Pt then stands at //bars for Standing Ex. Pt completes 2 sets or 8 stairs using 2 handrails at step to gait pattern at A. Pt then ambulates back to room using FWW at [facility]. Pt transfers from standing to EOB to supine in bed at [facility]. Pt then rolls side to side [facility] although facial grimace and pt report of discomfort and increased difficulty with rolling due to pain. Pt is left supine in bed with head raised and all needs met at end of tx. Pt is put back on 1L of O2 in room. Assessment Current Status: Good Progress Pt continues to make progress with independence, safety and even speed at which he is able to accomplish tasks but continues to report 8/10 pain especially with ambulation. Dr Shanks has ordered MRI due to continued pain. PT Short Term Goals Short Term Goals Time Frame: Oct 03, 2016 Transfers (B,C,W/C) (FIM): 5 (met) Gait (FIM): 5 (met) Gait Distance Comment: 200' Gait Level of Assist: 5 Gait Assistive Device: FWW PT Correction Goals Hot Stick Worker Goals PT Hot Stick Worker Goals Time Frame: Oct 17, 2016 Transfers (B,C,W/C) (FIM): 6 Sit to Lying (QC): 6 Lying-Sitting on Side/Bed(QC): 6 Sit to Stand (QC): 6 Rollin Roll Left to Right (QC): 6 Car Transfer (QC): 4 Does the Patient Walk: Yes Gait (FIM): 6 Distance: 300' Walk 10 feet (QC): 6 Walk 10ft-Uneven Surface(QC): 6 Walk 50ft with 2 Turns (QC): 6 Walk 150 ft (QC): 6 Gait Assistive Device: FWW Stairs (FIM): 5 # of Steps: 12 1 Step (curb) (QC): 4 4 Steps (QC): 4 12 Steps (QC): 4 Stairs Level Of Assist: 5 Picking up an Object (QC): 4 PT Plan Problem List Problem List: Activity Tolerance, Gait Treatment/Plan Treatment Plan: Continue Plan of Care Treatment Plan: Bed Mobility, Education, Functional Activity Mya, Functional Strength, Group Therapy, Gait, Safety, Therapeutic Exercise, Transfers Treatment Duration: Oct 17, 2016 Visits Per Week: 10-11 Minutes/Day (M-F): 60-90 Minutes/Day (Sat/[place]ardo): 15-30 Safety Risks/Education Patient Education: Gait Training, Correct Positioning, Safety Issues Teaching Recipient: Patient Teaching Methods: Discussion Response to Teaching: Verbalize Understanding Time/GCodes Time In: 800 Time Out: 845 Total Billed Treatment Time: 45 Total Billed Treatment visit, GT (15m), EX (20m) & FA (10m) AUSTIN JAMES PTA Oct 04, 2016 09:44
--- NOTE | 2016-10-04 10:31 | Speech Therapy Daily Note ---
Speech Daily Progress Note Subjective The patient was laying in bed upon entrance. The patient greeted the clinician appropriately and agreed to participate in the cognitive treatment session on this date. Objective Functional Memory Tasks: The patient was read short paragraphs containing functional information, such as, meetings and appointments. The patient was asked questions regarding the information immediately following two readings of the information. The patient demonstrated 70% accuracy with mild clinician verbal cueing. The patient demonstrated a slight decline from the previous session. Orientation: The patient was oriented to month, date, day of week, and year ( independently). Assessment Assessment Current Status: Fair Progress Treatment Plan Continue Plan of Care Communication Comprehension: 4 Expression: 4 Social Cognition Social Interaction: 5 Problem Solvin Memory: 4 Speech Short Term Goals Short Term Goals Short Term Goals 1. The patient will display 80% accuracy with functional safety problem solving (independently). 2. The patient will recall and demonstrate three functional memory strategies for use at home and throughout skilled tasks (mild clinician prompting). 3. The patient will recall three to four items immediately and following a five minute delay (independently). Time Frame-STG: Two Weeks Speech Multimedia Manager Goals [facility] Goals 1. The patient will display improved cognitive skills for increased function and safety with ADL's in the least restrictive setting. Time Frame: Four Weeks Comprehension: 5 Expression: 5 Social Interaction: 5 Problem Solvin Memory: 4 Speech-Plan Treatment Plan Speech Therapy Treatment Plan: Continue Plan of Care Continue skilled speech services to improve functional problem solving and memory strategies. Treatment Duration: Oct 24, 2016 # of days/week Four to five. Visits Per Week: Four to five Minutes/Day (M-F): 30 Rehab Potential: Fair Safety Risks/Education Teaching Recipient: Patient Teaching Methods: Demonstration, Discussion Response to Teaching: Verbalize Understanding, Return Demonstration, Reinforcement Needed Education Topics Provided: Memory Strategies Time Speech Therapy Time In: 08:45 Speech Therapy Time Out: 09:15 Total Billed Time: 30 Billed Treatment Time [address] [facility] [facility] Oct 04, 2016 10:31
--- NOTE | 2016-10-04 10:49 | Occupational Ther Daily Note ---
OT Current Status-Daily Note Subjective Pt in bed, agrees to treatment. Pt reports continued pain in right LE, rates 6/ 10. Pt requests pain medication at end of session, RN notified. Mental Status/Objective Functional [place] Measure 0=Not Assessed/NA 4=Minimal Assistance 1=Total Assistance 5=Supervision or Setup 2=Maximal Assistance 6=Modified [place] 3=Moderate Assistance 7=Complete [place] ADL-Treatment Pt supine to sit with modified independence. Gait to restroom with FWW. Transfer to toilet with modified independence using grab bar. Pt completed toileting with modified independence. Transfer to walk in shower with modified independence using grab bars. Pt able to wash all areas with SBA. Don pullover shirt with set up. Pt donned pants with SBA using FWW for balance during pant hike. Pt donned socks with set up using sock aid. Stood at sink for grooming tasks. Pt brushed teeth and combed hair with modified independence. Pt performed gait to laundry room, assist to carry dirty laundry. Pt placed laundry in washer and managed washer settings with SBA. Functional [place] Measure 0=Not Assessed/NA 4=Minimal Assistance 1=Total Assistance 5=Supervision or Setup 2=Maximal Assistance 6=Modified [place] 3=Moderate Assistance 7=Complete IndependenceIRFPAI Quality Coding Scale 6 Independent with activity with or without an assistive device 5 Patient requires set up or clean up by helper. Patient completes activity by themselves 4 Supervision or touching assist (CGA). [place] provide cues , steadying assist 3 The helper provides less than half the effort to complete the activity 2 The helper provides more than half the effort to complete the activity 1 Dependent. The helper does all the effort to complete an activity 7 Patient refused to complete or attempt activity 9 The patient did not perform the activity before the current illness or injury 88 Not attempted due to Medical conditions or safety concerns Eating (FIM): 7 (Pt reports feeding self, managing containers, and cutting food without assistance.) Eating (QC): 6 Grooming (FIM): 6 Oral Hygiene (QC): 6 Bathing (FIM): 5 Shower/Bathe Self (QC): 5 Upper Body (FIM): 5 Upper Body Dressing (QC): 5 Lower Body Dressing (FIM): 5 Lower Body Dressing (QC): 5 On/Off Footwear (QC): 5 Toileting (FIM): 6 Toileting Hygiene (QC): 6 Toilet/Commode Transfer (FIM): 6 Toilet Transfer (QC): 6 Shower Transfer(FIM): 6 Other Treatment Gait to therapy gym with FWW. Arm bike [id number] to increase overall strength and activity tolerance needed for functional tasks. Pt performed task with moderate resistance. No rest breaks needed. Pt performed bilateral UE exercises to increase strength needed for ADLs and transfers. Pt performed shoulder flexion, abduction, biceps curls, and triceps extension exercises x20 reps with red theraband. Brief rest breaks between exercises. Pt in bed with needs met after session. OT Short Term Goals Short Term Goals Time Frame: Oct 03, 2016 Eating(FIM): 5 Grooming(FIM): 5 Bathing(FIM): 5 Upper Body Dressing(FIM): 5 Lower Body Dressing(FIM): 5 Toileting(FIM): 5 Transfers (B,C,W/C) (FIM): 5 (met) Toilet/Commode Transfer(FIM): 5 Shower Transfer(FIM): 5 Additional Short Term Goals: 1-Demonstrate ADL Tasks, 2-Verbalize Understanding , 3-ImproveStrength/Mya 1=Demonstrate adherence to instructed precautions during ADL tasks. 2=Patient will verbalize/demonstrate understanding of assistive devices/ modifications for ADL. 3=Patient will improve strength/tolerance for activity to enable patient to perform ADL's. OT Hinging Machine Operator Goals Shelter Goals Time Frame: Oct 10, 2016 Eating (FIM): 6 Eating (QC): 6 Groomin Oral Hygiene (QC): 6 Bathing(FIM): 5 Shower/Bathe Self (QC): 5 Upper Body Dressing(FIM): 6 Upper Body Dressing (QC): 6 Lower Body Dressing(FIM): 6 Lower Body Dressing (QC): 6 On/Off Footwear (QC): 6 Toileting(FIM): 6 Toileting Hygiene (QC): 6 Transfers (B,C,W/C) (FIM): 6 Toilet/Commode Transfer(FIM): 6 Toilet/Commode Transfer (QC): 6 Shower Transfer(FIM): 5 Comprehension(FIM): 5 Expression (FIM): 5 Social Interaction(FIM): 5 Problem Solving(FIM): 4 Memory(FIM): 4 Additional Goals: 1-Demonstrate ADL Tasks, 2-Verbalize Understanding, 3- ImproveStrength/Mya 1=Demonstrate adherence to instructed precautions during ADL tasks. 2=Patient will verbalize/demonstrate understanding of assistive devices/ modifications for ADL. 3=Patient will improve strength/tolerance for activity to enable patient to perform ADL's. OT Education/Plan Discharge Recommendations Plan/Recommendations: Continue POC Treatment Plan/Plan of Care Patient would benefit from OT for education, treatment and training to promote independence in ADL's, mobility, safety and/or upper extremity function for ADL' s. Plan of Care: ADL Retraining, Functional Mobility, UE Funct Exercise/Act Treatment Duration: Oct 10, 2016 Visits Per Week: 10-12 Minutes/Day (M-F): 60-90 Minutes/Day (Sat/[place]): 15-30 Agreement: Yes (10-12) Rehab Potential: Fair Time/GCodes Start Time: 09:30 Stop Time: 10:30 Total Time Billed (hr/min): 60 Billed Treatment Time 1 visit, ADLx2(30minutes), EXx2(30minutes) SACHA GODINEZ OT Oct 04, 2016 10:49
[2016-10-04] MEDS: ENOXAPARIN 40 MG/0.4 ML (LOVENOX) SYR SC SCH (11:18)
[2016-10-04] MEDS: predniSONE 10 MG TAB PO SCH (11:18)
[2016-10-04] MEDS: ANTACID SUSP 30 ML UDC (MYLANTA) PO PRN (12:54)
--- NOTE | 2016-10-04 14:33 | Therapy Group Daily Note ---
Therapy Daily Group Note Patient Education Topic Other List Below (Rehab process/expectations) Exercises LE Seated Exercise, UE Exercise Other/Notes Pt ambulated to/from group therapy session with FWW. Pt introduced self to group and actively participated in socialization/group discussion and memory activity. Education was provided regarding rehab process/expectations. Pt participated in group education/discussion and was able to identify home safety hazards. Pt participated in seated UE/LE exercises to improve strength and activity tolerance. Pt in gym with PT present after session. Start Time: 13:00 Stop Time: 14:10 Total Billed Treatment Time: 70 Total Billed Treatment 1 visit, GRP(70minutes) SACHA GODINEZ OT Oct 04, 2016 14:33
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
[2016-10-04 18:00] VITALS: BP 160/86
--- NOTE | 2016-10-04 19:53 | Diagnostic Imaging Report ---
PROCEDURE: MRI lumbar spine. TECHNIQUE: Multiplanar, multisequence MRI of the lumbar spine was performed without contrast. INDICATION: Increased pain. COMPARISON: Radiographs of the lumbar spine dated October 03, 2016. FINDINGS: Alignment of the lumbar spine is well maintained. Mild superior endplate compression deformity of L4 is identified with minimal marrow edema identified within the superior endplate. [id number] compression deformity of L5 is also identified with marrow edema present and persistent fracture plane noted with minimal fluid within the fracture plane. Overall appearance is similar to the prior radiographs and prior CT. Vertebral body heights are otherwise well maintained. Disc desiccation at L4/L5. Disc space heights are predominantly well maintained. A 3.2 x 2.8 x 1.2 cm T2 hyperintense and T1 hypointense extradural lesion is identified within the right T12/L1 neuroforamina with resulting expansion of this neuroforamina. There is associated mild mass effect upon the adjacent thecal sac. Increased T2-weighted signal is noted within the left iliopsoas musculature. T2 hyperintense cysts noted within the left kidney. Paraspinal soft tissues are otherwise unremarkable. Left transverse process fractures of L2, L3, and L4 are noted. T12/L1: T2 hyperintense lesion within the right neuroforamina, as described above. No significant disc bulge. No central canal stenosis or left neuroforaminal stenosis. L1/L2: Mild bilateral facet joint degenerative changes. No significant central canal or neuroforaminal stenosis. L2/L3: Mild bilateral facet joint degenerative changes. No significant central canal or neuroforaminal stenosis. L3/L4: Bilateral facet joint degenerative changes. Small diffuse disc bulge, eccentric to the left. No significant central canal or neuroforaminal stenosis. L4/L5: Fracture of the left transverse process of L4, which is mildly displaced. This is associated with adjacent soft tissue edema. Bilateral facet joint degenerative changes. Tiny diffuse disc bulge. There is resulting moderate central canal stenosis with minimal left neuroforaminal stenosis and [id number] right neuroforaminal stenosis. L5/S1: Bilateral facet joint degenerative changes. Tiny diffuse disc bulge. Mild bilateral neuroforaminal stenosis. No significant central canal stenosis. IMPRESSION: 1. Recent compression deformities of L4 and L5, appearing stable from the prior examination. No significant retropulsion. 2. Left transverse process fractures of L2, L3, and L4 with associated hematoma within the left iliopsoas musculature. 3. T2 bilobed hyperintense extradural mass within the right T12/L1 neuroforamina. Findings may relate to a meningioma or neurofibroma. 4. Multilevel degenerative changes with multilevel central canal and neuroforaminal stenosis, as above. Dictated by: Dictated on workstation # [id number]
[2016-10-04] MEDS: traZODone 150 MG (DESYREL) TABLET PO SCH (20:30)
[2016-10-05] MEDS: HYDROcodone/APAP 7.5 MG/325 MG (LORTAB, LORCET PLUS) TABLET PO PRN ×5 (04:16→20:09)
[2016-10-05 05:28] LABS: BASOPHILS % (AUTO) 0 % (0-10); EOSINOPHILS # (AUTO) 0.1 10^3/uL (0.0-0.3); EOSINOPHILS % (AUTO) 1 % (0-10); LYMPHOCYTES # (AUTO) 0.8 X 10^3 (1.0-4.0); LYMPHOCYTES % (AUTO) 9 % (12-44); MEAN CORPUSCULAR HEMOGLOBIN 35 PG (25-34); MEAN CORPUSCULAR HGB CONC 33 G/DL (32-36); MEAN CORPUSCULAR VOLUME 104 FL (80-99); MEAN PLATELET VOLUME 8.1 FL (7.4-10.4); MONOCYTES # (AUTO) 0.7 X 10^3 (0.0-1.0); MONOCYTES % (AUTO) 8 % (0-12); NEUTROPHILS # (AUTO) 6.9 X 10^3 (1.8-7.8); NEUTROPHILS % (AUTO) 81 % (42-75); PLATELET COUNT 353 10^3/uL (130-400); RED BLOOD COUNT 2.91 10^6/uL (4.35-5.85); RED CELL DISTRIBUTION WIDTH 13.7 % (10.0-14.5); WHITE BLOOD COUNT 8.5 10^3/uL (4.3-11.0)
[2016-10-05 05:52] LABS: ALANINE AMINOTRANSFERASE 76 U/L (0-55); ALBUMIN 3.4 G/DL (3.2-4.5); ANION GAP 9 MMOL/L (5-14); ASPARTATE AMINO TRANSFERASE 32 U/L (5-34); BILIRUBIN,TOTAL 0.8 MG/DL (0.1-1.0); BLOOD UREA NITROGEN 17 MG/DL (7-18); BUN/CREATININE RATIO 20; CALCIUM 8.8 MG/DL (8.5-10.1); CARBON DIOXIDE 28 MMOL/L (21-32); CHLORIDE 98 MMOL/L (98-107); CREATININE SERUM 0.85 MG/DL (0.60-1.30); GFR ESTIMATED > 60; GLUCOSE 86 MG/DL (70-105); POTASSIUM 4.4 MMOL/L (3.6-5.0); SODIUM 135 MMOL/L (135-145); TOTAL PROTEIN 5.4 G/DL (6.4-8.2)
[2016-10-05] MEDS: LEVOTHYROXINE 75 MCG (LEVOTHROID) TABLET PO SCH (05:56)
[2016-10-05] MEDS: PANTOPRAZOLE 20 MG TABLET (PROTONIX) PO SCH (05:57)
[2016-10-05] MEDS: MULTIVIT W/MINERALS TAB (THERAGRAN M) PO SCH (05:57)
[2016-10-05] MEDS: LEVOTHYROXINE 100 MCG (LEVOTHROID) TAB PO SCH (05:57)
[2016-10-05 06:38] VITALS: BP 128/80
[2016-10-05] MEDS: RT-ADVAIR HFA 115/21 MCG PER PUFF IH SCH ×2 (07:53→20:53)
[2016-10-05] MEDS: RT-ALBUTEROL/IPRATROPIUM 3 ML (DUONEB) VIAL INH SCH ×3 (07:53→20:53)
[2016-10-05] MEDS: CYANOCOBALAMIN 500 MCG TAB (VITAMIN B-12) PO SCH (08:06)
[2016-10-05] MEDS: DICLOFENAC 1% GEL 100 GM (VOLTAREN) TUBE TOP SCH ×4 (08:07→20:10)
[2016-10-05] MEDS: HYDROCHLOROTHIAZIDE 25 MG (HCTZ) TAB PO SCH (08:07)
[2016-10-05] MEDS: CYCLOBENZAPRINE 10 MG (FLEXERIL) TAB PO SCH ×3 (08:07→20:09)
[2016-10-05] MEDS: lisINopril 20 MG (ZESTRIL) TAB PO SCH (08:07)
[2016-10-05] MEDS: MUPIROCIN 2% OINT 22 GM (BACTROBAN) TUBE TOP SCH ×2 (08:08→20:10)
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
--- NOTE | 2016-10-05 08:47 | Physical Therapy Daily Note ---
PT Daily Note-Current Subjective Pt supine in bed upon arrival. Pt reports pain of 8/10 in LB radiating down lateral RLE into R calf. Pt agrees to PT. Pain Numeric Pain Scale: 8 Location: Right, Lateral Location Body Site: Calf Pain Description: Ache Mental Status Patient Orientation: Person, Place, Situation Attachments: Oxygen Pt on 1L of O2 in room although O2 stays above 95% during tx so O2 isn't used during tx. Transfers Functional [place] Measure 0=Not Assessed/NA 4=Minimal Assistance 1=Total Assistance 5=Supervision or Setup 2=Maximal Assistance 6=Modified [place] 3=Moderate Assistance 7=Complete IndependenceIRFPAI Quality Coding Scale 6 Independent with activity with or without an assistive device 5 Patient requires set up or clean up by helper. Patient completes activity by themselves 4 Supervision or touching assist (CGA). [place] provide cues , steadying assist 3 The helper provides less than half the effort to complete the activity 2 The helper provides more than half the effort to complete the activity 1 Dependent. The helper does all the effort to complete an activity 7 Patient refused to complete or attempt activity 9 The patient did not perform the activity before the current illness or injury 88 Not attempted due to Medical conditions or safety concerns Transfers (B, C, W/C) (FIM): 6 Scootin Rollin Roll Left to Right (QC): 6 Supine to/from Sit: 6 Sit to/from Stand: 6 Sit to Lying (QC): 6 Sit to Stand (QC): 6 Chair/Ahz-iv-Coinx Xfer(QC): 6 Bed to/from Chair: 6 Car Transfer (QC): 6 Pt transfers at [facility] [place], [place] I even with simulated car transfer in Therapy Gym.6 Weight Bearing Weight Bearing Restriction: Full Weight Bearing Location Restriction: LE Bilateral Gait Training Does the Patient Walk?: Yes Gait (FIM): 6 Distance (FIM): 3=150 ft Distance: 150' Walk 10 feet (QC): 6 Walk 50 ft with 2 Turns(QC): 6 Walk 150 ft (QC): 6 Walking 10ft/uneven surface-QC: 6 Gait Level of Assist: 6 Gait Persons Needed: 1 Gait Assistive Device: FWW Pt walks with antalgic gait pattern especially at beginning of tx until legs loosen up/not as tight. Wheelchair Training Does the Pt Use a Wheelchair?: No Stair Training Stair Training: Handrails/: 2 handrails Stairs (FIM): 3 #of Steps: 8 1 Step (curb) (QC): 5 4 Steps (QC): 5 12 Steps (QC): 88 Stairs: Pattern: Step to Level of Assist: 5 Pt fatigues at end of of 8 stairs and cannot attempt 3rd set/12 stairs for safety. Exercises Supine Ex: Rolling Seated Therapy Exercises: Ankle pumps, Sit to stand (for transfer purposes), Long arc quads, Hip flexion, Kicking activity Seated Reps: 20 NuStep Minutes: 5 NuStep Workload: 4 Treatments Pt completes transfers and ambulation at Mod I with FWW. Pt completes 8 stairs at SBA for safety. Pt uses seated EX and NuStep to help loosen up tight LE muscles. Pt left with all needs met at end of tx. Assessment Current Status: Good Progress Pt continues to have pain in LB radiating down lateral RLE especially into calf. Pt is given pain med but pt reports they don't help. Dr Shanks reports MRI shows benign lesion and wants Neuro Dr consulted. PT Short Term Goals Short Term Goals Time Frame: Oct 03, 2016 Transfers (B,C,W/C) (FIM): 5 (met) Gait (FIM): 5 (met) Gait Distance Comment: 200' Gait Level of Assist: 5 Gait Assistive Device: FWW PT Fpc Goals Aquatics Assistant Department Head Goals PT Aquatics Assistant Department Head Goals Time Frame: Oct 17, 2016 Transfers (B,C,W/C) (FIM): 6 Sit to Lying (QC): 6 Lying-Sitting on Side/Bed(QC): 6 Sit to Stand (QC): 6 Rollin Roll Left to Right (QC): 6 Car Transfer (QC): 4 Does the Patient Walk: Yes Gait (FIM): 6 Distance: 300' Walk 10 feet (QC): 6 Walk 10ft-Uneven Surface(QC): 6 Walk 50ft with 2 Turns (QC): 6 Walk 150 ft (QC): 6 Gait Assistive Device: FWW Stairs (FIM): 5 # of Steps: 12 1 Step (curb) (QC): 4 4 Steps (QC): 4 12 Steps (QC): 4 Stairs Level Of Assist: 5 Picking up an Object (QC): 4 PT Plan Problem List Problem List: Gait Treatment/Plan Treatment Plan: Continue Plan of Care Treatment Plan: Bed Mobility, Education, Functional Activity Mya, Functional Strength, Group Therapy, Gait, Safety, Therapeutic Exercise, Transfers Treatment Duration: Oct 17, 2016 Visits Per Week: 10-11 Minutes/Day (M-F): 60-90 Minutes/Day (Sat/[place]): 15-30 Safety Risks/Education Patient Education: Gait Training, Correct Positioning, Safety Issues Teaching Recipient: Patient Teaching Methods: Discussion Response to Teaching: Verbalize Understanding Time/GCodes Time In: 800 Time Out: 845 Total Billed Treatment Time: 45 Total Billed Treatment visit, GT (15m), EX (15m) & FA (15m) AUSTIN JAMES PTA Oct 05, 2016 08:47
--- NOTE | 2016-10-05 09:21 | Speech Therapy Daily Note ---
Speech Daily Progress Note Subjective The patient was laying in bed upon entrance. The patient greeted the clinician appropriately and agreed to participate in the cognitive treatment session on this date. Objective Functional Memory Tasks: The patient was read short paragraphs containing functional information, such as, meetings and appointments. The patient was asked questions regarding the information immediately following two readings of the information. The patient demonstrated 80% (+23/29) accuracy with mild clinician verbal cueing. The patient demonstrated a slight improvement from the previous session. Orientation: The patient was oriented to month, date, day of week, and year ( independently). Assessment Assessment Current Status: Good Progress Treatment Plan Continue Plan of Care Communication Comprehension: 4 Expression: 4 Social Cognition Social Interaction: 5 Problem Solvin Memory: 4 Speech Short Term Goals Short Term Goals Short Term Goals 1. The patient will display 80% accuracy with functional safety problem solving (independently). 2. The patient will recall and demonstrate three functional memory strategies for use at home and throughout skilled tasks (mild clinician prompting). 3. The patient will recall three to four items immediately and following a five minute delay (independently). Time Frame-STG: Two Weeks Speech Recycling Crew Supervisor Goals Half-Way Goals 1. The patient will display improved cognitive skills for increased function and safety with ADL's in the least restrictive setting. Time Frame: Four Weeks Comprehension: 5 Expression: 5 Social Interaction: 5 Problem Solvin Memory: 4 Speech-Plan Treatment Plan Speech Therapy Treatment Plan: Continue Plan of Care Continue skilled speech services to target safety problem solving and memory strategies. Treatment Duration: Oct 24, 2016 # of days/week Four to five. Visits Per Week: Four to five Minutes/Day (M-F): 30 Rehab Potential: Fair Safety Risks/Education Teaching Recipient: Patient Teaching Methods: Discussion Response to Teaching: Verbalize Understanding, Reinforcement Needed Education Topics Provided: Memory Strategies Time Speech Therapy Time In: 08:45 Speech Therapy Time Out: 09:15 Total Billed Time: 30 Billed Treatment Time 1, NICKIE NEWMAN Oct 05, 2016 09:21
[2016-10-05] MEDS: predniSONE 10 MG TAB PO SCH (11:19)
[2016-10-05] MEDS: ENOXAPARIN 40 MG/0.4 ML (LOVENOX) SYR SC SCH (11:20)
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
--- NOTE | 2016-10-05 11:44 | Occupational Ther Daily Note ---
OT Current Status-Daily Note Subjective Pt in bed, agrees to treatment. Pt reports 4/10 right LE pain. Mental Status/Objective Functional [place] Measure 0=Not Assessed/NA 4=Minimal Assistance 1=Total Assistance 5=Supervision or Setup 2=Maximal Assistance 6=Modified [place] 3=Moderate Assistance 7=Complete [place] ADL-Treatment Pt supine to sit with modified independence. Sit to stand with modified independence. Pt retrieved clothing and ambulated to restroom with FWW, no LOB noted. Transfer to walk in shower with modified independence. Pt able to bathe all areas with SBA. Uses hand held shower. Don pullover shirt with modified independence. Pt donned pants with modified independence. No LOB during standing for pant hike. Pt donned socks with modified independence using sock aid. Stood at sink to brush teeth and comb hair with modified independence. Pt transferred to toilet with modified independence using grab bar for safety. Pt demonstrates ability to perform toileting tasks with modified independence. Functional [place] Measure 0=Not Assessed/NA 4=Minimal Assistance 1=Total Assistance 5=Supervision or Setup 2=Maximal Assistance 6=Modified [place] 3=Moderate Assistance 7=Complete IndependenceIRFPAI Quality Coding Scale 6 Independent with activity with or without an assistive device 5 Patient requires set up or clean up by helper. Patient completes activity by themselves 4 Supervision or touching assist (CGA). [place] provide cues , steadying assist 3 The helper provides less than half the effort to complete the activity 2 The helper provides more than half the effort to complete the activity 1 Dependent. The helper does all the effort to complete an activity 7 Patient refused to complete or attempt activity 9 The patient did not perform the activity before the current illness or injury 88 Not attempted due to Medical conditions or safety concerns Eating (FIM): 7 (Pt reports feeding self, managing containers, and cutting food without assistance.) Eating (QC): 6 Grooming (FIM): 6 Oral Hygiene (QC): 6 Bathing (FIM): 5 Shower/Bathe Self (QC): 5 Upper Body (FIM): 6 Upper Body Dressing (QC): 6 Lower Body Dressing (FIM): 6 Lower Body Dressing (QC): 6 On/Off Footwear (QC): 6 (with adaptive equipment.) Toileting (FIM): 6 Toileting Hygiene (QC): 6 Toilet/Commode Transfer (FIM): 6 Toilet Transfer (QC): 6 Shower Transfer(FIM): 6 Other Treatment Gait to therapy gym with FWW. Pt performed bilateral UE exercises to increase strength needed for ADLs and transfers. Pt performed shoulder flexion, forward press, biceps curls, and wrist flexion/extension x20 reps with 2# dowel judson. Rest breaks between exercises. Pt completed fine motor activity with nuts and bolts with 2# weights in place on bilateral UE to increase strength and fine motor coordination. Pt complete grooved pegboard activity with bilateral hands to increase fine motor coordination. Pt has some difficulty with left hand and requires increased time for task completion. 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 Arm bike x15 minutes to increase overall strength and activity tolerance needed for functional tasks. Pt required occasional rest breaks during activity. Pt returned to room, transferred to bed with modified independence. Pt in bed with needs met after session. OT Short Term Goals Short Term Goals Time Frame: Oct 03, 2016 Eating(FIM): 5 Grooming(FIM): 5 Bathing(FIM): 5 Upper Body Dressing(FIM): 5 Lower Body Dressing(FIM): 5 Toileting(FIM): 5 Transfers (B,C,W/C) (FIM): 5 (met) Toilet/Commode Transfer(FIM): 5 Shower Transfer(FIM): 5 Additional Short Term Goals: 1-Demonstrate ADL Tasks, 2-Verbalize Understanding , 3-ImproveStrength/Mya 1=Demonstrate adherence to instructed precautions during ADL tasks. 2=Patient will verbalize/demonstrate understanding of assistive devices/ modifications for ADL. 3=Patient will improve strength/tolerance for activity to enable patient to perform ADL's. OT Senior Care Goals Senior Care Goals Time Frame: Oct 10, 2016 Eating (FIM): 6 (met 10/05/16) Eating (QC): 6 (6-MET) Groomin (met 10/05/16) Oral Hygiene (QC): 6 (6-MET) Bathing(FIM): 5 (met 10/05/16) Shower/Bathe Self (QC): 5 (5-MET) Upper Body Dressing(FIM): 6 (met 10/05/16) Upper Body Dressing (QC): 6 (6-MET) Lower Body Dressing(FIM): 6 (met 10/05/16) Lower Body Dressing (QC): 6 (6-MET) On/Off Footwear (QC): 6 (6-MET) Toileting(FIM): 6 (met 10/05/16) Toileting Hygiene (QC): 6 (6-MET) Transfers (B,C,W/C) (FIM): 6 Toilet/Commode Transfer(FIM): 6 (met 10/05/16) Toilet/Commode Transfer (QC): 6 (6-MET) Shower Transfer(FIM): 5 (met 10/05/16) Comprehension(FIM): 5 Expression (FIM): 5 Social Interaction(FIM): 5 Problem Solving(FIM): 4 Memory(FIM): 4 Additional Goals: 1-Demonstrate ADL Tasks, 2-Verbalize Understanding, 3- ImproveStrength/Mya 1=Demonstrate adherence to instructed precautions during ADL tasks. 2=Patient will verbalize/demonstrate understanding of assistive devices/ modifications for ADL. 3=Patient will improve strength/tolerance for activity to enable patient to perform ADL's. OT Education/Plan Discharge Recommendations Plan/Recommendations: Continue POC Treatment Plan/Plan of Care Patient would benefit from OT for education, treatment and training to promote independence in ADL's, mobility, safety and/or upper extremity function for ADL' s. Plan of Care: ADL Retraining, Functional Mobility, UE Funct Exercise/Act Treatment Duration: Oct 10, 2016 Visits Per Week: 10-12 Minutes/Day (M-F): 60-90 Minutes/Day (Sat/[place]): 15-30 Agreement: Yes (10-12) Rehab Potential: Fair Time/GCodes Start Time: 09:15 Stop Time: 10:30 Total Time Billed (hr/min): 75 Billed Treatment Time 1 visit, ADLx2(30minutes), EXx3(45minutes) SACHA GODINEZ OT Oct 05, 2016 11:44
--- NOTE | 2016-10-05 12:13 | Physical Therapy Daily Note ---
PT Daily Note-Current Subjective Pt supine in bed with head raised upon arrival. Pt agrees to PT. Pain Numeric Pain Scale: 7 Location: Right, Lateral Location Body Site: Calf Pain Description: Ache Comment: Pt reports decrease in pain to 4/10 after EX & NuStep. Mental Status Patient Orientation: Person, Place, Situation Attachments: Oxygen PT didn't take pt to tx with O2 since it has remained 95% or higher during tx. Transfers Functional [place] Measure 0=Not Assessed/NA 4=Minimal Assistance 1=Total Assistance 5=Supervision or Setup 2=Maximal Assistance 6=Modified [place] 3=Moderate Assistance 7=Complete IndependenceIRFPAI Quality Coding Scale 6 Independent with activity with or without an assistive device 5 Patient requires set up or clean up by helper. Patient completes activity by themselves 4 Supervision or touching assist (CGA). [place] provide cues , steadying assist 3 The helper provides less than half the effort to complete the activity 2 The helper provides more than half the effort to complete the activity 1 Dependent. The helper does all the effort to complete an activity 7 Patient refused to complete or attempt activity 9 The patient did not perform the activity before the current illness or injury 88 Not attempted due to Medical conditions or safety concerns Transfers (B, C, W/C) (FIM): 6 Scootin Rollin Roll Left to Right (QC): 6 Supine to/from Sit: 6 Sit to/from Stand: 6 Sit to Lying (QC): 6 Sit to Stand (QC): 6 Chair/Zxo-sm-Qvvrw Xfer(QC): 6 Bed to/from Chair: 6 Weight Bearing Weight Bearing Restriction: Full Weight Bearing Location Restriction: LE Bilateral Gait Training Does the Patient Walk?: Yes Gait (FIM): 6 Distance (FIM): 3=150 ft Distance: 200' Walk 10 feet (QC): 6 Walk 50 ft with 2 Turns(QC): 6 Walk 150 ft (QC): 6 Gait Level of Assist: 6 Gait Persons Needed: 1 Gait Assistive Device: FWW Pt's gait is slightly antalgic at beginning of tx and normalized with report of less pain from pt after tx. Wheelchair Training Does the Pt Use a Wheelchair?: No Exercises Seated Therapy Exercises: Ankle pumps, Long arc quads, Hip flexion, Kicking activity Seated Reps: 20 Standing: Hamstring curls, 3 way Ex=Flex, Abd, Ext (10 reps), Mini squats Standing Reps: 20 NuStep Minutes: 10 NuStep Workload: 4 Treatments Pt transfers and ambulates at Mod I using FWW. Pt requests Standing & Seated EX as well as NuStep because pt notices difference after use in gait and pain. Pt is left with all needs met at end of tx. Assessment Current Status: Good Progress Pt tolerated tx well. Decrease in pain after tx. PT Short Term Goals Short Term Goals Time Frame: Oct 03, 2016 Transfers (B,C,W/C) (FIM): 5 (met) Gait (FIM): 5 (met) Gait Distance Comment: 200' Gait Level of Assist: 5 Gait Assistive Device: FWW PT Long-Term Goals Long-Term Goals PT Long-Term Goals Time Frame: Oct 17, 2016 Transfers (B,C,W/C) (FIM): 6 Sit to Lying (QC): 6 Lying-Sitting on Side/Bed(QC): 6 Sit to Stand (QC): 6 Rollin Roll Left to Right (QC): 6 Car Transfer (QC): 4 Does the Patient Walk: Yes Gait (FIM): 6 Distance: 300' Walk 10 feet (QC): 6 Walk 10ft-Uneven Surface(QC): 6 Walk 50ft with 2 Turns (QC): 6 Walk 150 ft (QC): 6 Gait Assistive Device: FWW Stairs (FIM): 5 # of Steps: 12 1 Step (curb) (QC): 4 4 Steps (QC): 4 12 Steps (QC): 4 Stairs Level Of Assist: 5 Picking up an Object (QC): 4 PT Plan Problem List Problem List: Functional Strength, Gait Treatment/Plan Treatment Plan: Continue Plan of Care Treatment Plan: Bed Mobility, Education, Functional Activity Mya, Functional Strength, Group Therapy, Gait, Safety, Therapeutic Exercise, Transfers Treatment Duration: Oct 17, 2016 Visits Per Week: 10-11 Minutes/Day (M-F): 60-90 Minutes/Day (Sat/[place]): 15-30 Safety Risks/Education Patient Education: Gait Training, Correct Positioning, Safety Issues Teaching Recipient: Patient Teaching Methods: Discussion Response to Teaching: Verbalize Understanding Time/GCodes Time In: 1130 Time Out: 1200 Total Billed Treatment Time: 30 Total Billed Treatment visit, GT (10m) & EX (20m) A[place]IN JAMES TERRAZZO WORKER Oct 05, 2016 12:13
[2016-10-05] MEDS ORDERED: BUP/EPI 0.5% 1:200,000 (SENSORCAINE) 30 ML VIAL INJ ONE (14:00)
[2016-10-05] MEDS ORDERED: BETAMETHASONE ACE/NA PHOS 6 MG/ML (CELESTONE SOLUSPAN) IM ONE (15:30)
[2016-10-05] MEDS: ANTACID SUSP 30 ML UDC (MYLANTA) PO PRN (17:26)
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
[2016-10-05 18:00] VITALS: BP 119/67
[2016-10-05] MEDS: traZODone 150 MG (DESYREL) TABLET PO SCH (20:09)
[2016-10-06] MEDS: HYDROcodone/APAP 7.5 MG/325 MG (LORTAB, LORCET PLUS) TABLET PO PRN ×2 (03:15→08:15)
[2016-10-06 05:38] VITALS: BP 122/69
[2016-10-06] MEDS: LEVOTHYROXINE 100 MCG (LEVOTHROID) TAB PO SCH (05:42)
[2016-10-06] MEDS: LEVOTHYROXINE 75 MCG (LEVOTHROID) TABLET PO SCH (05:42)
[2016-10-06] MEDS: PANTOPRAZOLE 20 MG TABLET (PROTONIX) PO SCH (05:42)
[2016-10-06] MEDS: MULTIVIT W/MINERALS TAB (THERAGRAN M) PO SCH (05:42)
[2016-10-06] MEDS: RT-ALBUTEROL/IPRATROPIUM 3 ML (DUONEB) VIAL INH SCH (06:46)
[2016-10-06] MEDS: RT-ADVAIR HFA 115/21 MCG PER PUFF IH SCH ×2 (06:47→09:12)
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
[2016-10-06] MEDS: lisINopril 20 MG (ZESTRIL) TAB PO SCH (08:07)
[2016-10-06] MEDS: CYCLOBENZAPRINE 10 MG (FLEXERIL) TAB PO SCH (08:07)
[2016-10-06] MEDS: CYANOCOBALAMIN 500 MCG TAB (VITAMIN B-12) PO SCH (08:07)
[2016-10-06] MEDS: HYDROCHLOROTHIAZIDE 25 MG (HCTZ) TAB PO SCH (08:07)
[2016-10-06] MEDS ORDERED: SENN-20 PO (08:19)
[2016-10-06] MEDS ORDERED: PRED5TAB PO (08:19)
[2016-10-06] MEDS ORDERED: HYDR-3816 PO (08:19)
[2016-10-06] MEDS: MUPIROCIN 2% OINT 22 GM (BACTROBAN) TUBE TOP SCH (08:22)
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
[2016-10-06] MEDS: DICLOFENAC 1% GEL 100 GM (VOLTAREN) TUBE TOP SCH (09:45)
[2016-10-06 10:25] VITALS: BP 122/69
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
--- NOTE | 2016-10-06 14:00 | Physician Query ---
PQ-Further Specificity Admission/Discharge Admission Date: Sep 26, 2016 at 12:41 Discharge Date: The medical record reflects the following clinical scenario: History/Risk Factors: CHI Clinical Findings: Mild memory impairment Treatment: Rehab Question: Can you further specify the CHI per the clinical indicators above? Please document below. 1. Closed head injury with brief loss of consciousness 2. Closed head injury with no loss of consciousness 3. Other, with explanation of the clinical findings. 4. Clinically undetermined, no explanation for the clinical findings. PHYSICIAN RESPONSE Can you specify per above: 2 Please remember a lack of response to the above will prompt a phone page by CDI/ coding staff. In responding to this query, please exercise your independent professional judgment. The purpose of this communication is to more accurately reflect the complexity of your patients condition. The fact that a question is asked does not imply that any particular answer is desired or expected. Thank you for your timely response to this clarification. Requestors name: Dory THIS PHYSICIAN QUERY FORM IS A PERMANENT PART OF THE MEDICAL RECORD DORY DOUGLAS Oct 06, 2016 14:00 TEE STEVENSON MD Oct 10, 2016 09:27
[2016-10-09] MEDS ORDERED: predniSONE 5 MG TAB PO SCH (12:00)
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
[2016-10-24] MEDS ORDERED: LISI40TA PO (12:31)
[2016-10-24] MEDS ORDERED: HYDR-756 PO ×2 (13:17→13:25)
== END 2016-10-06 10:25 | disposition home or self-care (01) | DRG 949 ==
PROVIDERS: ADMIT Physical Medicine & Rehabilitation; ATTEND Physical Medicine & Rehabilitation
PROC: 3E0U33Z Introduction of Anti-inflammatory into Joints, Percutaneous Approach (ICD-10-PCS; principal; 2016-10-05)
DX: S09.90XD Unspecified injury of head, subsequent encounter (principal); S00.03XD Contusion of scalp, subsequent encounter; S00.83XD Contusion of other part of head, subsequent encounter; S32.020D Wedge compression fracture of second lumbar vertebra, subsequent encounter for fracture with routine healing; S32.040D Wedge compression fracture of fourth lumbar vertebra, subsequent encounter for fracture with routine healing; S32.050D Wedge compression fracture of fifth lumbar vertebra, subsequent encounter for fracture with routine healing; M70.61 Trochanteric bursitis, right hip; M54.41 Lumbago with sciatica, right side; R26.0 Ataxic gait; M50.30 Other cervical disc degeneration, unspecified cervical region; R00.0 Tachycardia, unspecified; J44.9 Chronic obstructive pulmonary disease, unspecified; F17.210 Nicotine dependence, cigarettes, uncomplicated; E89.0 Postprocedural hypothyroidism; E87.1 Hypo-osmolality and hyponatremia; I10 Essential (primary) hypertension; F10.20 Alcohol dependence, uncomplicated; D64.9 Anemia, unspecified; R74.8 Abnormal levels of other serum enzymes; V47.0XXD Car driver injured in collision with fixed or stationary object in nontraffic accident, subsequent encounter
CPT/HCPCS: 36415; 72100; 72148; 73590; 80048; 80053; 85025; 93005; 94640; 94760; 94761

== ENCOUNTER 2016-10-23 05:36 | Inpatient (IN) | payer BC ==
[~2016-10-23] VITALS: Ht 188 cm; Wt 99.8 kg
[~2016-10-23 05:36] MED LIST changes: +HYDR-3816 PO; +PRED5TAB PO; +SENN-20 PO
[2016-10-23] MEDS ORDERED: RT-ALBUTEROL/IPRATROPIUM 3 ML (DUONEB) VIAL ONE (05:39)
--- OUTSIDE RECORDS SUMMARY | 2016-10-23 05:41 | XMS REPORT | Continuity of Care Document ---
Author Author [facility] Organization [facility] Address Unknown Phone Unavailable Care Team Providers Care Bead Filler Name Role Phone PCP Unavailable Source Comments Some departments are not documenting in the electronic medical record. If you do not see the information that you expected, contact Release of Information in the Health Information Management department at [phone] for further assistance in locating additional records.[facility] Active Allergies and Adverse Reactions Not [...]
[2016-10-23] MEDS ORDERED: RT-ALBUTEROL/IPRATROPIUM 3 ML (DUONEB) VIAL INH ONE (05:45)
[2016-10-23 05:54] LABS: BASOPHILS % (AUTO) 0 % (0-10); EOSINOPHILS # (AUTO) 0.1 10^3/uL (0.0-0.3); EOSINOPHILS % (AUTO) 1 % (0-10); LYMPHOCYTES # (AUTO) 0.4 X 10^3 (1.0-4.0); LYMPHOCYTES % (AUTO) 5 % (12-44); MEAN CORPUSCULAR HEMOGLOBIN 36 PG (25-34); MEAN CORPUSCULAR HGB CONC 35 G/DL (32-36); MEAN CORPUSCULAR VOLUME 102 FL (80-99); MONOCYTES % (AUTO) 11 % (0-12); NEUTROPHILS # (AUTO) 7.4 X 10^3 (1.8-7.8); NEUTROPHILS % (AUTO) 83 % (42-75); PLATELET COUNT 246 10^3/uL (130-400); RED BLOOD COUNT 3.13 10^6/uL (4.35-5.85); RED CELL DISTRIBUTION WIDTH 13.8 % (10.0-14.5)
[2016-10-23 06:24] LABS: ALANINE AMINOTRANSFERASE 33 U/L (0-55); ALBUMIN 3.6 G/DL (3.2-4.5); ANION GAP 10 MMOL/L (5-14); ASPARTATE AMINO TRANSFERASE 40 U/L (5-34); BILIRUBIN,TOTAL 0.6 MG/DL (0.1-1.0); BLOOD UREA NITROGEN 17 MG/DL (7-18); BUN/CREATININE RATIO 22; CALCIUM 8.6 MG/DL (8.5-10.1); CARBON DIOXIDE 27 MMOL/L (21-32); CHLORIDE 87 MMOL/L (98-107); CREATININE SERUM 0.77 MG/DL (0.60-1.30); GFR ESTIMATED > 60; GLUCOSE 103 MG/DL (70-105); POTASSIUM 4.8 MMOL/L (3.6-5.0); TOTAL PROTEIN 5.7 G/DL (6.4-8.2); hs C REACTIVE PROTEIN 1.82 MG/DL (0.00-0.50)
[2016-10-23 06:28] LABS: ALCOHOL < 10 MG/DL (<10); SODIUM 124 MMOL/L (135-145)
[2016-10-23] MEDS ORDERED: NS IV 1000 ML 1,000 ML IV ONE (06:28)
[2016-10-23 06:47] LABS: THYROID STIMULATING HORMONE 8.24 UIU/ML (0.35-4.94); TROPONIN I < 0.30 NG/ML (<0.30)
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
[2016-10-23] MEDS ORDERED: methylPREDNISolone 125 MG (Solu-MEDROL) VIAL IVP ONE (07:00)
[2016-10-23 07:39] LABS: BAND NEUTROPHILS 0 %; NEUTROPHILS % (MANUAL) 83 %
[2016-10-23 07:40] LABS: BASOPHILS % (MANUAL) 0 %; EOSINOPHILS % (MANUAL) 2 %; LYMPHOCYTES % (MANUAL) 4 %; POLYCHROMASIA SLIGHT
[2016-10-23 07:47] LABS: BILIRUBIN,URINE NEGATIVE (NEGATIVE); KETONES,URINE NEGATIVE (NEGATIVE); LEUKOCYTE ESTERASE ,URINE NEGATIVE (NEGATIVE); NITRITE,URINE NEGATIVE (NEGATIVE); PH,URINE 6 (5-9); PROTEIN,URINE NEGATIVE (NEGATIVE); UROBILINOGEN,URINE NORMAL (NORMAL)
[2016-10-23] MEDS ORDERED: CATHETER FLUSH 10 ML SYR IV PRN (08:00)
--- NOTE | 2016-10-23 08:08 | Diagnostic Imaging Report ---
INDICATION: Generalized weakness. DISCUSSION: Single portable upright view of the chest was obtained, comparison 09/24/2016. Stable normal heart size. Low lung volumes. No focal consolidation, pleural fluid, or pneumothorax. No osseous abnormality. IMPRESSION: 1. Negative portable chest. Dictated by: Dictated on workstation # [id number]
[2016-10-23 08:45] VITALS: BP 139/68
[2016-10-23] MEDS: NS IV 1000 ML 1,000 ML IV SCH ×2 (08:46→17:24)
[2016-10-23] MEDS ORDERED: RT-ALBUTEROL/IPRATROPIUM 3 ML (DUONEB) VIAL INH PRN (11:00)
[2016-10-23] MEDS ORDERED: RT-ALBUINH INH (11:08)
[2016-10-23] MEDS ORDERED: HYDR-3816 PO (11:08)
[2016-10-23] MEDS ORDERED: SENN-1 PO (11:08)
[2016-10-23] MEDS ORDERED: PRED5TAB PO (11:08)
[2016-10-23] MEDS ORDERED: LEVO200T6 PO (11:08)
[2016-10-23] MEDS: RT-ALBUTEROL/IPRATROPIUM 3 ML (DUONEB) VIAL INH SCH ×3 (11:16→18:57)
[2016-10-23 12:00] VITALS: BP 139/73
[2016-10-23] MEDS: methylPREDNISolone 40 MG/ML (Solu-MEDROL) VIAL IV SCH ×2 (12:36→18:30)
[2016-10-23] MEDS ORDERED: ASPIRIN E.C. 325 MG (ECOTRIN) TABLET PO PRN (13:15)
[2016-10-23] MEDS ORDERED: SENNA W/DOCUSATE (SENOKOT S) TABLET PO PRN (13:15)
[2016-10-23] MEDS ORDERED: RT-ALBUTEROL HFA (VENTOLIN) PER PUFF IH PRN (13:15)
[2016-10-23] MEDS: HYDROcodone/APAP 7.5 MG/325 MG (LORTAB, LORCET PLUS) TABLET PO PRN ×2 (14:26→20:16)
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
[2016-10-23] MEDS ORDERED: ENOXAPARIN 40 MG/0.4 ML (LOVENOX) SYR SC SCH (15:15)
[2016-10-23 16:59] VITALS: BP 156/79
[2016-10-23 20:00] VITALS: BP 135/69
[2016-10-23] MEDS ORDERED: traZODone 150 MG (DESYREL) TABLET PO SCH (21:00)
[2016-10-24 00:11] VITALS: BP 127/61
[2016-10-24] MEDS: NS IV 1000 ML 1,000 ML IV SCH ×2 (00:13→08:22)
[2016-10-24] MEDS: methylPREDNISolone 40 MG/ML (Solu-MEDROL) VIAL IV SCH ×3 (00:13→11:35)
[2016-10-24] MEDS: HYDROcodone/APAP 7.5 MG/325 MG (LORTAB, LORCET PLUS) TABLET PO PRN ×3 (01:58→11:37)
[2016-10-24 04:00] VITALS: BP 130/70
[2016-10-24] MEDS ORDERED: LEVOTHYROXINE 100 MCG (LEVOTHROID) TAB PO SCH (06:30)
[2016-10-24 06:53] LABS: ANION GAP 9 MMOL/L (5-14); BLOOD UREA NITROGEN 13 MG/DL (7-18); BUN/CREATININE RATIO 18; CALCIUM 8.4 MG/DL (8.5-10.1); CARBON DIOXIDE 28 MMOL/L (21-32); CHLORIDE 97 MMOL/L (98-107); CREATININE SERUM 0.74 MG/DL (0.60-1.30); GFR ESTIMATED > 60; GLUCOSE 145 MG/DL (70-105); POTASSIUM 4.6 MMOL/L (3.6-5.0); SODIUM 134 MMOL/L (135-145)
[2016-10-24] MEDS: RT-ALBUTEROL/IPRATROPIUM 3 ML (DUONEB) VIAL INH SCH ×2 (07:13→10:50)
[2016-10-24 08:00] VITALS: BP 117/63
[2016-10-24 12:00] VITALS: BP 139/72
[2016-10-24] MEDS ORDERED: predniSONE 5 MG TAB PO SCH (12:00)
[2016-10-24] MEDS ORDERED: LISI40TA PO (12:31)
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
[2016-10-24] MEDS ORDERED: HYDR-756 PO ×2 (13:17→13:25)
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
== END 2016-10-24 13:45 | disposition home or self-care (01) | DRG 641 ==
LOC: EDUNIT# 05:36 → ER 05:38 → 4TH 07:26
PROVIDERS: ADMIT Internal Medicine; ATTEND Internal Medicine
DX: E87.1 Hypo-osmolality and hyponatremia (principal); I10 Essential (primary) hypertension; J44.1 Chronic obstructive pulmonary disease with (acute) exacerbation; S32.009D Unspecified fracture of unspecified lumbar vertebra, subsequent encounter for fracture with routine healing; E03.9 Hypothyroidism, unspecified; F10.20 Alcohol dependence, uncomplicated; Z87.891 Personal history of nicotine dependence; V47.0XXD Car driver injured in collision with fixed or stationary object in nontraffic accident, subsequent encounter
CPT/HCPCS: 36415; 71010; 80048; 80053; 80306; 80320; 81000; 83735; 83880; 84439; 84443; 84484; 85007; 85027; 86141; 87804; 93005; 94640; 94760; 96361; 96374

== ENCOUNTER 2016-11-13 16:26 | Inpatient (IN) | payer BC ==
[~2016-11-13] VITALS: Ht 188 cm; Wt 99.8 kg
[~2016-11-13 16:26] MED LIST changes: +HYDR-756 PO; +LEVO200T6 PO; +LISI40TA PO; +SENN-1 PO
[2016-11-13] MEDS ORDERED: NS IV 1000 ML 1,000 ML IV ONE (18:48)
[2016-11-13] MEDS ORDERED: RT-ALBUTEROL/IPRATROPIUM 3 ML (DUONEB) VIAL INH ONE (19:00)
[2016-11-13 19:16] LABS: BASOPHILS # (AUTO) 0.1 10^3/uL (0.0-0.1); BASOPHILS % (AUTO) 1 % (0-10); EOSINOPHILS # (AUTO) 0.1 10^3/uL (0.0-0.3); EOSINOPHILS % (AUTO) 1 % (0-10); LYMPHOCYTES # (AUTO) 0.8 X 10^3 (1.0-4.0); LYMPHOCYTES % (AUTO) 6 % (12-44); MEAN CORPUSCULAR HEMOGLOBIN 34 PG (25-34); MEAN CORPUSCULAR HGB CONC 31 G/DL (32-36); MEAN CORPUSCULAR VOLUME 107 FL (80-99); MEAN PLATELET VOLUME 8.5 FL (7.4-10.4); MONOCYTES # (AUTO) 1.3 X 10^3 (0.0-1.0); MONOCYTES % (AUTO) 10 % (0-12); NEUTROPHILS # (AUTO) 10.5 X 10^3 (1.8-7.8); NEUTROPHILS % (AUTO) 83 % (42-75); PLATELET COUNT 407 10^3/uL (130-400); RED BLOOD COUNT 3.69 10^6/uL (4.35-5.85); RED CELL DISTRIBUTION WIDTH 13.6 % (10.0-14.5); WHITE BLOOD COUNT 12.7 10^3/uL (4.3-11.0)
--- NOTE | 2016-11-13 19:18 | Diagnostic Imaging Report ---
INDICATION: Wheezing and dyspnea. DISCUSSION: Single portable upright view of the chest was obtained, comparison 10/23/2016. Patient is slightly rotated to the left on this exam. Normal heart size. No focal consolidation, pleural fluid, or pneumothorax. No osseous abnormality. IMPRESSION: 1. Negative portable chest. Dictated by: Dictated on workstation # [id number]
[2016-11-13 19:33] LABS: BAND NEUTROPHILS 0 %; BASOPHILS % (MANUAL) 0 %; EOSINOPHILS % (MANUAL) 0 %; LYMPHOCYTES % (MANUAL) 8 %; NEUTROPHILS % (MANUAL) 92 %
[2016-11-13 19:36] LABS: ALANINE AMINOTRANSFERASE 37 U/L (0-55); ALBUMIN 3.3 G/DL (3.2-4.5); ANION GAP 11 MMOL/L (5-14); ASPARTATE AMINO TRANSFERASE 21 U/L (5-34); BILIRUBIN,TOTAL 0.4 MG/DL (0.1-1.0); BLOOD UREA NITROGEN 20 MG/DL (7-18); BUN/CREATININE RATIO 25; CALCIUM 9.2 MG/DL (8.5-10.1); CARBON DIOXIDE 32 MMOL/L (21-32); CHLORIDE 97 MMOL/L (98-107); GFR ESTIMATED > 60; GLUCOSE 97 MG/DL (70-105); POTASSIUM 4.2 MMOL/L (3.6-5.0); SODIUM 140 MMOL/L (135-145); TOTAL PROTEIN 6.1 G/DL (6.4-8.2); hs C REACTIVE PROTEIN 9.62 MG/DL (0.00-0.50)
--- NOTE | 2016-11-13 19:45 | ED General ---
General Chief Complaint: Skin/Wound Problems Stated Complaint: FALL Nursing Triage Note: PT SENT TO ED FOR WOUND ON HIS BOTTOM. PT REPORTS HE HAS HAD CLEAR DRAINAGE SINCE SUNDAY. HE DENIES FEVER. Nursing Sepsis Screen: No Definite Risk Source of Information: Patient Exam Limitations: No Limitations History of Present Illness Time Seen by Provider: 18:38 Initial Comments This 66-year-old man presents to the emergency room as referred by Dr. Nelson for evaluation of a draining wound over the sacrum. During assessment he was found to have a large decubitus ulcer with desquamation. The drainage appears to be serous in nature. He thinks he may have contributed to injury when he fell 2 weeks ago. He reports falling on a glass which may have injured the skin. He denies any fever. He uses oxygen at home. He is found to be quite wheezy and tight on lung exam. Allergies and Home Medications Allergies Coded Allergies: No Known Drug Allergies (Unverified , 10/23/16) Home Medications Albuterol Sulfate 1 Puff Puff, 2 PUFF INH Q6H PRN for SHORTNESS OF BREATH, ( Reported) Aspirin 325 Mg Tablet.dr, 325 MG PO TID PRN for HEADACHE, (Reported) Citalopram Hydrobromide 20 Mg Tablet, 20 MG PO HS, (Reported) Cyanocobalamin (Vitamin B-12) 5,000 Mcg Tab.subl, 5,000 MCG SL DAILY, (Reported) Hydrocodone/Acetaminophen 1 Each Tablet, 1 TAB PO Q4H PRN for PAIN, (Reported) Hydrocodone/Acetaminophen 1 Each Tablet, 1 EACH PO 4 times a day, #20 Prescribed by: SYED HOLLIDAY on 10/24/16 1325 Levothyroxine Sodium 200 Mcg Tablet, 200 MCG PO DAILY, (Reported) Lisinopril 40 Mg Tablet, 40 MG PO DAILY, #30 Prescribed by: SYED HOLLIDAY on 10/24/16 1231 Multivitamin 1 Each Tablet, 1 TAB PO DAILY, (Reported) Naproxen Sodium 220 Mg Tablet, 440 MG PO Q8H PRN for BODY PAIN, (Reported) TAKES 2 (220MG) TABLETS Omeprazole Magnesium 20 Mg Tablet.dr, 20 MG PO DAILY, (Reported) Prednisone 5 Mg Tablet, 5 MG PO 1200, (Reported) #30 FILLED 10-06-16 Sennosides/Docusate Sodium 1 Each Tablet, 2 TAB PO BID PRN for CONSTIPATION, ( Reported) Trazodone HCl 150 Mg Tablet, 150 MG PO HS, (Reported) Constitutional: weakness EENTM: no symptoms reported Respiratory: see HPI Cardiovascular: no symptoms reported Gastrointestinal: no symptoms reported Genitourinary: no symptoms reported Musculoskeletal: no symptoms reported Skin: see HPI Psychiatric/Neurological: No Symptoms Reported Hematologic/Lymphatic: No Symptoms Reported Past Adwmuqf-Mbwnoi-Blpxry Hx Patient Social History Alcohol Use: Occasionally Uses Recreational Drug Use: No Smoking Status: Current Everyday Smoker Type Used: Cigarettes Recent Foreign Travel: No Contact w/Someone Who Travel: No Recent Infectious Disease Expo: No Recent Hopitalizations: No Immunizations Up To Date PED Vaccines UTD: No Date of Influenza Vaccine: May 10, 2016 Seasonal Allergies Seasonal Allergies: No Surgeries HX Surgeries: Yes Surgeries: Thyroidectomy Respiratory Hx Respiratory Disorders: Yes Respiratory Disorders: Asthma, COPD Cardiovascular Hx Cardiac Disorders: Yes Cardiac Disorders: Hypertension Neurological Hx Neurological Disorders: No Reproductive System Hx Reproductive Disorders: No Sexually Transmitted Disease: No HIV/AIDS: No Genitourinary Hx Genitourinary Disorders: No Gastrointestinal Hx Gastrointestinal Disorders: No Musculoskeletal Hx Musculoskeletal Disorders: Yes (chronic debility, walks with a walker) Endocrine Hx Endocrine Disorders: Yes (history of hyponatremia) Endocrine Disorders: Hypothyroidsim HEENT Loss of Vision: Denies Cancer Hx Cancer: Yes (thyroid cancer/skin cancer) Cancer: Thyroid Psychosocial Hx Psychiatric Problems: Yes Behavioral Health Disorders: Sleep Difficulties, Anxiety, Depression Integumentary HX Skin/Integumentary Disorder: No Blood Transfusions Hx Blood Disorders: No Adverse Reaction to a Blood Tr: No Family Medical History Significant Family History: No Pertinent Family Hx Family Medial History: Patient reports no known family medical history. Physical Exam Vital Signs Vital Sign - Last 12Hours 11/13/16 18:18 Temp 98.9 Pulse 95 Resp 20 B/P (MAP) 120/74 Pulse Ox 95 O2 Delivery Room Air Capillary Refill : Less Than 3 Seconds General Appearance: No Apparent Distress, WD/WN, Other (disheveled with soiled clothes and significant odor) HEENT: PERRL/EOMI, Normal ENT Inspection, Pharynx Normal Neck: Normal Inspection Respiratory: Decreased Breath Sounds, Wheezing, Other (tight wheezing with decreased air movement) Cardiovascular: Regular Rate, Rhythm, No Edema, No Murmur Gastrointestinal: Normal Bowel Sounds, Non Tender, Soft Extremity: Normal Inspection, No Pedal Edema Neurologic/Psychiatric: Alert, Oriented x3, No Motor/Sensory Deficits, wharf tender II- XII Norm as Tested, Other (flat affect and depressed mood) Skin: Normal Color, Warm/Dry, Other (large desquamating sacral ulcer) Focused Exam Evaluation Sepsis Stage: Sepsis Possible Source: Skin/Soft Tissue Skin: normal color, warm/dry Lactic Acid Level Progress/Results/Core Measures Results/Orders Lab Results Laboratory Tests Test 11/13/16 19:05 11/13/16 20:39 Range/Units White Blood Count 12.7 H 4.3-11.0 10^3/uL Red Blood Count 3.69 L 4.35-5.85 10^6/uL Hemoglobin 12.4 L 13.3-17.7 G/DL Hematocrit 40 40-54 % Mean Corpuscular Volume 107 H 80-99 FL Mean Corpuscular Hemoglobin 34 25-34 PG Mean Corpuscular Hemoglobin Concent 31 L 32-36 G/DL Red Cell Distribution Width 13.6 10.0-14.5 % Platelet Count 407 H 130-400 10^3/uL Mean Platelet Volume 8.5 7.4-10.4 FL Neutrophils (%) (Auto) 83 H 42-75 % Lymphocytes (%) (Auto) 6 L 12-44 % Monocytes (%) (Auto) 10 0-12 % Eosinophils (%) (Auto) 1 0-10 % Basophils (%) (Auto) 1 0-10 % Neutrophils # (Auto) 10.5 H 1.8-7.8 X 10^3 Lymphocytes # (Auto) 0.8 L 1.0-4.0 X 10^3 Monocytes # (Auto) 1.3 H 0.0-1.0 X 10^3 Eosinophils # (Auto) 0.1 0.0-0.3 10^3/uL Basophils # (Auto) 0.1 0.0-0.1 10^3/uL Neutrophils % (Manual) 92 % Lymphocytes % (Manual) 8 % Monocytes % (Manual) 0 % Eosinophils % (Manual) 0 % Basophils % (Manual) 0 % Band Neutrophils 0 % Macrocytosis SLIGHT Sodium Level 140 135-145 MMOL/L Potassium Level 4.2 3.6-5.0 MMOL/L Chloride Level 97 L 98-107 MMOL/L Carbon Dioxide Level 32 21-32 MMOL/L Anion Gap 11 5-14 MMOL/L Blood Urea Nitrogen 20 H 7-18 MG/DL Creatinine 0.80 0.60-1.30 MG/DL Estimat Glomerular Filtration Rate > 60 BUN/Creatinine Ratio 25 Glucose Level 97 70-105 MG/DL Lactic Acid Level 0.72 0.50-2.00 MMOL/L Calcium Level 9.2 8.5-10.1 MG/DL Total Bilirubin 0.4 0.1-1.0 MG/DL Aspartate Amino Transf (AST/SGOT) 21 5-34 U/L Alanine Aminotransferase (ALT/SGPT) 37 0-55 U/L Alkaline Phosphatase 94 40-136 U/L C-Reactive Protein High Sensitivity 9.62 H 0.00-0.50 MG/DL Total Protein 6.1 L 6.4-8.2 G/DL Albumin 3.3 3.2-4.5 G/DL Thyroid Stimulating Hormone (TSH) 8.98 H 0.35-4.94 UIU/ML Free Thyroxine 0.93 0.70-1.48 NG/DL Urine Color YELLOW Urine Clarity CLEAR Urine pH 7 5-9 Urine Specific [place] 1.015 L 1.016-1.022 Urine Protein 1+ H NEGATIVE Urine Glucose (UA) NEGATIVE NEGATIVE Urine Ketones 2+ H NEGATIVE Urine Nitrite NEGATIVE NEGATIVE Urine Bilirubin 1+ H NEGATIVE Urine Urobilinogen 4 H NORMAL MG/DL Urine Leukocyte Esterase 1+ H NEGATIVE Urine RBC (Auto) NEGATIVE NEGATIVE Urine RBC NONE /HPF Urine WBC 2-5 /HPF Urine Crystals NONE /LPF Urine Bacteria NEGATIVE /HPF Urine Casts NONE /LPF Urine Mucus LARGE H /LPF Urine Culture Indicated NO My Orders Orders - DA MCGARRY MD Cbc With Automated Diff (11/13/16 18:46) Comprehensive Metabolic Panel (11/13/16 18:46) Hs C Reactive Protein (11/13/16 18:46) Lactic Acid Analyzer (11/13/16 18:46) Thyroid Stimulating Hormone (11/13/16 18:46) Ua Culture If Indicated (11/13/16 18:46) Blood Culture (11/13/16 18:46) Saline Lock/Iv-Start (11/13/16 18:46) Chest 1 View, Ap/Pa Only (11/13/16 18:46) Albuterol/Ipra Inhalation Soln (Duoneb I (11/13/16 19:00) Svn Sm Volume Nebulizer Rt-Rfs (11/13/16 18:46) Free T4 (Free Thyroxine) (11/13/16 18:46) Ns Iv 1000 Ml (Sodium Chloride 0.9%) (11/13/16 18:48) Manual Differential (11/13/16 19:05) Wound Culture (11/13/16 19:47) Piperacillin Sodium/Tazobactam (Zosyn Vi (11/13/16 20:30) Piperacillin Sodium/Tazobactam (Zosyn Vi (11/13/16 20:27) Ns (Ivpb) (Sodium Chloride 0.9% Ivpb Bag (11/13/16 20:27) Dipht,Pertuss(Acell),Tet Adult (Boostrix (11/13/16 21:45) Medications Given in ED Current Medications Medications Dose Ordered Sig/Christiano Route Start Time Stop Time Status Last Admin Dose Admin Albuterol/ Ipratropium 3 ml ONCE ONCE INH 11/13/16 19:00 11/13/16 19:01 DC 11/13/16 19:07 3 ML Piperacillin Sod/ Tazobactam Sod 4.5 gm/Sodium Chloride 100 ml @ 200 mls/hr ONCE ONCE IV 11/13/16 20:30 11/13/16 20:59 DC 11/13/16 20:40 200 MLS/HR Sodium Chloride 1,000 ml @ 0 mls/hr Q0M ONCE IV 11/13/16 18:48 11/13/16 18:49 DC 11/13/16 19:07 0 MLS/HR Vital Signs/I&O Vital Sign - Last 12Hours 11/13/16 11/13/16 11/14/16 11/14/16 18:18 22:22 00:00 04:00 Temp 98.9 98.7 98.7 Pulse 95 79 74 Resp 20 18 16 B/P (MAP) 120/74 146/83 142/72 Pulse Ox 95 97 97 93 O2 Delivery Room Air Room Air Room Air Intake and Output 11/13/16 23:59 Intake Total 1100 ml Balance 1100 ml Blood Pressure Mean: 89 Progress Note : Progress Note Patient was felt to have possible sepsis with leukocytosis, elevated heart rate , and source of infection with a large decubitus ulcer. He was started on Zosyn and vancomycin. Blood cultures were obtained. Admission was felt important in this patient did not seem able to care for himself. Wound was rinsed with saline and dressed with Xeroform. Tetanus booster was administered. IV fluids were infused. DuoNeb was given for COPD exacerbation. Diagnostic Imaging Diagonstic Imaging: Xray Plain Films/CT/US/NM/MRI: chest Comments chest x-ray viewed by me and report reviewed. See report below: NAME: JAMIE CARVAJAL [facility] REC#: [id number] PT STATUS: REG ER : 1950 PHYSICIAN: DA MCGARRY MD ADMIT DATE: 11/13/16/ER Signed Date of Exam:11/13/16 CHEST 1 VIEW, AP/PA ONLY INDICATION: Wheezing and dyspnea. DISCUSSION: Single portable upright view of the chest was obtained, comparison 10/23/2016. Patient is slightly rotated to the left on this exam. Normal heart size. No focal consolidation, pleural fluid, or pneumothorax. No osseous abnormality. IMPRESSION: 1. Negative portable chest. Dictated by: Dictated on workstation # [id number] Dict: 11/13/161914 Trans: 11/13/161932 [facility] [id number] Interpreted by: OSWALDO ORLANDO MD Electronically signed by: OSWALDO ORLANDO MD 11/13/161932 Departure Communication Time/Spoke to Admitting Phy: 21:[address] Nelson Impression Impression: Primary Impression: Sepsis Qualified Codes: A41.9 - Sepsis, unspecified organism Additional Impressions: Decubitus ulcer of sacral area Qualified Codes: L89.159 - Pressure ulcer of sacral region, unspecified stage COPD exacerbation Disposition: ADMITTED INPATIENT Condition: Improved Decision to Admit Reason: Admit from ER (General) Decision to Admit/Date: Nov 13, 2016 Time/Decision to Admit Time: 20:17 Departure-Patient Inst. Referrals: SELF,LISY FERGUSON (PCP/Family) Primary Care Physician DA MCGARRY MD Nov 13, 2016 19:45
[2016-11-13 19:57] LABS: THYROID STIMULATING HORMONE 8.98 UIU/ML (0.35-4.94)
[2016-11-13] MEDS ORDERED: NS (IVPB) 100 ML ONE (20:27)
[2016-11-13] MEDS ORDERED: PIPERACILLIN/TAZO 4.5 GM VIAL (ZOSYN) IV ONE (20:27)
[2016-11-13] MEDS ORDERED: PIPERACILLIN SODIUM/TAZOBACTAM 4.5 GM in NS (IVPB) 100 ML IV ONE (20:30)
[2016-11-13 20:45] LABS: KETONES,URINE 2+ (NEGATIVE); LEUKOCYTE ESTERASE ,URINE 1+ (NEGATIVE); NITRITE,URINE NEGATIVE (NEGATIVE); PH,URINE 7 (5-9); PROTEIN,URINE 1+ (NEGATIVE); UROBILINOGEN,URINE 4 MG/DL (NORMAL)
[2016-11-13 20:56] LABS: BILIRUBIN,URINE 1+ (NEGATIVE)
[2016-11-13] MEDS ORDERED: TETANUS,DIPTH,PERTUSS P/F (BOOSTRIX) 0.5 ML VIAL IM ONE (21:45)
[2016-11-13] MEDS ORDERED: RT-ALBUTEROL SULF 2.5 MG/3 ML PRE-MIX VIAL IH PRN (22:41)
[2016-11-13] MEDS ORDERED: VANCOMYCIN 1 GM/NS 250 ML IVPB IV ONE ×2 (22:45)
[2016-11-13] MEDS: NS IV 1000 ML 1,000 ML IV SCH (23:06)
[2016-11-13] MEDS: traZODone 150 MG (DESYREL) TABLET PO SCH (23:45)
[2016-11-14] VITALS: BP 146/83
[2016-11-14] MEDS: PIPERACILLIN/TAZOBACTAM 4.5 GM/NS100 ML IVPB IV SCH ×6 (02:14→19:51)
[2016-11-14 04:00] VITALS: BP 142/72
[2016-11-14] MEDS: NS IV 1000 ML 1,000 ML IV SCH ×3 (06:05→22:33)
[2016-11-14 08:00] VITALS: BP 128/74
--- NOTE | 2016-11-14 08:02 | History & Physicial ---
History of Present Illness History of Present Illness Reason for visit/HPI patient came to the office complaining of drainage from his gluteus region and a breaking out. This ulcer had drainage and look nasty. Patient sent out to the emergency room and from there admitted. Patient lives alone. Patient unable to take care of his wound area Patient needs wound care involved. Patient has COPD on oxygen at home. Surgeries thyroid. Patient admits to still smoking with his COPD Date of Admission Nov 13, 2016 at 21:50 I consulted on this patient on 11/14/16 07:58 Attending Physician Javier Mcdermott DO Admitting Physician Shaheed Lara MD Consult Allergies and Home Medications Allergies Coded Allergies: No Known Drug Allergies (Unverified , 10/23/16) Home Medications Albuterol Sulfate 1 Puff Puff, 2 PUFF INH Q6H PRN for SHORTNESS OF BREATH, ( Reported) Aspirin 325 Mg Tablet.dr, 325 MG PO TID PRN for HEADACHE, (Reported) Citalopram Hydrobromide 20 Mg Tablet, 20 MG PO HS, (Reported) Cyanocobalamin (Vitamin B-12) 5,000 Mcg Tab.subl, 5,000 MCG SL DAILY, (Reported) Hydrocodone/Acetaminophen 1 Each Tablet, 1 TAB PO Q4H PRN for PAIN, (Reported) Hydrocodone/Acetaminophen 1 Each Tablet, 1 EACH PO 4 times a day, #20 Prescribed by: SYED HOLLIDAY on 10/24/16 1325 Levothyroxine Sodium 200 Mcg Tablet, 200 MCG PO DAILY, (Reported) Lisinopril 40 Mg Tablet, 40 MG PO DAILY, #30 Prescribed by: SYED HOLLIDAY on 10/24/16 1231 Multivitamin 1 Each Tablet, 1 TAB PO DAILY, (Reported) Naproxen Sodium 220 Mg Tablet, 440 MG PO Q8H PRN for BODY PAIN, (Reported) TAKES 2 (220MG) TABLETS Omeprazole Magnesium 20 Mg Tablet.dr, 20 MG PO DAILY, (Reported) Prednisone 5 Mg Tablet, 5 MG PO 1200, (Reported) #30 FILLED 10-06-16 Sennosides/Docusate Sodium 1 Each Tablet, 2 TAB PO BID PRN for CONSTIPATION, ( Reported) Trazodone HCl 150 Mg Tablet, 150 MG PO HS, (Reported) Past Djpvqnn-Dyofdj-Pswxky Hx Patient Social History Alcohol Use: Regular Use Recreational Drug Use: No Smoking Status: Current Everyday Smoker Type Used: Cigarettes Physical Abuse Screen: No Sexual Abuse: No Recent Foreign Travel: No Contact w/other who traveled: No Recent Hopitalizations: No Recent Infectious Disease Expo: No Immunizations Up To Date Date of Influenza Vaccine: May 10, 2016 Seasonal Allergies Seasonal Allergies: No Surgeries HX Surgeries: Yes Surgeries: Thyroidectomy Respiratory Hx Respiratory Disorders: Yes Respiratory Disorders: COPD Cardiovascular Hx Cardiovascular Disorders: Yes Cardiac Disorders: Hypertension Neurological Hx Neurological Disorders: No Reproductive System Hx Reproductive Disorders: No Sexually Transmitted Disease: No HIV/AIDS: No Genitourinary Hx Genitourinary Disorders: No Gastrointestinal Hx Gastrointestinal Disorders: No Musculoskeletal Hx Musculoskeletal Disorders: Yes (chronic debility, walks with a walker) Endocrine Hx Endocrine Disorders: Yes (history of hyponatremia) Endocrine Disorders: Hypothyroidsim HEENT Loss of Vision: Denies Cancer Hx Cancer: Yes (thyroid cancer/skin cancer) Cancer: Thyroid Psychosocial Hx Psychiatric Problems: Yes Behavioral Health Disorders: Sleep Difficulties, Anxiety, Depression Integumentary HX Skin/Integumentary Disorder: No Blood Transfusions Hx Blood Disorders: No Adverse Reaction to a Blood Tr: No Family Medical History Significant Family History: No Pertinent Family Hx Family Hx: Patient reports no known family medical history. Constitutional: other (decubiti of gluteus region with drainage) EENTM: no symptoms reported Respiratory: short of breath Cardiovascular: other (hypertension history) Gastrointestinal: no symptoms reported Genitourinary: no symptoms reported Physical Exam Vital Signs Vital Sign - Last 12Hours 11/13/16 18:18 Temp 98.9 Pulse 95 Resp 20 B/P (MAP) 120/74 Pulse Ox 95 O2 Delivery Room Air Capillary Refill : Less Than 3 Seconds General Appearance: No Apparent Distress, WD/WN Eyes: Bilateral Eye Normal Inspection HEENT: Normal ENT Inspection Neck: Full Range of Motion, Normal Inspection, Non Tender Respiratory: Chest Non Tender, Decreased Breath Sounds Cardiovascular: Regular Rate, Rhythm, No Murmur Gastrointestinal: Non Tender, Soft Assessment/Plan Assessment and Plan sepsis. Sacral ulcer. COPD. Hypertension history. Hypothyroid Problems: Clinical Quality Measures DVT/VTE Risk/Contraindication: Risk Factor Score Per Nursin RFS Level Per Nursing on Admit: 4+=Very High JAVIER MCDERMOTT DO Nov 14, 2016 08:02
[2016-11-14] MEDS ORDERED: CATHETER FLUSH 10 ML SYR IV PRN (08:15)
[2016-11-14] MEDS: VANCOMYCIN 1500 MG/NS 500 ML IVPB IV SCH ×4 (08:48→20:29)
[2016-11-14] MEDS: ENOXAPARIN 40 MG/0.4 ML (LOVENOX) SYR SC SCH (08:48)
[2016-11-14] MEDS: RT-ALBUTEROL/IPRATROPIUM 3 ML (DUONEB) VIAL IH SCH ×4 (08:56→19:44)
[2016-11-14] MEDS ORDERED: LISI40TA PO (09:07)
[2016-11-14 09:15] LABS: BASOPHILS # (AUTO) 0.1 10^3/uL (0.0-0.1); BASOPHILS % (AUTO) 1 % (0-10); EOSINOPHILS # (AUTO) 0.1 10^3/uL (0.0-0.3); EOSINOPHILS % (AUTO) 1 % (0-10); LYMPHOCYTES # (AUTO) 0.4 X 10^3 (1.0-4.0); LYMPHOCYTES % (AUTO) 4 % (12-44); MEAN CORPUSCULAR HEMOGLOBIN 34 PG (25-34); MEAN CORPUSCULAR HGB CONC 31 G/DL (32-36); MEAN CORPUSCULAR VOLUME 107 FL (80-99); MONOCYTES # (AUTO) 0.8 X 10^3 (0.0-1.0); MONOCYTES % (AUTO) 8 % (0-12); NEUTROPHILS # (AUTO) 8.7 X 10^3 (1.8-7.8); NEUTROPHILS % (AUTO) 87 % (42-75); PLATELET COUNT 385 10^3/uL (130-400); RED BLOOD COUNT 3.45 10^6/uL (4.35-5.85); RED CELL DISTRIBUTION WIDTH 13.6 % (10.0-14.5)
[2016-11-14] MEDS ORDERED: FLUT12AE4 INH (09:17)
[2016-11-14] MEDS ORDERED: TRAM50TA2 PO (09:17)
[2016-11-14 09:32] LABS: ANION GAP 10 MMOL/L (5-14); BLOOD UREA NITROGEN 16 MG/DL (7-18); CARBON DIOXIDE 30 MMOL/L (21-32); CHLORIDE 100 MMOL/L (98-107); CREATININE SERUM 0.75 MG/DL (0.60-1.30); POTASSIUM 3.6 MMOL/L (3.6-5.0); SODIUM 140 MMOL/L (135-145)
[2016-11-14 09:33] LABS: BUN/CREATININE RATIO 21; CALCIUM 8.5 MG/DL (8.5-10.1); GFR ESTIMATED > 60; GLUCOSE 120 MG/DL (70-105)
[2016-11-14 09:37] LABS: ANISOCYTOSIS SLIGHT; BAND NEUTROPHILS 1 %; BASOPHILS % (MANUAL) 0 %; EOSINOPHILS % (MANUAL) 0 %; LYMPHOCYTES % (MANUAL) 4 %; NEUTROPHILS % (MANUAL) 90 %
[2016-11-14 12:00] VITALS: BP 131/77
[2016-11-14 16:29] VITALS: BP 146/72
[2016-11-14 20:23] VITALS: BP 142/78
[2016-11-14] MEDS: traZODone 150 MG (DESYREL) TABLET PO SCH (20:29)
--- NOTE | 2016-11-14 22:40 | Wound Care Progress Note ---
Subjective Subjective Subjective/Events-last exam 66 year old male admitted with deteriorated general condition and large partial thickness injury to butterfly distribution of yina cleft area. The patient is ambulatory, but is incontinent of stool, and may have less than fastidious hygiene. The present wound appears to be principally a chemical burn related to neglected incontinent stool. Cleaning and Barrier cream orders written. Maximum Strength Mustapha's Butt paste requested due to severity of the injury. Past Medical History: The patient has hypertension, chronic obstructive pulmonary disease, history of thyroid cancer and can't cancer surgery anxiety and depression chronic debility, requiring a walker. When admitted the patient was living alone, and demonstrated poor hygiene. Family History: No pertinent family history. Review of Systems General: Fatigue Pulmonary: No Dyspnea Cardiovascular: No: Chest Pain Gastrointestinal: No: Abdominal Pain Genitourinary: Incontinence (primarily of stool) Neurological: Numbness, Weakness Objective Exam Last Set of Vital Signs Vital Signs Date Time Temp Pulse Resp B/P (MAP) Pulse Ox O2 Delivery O2 Flow Rate FiO2 11/14/16 20:23 97.8 88 22 142/78 96 Room Air Capillary Refill : Less Than 3 Seconds I&O Bad tableGeneral: Alert, No Acute Distress Lungs: Normal Air Movement Skin: Other (irregular bilateral buttock talk excoriation and partial- thickness loss, with geographic borders, consistent with chemical burn from fecal irritation. The area of partial-thickness loss does not overlie a bony prominence in either area.) Results Lab Laboratory Tests 11/14/16 09:05: White Blood Count 10.0, Red Blood Count 3.45L, Hemoglobin 11.6L, Hematocrit 37L , Mean Corpuscular Volume 107H, Mean Corpuscular Hemoglobin 34, Mean Corpuscular Hemoglobin Concent 31L, Red Cell Distribution Width 13.6, Platelet Count 385, Mean Platelet Volume 8.0, Neutrophils (%) (Auto) 87H, Lymphocytes (% ) (Auto) 4L, Monocytes (%) (Auto) 8, Eosinophils (%) (Auto) 1, Basophils (%) ( Auto) 1, Neutrophils # (Auto) 8.7H, Lymphocytes # (Auto) 0.4L, Monocytes # (Auto ) 0.8, Eosinophils # (Auto) 0.1, Basophils # (Auto) 0.1, Neutrophils % (Manual) 90, Lymphocytes % (Manual) 4, Monocytes % (Manual) 5, Eosinophils % (Manual) 0, Basophils % (Manual) 0, Band Neutrophils 1, Anisocytosis SLIGHT, Macrocytosis SLIGHT, Elliptocytes SLIGHT, Sodium Level 140, Potassium Level 3.6, Chloride Level 100, Carbon Dioxide Level 30, Anion Gap 10, Blood Urea Nitrogen 16, Creatinine 0.75, Estimat Glomerular Filtration Rate > 60, BUN/Creatinine Ratio 21, Glucose Level 120H, Calcium Level 8.5 Microbiology 11/13/16 Blood Culture - Preliminary, Resulted No growth 11/13/16 Gram Stain - Final, Resulted 11/13/16 Wound Culture - Preliminary, Resulted Strep Or Related Genus Group B Streptococci Gram Negative West Assessment/Plan Assessment/Plan Assessment/Plan 1. Bilateral buttock talk partial-thickness injury, butterfly distribution, most consistent with chemical burn from stool. 2. Fecal incontinence. 3. Debility with poor hygiene. Plan: Area will be cleansed 3 times a day and Mustapha's Butt paste improving. I believe that to avoid future issues like this the patient needs to be in a controlled environment of some sort where good hygiene you can be recommended. The patient should remain off his back and buttock area until wounds are healed. I will be glad to follow him in the wound clinic as an outpatient following discharge. PEGGY CARLSON MD Nov 14, 2016 22:40
[2016-11-15 00:31] VITALS: BP 153/85
[2016-11-15] MEDS: RT-ALBUTEROL/IPRATROPIUM 3 ML (DUONEB) VIAL IH SCH ×4 (02:10→19:48)
[2016-11-15 04:00] VITALS: BP 158/87
[2016-11-15] MEDS: PIPERACILLIN/TAZOBACTAM 4.5 GM/NS100 ML IVPB IV SCH ×6 (04:45→20:22)
[2016-11-15 06:03] LABS: BASOPHILS % (AUTO) 1 % (0-10); EOSINOPHILS # (AUTO) 0.1 10^3/uL (0.0-0.3); EOSINOPHILS % (AUTO) 1 % (0-10); LYMPHOCYTES # (AUTO) 0.6 X 10^3 (1.0-4.0); LYMPHOCYTES % (AUTO) 7 % (12-44); MEAN CORPUSCULAR HEMOGLOBIN 33 PG (25-34); MEAN CORPUSCULAR HGB CONC 32 G/DL (32-36); MEAN CORPUSCULAR VOLUME 105 FL (80-99); MEAN PLATELET VOLUME 8.4 FL (7.4-10.4); MONOCYTES # (AUTO) 0.8 X 10^3 (0.0-1.0); MONOCYTES % (AUTO) 9 % (0-12); NEUTROPHILS % (AUTO) 82 % (42-75); PLATELET COUNT 383 10^3/uL (130-400); RED BLOOD COUNT 3.23 10^6/uL (4.35-5.85); RED CELL DISTRIBUTION WIDTH 13.3 % (10.0-14.5); WHITE BLOOD COUNT 8.5 10^3/uL (4.3-11.0)
[2016-11-15 06:27] LABS: ANION GAP 6 MMOL/L (5-14); BLOOD UREA NITROGEN 9 MG/DL (7-18); BUN/CREATININE RATIO 13; CALCIUM 8.2 MG/DL (8.5-10.1); CARBON DIOXIDE 29 MMOL/L (21-32); CHLORIDE 106 MMOL/L (98-107); CREATININE SERUM 0.69 MG/DL (0.60-1.30); GFR ESTIMATED > 60; GLUCOSE 104 MG/DL (70-105); SODIUM 141 MMOL/L (135-145)
[2016-11-15] MEDS: NS IV 1000 ML 1,000 ML IV SCH (06:52)
[2016-11-15 07:20] VITALS: BP 123/75
[2016-11-15] MEDS ORDERED: TROUGH ORDER-PHARMACY XX NR (08:00)
--- NOTE | 2016-11-15 08:13 | Progress Note (SOAP) ---
Subjective Subjective/Events-last exam sacral ulcer. COPD. Patient's bottom is improving. Patient feeling better. To get PT and OT involved Objective Exam Vital Signs Date Time Temp Pulse Resp B/P (MAP) Pulse Ox O2 Delivery O2 Flow Rate FiO2 11/15/16 07:20 98.7 89 24 123/75 96 Room Air 11/15/16 04:00 98.7 91 20 158/87 94 Room Air 11/15/16 02:11 94 11/15/16 00:31 98.9 83 20 153/85 97 Room Air 11/14/16 20:23 97.8 88 22 142/78 96 Room Air 11/14/16 19:45 92 11/14/16 16:29 98.3 83 22 146/72 97 Room Air 11/14/16 14:51 92 11/14/16 12:00 98.2 86 24 131/77 95 Room Air 11/14/16 08:57 92 I & O 11/15/16 07:00 Intake Total 4588 ml Output Total 2050 ml Balance 2538 ml Capillary Refill : Less Than 3 Seconds General Appearance: No Apparent Distress, WD/WN HEENT: Normal ENT Inspection Neck: Full Range of Motion, Normal Inspection Respiratory: Chest Non Tender, No Accessory Muscle Use, No Respiratory Distress Cardiovascular: Regular Rate, Rhythm, No Murmur Results Lab Laboratory Tests 11/14/16 09:05 11/15/16 05:45 Laboratory Tests 11/14/16 09:05: White Blood Count 10.0, Red Blood Count 3.45L, Hemoglobin 11.6L, Hematocrit 37L , Mean Corpuscular Volume 107H, Mean Corpuscular Hemoglobin 34, Mean Corpuscular Hemoglobin Concent 31L, Red Cell Distribution Width 13.6, Platelet Count 385, Mean Platelet Volume 8.0, Neutrophils (%) (Auto) 87H, Lymphocytes (% ) (Auto) 4L, Monocytes (%) (Auto) 8, Eosinophils (%) (Auto) 1, Basophils (%) ( Auto) 1, Neutrophils # (Auto) 8.7H, Lymphocytes # (Auto) 0.4L, Monocytes # (Auto ) 0.8, Eosinophils # (Auto) 0.1, Basophils # (Auto) 0.1, Neutrophils % (Manual) 90, Lymphocytes % (Manual) 4, Monocytes % (Manual) 5, Eosinophils % (Manual) 0, Basophils % (Manual) 0, Band Neutrophils 1, Anisocytosis SLIGHT, Macrocytosis SLIGHT, Elliptocytes SLIGHT, Sodium Level 140, Potassium Level 3.6, Chloride Level 100, Carbon Dioxide Level 30, Anion Gap 10, Blood Urea Nitrogen 16, Creatinine 0.75, Estimat Glomerular Filtration Rate > 60, BUN/Creatinine Ratio 21, Glucose Level 120H, Calcium Level 8.5 11/15/16 05:45: White Blood Count 8.5, Red Blood Count 3.23L, Hemoglobin 10.8L, Hematocrit 34L, Mean Corpuscular Volume 105H, Mean Corpuscular Hemoglobin 33, Mean Corpuscular Hemoglobin Concent 32, Red Cell Distribution Width 13.3, Platelet Count 383, Mean Platelet Volume 8.4, Neutrophils (%) (Auto) 82H, Lymphocytes (%) (Auto) 7L , Monocytes (%) (Auto) 9, Eosinophils (%) (Auto) 1, Basophils (%) (Auto) 1, Neutrophils # (Auto) 7.0, Lymphocytes # (Auto) 0.6L, Monocytes # (Auto) 0.8, Eosinophils # (Auto) 0.1, Basophils # (Auto) 0.0, Sodium Level 141, Potassium Level 4.0, Chloride Level 106, Carbon Dioxide Level 29, Anion Gap 6, Blood Urea Nitrogen 9, Creatinine 0.69, Estimat Glomerular Filtration Rate > 60, BUN/ Creatinine Ratio 13, Glucose Level 104, Calcium Level 8.2L 11/15/16 08:02: Microbiology 11/13/16 Blood Culture - Preliminary, Resulted No growth 11/13/16 Gram Stain - Final, Resulted 11/13/16 Wound Culture - Preliminary, Resulted Strep Or Related Genus Group B Streptococci Gram Negative West Assessment/Plan Assessment/Plan Assess & Plan/Chief Complaint chemical burn. Sacral ulcer. COPD. Culture sacrum strep Clinical Quality Measures DVT/VTE Risk/Contraindication: Risk Factor Score Per Nursin RFS Level Per Nursing on Admit: 4+=Very High EDDIE MCDERMOTT DO Nov 15, 2016 08:13
[2016-11-15] MEDS: ENOXAPARIN 40 MG/0.4 ML (LOVENOX) SYR SC SCH (09:42)
[2016-11-15] MEDS: ZINC OXIDE 16% OINT (BUTT PASTE) 113 GM TUBE TOP SCH ×3 (10:07→20:28)
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
[2016-11-15 11:29] VITALS: BP 154/89
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
[2016-11-15 16:36] VITALS: BP 170/88
[2016-11-15 20:18] VITALS: BP 154/86
[2016-11-15] MEDS: traZODone 150 MG (DESYREL) TABLET PO SCH (22:25)
[2016-11-16 00:23] VITALS: BP 180/89
[2016-11-16] MEDS: RT-ALBUTEROL/IPRATROPIUM 3 ML (DUONEB) VIAL IH SCH ×4 (03:03→19:38)
[2016-11-16] MEDS: PIPERACILLIN/TAZOBACTAM 4.5 GM/NS100 ML IVPB IV SCH ×2 (03:30)
[2016-11-16 03:59] VITALS: BP 164/74
[2016-11-16 06:20] LABS: MEAN PLATELET VOLUME 8.5 FL (7.4-10.4); RED BLOOD COUNT 3.49 10^6/uL (4.35-5.85); RED CELL DISTRIBUTION WIDTH 13.4 % (10.0-14.5); WHITE BLOOD COUNT 7.1 10^3/uL (4.3-11.0)
[2016-11-16 06:43] LABS: ANION GAP 9 MMOL/L (5-14); BLOOD UREA NITROGEN 8 MG/DL (7-18); BUN/CREATININE RATIO 11; CALCIUM 8.4 MG/DL (8.5-10.1); CARBON DIOXIDE 25 MMOL/L (21-32); CHLORIDE 108 MMOL/L (98-107); CREATININE SERUM 0.74 MG/DL (0.60-1.30); GFR ESTIMATED > 60; GLUCOSE 91 MG/DL (70-105); POTASSIUM 3.5 MMOL/L (3.6-5.0); SODIUM 142 MMOL/L (135-145)
[2016-11-16 07:40] VITALS: BP 149/78
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
[2016-11-16] MEDS: ENOXAPARIN 40 MG/0.4 ML (LOVENOX) SYR SC SCH (09:15)
[2016-11-16] MEDS: cefTRIAXone 1 GM/NS 50 ML IVPB IV SCH ×2 (09:15)
[2016-11-16] MEDS: ZINC OXIDE 16% OINT (BUTT PASTE) 113 GM TUBE TOP SCH ×3 (09:15→20:23)
--- NOTE | 2016-11-16 11:04 | Occupational Ther Daily Note ---
OT Current Status-Daily Note Subjective Pt alert, lying in bed watching tv. Pt agreed to therapy. No c/o pain. Mental Status/Objective Patient Orientation: Person, Place, Time, Situation Functional [place] Measure 0=Not Assessed/NA 4=Minimal Assistance 1=Total Assistance 5=Supervision or Setup 2=Maximal Assistance 6=Modified [place] 3=Moderate Assistance 7=Complete [place] ADL-Treatment Pt was able to go from supine to sitting EOB by self with HOB slightly elevated. Pt then used FWW to ambulate into bathroom and stood at sink to complete grooming skills, mod I. After ambulating back to sit EOB pt demonstrated ability to don/doff socks by self. Pt was able to go from sitting to supine in bed with HOB slightly elevated. After therapy, pt sitting in bed with call light/phone in reach. All needs met in room. Grooming (FIM): 6 Lower Body Dressing (FIM): 6 Transfers (B, C, W/C) (FIM): 5 Toilet/Commode Transfer (FIM): 5 OT Short Term Goals Short Term Goals 1=Demonstrate adherence to instructed precautions during ADL tasks. 2=Patient will verbalize/demonstrate understanding of assistive devices/ modifications for ADL. 3=Patient will improve strength/tolerance for activity to enable patient to perform ADL's. OT Assistant Vice President Goals Assistant Vice President Goals Time Frame: Nov 22, 2016 Bathing(FIM): 6 Upper Body Dressing(FIM): 6 Lower Body Dressing(FIM): 6 Toileting(FIM): 6 Toilet/Commode Transfer(FIM): 6 Additional Goals: 2-Verbalize Understanding, 3-ImproveStrength/Mya 1=Demonstrate adherence to instructed precautions during ADL tasks. 2=Patient will verbalize/demonstrate understanding of assistive devices/ modifications for ADL. 3=Patient will improve strength/tolerance for activity to enable patient to perform ADL's. OT Education/Plan Problem List/Assessment Pt to benefit from skilled OT intervention for ADL training, transfers, strengthening, and adaptive equipment training to improve level of function and allow safe discharge home. Discharge Recommendations Plan/Recommendations: Continue POC Treatment Plan/Plan of Care Patient would benefit from OT for education, treatment and training to promote independence in ADL's, mobility, safety and/or upper extremity function for ADL' s. Plan of Care: ADL Retraining, Functional Mobility, UE Funct Exercise/Act Treatment Duration: Nov 22, 2016 Visits Per Week: 5 Agreement: Yes Rehab Potential: Fair Time/GCodes Start Time: 09:45 Stop Time: 10:13 Total Time Billed (hr/min): 23 Billed Treatment Time 1 visit-FA 2 (23 min) KANE ADAMES Nov 16, 2016 11:04
[2016-11-16 11:39] VITALS: BP 170/70
--- NOTE | 2016-11-16 15:01 | Physical Therapy Progress Note ---
Therapy Progress Note Patient is in bed and declines PT secondary he states he just wants to sleep. PT attempted to educate patient on importance of increasing activity to improve current situation, however, patient continue to decline PT intervention. PT will attempt in a.m. 1 ref SAI BILLINGSLEY PT Nov 16, 2016 15:01
[2016-11-16 16:10] VITALS: BP 167/98
[2016-11-16 20:00] VITALS: BP 154/67
[2016-11-16] MEDS ORDERED: PANTOPRAZOLE 40 MG (PROTONIX) TAB PO PRN (20:00)
[2016-11-16] MEDS: traZODone 150 MG (DESYREL) TABLET PO SCH (20:23)
[2016-11-17 00:19] VITALS: BP 156/75
[2016-11-17] MEDS: RT-ALBUTEROL/IPRATROPIUM 3 ML (DUONEB) VIAL IH SCH ×2 (02:50→09:28)
[2016-11-17 04:04] VITALS: BP 150/79
[2016-11-17 05:12] LABS: BASOPHILS # (AUTO) 0.1 10^3/uL (0.0-0.1); BASOPHILS % (AUTO) 1 % (0-10); EOSINOPHILS # (AUTO) 0.2 10^3/uL (0.0-0.3); EOSINOPHILS % (AUTO) 3 % (0-10); LYMPHOCYTES # (AUTO) 0.7 X 10^3 (1.0-4.0); LYMPHOCYTES % (AUTO) 9 % (12-44); MEAN CORPUSCULAR HEMOGLOBIN 34 PG (25-34); MEAN CORPUSCULAR HGB CONC 33 G/DL (32-36); MEAN CORPUSCULAR VOLUME 103 FL (80-99); MEAN PLATELET VOLUME 8.4 FL (7.4-10.4); MONOCYTES % (AUTO) 13 % (0-12); NEUTROPHILS # (AUTO) 5.5 X 10^3 (1.8-7.8); NEUTROPHILS % (AUTO) 74 % (42-75); PLATELET COUNT 414 10^3/uL (130-400); RED BLOOD COUNT 3.72 10^6/uL (4.35-5.85); RED CELL DISTRIBUTION WIDTH 13.4 % (10.0-14.5); WHITE BLOOD COUNT 7.4 10^3/uL (4.3-11.0)
[2016-11-17] MEDS ORDERED: KCL 10 MEQ TAB (MICRO K) PO NR (07:45)
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
[2016-11-17 07:50] VITALS: BP 155/85
[2016-11-17] MEDS ORDERED: RT-ADVAIR HFA 115/21 MCG PER PUFF IH SCH ×2 (08:00→20:00)
[2016-11-17] MEDS: ENOXAPARIN 40 MG/0.4 ML (LOVENOX) SYR SC SCH (09:43)
[2016-11-17] MEDS: cefTRIAXone 1 GM/NS 50 ML IVPB IV SCH ×2 (09:44)
[2016-11-17] MEDS: ZINC OXIDE 16% OINT (BUTT PASTE) 113 GM TUBE TOP SCH (09:45)
[2016-11-17] MEDS ORDERED: PHARMACY TO DOSE PO SCH (10:00)
--- NOTE | 2016-11-17 11:22 | Physical Therapy Daily Note ---
PT Daily Note-Current Subjective Patient agrees to PT. Pain Numeric Pain Scale: 0-No Pain Location: No Pain Reported Mental Status Patient Orientation: Normal For Age Transfers Functional [place] Measure 0=Not Assessed/NA 4=Minimal Assistance 1=Total Assistance 5=Supervision or Setup 2=Maximal Assistance 6=Modified [place] 3=Moderate Assistance 7=Complete IndependenceIRFPAI Quality Coding Scale 6 Independent with activity with or without an assistive device 5 Patient requires set up or clean up by helper. Patient completes activity by themselves 4 Supervision or touching assist (CGA). [place] provide cues , steadying assist 3 The helper provides less than half the effort to complete the activity 2 The helper provides more than half the effort to complete the activity 1 Dependent. The helper does all the effort to complete an activity 7 Patient refused to complete or attempt activity 9 The patient did not perform the activity before the current illness or injury 88 Not attempted due to Medical conditions or safety concerns Transfers (B, C, W/C) (FIM): 6 Scootin Rollin Sit to/from Stand: 6 Gait Training Gait (FIM): 6 Distance (FIM): 3=150 ft Distance: 500' Gait Level of Assist: 6 Gait Assistive Device: FWW safe and functional with FWW Assessment Patient is currently at [facility] with all gross motor skills and will dismiss to home on this date. PT Short Term Goals Short Term Goals Time Frame: Nov 17, 2016 PT Ethnology Professor Goals Ethnology Professor Goals PT Ethnology Professor Goals Time Frame: Nov 22, 2016 Transfers (B,C,W/C) (FIM): 5 Gait (FIM): 5 Distance: 400' Gait Level of Assist: 5 Gait Assistive Device: FWW Stairs (FIM): 2 # of Steps: 4 Stairs Level Of Assist: 4 PT Plan Treatment/Plan Treatment Plan: Discontinue PT, goals met Treatment Plan: Bed Mobility, Education, Functional Activity Mya, Functional Strength, Gait, Safety, Therapeutic Exercise, Transfers Treatment Duration: Nov 22, 2016 Visits Per Week: 5-6 Minutes/Day (M-F): 15-30 Minutes/Day (Sat/[place]): 15-30 Time/GCodes Time In: 1025 Time Out: 1035 Total Billed Treatment Time: 10 Total Billed Treatment 1 visit FA 10 min SAI BILLINGSLEY PT Nov 17, 2016 11:22
[2016-11-17 12:00] VITALS: BP 157/91
[2016-11-17] MEDS ORDERED: CEFD300C3 PO (12:21)
[2016-11-17 13:00] VITALS: BP 148/88
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
== END 2016-11-17 13:00 | disposition home or self-care (01) | DRG 872 ==
LOC: EDUNIT# 16:26 → ER 16:28 → 4TH 21:50 → 3RD 11-14 15:51 → 4TH 11-14 15:51
PROVIDERS: ADMIT Family Medicine; ATTEND Family Medicine
DX: A41.9 Sepsis, unspecified organism (principal); L89.159 Pressure ulcer of sacral region, unspecified stage; J44.9 Chronic obstructive pulmonary disease, unspecified; F17.210 Nicotine dependence, cigarettes, uncomplicated; Z99.81 Dependence on supplemental oxygen; I10 Essential (primary) hypertension; E03.9 Hypothyroidism, unspecified; F41.9 Anxiety disorder, unspecified; F32.9 Major depressive disorder, single episode, unspecified; B95.1 Streptococcus, group B, as the cause of diseases classified elsewhere
CPT/HCPCS: 36415; 71010; 80048; 80053; 80202; 81000; 83605; 84439; 84443; 85007; 85025; 85027; 86141; 87040; 87070; 87077; 87186; 87205; 94640; 94760; 96361; 96365

== ENCOUNTER 2016-12-11 15:21 | Outpatient (RCR) | payer BC ==
[~2016-12-11 15:21] MED LIST changes: +CEFD300C3 PO; +FLUT12AE4 INH; +TRAM50TA2 PO
== END 2016-12-11 16:00 | disposition home or self-care (01) ==
LOC: WOUNDCARE 15:21
PROVIDERS: ATTEND Surgery
DX: L98.492 Non-pressure chronic ulcer of skin of other sites with fat layer exposed (principal); L22 Diaper dermatitis
CPT/HCPCS: 99212; 99213

== ENCOUNTER → 2016-12-25 | Outpatient (CLI) | payer BC ==
[~2016-12-25] MED LIST changes: +GADOBUTROL 10 MMOL/10 ML (GADAVIST) VIAL IV ONE
[2016-12-25 10:13] LABS: BLOOD UREA NITROGEN 16 MG/DL (7-18); BUN/CREATININE RATIO 19; CREATININE SERUM 0.83 MG/DL (0.60-1.30); GFR ESTIMATED > 60
== END ==
LOC: RT 09:33
PROVIDERS: ATTEND Psychiatry & Neurology Neurology
DX: R56.9 Unspecified convulsions (principal)
CPT/HCPCS: 36415; 82565; 84520

== ENCOUNTER → 2016-12-28 | Outpatient (CLI) | payer BC ==
[~2016-12-28] MED LIST changes: -GADOBUTROL 10 MMOL/10 ML (GADAVIST) VIAL IV ONE
--- NOTE | 2016-12-28 18:10 | ECHOCARDIOGRAPHY REPORT ---
DATE OF SERVICE: 12/28/2016 TWO DIMENSIONAL ECHOCARDIOGRAM ATTENDING PHYSICIAN: Dariusz Richards MD PRIMARY PHYSICIAN: Javier Nelson DO DIAGNOSIS: Syncope. FINDINGS: 1. Sinus rhythm. 2. Left atrial dimensions are normal. 3. Aortic root dimensions are normal. 4. Left ventricular systolic function is preserved. Left ventricular ejection fraction is 65%-60%. No LVH is present. 5. There are no wall motion abnormalities. 6. Right heart size and function is normal. 7. There is no evidence of pericardial effusion. 8. Mild diastolic dysfunction. 9. IVC is normal with diameter of 1.3 cm. VALVULAR STRUCTURE OF THE HEART: There is mild tricuspid regurgitation with PA pressure of 25 mmHg. There is trace mitral regurgitation and trace aortic insufficiency. Pulmonic valve is within normal limits. CONCLUSION: 1. LV and RV size and function is normal. 2. LVEF is 65%. 3. There is no significant valvular heart disease. 4. PA pressure is normal. 5. Mild diastolic dysfunction is present. Job ID: [id number] DocumentID: [id number] Dictated Date: 12/28/2016 14:37:33 Tripe Cooker Date: 12/28/2016 15:26:58 Dictated By: BOO GARCIA MD
== END ==
LOC: CARD 10:56
PROVIDERS: ATTEND Psychiatry & Neurology Neurology
DX: R55 Syncope and collapse (principal)
CPT/HCPCS: 93306

== ENCOUNTER → 2016-12-29 | Outpatient (CLI) | payer BC | LOC: RT 09:28 | PROVIDERS: ATTEND Psychiatry & Neurology Neurology | DX: G40.909 Epilepsy, unspecified, not intractable, without status epilepticus (principal) | CPT/HCPCS: 95819 ==

== ENCOUNTER 2017-01-29 08:09 | Outpatient (RCR) | payer BC | END 2017-04-03 | disposition home or self-care (01) | LOC: CARD 08:09 | PROVIDERS: ATTEND Psychiatry & Neurology Neurology | DX: R55 Syncope and collapse (principal) | CPT/HCPCS: 93270 ==

== ENCOUNTER 2017-03-05 13:06 | Outpatient (RCR) | payer BC | END 2017-03-15 13:00 | disposition home or self-care (01) | PROVIDERS: ATTEND Family Medicine | DX: M62.81 Muscle weakness (generalized) (principal); R26.81 Unsteadiness on feet ==

== ENCOUNTER 2017-04-18 14:05 | Outpatient (RCR) | payer MEDICARE, OTHER | END 2017-04-18 14:44 | disposition home or self-care (01) | PROVIDERS: ATTEND Family Medicine | DX: M62.81 Muscle weakness (generalized) (principal); R26.9 Unspecified abnormalities of gait and mobility; I10 Essential (primary) hypertension; J45.909 Unspecified asthma, uncomplicated; F17.210 Nicotine dependence, cigarettes, uncomplicated ==

== ENCOUNTER 2018-04-01 16:21 | Inpatient (IN) | payer MEDICARE, OTHER ==
[2018-04-01] VITALS (15 sets, daily range): BP systolic 98–167; BP diastolic 83–134
[~2018-04-01] VITALS: Ht 172.7 cm; Wt 114.9 kg
[~2018-04-01 16:21] MED LIST changes: -CITA20TA7 PO; +CITA20TA9 PO; +HYDR-34 PO; -HYDR-3816 PO; +HYDR-4227 PO; -HYDR-756 PO; -SENN-1 PO; +SENN-145 PO
[2018-04-01] MEDS ORDERED: RT-ALBUTEROL/IPRATROPIUM 3 ML (DUONEB) VIAL ONE (17:02)
[2018-04-01] MEDS ORDERED: RT-IPRATROPIUM (ATROVENT) 0.5MG/2.5ML AMP IH ONE (17:12)
[2018-04-01] MEDS ORDERED: RT-ALBUTEROL SULF 2.5 MG/3 ML PRE-MIX VIAL ONE (17:12)
[2018-04-01] MEDS ORDERED: RT-ALBUTEROL/IPRATROPIUM 3 ML (DUONEB) VIAL INH ONE (17:15)
[2018-04-01 17:22] LABS: BASOPHILS % (AUTO) 0 % (0-10); EOSINOPHILS # (AUTO) 0.1 10^3/uL (0.0-0.3); EOSINOPHILS % (AUTO) 1 % (0-10); HEMATOCRIT 48 % (40-54); HEMOGLOBIN 15.8 G/DL (13.3-17.7); LYMPHOCYTES # (AUTO) 0.6 X 10^3 (1.0-4.0); LYMPHOCYTES % (AUTO) 7 % (12-44); MEAN CORPUSCULAR HEMOGLOBIN 33 PG (25-34); MEAN CORPUSCULAR HGB CONC 33 G/DL (32-36); MEAN CORPUSCULAR VOLUME 102 FL (80-99); MEAN PLATELET VOLUME 8.1 FL (7.4-10.4); MONOCYTES % (AUTO) 12 % (0-12); NEUTROPHILS # (AUTO) 6.8 X 10^3 (1.8-7.8); NEUTROPHILS % (AUTO) 80 % (42-75); PLATELET COUNT 265 10^3/uL (130-400); RED BLOOD COUNT 4.73 10^6/uL (4.35-5.85); RED CELL DISTRIBUTION WIDTH 14.2 % (10.0-14.5); WHITE BLOOD COUNT 8.6 10^3/uL (4.3-11.0)
--- NOTE | 2018-04-01 17:24 | ED General ---
General Chief Complaint: Respiratory Problems Stated Complaint: WEAKNESS Nursing Triage Note: PT TO RM 3 WITH CC OF GENERAL WEAKNESS, O2 SATS 67% ON ROOM AIR. O2 APPLIED BY OXY MASK, O2 NOW AT 97%. STATES WEAKNESS IN LT HAND ALSO. Nursing Sepsis Screen: Possible Sepsis Risk Source of Information: Patient Exam Limitations: Physical Impairments History of Present Illness Date Seen by Provider: Apr 01, 2018 Time Seen by Provider: 17:00 Initial Comments Here with report of generalized weakness. Onset today. Noted to have O2 saturation 67 percent on room air on arrival. Patient has states the weakness is generalized to me and did not specifically isolate any extremity. Mild fever on arrival. Does state that this is been going on over the last week but much worse today. Apparently had a fall last week onto his back and had difficulty getting out of. Patient is poor historian and history is somewhat difficult to obtain. Denies nausea or vomiting. Denies chest pain. Admits to shortness of breath. Timing/Duration: 1 Week, Getting Worse Severity: Moderate, Severe Associated Systoms: No Chest Pain; Fever/Chills, Shortness of Air, Weakness Allergies and Home Medications Allergies Coded Allergies: No Known Drug Allergies (Unverified , 10/23/16) Home Medications Albuterol Sulfate 1 Puff Puff, 2 PUFF INH Q6H PRN for SHORTNESS OF BREATH, ( Reported) Aspirin 325 Mg Tablet.dr, 325 MG PO TID PRN for HEADACHE, (Reported) Cefdinir 300 Mg Capsule, 300 MG PO BID Prescribed by: BAUTISTA DONNELLY on 11/17/16 1221 Citalopram Hydrobromide 20 Mg Tablet, 20 MG PO HS, (Reported) Cyanocobalamin (Vitamin B-12) 5,000 Mcg Tab.subl, 5,000 MCG SL DAILY, (Reported) Fluticasone/Salmeterol 12 Gm Hfa.aer.ad, 1 PUFF INH BID, (Reported) Levothyroxine Sodium 200 Mcg Tablet, 200 MCG PO DAILY, (Reported) Lisinopril 40 Mg Tablet, 40 MG PO DAILY, (Reported) Multivitamin 1 Each Tablet, 1 TAB PO DAILY, (Reported) Naproxen Sodium 220 Mg Tablet, 440 MG PO Q8H PRN for BODY PAIN, (Reported) TAKES 2 (220MG) TABLETS Omeprazole Magnesium 20 Mg Tablet.dr, 20 MG PO DAILY, (Reported) Tramadol HCl 50 Mg Tablet, 100 MG PO TID PRN for PAIN, (Reported) TAKES 2 (50MG) TABLETS Trazodone HCl 150 Mg Tablet, 150 MG PO HS, (Reported) Patient Home Medication List Home Medication List Reviewed: Yes Review of Systems Review of Systems Constitutional: see HPI, fever, weakness Respiratory: dyspnea on exertion, short of breath, wheezing Cardiovascular: No chest pain Gastrointestinal: No nausea, No vomiting Musculoskeletal: muscle weakness Psychiatric/Neurological: Weakness, Other (confusion) Unable to complete review of systems due to confusion. Past Inictrh-Qhhgha-Pfntyk Hx Past Med/Social Hx: Reviewed Nursing Past Med/Soc Hx Patient Social History Alcohol Use: Occasionally Uses Alcohol Beverage of Choice: Beer Recreational Drug Use: No Smoking Status: Current Everyday Smoker Type Used: Cigarettes Former Smoker, Quit: Oct 04, 2014 Recent Foreign Travel: No Contact w/Someone Who Travel: No Recent Infectious Disease Expo: No Recent Hopitalizations: No Immunizations Up To Date PED Vaccines UTD: No Date of Influenza Vaccine: May 10, 2016 Seasonal Allergies Seasonal Allergies: No Past Medical History Surgeries: Yes Thyroidectomy Respiratory: Yes Asthma, Chronic Bronchitis, COPD Currently Using CPAP: No Currently Using BIPAP: No Cardiac: Yes Hypertension Neurological: No Reproductive Disorders: No Sexually Transmitted Disease: No HIV/AIDS: No Genitourinary: No Gastrointestinal: No Musculoskeletal: No Endocrine: No Hypothyroidsim HEENT: No Loss of Vision: Denies Cancer: Yes Thyroid Did You Recieve Any Treatments: Yes What Type of Treatment Did You: Surgical Intervention Psychosocial: No Sleep Difficulties, Anxiety, Depression Integumentary: No Blood Disorders: No Adverse Reaction/Blood Tranf: No Family Medical History Reviewed Nursing Family Hx Patient reports no known family medical history. No Pertinent Family Hx Physical Exam-Suspected Sepsis Physical Exam Vital Signs Vital Signs - First Documented 04/01/18 04/01/18 17:02 17:05 Temp 99.3 Pulse 95 Resp 24 B/P (MAP) 138/88 (105) Pulse Ox 97 O2 Delivery Room Air O2 Flow Rate 10.00 Capillary Refill : Greater Than 3 Seconds Blood Pressure Mean: 105 Height, Weight, BMI Height: 6'2.00" Weight: 240lbs. 0.0oz. 108.872517ga; 28.3 BMI Method:Stated General Appearance: No Apparent Distress, WD/WN HEENT: PERRL/EOMI, Pharynx Normal Neck: Non Tender, Supple Respiratory: Decreased Breath Sounds, Respiratory Distress, Wheezing Cardiovascular: No Murmur, Tachycardia Gastrointestinal: Non Tender, Soft Back: Normal Inspection, No CVA Tenderness, No Vertebral Tenderness Extremity: Normal Capillary Refill, Normal Range of Motion, Non Tender Neurologic/Psychiatric: Alert, Oriented x3 Skin: normal color, warm/dry Focused Exam Lactate Level 04/01/18 17:05: Lactic Acid Level 1.62 Lactic Acid Level Laboratory Tests Test 04/01/18 17:05 Lactic Acid Level 1.62 MMOL/L (0.50-2.00) Progress/Results/Core Measures Suspected Sepsis Recent Fever Within 48 Hours: Yes Infection Criteria Present: Suspected New Infection New/Unexplained Altered Menta: No Sepsis Screen: Possible Sepsis Risk SIRS Temperature:99.3 Pulse: 95 Respiratory Rate: 24 Laboratory Tests 04/01/18 17:05: White Blood Count 8.6 Blood Pressure 138 /88 Mean: 105 04/01/18 17:05: Lactic Acid Level 1.62 Laboratory Tests 04/01/18 17:05: Creatinine 1.25, INR Comment 1.0, Platelet Count 265, Total Bilirubin 0.5 Results/Orders Lab Results Laboratory Tests Test 04/01/18 17:05 04/01/18 17:09 Range/Units White Blood Count 8.6 4.3-11.0 10^3/uL Red Blood Count 4.73 4.35-5.85 10^6/uL Hemoglobin 15.8 13.3-17.7 G/DL Hematocrit 48 40-54 % Mean Corpuscular Volume 102 H 80-99 FL Mean Corpuscular Hemoglobin 33 25-34 PG Mean Corpuscular Hemoglobin Concent 33 32-36 G/DL Red Cell Distribution Width 14.2 10.0-14.5 % Platelet Count 265 130-400 10^3/uL Mean Platelet Volume 8.1 7.4-10.4 FL Neutrophils (%) (Auto) 80 H 42-75 % Lymphocytes (%) (Auto) 7 L 12-44 % Monocytes (%) (Auto) 12 0-12 % Eosinophils (%) (Auto) 1 0-10 % Basophils (%) (Auto) 0 0-10 % Neutrophils # (Auto) 6.8 1.8-7.8 X 10^3 Lymphocytes # (Auto) 0.6 L 1.0-4.0 X 10^3 Monocytes # (Auto) 1.0 0.0-1.0 X 10^3 Eosinophils # (Auto) 0.1 0.0-0.3 10^3/uL Basophils # (Auto) 0.0 0.0-0.1 10^3/uL Prothrombin Time 12.7 12.2-14.7 SEC INR Comment 1.0 0.8-1.4 Activated Partial Thromboplast Time 28 24-35 SEC Sodium Level 130 L 135-145 MMOL/L Potassium Level 4.7 3.6-5.0 MMOL/L Chloride Level 83 L 98-107 MMOL/L Carbon Dioxide Level 37 H 21-32 MMOL/L Anion Gap 10 5-14 MMOL/L Blood Urea Nitrogen 44 H 7-18 MG/DL Creatinine 1.25 0.60-1.30 MG/DL Estimat Glomerular Filtration Rate 58 BUN/Creatinine Ratio 35 Glucose Level 87 70-105 MG/DL Lactic Acid Level 1.62 0.50-2.00 MMOL/L Calcium Level 9.8 8.5-10.1 MG/DL Corrected Calcium 9.7 8.5-10.1 MG/DL Total Bilirubin 0.5 0.1-1.0 MG/DL Aspartate Amino Transf (AST/SGOT) 23 5-34 U/L Alanine Aminotransferase (ALT/SGPT) 26 0-55 U/L Alkaline Phosphatase 61 40-136 U/L Troponin I < 0.30 <0.30 NG/ML Total Protein 6.8 6.4-8.2 GM/DL Albumin 4.1 3.2-4.5 GM/DL Blood Gas Puncture Site RT. BRACHIAL Blood Gas Patient Temperature 99.3 Arterial Blood pH 7.33 *L 7.37-7.43 Arterial Blood Partial Pressure CO2 77 *H 35-45 MMHG Arterial Blood Partial Pressure O2 171 H 79-93 MMHG Arterial Blood HCO3 39 H 23-27 MMOL/L Arterial Blood Total CO2 41.7 H 21.0-31.0 MMOL/L Arterial Blood Oxygen Saturation 100 94-100 % Arterial Blood Base Excess 13.1 H -2.5-2.5 MMOL/L Jorge Test NA Blood Gas Ventilator Setting NO Blood Gas Inspired Oxygen 10L My Orders Orders - KHARI JACOBO MD Albuterol/Ipra Inhalation Soln (Duoneb I (8/27/18 17:15) Arterial Blood Gas (04/01/18 17:08) Cbc With Automated Diff (04/01/18 17:08) Comprehensive Metabolic Panel (04/01/18 17:08) Blood Culture (04/01/18 17:08) Sputum Culture (04/01/18 17:08) Urinalysis (04/01/18 17:08) Urine Culture (04/01/18 17:08) Protime With Inr (04/01/18 17:08) Partial Thromboplastin Time (04/01/18 17:08) Chest 1 View, Ap/Pa Only (04/01/18 17:08) Saline Lock/Iv-Start (04/01/18 17:08) Vital Signs Adult Sepsis Patie Q15M (04/01/18 17:08) O2 (04/01/18 17:08) Remove Rings In Anticipation O (04/01/18 17:08) Lactic Acid Analyzer (04/01/18 17:08) Svn Small Volume Nebulizer (04/01/18 17:08) Ipratropium 0.02% Neb Solution (Atrovent (04/01/18 17:12) Albuterol Pre-Mix Nebs (Rt) (Proventil (04/01/18 17:12) Ekg Tracing (04/01/18 17:28) Troponin I (04/01/18 17:28) Methylprednisolone Sod Succ (Solu-Medrol (04/01/18 17:30) Manual Differential (04/01/18 17:05) Saline Lock/Iv-Start (04/01/18 18:07) Ns Iv 1000 Ml (Sodium Chloride 0.9%) (04/01/18 18:07) Medications Given in ED Current Medications Medications Dose Ordered Sig/Christiano Route Start Time Stop Time Status Last Admin Dose Admin Albuterol Sulfate 2.5 mg STK-MED ONCE .ROUTE 04/01/18 17:12 04/01/18 17:16 DC 04/01/18 17:53 15 MG Albuterol/ Ipratropium 3 ml ONCE ONCE INH 04/01/18 17:15 04/01/18 17:16 DC 04/01/18 17:05 3 ML Ipratropium Hines 0.5 mg STK-MED ONCE IH 04/01/18 17:12 04/01/18 17:15 DC 04/01/18 17:17 0.5 MG Vital Signs/I&O 04/01/18 04/01/18 04/01/18 04/01/18 17:02 17:05 17:17 17:36 Temp 99.3 Pulse 95 92 Resp 24 24 B/P (MAP) 138/88 (105) Pulse Ox 97 100 99 99 O2 Delivery Room Air OxyMask O2 Flow Rate 10.00 50.00 Capillary Refill : Greater Than 3 Seconds Blood Pressure Mean: 105 Progress Note : Progress Note Seen and evaluated. Patient noted to have O2 sat 67 percent with good waveform. Placed on high flow oxygen mask. Duo neb ordered. Noted to have fever. Sepsis order set initiated. We will get an initial ABG as patient is confused and there is concerns about hypercarbia. IV, labs, chest x-ray, blood cultures, lactic acid and UA ordered. Patient very tight and requiring high flow oxygen. Initiated hour-long treatment with 6 albuterol nebs and one Atrovent neb. Monitor patient. 1805: Chest x-ray is negative and he is improved on BiPAP all her blood pressure seems to run on the lower and. No sign of infection currently although we will give a dose of Rocephin. This seems to be simple COPD exacerbation without lactic acid elevation. We will continue RT protocol as well as BiPAP overnight. UA is pending. Patient to be admitted to ICU. Normal saline 1 L bolus. He has requested consult with Dr. Tran. 181: I did discuss with Dr. Tran regarding the patient and he agrees with plan. Admit, inpatient status. ECG Initial ECG Impression Date: Apr 01, 2018 Initial ECG Impression Time: 17:33 Initial ECG Rate: 116 Initial ECG Rhythm: S.Tach Comment Sinus tachycardia with supraventricular bigeminy. Incomplete right bundle branch block. Similar to 23 October 2016 although supraventricular beats more common on this EKG. No evidence of ST elevation AL. Normal axis. Interpreted by me. Departure Communication (Admissions) Time/Spoke to Admitting Phy: 18:05 Time/Spoke to Consulting Phy: 18:15 Impression Primary Impression: COPD with acute exacerbation Additional Impressions: Hypercapnic respiratory failure Qualified Codes: J96.02 - Acute respiratory failure with hypercapnia Hypoxia Altered mental status Qualified Codes: R41.0 - Disorientation, unspecified Disposition: ADMITTED INPATIENT Condition: Stable Admissions Decision to Admit Reason: Admit from ER (General) Decision to Admit/Date: Apr 01, 2018 Time/Decision to Admit Time: 18:05 Departure-Patient Inst. Referrals: LISY ROONEY MD (PCP) Primary Care Physician KHARI JACOBO MD Apr 01, 2018 17:24
[2018-04-01 17:25] LABS: ABG BASE EXCESS 13.1 MMOL/L (-2.5-2.5); ABG OXYGEN SATURATION 100 % (94-100); ABG PO2 171 MMHG (79-93); ABG TCO2 41.7 MMOL/L (21.0-31.0)
[2018-04-01 17:27] LABS: ABG PCO2 77 MMHG (35-45); ABG PH 7.33 (7.37-7.43); INSPIRED O2 10L
[2018-04-01 17:28] LABS: PATIENT TEMP 99.3; VENTILATOR NO
[2018-04-01] MEDS ORDERED: methylPREDNISolone 125 MG (Solu-MEDROL) VIAL IV STA (17:30)
[2018-04-01 17:33] LABS: PROTHROMBIN TIME PATIENT 12.7 SEC (12.2-14.7)
[2018-04-01 17:44] LABS: ALBUMIN 4.1 GM/DL (3.2-4.5); BILIRUBIN,TOTAL 0.5 MG/DL (0.1-1.0); CALCIUM 9.8 MG/DL (8.5-10.1); CREATININE SERUM 1.25 MG/DL (0.60-1.30); POTASSIUM 4.7 MMOL/L (3.6-5.0); TOTAL PROTEIN 6.8 GM/DL (6.4-8.2)
--- NOTE | 2018-04-01 17:54 | Diagnostic Imaging Report ---
EXAM: Portable view of the chest. FINDINGS: The heart size and vascularity are within normal limits. The lungs are clear. There are no pleural effusions. IMPRESSION: Normal portable chest. Dictated by: Dictated on workstation # [id number]
[2018-04-01] MEDS ORDERED: NS IV 1000 ML 1,000 ML IV ONE (18:07)
[2018-04-01] MEDS ORDERED: cefTRIAXone FOR IV USE 1,000 MG in NS (IVPB) 50 ML IV ONE (18:30)
[2018-04-01 18:34] LABS: BAND NEUTROPHILS 0 %; BASOPHILS % (MANUAL) 0 %; EOSINOPHILS % (MANUAL) 3 %; LYMPHOCYTES % (MANUAL) 12 %; MONOCYTES % (MANUAL) 11 %; NEUTROPHILS % (MANUAL) 74 %; RBC MORPH NORMAL
[2018-04-01 18:45] LABS: BILIRUBIN,URINE NEGATIVE (NEGATIVE); CLARITY,URINE CLEAR; COLOR,URINE YELLOW; GLUCOSE, URINE (UA) NEGATIVE (NEGATIVE); KETONES,URINE NEGATIVE (NEGATIVE); LEUKOCYTE ESTERASE ,URINE NEGATIVE (NEGATIVE); NITRITE,URINE NEGATIVE (NEGATIVE); PH,URINE 6 (5-9); PROTEIN,URINE 1+ (NEGATIVE); UROBILINOGEN,URINE 1 MG/DL (NORMAL)
[2018-04-01 19:00] LABS: BACTERIA,URINE NEGATIVE /HPF; RBC,URINE 0-2 /HPF; WBC,URINE 0-2 /HPF
[2018-04-01] MEDS ORDERED: RT-ALBUTEROL/IPRATROPIUM 3 ML (DUONEB) VIAL INH PRN (21:15)
[2018-04-01] MEDS: RT-ALBUTEROL/IPRATROPIUM 3 ML (DUONEB) VIAL INH SCH (22:03)
[2018-04-01] MEDS ORDERED: NS IV 1000 ML 1,000 ML ONE (22:28)
[2018-04-02] VITALS (27 sets, daily range): BP systolic 107–160; BP diastolic 63–118
[2018-04-02] MEDS: methylPREDNISolone 40 MG/ML (Solu-MEDROL) VIAL IV SCH ×4 (01:21→18:12)
[2018-04-02] MEDS: RT-ALBUTEROL/IPRATROPIUM 3 ML (DUONEB) VIAL INH SCH ×6 (02:09→21:58)
[2018-04-02 03:49] LABS: BASOPHILS % (AUTO) 0 % (0-10); EOSINOPHILS % (AUTO) 0 % (0-10); HEMATOCRIT 44 % (40-54); HEMOGLOBIN 15.1 G/DL (13.3-17.7); LYMPHOCYTES # (AUTO) 0.2 X 10^3 (1.0-4.0); LYMPHOCYTES % (AUTO) 3 % (12-44); MEAN CORPUSCULAR HEMOGLOBIN 34 PG (25-34); MEAN CORPUSCULAR HGB CONC 34 G/DL (32-36); MEAN CORPUSCULAR VOLUME 98 FL (80-99); MEAN PLATELET VOLUME 8.4 FL (7.4-10.4); MONOCYTES # (AUTO) 0.1 X 10^3 (0.0-1.0); MONOCYTES % (AUTO) 2 % (0-12); NEUTROPHILS # (AUTO) 4.5 X 10^3 (1.8-7.8); NEUTROPHILS % (AUTO) 95 % (42-75); PLATELET COUNT 194 10^3/uL (130-400); RED BLOOD COUNT 4.48 10^6/uL (4.35-5.85); RED CELL DISTRIBUTION WIDTH 13.6 % (10.0-14.5); WHITE BLOOD COUNT 4.8 10^3/uL (4.3-11.0)
[2018-04-02 04:16] LABS: ALANINE AMINOTRANSFERASE 25 U/L (0-55); ALBUMIN 3.6 GM/DL (3.2-4.5); ALKALINE PHOSPHATASE 53 U/L (40-136); BILIRUBIN,TOTAL 0.6 MG/DL (0.1-1.0); BUN/CREATININE RATIO 33; CALCIUM 9.5 MG/DL (8.5-10.1); CARBON DIOXIDE 29 MMOL/L (21-32); CHLORIDE 89 MMOL/L (98-107); CREATININE SERUM 1.03 MG/DL (0.60-1.30); GFR ESTIMATED > 60; GLUCOSE 138 MG/DL (70-105); PHOSPHORUS 1.5 MG/DL (2.3-4.7); POTASSIUM 4.6 MMOL/L (3.6-5.0); SODIUM 133 MMOL/L (135-145); TOTAL PROTEIN 5.9 GM/DL (6.4-8.2)
[2018-04-02 05:41] LABS: ABG BASE EXCESS 9.4 MMOL/L (-2.5-2.5); ABG OXYGEN SATURATION 100 % (94-100); ABG PCO2 27 MMHG (35-45); ABG PO2 106 MMHG (79-93); ABG TCO2 32.2 MMOL/L (21.0-31.0)
[2018-04-02 05:42] LABS: ABG PH 7.67 (7.37-7.43); ALLENS TEST YES-POS; INSPIRED O2 50%; VENTILATOR NO
[2018-04-02 05:43] LABS: PATIENT TEMP 98.8
[2018-04-02] MEDS ORDERED: MAGNESIUM 1 GM/100 ML IVPB 100 ML IV SCH (06:00)
[2018-04-02] MEDS ORDERED: POTASSIUM CL 10MEQ/50ML IVPB 50 ML IV SCH (06:00)
[2018-04-02] MEDS ORDERED: KCL 20 MEQ TAB (K-DUR) PO SCH (06:00)
--- NOTE | 2018-04-02 06:12 | Pulmonary Consultation ---
History of Present Illness History of Present Illness Date of Consultation 04/02/18 06:06 Time Seen by Provider: 06:06 Date of Admission History of Present Illness 68yo poor historian and hx of COPD, and alcohol dependance presented secondary to worsening generalized weakness found to have Sp02 67% on RA. PT was placed on BiPAP in the ED and admitted to ICU. I am consulted for pulmonary management. RN states that patient appeared very dirty and unkept. upon admission. It does not appear pt can take care of himself. Unable to obtain ROS secondary to respiratory distress and BiPAP. Allergies and Home Medications Allergies Coded Allergies: No Known Drug Allergies (Unverified , 10/23/16) Home Medications Albuterol Sulfate 1 Puff Puff, 2 PUFF INH Q6H PRN for SHORTNESS OF BREATH, ( Reported) Aspirin 325 Mg Tablet.dr, 325 MG PO TID PRN for HEADACHE, (Reported) Cefdinir 300 Mg Capsule, 300 MG PO BID Prescribed by: BAUTISTA DONNELLY on 11/17/16 1221 Citalopram Hydrobromide 20 Mg Tablet, 20 MG PO HS, (Reported) Cyanocobalamin (Vitamin B-12) 5,000 Mcg Tab.subl, 5,000 MCG SL DAILY, (Reported) Fluticasone/Salmeterol 12 Gm Hfa.aer.ad, 1 PUFF INH BID, (Reported) Levothyroxine Sodium 200 Mcg Tablet, 200 MCG PO DAILY, (Reported) Lisinopril 40 Mg Tablet, 40 MG PO DAILY, (Reported) Multivitamin 1 Each Tablet, 1 TAB PO DAILY, (Reported) Naproxen Sodium 220 Mg Tablet, 440 MG PO Q8H PRN for BODY PAIN, (Reported) TAKES 2 (220MG) TABLETS Omeprazole Magnesium 20 Mg Tablet.dr, 20 MG PO DAILY, (Reported) Tramadol HCl 50 Mg Tablet, 100 MG PO TID PRN for PAIN, (Reported) TAKES 2 (50MG) TABLETS Trazodone HCl 150 Mg Tablet, 150 MG PO HS, (Reported) Past Mktsqmv-Saeycw-Hwjtnx Hx Past Med/Social Hx: Reviewed Nursing Past Med/Soc Hx Patient Social History Alcohol Use: Occasionally Uses Number of Drinks Today: AA Alcohol Beverage of Choice: Beer Recreational Drug Use: No Smoking Status: Current Everyday Smoker Type Used: Cigarettes Former Smoker, Quit: Oct 04, 2014 Recent Foreign Travel: No Contact w/Someone Who Travel: No Recent Infectious Disease Expo: No Recent Hopitalizations: No Immunizations Up To Date Tetanus Booster (TDap): Unknown PED Vaccines UTD: No Date of Influenza Vaccine: May 10, 2016 Seasonal Allergies Seasonal Allergies: No Past Medical History Surgeries: Yes Thyroidectomy Respiratory: Yes Asthma, Chronic Bronchitis, COPD Currently Using CPAP: No Currently Using BIPAP: No Cardiac: Yes Hypertension Neurological: No Reproductive Disorders: No Sexually Transmitted Disease: No HIV/AIDS: No Genitourinary: No Gastrointestinal: No Musculoskeletal: Yes (chronic debility, walks with a walker) Endocrine: No Hypothyroidsim HEENT: No Loss of Vision: Denies Cancer: Yes Thyroid Did You Recieve Any Treatments: Yes What Type of Treatment Did You: Surgical Intervention Psychosocial: No Sleep Difficulties, Anxiety, Depression Integumentary: No Blood Disorders: No Adverse Reaction/Blood Tranf: No Family Medical History Reviewed Nursing Family Hx Patient reports no known family medical history. No Pertinent Family Hx Review of Systems Time Seen by Provider: 06:10 Sepsis Event Evaluation Height, Weight, BMI Height: 5'8.00" Weight: 244lbs. 7.0oz. 110.905376ok; 37.2 BMI Method:Stated Exam Exam Vital Signs Date Time Temp Pulse Resp B/P (MAP) Pulse Ox O2 Delivery O2 Flow Rate FiO2 04/02/18 05:00 71 18 145/89 (107) 97 NIV Bilevel 50.00 04/02/18 04:00 78 30 151/102 (118) 95 NIV Bilevel 50.00 04/02/18 03:57 98.7 04/02/18 03:47 95 NIV Bilevel 50.00 04/02/18 03:00 79 22 145/88 (107) 97 NIV Bilevel 50.00 04/02/18 02:12 84 35 97 50.00 04/02/18 02:00 79 20 134/102 (113) 96 NIV Bilevel 50.00 04/02/18 01:00 74 04/02/18 01:00 69 19 142/90 (107) 96 NIV Bilevel 50.00 04/02/18 00:45 72 20 96 50.00 04/02/18 00:00 95 NIV Bilevel 50.00 04/02/18 00:00 98.5 89 21 149/90 (109) 96 NIV Bilevel 50.00 04/01/18 23:00 71 19 141/94 (110) 98 NIV Bilevel 50.00 04/01/18 22:30 73 20 133/92 (106) 98 NIV Bilevel 50.00 04/01/18 22:15 76 19 126/84 (98) 97 NIV Bilevel 50.00 04/01/18 22:05 87 20 93 50.00 04/01/18 22:00 80 16 98/85 (89) 98 NIV Bilevel 50.00 04/01/18 21:45 80 32 153/134 (140) 87 NIV Bilevel 50.00 04/01/18 21:30 79 19 167/99 (121) 88 NIV Bilevel 50.00 04/01/18 21:15 81 20 140/92 (108) 98 NIV Bilevel 50.00 04/01/18 21:00 87 19 134/92 (106) 98 NIV Bilevel 50.00 04/01/18 20:59 75 100 50 04/01/18 20:45 76 19 139/90 (106) 99 NIV Bilevel 50.00 04/01/18 20:30 80 20 100 50.00 04/01/18 20:30 80 19 139/91 (107) 100 NIV Bilevel 50.00 04/01/18 20:15 79 19 147/98 (114) 100 NIV Bilevel 50.00 04/01/18 20:00 79 20 142/92 (109) 100 NIV Bilevel 50.00 04/01/18 20:00 98.4 04/01/18 19:47 83 04/01/18 19:36 137 17 141/83 (102) 99 NIV Bilevel 50.00 04/01/18 19:30 93 NIV Bilevel 50.00 04/01/18 19:23 98.1 75 20 134/88 (105) 100 NIV Bilevel 50.00 04/01/18 17:36 92 24 99 50.00 04/01/18 17:17 99 04/01/18 17:05 100 OxyMask 10.00 04/01/18 17:02 99.3 95 24 138/88 (105) 97 Room Air I & O 04/02/18 07:00 Intake Total 50 ml Output Total 700 ml Balance -650 ml Height & Weight Height: 5'8.00" Weight: 244lbs. 7.0oz. 110.324024nj; 37.2 BMI Method:Stated General Appearance: No Apparent Distress, WD/WN HEENT: PERRL/EOMI, Pharynx Normal Neck: Non Tender, Supple Respiratory: Decreased Breath Sounds, Respiratory Distress, Wheezing Cardiovascular: No Murmur, Tachycardia Capillary Refill: Less Than 3 Seconds Extremity: Normal Capillary Refill, Normal Range of Motion, Non Tender Neurologic/Psychiatric: Alert, Oriented x3 Skin: Normal Color, Warm/Dry Results Lab Laboratory Tests 04/01/18 17:05 04/02/18 03:20 Assessment/Plan Assessment/Plan Acute on chronic respiratory failure COPDAE - doubt PNA -D/C Rocephin -Decrease BiPAP to 12/6 with RR 10 -Solumedrol 40 IV Q 6 -SVNS Q4, add advair Asthma/allergic rhinitis hx -Start singulair, claritin Hx of hypothyroid -Check TSH Hypophos -replace Dementia, hx of alcohol dependance -Consult SS for possible ECF placement Debility -Consult PT/OT CARMEN BURKETT DO Apr 02, 2018 06:12
[2018-04-02] MEDS ORDERED: SODIUM PHOSPHATE INJ 30 MM in NS (IVPB) 250 ML IV ONE (06:15)
--- NOTE | 2018-04-02 07:43 | History & Physicial ---
History of Present Illness History of Present Illness Reason for visit/HPI patient came to the office yesterday complaining of weakness and debility.german Patient states he had weakness of his left hand and unable to move. Patient had difficulty in getting out of the chair. ration sent out to the emergency room. Pulse ox 67. Patient has history of smoking half a pack a day. Patient has a previous surgery for thyroid cancer. patient has a history of alcoholism. Patient states he drinks 4 beers daily Date of Admission Apr 01, 2018 at 18:15 Time Seen by Provider: 07:40 I consulted on this patient on 04/02/18 07:39 Attending Physician Javier Mcdermott DO Admitting Physician Javier Mcdermott DO Consult Allergies and Home Medications Allergies Coded Allergies: No Known Drug Allergies (Unverified , 10/23/16) Home Medications Albuterol Sulfate 1 Puff Puff, 2 PUFF INH Q6H PRN for SHORTNESS OF BREATH, ( Reported) Aspirin 325 Mg Tablet.dr, 325 MG PO TID PRN for HEADACHE, (Reported) Cefdinir 300 Mg Capsule, 300 MG PO BID Prescribed by: BAUTISTA DONNELLY on 11/17/16 1221 Citalopram Hydrobromide 20 Mg Tablet, 20 MG PO HS, (Reported) Cyanocobalamin (Vitamin B-12) 5,000 Mcg Tab.subl, 5,000 MCG SL DAILY, (Reported) Fluticasone/Salmeterol 12 Gm Hfa.aer.ad, 1 PUFF INH BID, (Reported) Levothyroxine Sodium 200 Mcg Tablet, 200 MCG PO DAILY, (Reported) Lisinopril 40 Mg Tablet, 40 MG PO DAILY, (Reported) Multivitamin 1 Each Tablet, 1 TAB PO DAILY, (Reported) Naproxen Sodium 220 Mg Tablet, 440 MG PO Q8H PRN for BODY PAIN, (Reported) TAKES 2 (220MG) TABLETS Omeprazole Magnesium 20 Mg Tablet.dr, 20 MG PO DAILY, (Reported) Tramadol HCl 50 Mg Tablet, 100 MG PO TID PRN for PAIN, (Reported) TAKES 2 (50MG) TABLETS Trazodone HCl 150 Mg Tablet, 150 MG PO HS, (Reported) Patient Home Medication List Home Medication List Reviewed: No Past Ydxetva-Nqqshy-Nrycjr Hx Patient Social History Alcohol Use: Occasionally Uses Number of Drinks Today: AA Alcohol Beverage of Choice: Beer Recreational Drug Use: No Smoking Status: Current Everyday Smoker Former Smoker, Quit: Oct 04, 2014 Type Used: Cigarettes Recent Foreign Travel: No Contact w/other who traveled: No Recent Hopitalizations: No Recent Infectious Disease Expo: No Immunizations Up To Date Tetanus Booster (TDap): Unknown Pediatric: No Date of Influenza Vaccine: May 10, 2016 Seasonal Allergies Seasonal Allergies: No Surgeries Yes Thyroidectomy Respiratory Yes COPD Currently Using CPAP: No Currently Using BIPAP: No Cardiovascular Yes Hypertension Neurological No Reproductive System Hx Reproductive Disorders: No Sexually Transmitted Disease: No HIV/AIDS: No Genitourinary No Gastrointestinal No Musculoskeletal Yes (chronic debility, walks with a walker) Endocrine History of Endocrine Disorders: No Endocrine Disorders: Hypothyroidsim HEENT History of HEENT Disorders: No Loss of Vision: Denies Cancer Yes Thyroid Did You Recieve Any Treatments: Yes Type of Treatment: Surgical Intervention Psychosocial History of Psychiatric Problem: No Behavioral Health Disorders: Sleep Difficulties, Anxiety, Depression Integumentary History of Skin or Integumenta: No Blood Transfusions History of Blood Disorders: No Adverse Reaction to a Blood Tr: No Family Medical History Significant Family History: No Pertinent Family Hx Family Hx: Patient reports no known family medical history. Review of Systems Constitutional: malaise, weakness EENTM: no symptoms reported Respiratory: short of breath Cardiovascular: no symptoms reported Gastrointestinal: no symptoms reported Genitourinary: no symptoms reported Physical Exam Vital Signs Vital Signs - First Documented 04/01/18 04/01/18 04/01/18 17:02 17:05 20:59 Temp 99.3 Pulse 95 Resp 24 B/P (MAP) 138/88 (105) Pulse Ox 97 O2 Delivery Room Air O2 Flow Rate 10.00 FiO2 50 Capillary Refill : Less Than 3 Seconds Height, Weight, BMI Height: 5'8.00" Weight: 241lbs. 7.0oz. 109.791077bs; 37.2 BMI Method:Stated General Appearance: No Apparent Distress, WD/WN Eyes: Bilateral Eye Normal Inspection HEENT: Normal ENT Inspection Neck: Full Range of Motion, Normal Inspection Respiratory: Decreased Breath Sounds Cardiovascular: Regular Rate, Rhythm, No Murmur Gastrointestinal: Non Tender, Soft Assessment/Plan Assessment and Plan cOPD with acute exacerbation. Hypoxemia. Acute mental status change. weakness Admission Diagnosis Admission Status: Inpatient Order (span 2 midnights) Reason for Inpatient Admission: COPD with acute exacerbation. Pulse ox 67. weakness JAVIER MCDERMOTT DO Apr 02, 2018 07:43
--- NOTE | 2018-04-02 08:03 | Diagnostic Imaging Report ---
INDICATION: Dyspnea. TECHNIQUE: Single view of the chest. COMPARISON: 04/01/2018 FINDINGS: Lung volumes are low. No focal consolidation is seen. There is no pleural effusion or pneumothorax. Prominence of the cardiac silhouette and perihilar markings are thought to be due to the low lung volumes. No acute osseous abnormality is seen. IMPRESSION: Low lung volumes with no acute pulmonary abnormality seen. Dictated by: Dictated on workstation # [id number]
[2018-04-02] MEDS: RT-ADVAIR HFA 115/21 MCG PER PUFF IH SCH ×2 (08:10→18:31)
[2018-04-02] MEDS: LORATADINE (CLARITIN) 10 MG TAB PO SCH (08:45)
[2018-04-02] MEDS: NS IV 1000 ML 1,000 ML IV SCH ×2 (10:10→16:12)
--- NOTE | 2018-04-02 10:57 | Physical Therapy Evaluation ---
PT Evaluation-General Medical Diagnosis Admission Date Apr 01, 2018 at 18:15 Medical Diagnosis: COPD exacerbation Onset Date: Apr 01, 2018 Therapy Diagnosis Therapy Diagnosis: generalized weakness/debility Height/Weight Height (Feet): 5 Height (Inches): 8.00 Weight (Pounds): 241 Weight (Ounces): 7.0 Precautions Precautions/Isolations: Fall Prevention, Standard Precautions Weight Bear Status Right Lower Extremity: Right Full Weight Bearing Left Lower Extremity: Left Full Weight Bearing Referral Physician: Chelsea Medical History Pertinent Medical History: Alcoholism, Angioma, COPD, HTN, Hypothroidism, Smoking Current History ER with SOA and SAO2 67% on RA Reviewed History: Yes Social History Home: Single Level Current Living Status: Alone Prior/Core FIM Prior Level of Function Functional [place] Measure 0=Not Assessed/NA 4=Minimal Assistance 1=Total Assistance 5=Supervision or Setup 2=Maximal Assistance 6=Modified [place] 3=Moderate Assistance 7=Complete [place] Bed Mobility: 6 Transfers (B,C,W/C) (FIM): 6 Gait: 6 PT Evaluation-Current Subjective Patient agrees to PT. No c/o at this time Pain Numeric Pain Scale: 0-No Pain Location: No Pain Reported Objective Patient Orientation: Person, Time, Situation Problem Solving: Fair Attachments: Oxygen, Bowman Catheter, IV ROM/Strength ROM Lower Extremities bilateral LE WFL Strength Lower Extremities 3+/5 grossly bilaterally Integumentary/Posture Integumentary refer to nursing notes Bowel Incontinence: No Bladder Incontinence: No Posture WFL Neuromuscular (Tone, Coordination, Reflexes) slightly diminished coordination (PLOF) Sensory Vision: Functional Hearing: Functional Sensation Right Lower Extremit: Impaired Sensation Left Lower Extremity: Impaired Transfers Functional [place] Measure 0=Not Assessed/NA 4=Minimal Assistance 1=Total Assistance 5=Supervision or Setup 2=Maximal Assistance 6=Modified [place] 3=Moderate Assistance 7=Complete [place] Transfers (B, C, W/C) (FIM): 5 Scootin Rollin Supine to/from Sit: 5 Sit to/from Stand: 5 Gait Mode of Locomotion: Walk Anticipated Mode of Locomotion: Walk Gait (FIM): 5 Distance: 225' x 2 Gait Level of Assist: 5 Gait Assistive Device: FWW Comments/Gait Description rapid gait sequence with skilled verbal instruction to decrease trisha for safety awareness Balance Sitting Static: Normal Sitting Dynamic: Normal Standing Static: Normal Standing Dynamic: Normal Assessment/Needs 68 y.o. male, will benefit from short term skilled PT to address functional strength and mobility to improve current LOF to safely return to home or care facility at maximum LOF. 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 PT Sheet Metal Worker Goals Time Frame: Apr 13, 2018 Transfers (B,C,W/C) (FIM): 6 Gait (FIM): 6 Gait distance (FIM): 3=150 ft Gait Level of Assist: 6 Gait Assistive Device: FWW PT Plan Problem List Problem List: Activity Tolerance, Functional Strength, Safety, Balance, Gait, Transfer Treatment/Plan Treatment Plan: Continue Plan of Care Treatment Plan: Bed Mobility, Education, Functional Activity Mya, Functional Strength, Gait, Safety, Therapeutic Exercise, Transfers Treatment Duration: Apr 13, 2018 Frequency: 6 times per week Estimated Hrs Per Day: .25 hour per day Patient and/or Family Agrees t: Yes Safety Risks/Education Patient Education: Safety Issues Teaching Recipient: Patient Teaching Methods: Discussion Response to Teaching: Reinforcement Needed Discharge Recommendations Therapy D/C Recommendations: Snf (TCU/NH) Time/GCodes Time In: 810 Time Out: 835 Total Billed Treatment Time: 25 Total Billed Treatment 1 visit EVModC 25 min G Codes Necessary: No SAI BILLINGSLEY PT Apr 02, 2018 10:57
[2018-04-02] MEDS ORDERED: LISI1TAB10 PO (11:59)
[2018-04-02] MEDS ORDERED: ALBU18HF2 INH (12:06)
[2018-04-02] MEDS ORDERED: LEVO25TA5 PO (12:06)
--- NOTE | 2018-04-02 14:23 | Occupational Ther Daily Note ---
OT Current Status-Daily Note Mental Status/Objective Functional [place] Measure 0=Not Assessed/NA 4=Minimal Assistance 1=Total Assistance 5=Supervision or Setup 2=Maximal Assistance 6=Modified [place] 3=Moderate Assistance 7=Complete [place] OT Short Term Goals Short Term Goals 1=Demonstrate adherence to instructed precautions during ADL tasks. 2=Patient will verbalize/demonstrate understanding of assistive devices/ modifications for ADL. 3=Patient will improve strength/tolerance for activity to enable patient to perform ADL's. OT Group Home Goals Rough Rounder Machine Goals 1=Demonstrate adherence to instructed precautions during ADL tasks. 2=Patient will verbalize/demonstrate understanding of assistive devices/ modifications for ADL. 3=Patient will improve strength/tolerance for activity to enable patient to perform ADL's. OT Education/Plan Problem List/Assessment Assessment: Decreased Activ Tolerance, Decreased Safety Aware, Decreased UE Strength, Dependent Transfers, Impaired Self-Care Skills Pt would benefit from skilled OT to increase his independence in basic self care to allow him to safely return home. Discharge Recommendations Plan/Recommendations: Continue POC Treatment Plan/Plan of Care Treatment,Training & Education: Yes Patient would benefit from OT for education, treatment and training to promote independence in ADL's, mobility, safety and/or upper extremity function for ADL' s. Plan of Care: ADL Retraining, Functional Mobility, UE Funct Exercise/Act, UE Neuromus Re-Ed/Coord, OTHER (energy conservation education) Treatment Duration: Apr 09, 2018 Frequency: 5 times per week Estimated Hrs Per Day: .25 hour per day Agreement: Yes Rehab Potential: Fair Time/GCodes Start Time: 11:35 Stop Time: 11:50 Total Time Billed (hr/min): 15 Billed Treatment Time visit, 15 minutes evaluation moderate intensity ARMANDO COWAN OT Apr 02, 2018 14:23
--- NOTE | 2018-04-02 14:27 | Occupational Therapy Eval ---
OT Evaluation-General/PLF Medical Diagnosis Admission Date Apr 01, 2018 at 18:15 Medical Diagnosis: COPD exacerbation Onset Date: Apr 01, 2018 Therapy Diagnosis Therapy Diagnosis: decr self care, weakness, decr act angélica, decr safety , decr funct mobility Height/Weight Height (Feet): 5 Height (Inches): 8.00 Weight (Pounds): 241 Weight (Ounces): 7.0 Precautions Precautions/Isolations: Fall Prevention, Standard Precautions Safety Interventions: Reorient-PRN Referral Physician: Chelsea Medical History Pertinent Medical History: Alcoholism, Angioma, COPD, HTN, Hypothroidism, Smoking Social History Home: Single Level Current Living Status: Alone ADL-Prior Level of Function ADL PLOF Comments Pt reported that he was previously able to manage all of his basic self care needs, take care of his home and yard, drive, take care of his cat and dog. DME/Equipment: Bath Chair, Grab Bars, Tub/Shower OT Current Status Subjective Pt seen in room, up in bed, agreeable to OT. pain reported 0/10 Appearance Alert, cooperative, impulsive Mental Status/Objective Attachments: Bowman Catheter, Oxygen, Telemetry Current Glasses/Contacts: Yes Hand Dominance: Right Upper Extremity ROM Grossly WFL bilat Upper Extremity Strength grossly 4/5 bilat except L hand personal financial planner 4-/5 ADL-Treatment ADL-Current Pt transferred SBA with PT and walked 225' earlier today. OT asked pt if he could take slipper socks off and put them back on. He became almost agitated and struggled to take sock off and put it on in bed - face turned extremely red and HR increased. He was short of breath and very fatigued after sock donning but just said that he hoped he could go home today. Pt left up in bed, waiting for lunch, all needs met. Functional [place] Measure 0=Not Assessed/NA 4=Minimal Assistance 1=Total Assistance 5=Supervision or Setup 2=Maximal Assistance 6=Modified [place] 3=Moderate Assistance 7=Complete IndependenceIRFPAI Quality Coding Scale 6 Independent with activity with or without an assistive device 5 Patient requires set up or clean up by helper. Patient completes activity by themselves 4 Supervision or touching assist (CGA). [place] provide cues , steadying assist 3 The helper provides less than half the effort to complete the activity 2 The helper provides more than half the effort to complete the activity 1 Dependent. The helper does all the effort to complete an activity 7 Patient refused to complete or attempt activity 9 The patient did not perform the activity before the current illness or injury 88 Not attempted due to Medical conditions or safety concerns Education OT Patient Education: Purpose of tx/functional activities, Rehab process Teaching Recipient: Patient Teaching Methods: Discussion Response to Teaching: Verbalize Understanding, Return Demonstration, Reinforcement Needed OT Membership Advisor Goals Intermediate Goals Time Frame: Apr 12, 2018 Eating (FIM): 7 Grooming(FIM): 5 Bathing(FIM): 5 Upper Body Dressing(FIM): 5 Lower Body Dressing(FIM): 5 Toileting(FIM): 5 Toilet/Commode Transfer(FIM): 5 Shower Transfer(FIM): 5 Additional Goals: 1-Demonstrate ADL Tasks, 2-Verbalize Understanding, 3- ImproveStrength/Mya 1=Demonstrate adherence to instructed precautions during ADL tasks. 2=Patient will verbalize/demonstrate understanding of assistive devices/ modifications for ADL. 3=Patient will improve strength/tolerance for activity to enable patient to perform ADL's. OT Education/Plan Problem List/Assessment Assessment: Decreased Activ Tolerance, Decreased Safety Aware, Decreased UE Strength, Dependent Transfers, Impaired Self-Care Skills Pt would benefit from skilled OT to increase his independence in basic self care to allow him to safely return home. Discharge Recommendations Plan/Recommendations: Continue POC Treatment Plan/Plan of Care Treatment,Training & Education: Yes Patient would benefit from OT for education, treatment and training to promote independence in ADL's, mobility, safety and/or upper extremity function for ADL' s. Plan of Care: ADL Retraining, Functional Mobility, UE Funct Exercise/Act, UE Neuromus Re-Ed/Coord, OTHER (energy conservation education) Treatment Duration: Apr 12, 2018 Frequency: 5 times per week Estimated Hrs Per Day: .25 hour per day Agreement: Yes Rehab Potential: Fair Time/GCodes Start Time: 11:35 Stop Time: 11:50 Total Time Billed (hr/min): 15 Billed Treatment Time visit, 15 minutes evaluation moderate intensity ARMANDO COWAN OT Apr 02, 2018 14:27
[2018-04-02] MEDS: ENOXAPARIN 40 MG/0.4 ML (LOVENOX) SYR SC SCH (15:47)
[2018-04-02] MEDS ORDERED: cefTRIAXone FOR IV USE 1,000 MG in NS (IVPB) 50 ML IV SCH (18:30)
[2018-04-02] MEDS: traZODone 150 MG (DESYREL) TABLET PO SCH (20:02)
[2018-04-02] MEDS: MONTELUKAST 10 MG (SINGULAIR) TAB PO SCH (20:02)
[2018-04-03 00:14] VITALS: BP 141/80
[2018-04-03] MEDS: methylPREDNISolone 40 MG/ML (Solu-MEDROL) VIAL IV SCH ×2 (00:49→06:28)
[2018-04-03] MEDS: NS IV 1000 ML 1,000 ML IV SCH (00:53)
[2018-04-03] MEDS: RT-ALBUTEROL/IPRATROPIUM 3 ML (DUONEB) VIAL INH SCH ×6 (01:44→21:05)
[2018-04-03 04:57] VITALS: BP 139/67
[2018-04-03] MEDS: PANTOPRAZOLE 20 MG TABLET (PROTONIX) PO SCH (06:28)
[2018-04-03] MEDS: MULTIVIT W/MINERALS TAB (THERAGRAN M) PO SCH (06:28)
[2018-04-03] MEDS: LEVOTHYROXINE 25 MCG (LEVOTHROID) TAB PO SCH (06:28)
[2018-04-03] MEDS: LEVOTHYROXINE 100 MCG (LEVOTHROID) TAB PO SCH (06:28)
[2018-04-03 06:29] LABS: BASOPHILS % (AUTO) 0 % (0-10); EOSINOPHILS % (AUTO) 0 % (0-10); HEMATOCRIT 44 % (40-54); HEMOGLOBIN 14.4 G/DL (13.3-17.7); LYMPHOCYTES # (AUTO) 0.1 X 10^3 (1.0-4.0); LYMPHOCYTES % (AUTO) 1 % (12-44); MEAN CORPUSCULAR HEMOGLOBIN 33 PG (25-34); MEAN CORPUSCULAR HGB CONC 33 G/DL (32-36); MEAN CORPUSCULAR VOLUME 101 FL (80-99); MEAN PLATELET VOLUME 8.3 FL (7.4-10.4); MONOCYTES # (AUTO) 0.3 X 10^3 (0.0-1.0); MONOCYTES % (AUTO) 4 % (0-12); NEUTROPHILS # (AUTO) 8.8 X 10^3 (1.8-7.8); NEUTROPHILS % (AUTO) 95 % (42-75); PLATELET COUNT 202 10^3/uL (130-400); RED BLOOD COUNT 4.31 10^6/uL (4.35-5.85); RED CELL DISTRIBUTION WIDTH 14.9 % (10.0-14.5); WHITE BLOOD COUNT 9.2 10^3/uL (4.3-11.0)
[2018-04-03 06:49] LABS: BUN/CREATININE RATIO 30; CALCIUM 8.7 MG/DL (8.5-10.1); CARBON DIOXIDE 31 MMOL/L (21-32); CHLORIDE 96 MMOL/L (98-107); GFR ESTIMATED > 60; GLUCOSE 152 MG/DL (70-105); POTASSIUM 4.1 MMOL/L (3.6-5.0); SODIUM 136 MMOL/L (135-145)
--- NOTE | 2018-04-03 06:49 | Progress Note (SOAP) ---
Subjective Time Seen by Provider: 06:45 Subjective/Events-last exam Patient doing better today. Patient on medical floor. Patient conversant. COPD with acute exacerbation. Alcoholism. Weakness. Hypertension. Patient more alert Focused Exam Lactate Level 04/01/18 17:05: Lactic Acid Level 1.62 Objective Exam Vital Signs Date Time Temp Pulse Resp B/P (MAP) Pulse Ox O2 Delivery O2 Flow Rate FiO2 04/03/18 04:57 98.3 85 20 139/67 (91) 96 Nasal Cannula 3.00 04/03/18 04:20 Nasal Cannula 3.00 04/03/18 01:46 95 Nasal Cannula 3.00 04/03/18 01:00 82 04/03/18 00:33 Nasal Cannula 3.00 04/03/18 00:14 98.4 77 19 141/80 (100) 97 Nasal Cannula 3.00 04/02/18 21:59 96 Nasal Cannula 3.00 04/02/18 21:58 98.4 85 24 119/64 (82) 96 Nasal Cannula 3.00 04/02/18 21:00 89 28 107/73 (84) 94 Nasal Cannula 3.00 04/02/18 20:00 92 27 117/69 (85) 96 Nasal Cannula 3.00 04/02/18 20:00 98.6 04/02/18 20:00 Nasal Cannula 3.00 04/02/18 19:00 99 127/96 (106) Nasal Cannula 3.00 04/02/18 19:00 96 04/02/18 18:34 94 Nasal Cannula 3.00 04/02/18 18:33 94 Nasal Cannula 3.00 04/02/18 18:00 85 26 132/68 (89) Nasal Cannula 3.00 04/02/18 17:00 73 24 133/73 (93) 95 Nasal Cannula 3.00 04/02/18 16:00 80 21 141/80 (100) 96 Nasal Cannula 3.00 04/02/18 15:40 98.9 Nasal Cannula 3.00 04/02/18 15:40 Nasal Cannula 3.00 04/02/18 15:00 98 23 114/66 (82) 94 Nasal Cannula 3.00 04/02/18 14:11 96 Nasal Cannula 3.00 04/02/18 14:00 84 31 109/80 (90) 95 Nasal Cannula 3.00 04/02/18 13:00 86 25 110/80 (90) 93 Nasal Cannula 3.00 04/02/18 13:00 86 04/02/18 12:50 98.5 Nasal Cannula 3.00 04/02/18 12:50 Nasal Cannula 3.00 04/02/18 12:00 91 19 134/64 (87) 95 Nasal Cannula 3.00 04/02/18 11:00 87 32 128/75 (92) 95 Nasal Cannula 3.00 04/02/18 10:26 93 Nasal Cannula 3.00 04/02/18 10:00 86 24 126/63 (84) 97 Nasal Cannula 3.00 04/02/18 09:00 85 15 114/66 (82) 93 Nasal Cannula 3.00 04/02/18 08:45 Nasal Cannula 3.00 04/02/18 08:45 98.3 Nasal Cannula 3.00 04/02/18 08:15 Nasal Cannula 3.00 04/02/18 08:11 92 Nasal Cannula 3.00 04/02/18 08:06 75 33 93 30.00 04/02/18 08:00 77 15 140/114 (123) 93 NIV Bilevel 30.00 04/02/18 07:00 76 04/02/18 07:00 75 24 160/118 (132) 95 NIV Bilevel 30.00 I & O 04/03/18 07:00 Intake Total 4430 ml Output Total 2750 ml Balance 1680 ml Capillary Refill : Less Than 3 Seconds General Appearance: No Apparent Distress HEENT: Normal ENT Inspection Neck: Full Range of Motion Respiratory: No Accessory Muscle Use, No Respiratory Distress, Decreased Breath Sounds Cardiovascular: Regular Rate, Rhythm, No Murmur Gastrointestinal: non tender, soft Results Lab Laboratory Tests 04/03/18 06:08: White Blood Count 9.2, Red Blood Count 4.31L, Hemoglobin 14.4, Hematocrit 44, Mean Corpuscular Volume 101H, Mean Corpuscular Hemoglobin 33, Mean Corpuscular Hemoglobin Concent 33, Red Cell Distribution Width 14.9H, Platelet Count 202, Mean Platelet Volume 8.3, Neutrophils (%) (Auto) 95H, Lymphocytes (%) (Auto) 1L , Monocytes (%) (Auto) 4, Eosinophils (%) (Auto) 0, Basophils (%) (Auto) 0, Neutrophils # (Auto) 8.8H, Lymphocytes # (Auto) 0.1L, Monocytes # (Auto) 0.3, Eosinophils # (Auto) 0.0, Basophils # (Auto) 0.0 Microbiology 04/01/18 Blood Culture - Preliminary, Resulted No growth 04/01/18 Urine Culture - Final, Complete NO GROWTH Assessment/Plan Assessment/Plan Assess & Plan/Chief Complaint COPD with acute exacerbation. Hypertension. Alcoholism. Weakness Clinical Quality Measures Admission Status Admission Dx cOPD with acute exacerbation. Hypoxemia. Acute mental status change. weakness DVT/VTE Risk/Contraindication: Risk Factor Score Per Nursin RFS Level Per Nursing on Admit: 4+=Very High EDDIE MCDERMOTT DO Apr 03, 2018 06:49
[2018-04-03] MEDS: RT-ADVAIR HFA 115/21 MCG PER PUFF IH SCH ×2 (07:19→18:56)
--- NOTE | 2018-04-03 07:37 | Pulmonary Progress Note ---
Subjective Time Seen by Provider: 07:36 Subjective/Events-last exam PT is doing better. Sepsis Event Evaluation Height, Weight, BMI Height: 5'8.00" Weight: 248lbs. 0.5oz. [id number]; 37.2 BMI Method:Stated Focused Exam Lactate Level 04/01/18 17:05: Lactic Acid Level 1.62 Exam Exam Vital Signs Date Time Temp Pulse Resp B/P (MAP) Pulse Ox O2 Delivery O2 Flow Rate FiO2 04/03/18 07:25 Room Air 04/03/18 07:19 92 Room Air 04/03/18 04:57 98.3 85 20 139/67 (91) 96 Nasal Cannula 3.00 04/03/18 04:20 Nasal Cannula 3.00 04/03/18 01:46 95 Nasal Cannula 3.00 04/03/18 01:00 82 04/03/18 00:33 Nasal Cannula 3.00 04/03/18 00:14 98.4 77 19 141/80 (100) 97 Nasal Cannula 3.00 04/02/18 21:59 96 Nasal Cannula 3.00 04/02/18 21:58 98.4 85 24 119/64 (82) 96 Nasal Cannula 3.00 04/02/18 21:00 89 28 107/73 (84) 94 Nasal Cannula 3.00 04/02/18 20:00 92 27 117/69 (85) 96 Nasal Cannula 3.00 04/02/18 20:00 98.6 04/02/18 20:00 Nasal Cannula 3.00 04/02/18 19:00 99 127/96 (106) Nasal Cannula 3.00 04/02/18 19:00 96 04/02/18 18:34 94 Nasal Cannula 3.00 04/02/18 18:33 94 Nasal Cannula 3.00 04/02/18 18:00 85 26 132/68 (89) Nasal Cannula 3.00 04/02/18 17:00 73 24 133/73 (93) 95 Nasal Cannula 3.00 04/02/18 16:00 80 21 141/80 (100) 96 Nasal Cannula 3.00 04/02/18 15:40 98.9 Nasal Cannula 3.00 04/02/18 15:40 Nasal Cannula 3.00 04/02/18 15:00 98 23 114/66 (82) 94 Nasal Cannula 3.00 04/02/18 14:11 96 Nasal Cannula 3.00 04/02/18 14:00 84 31 109/80 (90) 95 Nasal Cannula 3.00 04/02/18 13:00 86 25 110/80 (90) 93 Nasal Cannula 3.00 04/02/18 13:00 86 04/02/18 12:50 98.5 Nasal Cannula 3.00 04/02/18 12:50 Nasal Cannula 3.00 04/02/18 12:00 91 19 134/64 (87) 95 Nasal Cannula 3.00 04/02/18 11:00 87 32 128/75 (92) 95 Nasal Cannula 3.00 04/02/18 10:26 93 Nasal Cannula 3.00 04/02/18 10:00 86 24 126/63 (84) 97 Nasal Cannula 3.00 04/02/18 09:00 85 15 114/66 (82) 93 Nasal Cannula 3.00 04/02/18 08:45 Nasal Cannula 3.00 04/02/18 08:45 98.3 Nasal Cannula 3.00 04/02/18 08:15 Nasal Cannula 3.00 04/02/18 08:11 92 Nasal Cannula 3.00 04/02/18 08:06 75 33 93 30.00 04/02/18 08:00 77 15 140/114 (123) 93 NIV Bilevel 30.00 I & O 04/03/18 07:00 Intake Total 4430 ml Output Total 2750 ml Balance 1680 ml Height & Weight Height: 5'8.00" Weight: 248lbs. 0.5oz. 112.384175we; 37.2 BMI Method:Stated General Appearance: No Apparent Distress HEENT: Normal ENT Inspection Neck: Full Range of Motion Respiratory: No Accessory Muscle Use, No Respiratory Distress, Decreased Breath Sounds Cardiovascular: Regular Rate, Rhythm, No Murmur Capillary Refill: Less Than 3 Seconds Gastrointestinal: non tender, soft Extremity: Normal Capillary Refill, Normal Range of Motion, Non Tender Neurologic/Psychiatric: Alert, Oriented x3 Skin: Normal Color, Warm/Dry Results Lab Laboratory Tests 04/01/18 17:05 04/02/18 03:20 04/03/18 06:08 Assessment/Plan Assessment/Plan Acute on chronic respiratory failure [place] - doubt PNA -D/C Rocephin -BIPAP PRN -Solumedrol 40 IV Q 6 -- change to prednisone -SVNS Q4, add advair Asthma/allergic rhinitis hx - singulair, claritin Dementia, hx of alcohol dependance -Consult SS for possible ECF placement Debility -Consult PT/OT CARMEN BURKETT DO Apr 03, 2018 07:37
[2018-04-03 08:00] VITALS: BP 134/73
[2018-04-03] MEDS: CYANOCOBALAMIN 1,000 MCG (VITAMIN B-12) TABLET PO SCH (08:42)
[2018-04-03] MEDS: LORATADINE (CLARITIN) 10 MG TAB PO SCH (08:43)
[2018-04-03] MEDS: HYDROCHLOROTHIAZIDE 25 MG (HCTZ) TAB PO SCH (08:43)
[2018-04-03] MEDS: lisINopril 20 MG (PRINIVIL) TABLET PO SCH (08:43)
[2018-04-03] MEDS: ASPIRIN E.C. 325 MG (ECOTRIN) TABLET PO SCH (08:43)
--- NOTE | 2018-04-03 10:11 | Diagnostic Imaging Report ---
INDICATION: COPD. COMPARISON: 04/02/2018. FINDINGS: Frontal and lateral radiographic views of the chest were obtained and show patchy airspace opacity within the lateral left lung base, new compared to prior exam. Right lung remains relatively clear. There is no large effusion or pneumothorax on either side. Cardiac silhouette and pulmonary vasculature within normal limits. Bony structures show no gross acute abnormalities. IMPRESSION: Probable interval development of patchy atelectasis in the left base. Dictated by: Dictated on workstation # [id number]
[2018-04-03 12:00] VITALS: BP 135/67
--- NOTE | 2018-04-03 15:21 | Occupational Ther Daily Note ---
OT Current Status-Daily Note Subjective Pt seen in room, up in bed, agreeable to OT. No pain mentioned. Appearance Alert, cooperative Mental Status/Objective Functional [place] Measure 0=Not Assessed/NA 4=Minimal Assistance 1=Total Assistance 5=Supervision or Setup 2=Maximal Assistance 6=Modified [place] 3=Moderate Assistance 7=Complete [place] Other Treatment Pt did 5 reps x 2 sets shoulder horiz abd/add with red theraband (medium resistance), requiring recovery period between sets. He also did 10 reps exercise working on elbow flex and elbow extension, as well as shoulder rotation. He was short of air after each set of ten and needed to recovery before doing exercise on other side or new one. He was able to track reps without help. He did become a little red in the face after exercise but not bright red like yesterday. pt left up in bed, all needs met. Education OT Patient Education: Exercise program, Purpose of tx/functional activities Teaching Recipient: Patient Teaching Methods: Demonstration, Discussion Response to Teaching: Verbalize Understanding, Return Demonstration, Reinforcement Needed OT Short Term Goals Short Term Goals 1=Demonstrate adherence to instructed precautions during ADL tasks. 2=Patient will verbalize/demonstrate understanding of assistive devices/ modifications for ADL. 3=Patient will improve strength/tolerance for activity to enable patient to perform ADL's. OT Broodmare Barn Groom Goals Broodmare Barn Groom Goals Time Frame: Apr 12, 2018 Eating (FIM): 7 Grooming(FIM): 5 Bathing(FIM): 5 Upper Body Dressing(FIM): 5 Lower Body Dressing(FIM): 5 Toileting(FIM): 5 Toilet/Commode Transfer(FIM): 5 Shower Transfer(FIM): 5 Additional Goals: 1-Demonstrate ADL Tasks, 2-Verbalize Understanding, 3- ImproveStrength/Mya 1=Demonstrate adherence to instructed precautions during ADL tasks. 2=Patient will verbalize/demonstrate understanding of assistive devices/ modifications for ADL. 3=Patient will improve strength/tolerance for activity to enable patient to perform ADL's. OT Education/Plan Problem List/Assessment Pt would benefit from skilled OT to increase his independence in basic self care to allow him to safely return home. Discharge Recommendations Plan/Recommendations: Continue POC Treatment Plan/Plan of Care Patient would benefit from OT for education, treatment and training to promote independence in ADL's, mobility, safety and/or upper extremity function for ADL' s. Plan of Care: ADL Retraining, Functional Mobility, UE Funct Exercise/Act, UE Neuromus Re-Ed/Coord, OTHER (energy conservation education) Treatment Duration: Apr 12, 2018 Frequency: 5 times per week Estimated Hrs Per Day: .25 hour per day Agreement: Yes Rehab Potential: Fair Time/GCodes Start Time: 14:55 Stop Time: 15:10 Total Time Billed (hr/min): 15 Billed Treatment Time visit, 15 minutes exercise ARMANDO COWAN OT Apr 03, 2018 15:20
[2018-04-03] MEDS: ENOXAPARIN 40 MG/0.4 ML (LOVENOX) SYR SC SCH (15:37)
[2018-04-03 16:00] VITALS: BP 107/58
--- NOTE | 2018-04-03 16:03 | Physical Therapy Daily Note ---
PT Daily Note-Current Subjective Pt laying Supine in bed as Nurse gives injection in stomach upon arrival. Pt agrees to PT. Pain Location: No Pain Reported Mental Status Patient Orientation: Person, Place, Situation Attachments: Bowman Catheter O2 not on upon arrival. Nurse asks pt and pt states that he doesn't wear it at home. Transfers Functional [place] Measure 0=Not Assessed/NA 4=Minimal Assistance 1=Total Assistance 5=Supervision or Setup 2=Maximal Assistance 6=Modified [place] 3=Moderate Assistance 7=Complete IndependenceIRFPAI Quality Coding Scale 6 Independent with activity with or without an assistive device 5 Patient requires set up or clean up by helper. Patient completes activity by themselves 4 Supervision or touching assist (CGA). [place] provide cues , steadying assist 3 The helper provides less than half the effort to complete the activity 2 The helper provides more than half the effort to complete the activity 1 Dependent. The helper does all the effort to complete an activity 7 Patient refused to complete or attempt activity 9 The patient did not perform the activity before the current illness or injury 88 Not attempted due to Medical conditions or safety concerns Scootin Rollin Supine to/from Sit: 6 Sit to/from Stand: 5 Weight Bearing Right Lower Extremity: Right Full Weight Bearing Left Lower Extremity: Left Full Weight Bearing Gait Training Distance (FIM): 3=150 ft Distance: 250 Gait Level of Assist: 5 Gait Persons Needed: 1 Gait Assistive Device: FWW Pt walks with normalized trisha and improved activity tolerance. Treatments Pt transfers from Supine in bed to standing using FWW at SBA. Pt ambulates in hallway using FWW at SBA. Pt returns to room to use restroom before returning to Supine in bed. Pt has all needs met at end of tx. Assessment Current Status: Good Progress Pt has improved transfers, mobility and activity tolerance. PT Skilled Nursing Goals Area Field Person Goals PT Skilled Nursing Goals Time Frame: Apr 13, 2018 Transfers (B,C,W/C) (FIM): 6 Gait (FIM): 6 Gait distance (FIM): 3=150 ft Gait Level of Assist: 6 Gait Assistive Device: FWW PT Plan Problem List Problem List: Safety, Gait Treatment/Plan Treatment Plan: Continue Plan of Care Treatment Plan: Bed Mobility, Education, Functional Activity Mya, Functional Strength, Gait, Safety, Therapeutic Exercise, Transfers Treatment Duration: Apr 13, 2018 Frequency: 6 times per week Estimated Hrs Per Day: .25 hour per day Patient and/or Family Agrees t: Yes Safety Risks/Education Patient Education: Gait Training, Transfer Techniques, Correct Positioning, Safety Issues Teaching Recipient: Patient Teaching Methods: Discussion Response to Teaching: Verbalize Understanding Time/GCodes Time In: 1525 Time Out: 1545 Total Billed Treatment Time: 20 Total Billed Treatment 1, GT (20m) G Codes Necessary: AUSTIN Boothe PTA Apr 03, 2018 16:03
[2018-04-03] MEDS: traZODone 150 MG (DESYREL) TABLET PO SCH (20:55)
[2018-04-03] MEDS: MONTELUKAST 10 MG (SINGULAIR) TAB PO SCH (20:55)
[2018-04-04 00:29] VITALS: BP 111/60
[2018-04-04] MEDS: RT-ALBUTEROL/IPRATROPIUM 3 ML (DUONEB) VIAL INH SCH ×6 (01:58→21:46)
[2018-04-04 04:04] LABS: BASOPHILS % (AUTO) 0 % (0-10); EOSINOPHILS % (AUTO) 0 % (0-10); HEMATOCRIT 45 % (40-54); HEMOGLOBIN 14.7 G/DL (13.3-17.7); LYMPHOCYTES # (AUTO) 0.7 X 10^3 (1.0-4.0); LYMPHOCYTES % (AUTO) 6 % (12-44); MEAN CORPUSCULAR HEMOGLOBIN 34 PG (25-34); MEAN CORPUSCULAR HGB CONC 33 G/DL (32-36); MEAN CORPUSCULAR VOLUME 103 FL (80-99); MEAN PLATELET VOLUME 8.1 FL (7.4-10.4); MONOCYTES % (AUTO) 9 % (0-12); NEUTROPHILS # (AUTO) 9.9 X 10^3 (1.8-7.8); NEUTROPHILS % (AUTO) 85 % (42-75); PLATELET COUNT 179 10^3/uL (130-400); RED BLOOD COUNT 4.33 10^6/uL (4.35-5.85); RED CELL DISTRIBUTION WIDTH 14.5 % (10.0-14.5); WHITE BLOOD COUNT 11.6 10^3/uL (4.3-11.0)
[2018-04-04 04:26] LABS: BUN/CREATININE RATIO 23; CALCIUM 8.9 MG/DL (8.5-10.1); CARBON DIOXIDE 31 MMOL/L (21-32); CHLORIDE 96 MMOL/L (98-107); CREATININE SERUM 0.75 MG/DL (0.60-1.30); GFR ESTIMATED > 60; GLUCOSE 89 MG/DL (70-105); POTASSIUM 3.9 MMOL/L (3.6-5.0); SODIUM 137 MMOL/L (135-145)
[2018-04-04 04:50] LABS: LYMPHOCYTES % (MANUAL) 7 %; MONOCYTES % (MANUAL) 9 %; NEUTROPHILS % (MANUAL) 84 %
[2018-04-04 06:00] LABS: BASOPHILS % (AUTO) 0 % (0-10); EOSINOPHILS % (AUTO) 0 % (0-10); HEMATOCRIT 43 % (40-54); HEMOGLOBIN 14.2 G/DL (13.3-17.7); LYMPHOCYTES # (AUTO) 0.6 X 10^3 (1.0-4.0); LYMPHOCYTES % (AUTO) 5 % (12-44); MEAN CORPUSCULAR HEMOGLOBIN 34 PG (25-34); MEAN CORPUSCULAR HGB CONC 33 G/DL (32-36); MEAN CORPUSCULAR VOLUME 103 FL (80-99); MEAN PLATELET VOLUME 8.3 FL (7.4-10.4); MONOCYTES % (AUTO) 8 % (0-12); NEUTROPHILS # (AUTO) 10.8 X 10^3 (1.8-7.8); NEUTROPHILS % (AUTO) 87 % (42-75); PLATELET COUNT 167 10^3/uL (130-400); RED BLOOD COUNT 4.17 10^6/uL (4.35-5.85); RED CELL DISTRIBUTION WIDTH 14.5 % (10.0-14.5); WHITE BLOOD COUNT 12.4 10^3/uL (4.3-11.0)
[2018-04-04] MEDS: predniSONE 20 MG TAB PO SCH (06:07)
[2018-04-04] MEDS: LEVOTHYROXINE 100 MCG (LEVOTHROID) TAB PO SCH (06:07)
[2018-04-04] MEDS: LEVOTHYROXINE 25 MCG (LEVOTHROID) TAB PO SCH (06:07)
[2018-04-04] MEDS: CYANOCOBALAMIN 1,000 MCG (VITAMIN B-12) TABLET PO SCH (06:07)
[2018-04-04] MEDS: PANTOPRAZOLE 20 MG TABLET (PROTONIX) PO SCH (06:07)
[2018-04-04] MEDS: MULTIVIT W/MINERALS TAB (THERAGRAN M) PO SCH (06:08)
[2018-04-04 06:27] LABS: ALANINE AMINOTRANSFERASE 23 U/L (0-55); ALBUMIN 3.2 GM/DL (3.2-4.5); ALKALINE PHOSPHATASE 40 U/L (40-136); BILIRUBIN,TOTAL 0.7 MG/DL (0.1-1.0); BUN/CREATININE RATIO 24; CALCIUM 8.7 MG/DL (8.5-10.1); CARBON DIOXIDE 33 MMOL/L (21-32); CHLORIDE 97 MMOL/L (98-107); CREATININE SERUM 0.74 MG/DL (0.60-1.30); GFR ESTIMATED > 60; GLUCOSE 88 MG/DL (70-105); POTASSIUM 3.9 MMOL/L (3.6-5.0); SODIUM 138 MMOL/L (135-145); TOTAL PROTEIN 5.1 GM/DL (6.4-8.2)
[2018-04-04 08:00] VITALS: BP 132/75
--- NOTE | 2018-04-04 08:03 | Progress Note (SOAP) ---
Subjective Time Seen by Provider: 08:00 Subjective/Events-last exam Patient doing better today. Patient breathing better. Patient more alert. DC Bowman and telemetry Focused Exam Lactate Level 04/01/18 17:05: Lactic Acid Level 1.62 Objective Exam Vital Signs Date Time Temp Pulse Resp B/P (MAP) Pulse Ox O2 Delivery O2 Flow Rate FiO2 04/04/18 07:00 101 04/04/18 01:58 90 Room Air 04/04/18 01:04 89 04/04/18 00:29 98.2 97 20 111/60 (77) 95 Room Air 04/03/18 21:05 Room Air 04/03/18 21:00 Room Air 04/03/18 19:10 92 04/03/18 19:01 Room Air 04/03/18 18:56 93 Room Air 04/03/18 16:00 98.0 101 22 107/58 (74) 95 Room Air 04/03/18 15:12 92 Room Air 04/03/18 13:00 101 04/03/18 12:00 98.8 93 36 135/67 (89) 95 Room Air 04/03/18 10:18 92 Room Air 04/03/18 09:00 97 Nasal Cannula I & O 04/04/18 07:00 Intake Total 4182 ml Output Total 2800 ml Balance 1382 ml Capillary Refill : Less Than 3 Seconds General Appearance: No Apparent Distress, WD/WN HEENT: Normal ENT Inspection Neck: Full Range of Motion, Normal Inspection Respiratory: No Accessory Muscle Use, No Respiratory Distress, Decreased Breath Sounds Cardiovascular: Regular Rate, Rhythm Gastrointestinal: non tender, soft Results Lab Laboratory Tests 04/04/18 03:50 04/04/18 05:35 Laboratory Tests 04/04/18 03:50: White Blood Count 11.6H, Red Blood Count 4.33L, Hemoglobin 14.7, Hematocrit 45, Mean Corpuscular Volume 103H, Mean Corpuscular Hemoglobin 34, Mean Corpuscular Hemoglobin Concent 33, Red Cell Distribution Width 14.5, Platelet Count 179, Mean Platelet Volume 8.1, Neutrophils (%) (Auto) 85H, Lymphocytes (%) (Auto) 6L , Monocytes (%) (Auto) 9, Eosinophils (%) (Auto) 0, Basophils (%) (Auto) 0, Neutrophils # (Auto) 9.9H, Lymphocytes # (Auto) 0.7L, Monocytes # (Auto) 1.0, Eosinophils # (Auto) 0.0, Basophils # (Auto) 0.0, Neutrophils % (Manual) 84, Lymphocytes % (Manual) 7, Monocytes % (Manual) 9, Macrocytosis SLIGHT, Sodium Level 137, Potassium Level 3.9, Chloride Level 96L, Carbon Dioxide Level 31, Anion Gap 10, Blood Urea Nitrogen 17, Creatinine 0.75, Estimat Glomerular Filtration Rate > 60, BUN/Creatinine Ratio 23, Glucose Level 89, Calcium Level 8.9 04/04/18 05:35: White Blood Count 12.4H, Red Blood Count 4.17L, Hemoglobin 14.2, Hematocrit 43, Mean Corpuscular Volume 103H, Mean Corpuscular Hemoglobin 34, Mean Corpuscular Hemoglobin Concent 33, Red Cell Distribution Width 14.5, Platelet Count 167, Mean Platelet Volume 8.3, Neutrophils (%) (Auto) 87H, Lymphocytes (%) (Auto) 5L , Monocytes (%) (Auto) 8, Eosinophils (%) (Auto) 0, Basophils (%) (Auto) 0, Neutrophils # (Auto) 10.8H, Lymphocytes # (Auto) 0.6L, Monocytes # (Auto) 1.0, Eosinophils # (Auto) 0.0, Basophils # (Auto) 0.0, Sodium Level 138, Potassium Level 3.9, Chloride Level 97L, Carbon Dioxide Level 33H, Anion Gap 8, Blood Urea Nitrogen 18, Creatinine 0.74, Estimat Glomerular Filtration Rate > 60, BUN/ Creatinine Ratio 24, Glucose Level 88, Calcium Level 8.7, Corrected Calcium 9.3 , Total Bilirubin 0.7, Aspartate Amino Transf (AST/SGOT) 19, Alanine Aminotransferase (ALT/SGPT) 23, Alkaline Phosphatase 40, Total Protein 5.1L, Albumin 3.2 Microbiology 04/01/18 Blood Culture - Preliminary, Resulted No growth 04/01/18 Urine Culture - Final, Complete NO GROWTH Assessment/Plan Assessment/Plan Assess & Plan/Chief Complaint COPD with acute exacerbation. Hypertension. Alcoholism. Weakness. . 04/04/18. Acute and chronic respiratory failure. COPD with acute exacerbation. Asthma. Alcohol dependence. Patient breathing better today. Clinical Quality Measures Admission Status Admission Dx cOPD with acute exacerbation. Hypoxemia. Acute mental status change. weakness DVT/VTE Risk/Contraindication: Risk Factor Score Per Nursin RFS Level Per Nursing on Admit: 4+=Very High Contraindications-Mechi: Other *list below* Other: PATIENT IS ON LOVENOX BUT REFUSED SCD'S EDDIE MCDERMOTT DO Apr 04, 2018 08:03
[2018-04-04] MEDS: RT-ADVAIR HFA 115/21 MCG PER PUFF IH SCH ×2 (08:04→21:54)
--- NOTE | 2018-04-04 09:18 | Pulmonary Progress Note ---
Subjective Time Seen by Provider: 10:32 Subjective/Events-last exam pt still SOB. Sepsis Event Evaluation Height, Weight, BMI Height: 5'8.00" Weight: 253lbs. 5.0oz. 114.154800ou; 37.2 BMI Method:Stated Focused Exam Lactate Level 04/01/18 17:05: Lactic Acid Level 1.62 Exam Exam Vital Signs Date Time Temp Pulse Resp B/P (MAP) Pulse Ox O2 Delivery O2 Flow Rate FiO2 04/04/18 08:06 91 Room Air 04/04/18 08:00 98.2 93 32 132/75 (94) 94 Room Air 04/04/18 07:00 101 04/04/18 01:58 90 Room Air 04/04/18 01:04 89 04/04/18 00:29 98.2 97 20 111/60 (77) 95 Room Air 04/03/18 21:05 Room Air 04/03/18 21:00 Room Air 04/03/18 19:10 92 04/03/18 19:01 Room Air 04/03/18 18:56 93 Room Air 04/03/18 16:00 98.0 101 22 107/58 (74) 95 Room Air 04/03/18 15:12 92 Room Air 04/03/18 13:00 101 04/03/18 12:00 98.8 93 36 135/67 (89) 95 Room Air 04/03/18 10:18 92 Room Air I & O 04/04/18 07:00 Intake Total 4182 ml Output Total 2800 ml Balance 1382 ml Height & Weight Height: 5'8.00" Weight: 253lbs. 5.0oz. 114.668383kl; 37.2 BMI Method:Stated General Appearance: No Apparent Distress, WD/WN HEENT: Normal ENT Inspection Neck: Full Range of Motion, Normal Inspection Respiratory: No Accessory Muscle Use, No Respiratory Distress, Decreased Breath Sounds Cardiovascular: Regular Rate, Rhythm Capillary Refill: Less Than 3 Seconds Gastrointestinal: non tender, soft Extremity: Normal Capillary Refill, Normal Range of Motion, Non Tender Neurologic/Psychiatric: Alert, Oriented x3 Skin: Normal Color, Warm/Dry Results Lab Laboratory Tests 04/03/18 06:08 04/04/18 03:50 04/04/18 05:35 Assessment/Plan Assessment/Plan Acute on chronic respiratory failure COPDAE - doubt PNA -D/C Rocephin -BIPAP PRN -Solumedrol 40 IV Q 6 -- change to prednisone -SVNS Q4, add advair Atelectasis LLL -Increase activity -Check CT of chest with contrast r/o mass Asthma/allergic rhinitis hx - singulair, claritin Dementia, hx of alcohol dependance -Consult SS for possible ECF placement Debility -Consult PT/OT CARMEN BURKETT DO Apr 04, 2018 09:18
[2018-04-04] MEDS: lisINopril 20 MG (PRINIVIL) TABLET PO SCH (09:21)
[2018-04-04] MEDS: HYDROCHLOROTHIAZIDE 25 MG (HCTZ) TAB PO SCH (09:21)
[2018-04-04] MEDS: LORATADINE (CLARITIN) 10 MG TAB PO SCH (09:21)
[2018-04-04] MEDS: ASPIRIN E.C. 325 MG (ECOTRIN) TABLET PO SCH (09:21)
--- NOTE | 2018-04-04 09:56 | Physical Therapy Daily Note ---
PT Daily Note-Current Subjective Patient is in bed and agrees to PT. Pain Numeric Pain Scale: 0-No Pain Location: No Pain Reported Mental Status Patient Orientation: Person, Time, Situation Transfers Functional [place] Measure 0=Not Assessed/NA 4=Minimal Assistance 1=Total Assistance 5=Supervision or Setup 2=Maximal Assistance 6=Modified [place] 3=Moderate Assistance 7=Complete IndependenceIRFPAI Quality Coding Scale 6 Independent with activity with or without an assistive device 5 Patient requires set up or clean up by helper. Patient completes activity by themselves 4 Supervision or touching assist (CGA). [place] provide cues , steadying assist 3 The helper provides less than half the effort to complete the activity 2 The helper provides more than half the effort to complete the activity 1 Dependent. The helper does all the effort to complete an activity 7 Patient refused to complete or attempt activity 9 The patient did not perform the activity before the current illness or injury 88 Not attempted due to Medical conditions or safety concerns Transfers (B, C, W/C) (FIM): 6 Scootin Rollin Supine to/from Sit: 7 Sit to/from Stand: 6 Weight Bearing Right Lower Extremity: Right Full Weight Bearing Left Lower Extremity: Left Full Weight Bearing Gait Training Gait (FIM): 6 Distance (FIM): 3=150 ft Distance: 500' Gait Level of Assist: 6 Gait Assistive Device: FWW rapid gait sequence with FWW/much improved balance with functional mobility Assessment Patient returned to bed with needs met. Patient progressing with treatment plan. PT Halfway Goals Data Management Consultant Goals PT Data Management Consultant Goals Time Frame: Apr 13, 2018 Transfers (B,C,W/C) (FIM): 6 Gait (FIM): 6 Gait distance (FIM): 3=150 ft Gait Level of Assist: 6 Gait Assistive Device: FWW PT Plan Treatment/Plan Treatment Plan: Continue Plan of Care Treatment Plan: Bed Mobility, Education, Functional Activity Mya, Functional Strength, Gait, Safety, Therapeutic Exercise, Transfers Treatment Duration: Apr 13, 2018 Frequency: 6 times per week Estimated Hrs Per Day: .25 hour per day Patient and/or Family Agrees t: Yes Time/GCodes Time In: 916 Time Out: 927 Total Billed Treatment Time: 11 Total Billed Treatment 1 visit FA 11 min SAI BILLINGSLEY PT Apr 04, 2018 09:56
--- NOTE | 2018-04-04 11:00 | Occupational Ther Daily Note ---
OT Current Status-Daily Note Subjective Pt sleeping in bed, woke to name. Pt agrees to therapy. NPO for CT scan, per nrsg. Mental Status/Objective Patient Orientation: Person, Place, Time, Situation Functional [place] Measure 0=Not Assessed/NA 4=Minimal Assistance 1=Total Assistance 5=Supervision or Setup 2=Maximal Assistance 6=Modified [place] 3=Moderate Assistance 7=Complete [place] Attachments: IV ADL-Treatment After set up, pt complete bathing with SBA. Used FWW for stability in standing to cleanse thu area and buttocks. Simulated upper body dressing using hospital gown, pt able to thread arms into sleeves and push over head. Supine and crossing LE's over knee to doff and cleanse feet. Assist needed to don socks. Pt ambulated to room sink to complete oral care with SBA. After therapy , pt lying in bed with call light/phone in reach. All needs met in room. Grooming (FIM): 5 Bathing (FIM): 4 OT Short Term Goals Short Term Goals 1=Demonstrate adherence to instructed precautions during ADL tasks. 2=Patient will verbalize/demonstrate understanding of assistive devices/ modifications for ADL. 3=Patient will improve strength/tolerance for activity to enable patient to perform ADL's. OT Mcfp Goals Metal Precision Machine Assembler Goals Time Frame: Apr 12, 2018 Eating (FIM): 7 Grooming(FIM): 5 Bathing(FIM): 5 Upper Body Dressing(FIM): 5 Lower Body Dressing(FIM): 5 Toileting(FIM): 5 Toilet/Commode Transfer(FIM): 5 Shower Transfer(FIM): 5 Additional Goals: 1-Demonstrate ADL Tasks, 2-Verbalize Understanding, 3- ImproveStrength/Mya 1=Demonstrate adherence to instructed precautions during ADL tasks. 2=Patient will verbalize/demonstrate understanding of assistive devices/ modifications for ADL. 3=Patient will improve strength/tolerance for activity to enable patient to perform ADL's. OT Education/Plan Problem List/Assessment Pt would benefit from skilled OT to increase his independence in basic self care to allow him to safely return home. Discharge Recommendations Plan/Recommendations: Continue POC Treatment Plan/Plan of Care Patient would benefit from OT for education, treatment and training to promote independence in ADL's, mobility, safety and/or upper extremity function for ADL' s. Plan of Care: ADL Retraining, Functional Mobility, UE Funct Exercise/Act, UE Neuromus Re-Ed/Coord, OTHER (energy conservation education) Treatment Duration: Apr 12, 2018 Frequency: 5 times per week Estimated Hrs Per Day: .25 hour per day Agreement: Yes Rehab Potential: Fair Time/GCodes Start Time: 10:18 Stop Time: 10:35 Total Time Billed (hr/min): 17 Billed Treatment Time 1 visit-ADL 1 (17 min) KANE ADAMES Apr 04, 2018 11:00
--- NOTE | 2018-04-04 11:11 | Diagnostic Imaging Report ---
INDICATION: COPD exacerbation. Comparison made with prior examination 04/03/18. FINDINGS: Heart size is normal. There are some bilateral perihilar infiltrates right greater than left. There is minimal discoid scarring or atelectasis in left lung base. There is no pleural effusion or pneumothorax. Mediastinum is unremarkable. IMPRESSION: Patchy bilateral perihilar infiltrates with some discoid atelectasis and/or pneumonitis in left lung base. Dictated by: Dictated on workstation # [id number]
[2018-04-04] MEDS ORDERED: NS 250 ML (IVPB) BAG IV ONE (11:30)
[2018-04-04] MEDS ORDERED: IOHEXOL 350 MG/ML 150 ML (OMNIPAQUE 350) VIAL IV ONE (11:30)
[2018-04-04] MEDS ORDERED: RECEIVED CONTRAST (Hold Metformin) IV SCH (11:45)
--- NOTE | 2018-04-04 14:15 | Diagnostic Imaging Report ---
PROCEDURE: CT angiography of the chest with contrast. TECHNIQUE: Multiple contiguous axial images were obtained through the chest after uneventful bolus administration of intravenous contrast. Reconstructed CTA MIP acquisitions were also performed. DATE: April 04, 2018. COMPARISON: Chest radiographs, April 04, 2018. CT chest, abdomen, and pelvis, September 24, 2016. INDICATION: 68-year-old male, shortness of breath. Evaluation for pulmonary embolus. FINDINGS: There is no identified pulmonary nodule or mass. There is mild dependent atelectasis. There is no additional focal airspace consolidation. There are small bilateral pleural effusions. There is no identified pulmonary embolus. The main pulmonary artery is normal in caliber. The heart is not enlarged. There is no large pericardial effusion. There are atherosclerotic calcifications. There is a subcentimeter precarinal lymph node. There is no identified mediastinal, hilar, or axillary lymph node which specifically meets CT size criteria for adenopathy. There is a very small hiatal hernia. There is a small amount of fluid within the fat herniating through the diaphragmatic hernia defect. Additional limited assessment of the visualized portions of the upper abdomen is unremarkable. There are multilevel degenerative changes of the spine. There is a T4 benign vertebral body hemangioma. There is no identified acute bone abnormality. IMPRESSION: CT CHEST. 1. No identified pulmonary embolus. 2. Small bilateral pleural effusions with adjacent atelectasis. 3. Very small hiatal hernia with small amount of fluid within the fat herniating through the hernia defect. Dictated by: Dictated on workstation # [id number]
[2018-04-04] MEDS: ENOXAPARIN 40 MG/0.4 ML (LOVENOX) SYR SC SCH (16:31)
[2018-04-04 16:55] VITALS: BP 132/71
[2018-04-04] MEDS: MONTELUKAST 10 MG (SINGULAIR) TAB PO SCH (19:49)
[2018-04-04] MEDS: traZODone 150 MG (DESYREL) TABLET PO SCH (19:49)
[2018-04-05 00:04] VITALS: BP 139/75
[2018-04-05] MEDS: RT-ALBUTEROL/IPRATROPIUM 3 ML (DUONEB) VIAL INH SCH ×3 (03:57→11:15)
[2018-04-05 06:05] LABS: BASOPHILS % (AUTO) 0 % (0-10); EOSINOPHILS # (AUTO) 0.1 10^3/uL (0.0-0.3); EOSINOPHILS % (AUTO) 1 % (0-10); HEMATOCRIT 44 % (40-54); LYMPHOCYTES # (AUTO) 0.7 X 10^3 (1.0-4.0); LYMPHOCYTES % (AUTO) 9 % (12-44); MEAN CORPUSCULAR HEMOGLOBIN 33 PG (25-34); MEAN CORPUSCULAR HGB CONC 32 G/DL (32-36); MEAN CORPUSCULAR VOLUME 104 FL (80-99); MEAN PLATELET VOLUME 8.2 FL (7.4-10.4); MONOCYTES # (AUTO) 0.9 X 10^3 (0.0-1.0); MONOCYTES % (AUTO) 11 % (0-12); NEUTROPHILS # (AUTO) 6.1 X 10^3 (1.8-7.8); NEUTROPHILS % (AUTO) 80 % (42-75); PLATELET COUNT 187 10^3/uL (130-400); RED BLOOD COUNT 4.23 10^6/uL (4.35-5.85); RED CELL DISTRIBUTION WIDTH 14.3 % (10.0-14.5); WHITE BLOOD COUNT 7.6 10^3/uL (4.3-11.0)
[2018-04-05] MEDS: PANTOPRAZOLE 20 MG TABLET (PROTONIX) PO SCH (06:14)
[2018-04-05] MEDS: LEVOTHYROXINE 25 MCG (LEVOTHROID) TAB PO SCH (06:14)
[2018-04-05] MEDS: predniSONE 20 MG TAB PO SCH (06:14)
[2018-04-05] MEDS: CYANOCOBALAMIN 1,000 MCG (VITAMIN B-12) TABLET PO SCH (06:14)
[2018-04-05] MEDS: LEVOTHYROXINE 100 MCG (LEVOTHROID) TAB PO SCH (06:14)
[2018-04-05] MEDS: MULTIVIT W/MINERALS TAB (THERAGRAN M) PO SCH (06:14)
[2018-04-05 06:21] LABS: ALANINE AMINOTRANSFERASE 21 U/L (0-55); ALBUMIN 3.1 GM/DL (3.2-4.5); ALKALINE PHOSPHATASE 39 U/L (40-136); BILIRUBIN,TOTAL 0.8 MG/DL (0.1-1.0); BUN/CREATININE RATIO 21; CARBON DIOXIDE 34 MMOL/L (21-32); CHLORIDE 98 MMOL/L (98-107); CREATININE SERUM 0.71 MG/DL (0.60-1.30); GFR ESTIMATED > 60; GLUCOSE 87 MG/DL (70-105); SODIUM 139 MMOL/L (135-145); TOTAL PROTEIN 5.1 GM/DL (6.4-8.2)
[2018-04-05] MEDS: RT-ADVAIR HFA 115/21 MCG PER PUFF IH SCH (07:13)
--- NOTE | 2018-04-05 07:47 | Pulmonary Progress Note ---
Subjective Time Seen by Provider: 07:46 Subjective/Events-last exam No complications noted. Sepsis Event Evaluation Height, Weight, BMI Height: 5'8.00" Weight: 253lbs. 5.0oz. 114.131643sl; 37.2 BMI Method:Stated Exam Exam Vital Signs Date Time Temp Pulse Resp B/P (MAP) Pulse Ox O2 Delivery O2 Flow Rate FiO2 04/05/18 07:12 91 Room Air 04/05/18 00:04 98.4 93 20 139/75 (96) 94 Room Air 04/04/18 21:46 92 Room Air 04/04/18 21:00 Room Air 04/04/18 16:55 98.0 102 24 132/71 (91) 96 Room Air 04/04/18 15:46 93 Room Air 04/04/18 11:36 Room Air 04/04/18 09:00 Room Air 04/04/18 08:06 91 Room Air 04/04/18 08:00 98.2 93 32 132/75 (94) 94 Room Air I & O 04/05/18 07:00 Intake Total 2810 ml Output Total 2650 ml Balance 160 ml Height & Weight Height: 5'8.00" Weight: 253lbs. 5.0oz. 114.711195hs; 37.2 BMI Method:Stated General Appearance: No Apparent Distress, WD/WN HEENT: Normal ENT Inspection Neck: Full Range of Motion, Normal Inspection Respiratory: No Accessory Muscle Use, No Respiratory Distress, Decreased Breath Sounds Cardiovascular: Regular Rate, Rhythm Capillary Refill: Less Than 3 Seconds Gastrointestinal: non tender, soft Extremity: Normal Capillary Refill, Normal Range of Motion, Non Tender Neurologic/Psychiatric: Alert, Oriented x3 Skin: Normal Color, Warm/Dry Results Lab Laboratory Tests 04/04/18 03:50 04/04/18 05:35 04/05/18 05:35 Assessment/Plan Assessment/Plan Acute on chronic respiratory failure COPDAE - doubt PNA -D/C Rocephin -BIPAP PRN - prednisone -SVNS Q4, add advair Pulmonary pleural effusion -Lasix 40mg IV x 1 Atelectasis LLL -Increase activity CT of chest with contrast - NO PE, does show pleural effusions bilateral Asthma/allergic rhinitis hx - singulair, claritin Dementia, hx of alcohol dependance -Consult SS for possible ECF placement Debility -Consult PT/OT CARMEN BURKETT DO Apr 05, 2018 07:47
[2018-04-05] MEDS ORDERED: FUROSEMIDE 40 MG/4 ML INJ (LASIX) IVP NR (07:52)
[2018-04-05 08:00] VITALS: BP 150/75
[2018-04-05] MEDS ORDERED: HYDR25TA4 PO ×2 (08:21→11:21)
[2018-04-05] MEDS ORDERED: PRD20T PO (08:21)
[2018-04-05] MEDS: HYDROCHLOROTHIAZIDE 25 MG (HCTZ) TAB PO SCH (09:35)
[2018-04-05] MEDS: ASPIRIN E.C. 325 MG (ECOTRIN) TABLET PO SCH (09:35)
[2018-04-05] MEDS: lisINopril 20 MG (PRINIVIL) TABLET PO SCH (09:35)
[2018-04-05] MEDS: LORATADINE (CLARITIN) 10 MG TAB PO SCH (09:35)
--- NOTE | 2018-04-05 11:02 | Occupational Ther Daily Note ---
OT Current Status-Daily Note Subjective Pt standing up beside bed attempting to use urinal. Pt stated that he was going home today and would take a shower at home. Nrsg and SW reported he would be going home today. Pt did not have shirt available, VILLAGRAN retrieved shirt that pt would be able to wear home. Mental Status/Objective Patient Orientation: Person, Place, Time, Situation Functional [place] Measure 0=Not Assessed/NA 4=Minimal Assistance 1=Total Assistance 5=Supervision or Setup 2=Maximal Assistance 6=Modified [place] 3=Moderate Assistance 7=Complete [place] ADL-Treatment Pt able to go from supine to sitting EOB and back by self. Standing to void with urinal by self. Pt had already donned shoes and pants prior to VILLAGRAN coming to room. Pt given a shirt and was able to don by self. Pt declined shower. After therapy, pt lying in bed with call light/phone in reach. All needs met in room. OT Short Term Goals Short Term Goals 1=Demonstrate adherence to instructed precautions during ADL tasks. 2=Patient will verbalize/demonstrate understanding of assistive devices/ modifications for ADL. 3=Patient will improve strength/tolerance for activity to enable patient to perform ADL's. OT Substitute Crossing Guard Goals Skilled Nursing Goals Time Frame: Apr 12, 2018 Eating (FIM): 7 Grooming(FIM): 5 Bathing(FIM): 5 Upper Body Dressing(FIM): 5 Lower Body Dressing(FIM): 5 Toileting(FIM): 5 Toilet/Commode Transfer(FIM): 5 Shower Transfer(FIM): 5 Additional Goals: 1-Demonstrate ADL Tasks, 2-Verbalize Understanding, 3- ImproveStrength/Mya 1=Demonstrate adherence to instructed precautions during ADL tasks. 2=Patient will verbalize/demonstrate understanding of assistive devices/ modifications for ADL. 3=Patient will improve strength/tolerance for activity to enable patient to perform ADL's. OT Education/Plan Problem List/Assessment Pt would benefit from skilled OT to increase his independence in basic self care to allow him to safely return home. Discharge Recommendations Plan/Recommendations: Continue POC Treatment Plan/Plan of Care Patient would benefit from OT for education, treatment and training to promote independence in ADL's, mobility, safety and/or upper extremity function for ADL' s. Plan of Care: ADL Retraining, Functional Mobility, UE Funct Exercise/Act, UE Neuromus Re-Ed/Coord, OTHER (energy conservation education) Treatment Duration: Apr 12, 2018 Frequency: 5 times per week Estimated Hrs Per Day: .25 hour per day Agreement: Yes Rehab Potential: Fair Time/GCodes Start Time: 10:20 Stop Time: 10:28 Total Time Billed (hr/min): 8 Billed Treatment Time 1 visit-ADL 1 (8 min) KANE ADAMES Apr 05, 2018 11:02
[2018-04-05] MEDS ORDERED: PRD10T PO (11:05)
[2018-04-05 13:00] VITALS: BP 150/75
--- NOTE | 2018-04-10 06:38 | Discharge Summary ---
Diagnosis/Chief Complaint Date of Admission Apr 01, 2018 at 18:15 Date of Discharge Apr 05, 2018 at 13:00 Discharge Date: Apr 05, 2018 Discharge Time: 06:30 Discharge Diagnosis Acute and chronic respiratory failure with hypercapnia. Alcohol dependence. Chronic obstructive pulmonary disease with acute exacerbation. Essential hypertension history. Nicotine dependence. Reason Hospital Visit patient came to the office yesterday complaining of weakness and debility.german Patient states he had weakness of his left hand and unable to move. Patient had difficulty in getting out of the chair. ration sent out to the emergency room. Pulse ox 67. Patient has history of smoking half a pack a day. Patient has a previous surgery for thyroid cancer. patient has a history of alcoholism. Patient states he drinks 4 beers daily Discharge Summary Consultations Pulmonology Discharge Physical Examination Allergies: Coded Allergies: No Known Drug Allergies (Unverified , 10/23/16) Vitals & I&Os Vital Signs Date Time Temp Pulse Resp B/P (MAP) Pulse Ox O2 Delivery O2 Flow Rate FiO2 04/05/18 13:00 93 18 150/75 93 Room Air 3.00 04/05/18 08:00 97.3 Hospital Course Patient in hospital did improve. Patient able to go home doing better Labs (last 24 hrs) Laboratory Tests 04/01/18 17:05: White Blood Count 8.6, Red Blood Count 4.73, Hemoglobin 15.8, Hematocrit 48, Mean Corpuscular Volume 102H, Mean Corpuscular Hemoglobin 33, Mean Corpuscular Hemoglobin Concent 33, Red Cell Distribution Width 14.2, Platelet Count 265, Mean Platelet Volume 8.1, Neutrophils (%) (Auto) 80H, Lymphocytes (%) (Auto) 7L , Monocytes (%) (Auto) 12, Eosinophils (%) (Auto) 1, Basophils (%) (Auto) 0, Neutrophils # (Auto) 6.8, Lymphocytes # (Auto) 0.6L, Monocytes # (Auto) 1.0, Eosinophils # (Auto) 0.1, Basophils # (Auto) 0.0, Neutrophils % (Manual) 74, Lymphocytes % (Manual) 12, Monocytes % (Manual) 11, Eosinophils % (Manual) 3, Basophils % (Manual) 0, Band Neutrophils 0, Blood Morphology Comment NORMAL, Prothrombin Time 12.7, INR Comment 1.0, Activated Partial Thromboplast Time 28, Sodium Level 130L, Potassium Level 4.7, Chloride Level 83L, Carbon Dioxide Level 37H, Anion Gap 10, Blood Urea Nitrogen 44H, Creatinine 1.25, Estimat Glomerular Filtration Rate 58, BUN/Creatinine Ratio 35, Glucose Level 87, Lactic Acid Level 1.62, Calcium Level 9.8, Corrected Calcium 9.7, Total Bilirubin 0.5, Aspartate Amino Transf (AST/SGOT) 23, Alanine Aminotransferase ( ALT/SGPT) 26, Alkaline Phosphatase 61, Troponin I < 0.30, Total Protein 6.8, Albumin 4.1 04/01/18 17:09: Blood Gas Puncture Site RT. BRACHIAL, Blood Gas Patient Temperature 99.3, Arterial Blood pH 7.33*L, Arterial Blood Partial Pressure CO2 77*H, Arterial Blood Partial Pressure O2 171H, Arterial Blood HCO3 39H, Arterial Blood Total CO2 41.7H, Arterial Blood Oxygen Saturation 100, Arterial Blood Base Excess 13.1H, Jorge Test NA, Blood Gas Ventilator Setting NO, Blood Gas Inspired Oxygen 10L 04/01/18 18:15: Lab Scanned Report Referred Lab Report 04/01/18 18:40: Urine Color YELLOW, Urine Clarity CLEAR, Urine pH 6, Urine Specific King 1.015L, Urine Protein 1+H, Urine Glucose (UA) NEGATIVE, Urine Ketones NEGATIVE, Urine Nitrite NEGATIVE, Urine Bilirubin NEGATIVE, Urine Urobilinogen 1, Urine Leukocyte Esterase NEGATIVE, Urine RBC (Auto) NEGATIVE, Urine RBC 0-2, Urine WBC 0-2, Urine Squamous Epithelial Cells NONE, Urine Crystals NONE, Urine Bacteria NEGATIVE, Urine Casts PRESENT, Urine Hyaline Casts 2-5H, Urine Mucus NEGATIVE, Urine Culture Indicated NO 04/02/18 03:20: White Blood Count 4.8, Red Blood Count 4.48, Hemoglobin 15.1, Hematocrit 44, Mean Corpuscular Volume 98, Mean Corpuscular Hemoglobin 34, Mean Corpuscular Hemoglobin Concent 34, Red Cell Distribution Width 13.6, Platelet Count 194, Mean Platelet Volume 8.4, Neutrophils (%) (Auto) 95H, Lymphocytes (%) (Auto) 3L , Monocytes (%) (Auto) 2, Eosinophils (%) (Auto) 0, Basophils (%) (Auto) 0, Neutrophils # (Auto) 4.5, Lymphocytes # (Auto) 0.2L, Monocytes # (Auto) 0.1, Eosinophils # (Auto) 0.0, Basophils # (Auto) 0.0, Sodium Level 133L, Potassium Level 4.6, Chloride Level 89L, Carbon Dioxide Level 29, Anion Gap 15H, Blood Urea Nitrogen 34H, Creatinine 1.03, Estimat Glomerular Filtration Rate > 60, BUN /Creatinine Ratio 33, Glucose Level 138H, Calcium Level 9.5, Corrected Calcium 9.8, Phosphorus Level 1.5L, Magnesium Level 2.0, Total Bilirubin 0.6, Aspartate Amino Transf (AST/SGOT) 19, Alanine Aminotransferase (ALT/SGPT) 25, Alkaline Phosphatase 53, Total Protein 5.9L, Albumin 3.6, Thyroid Stimulating Hormone ( TSH) 1.61 04/02/18 05:34: Blood Gas Puncture Site RIGHT RADIAL, Blood Gas Patient Temperature 98.8, Arterial Blood pH 7.67*H, Arterial Blood Partial Pressure CO2 27L, Arterial Blood Partial Pressure O2 106H, Arterial Blood HCO3 31H, Arterial Blood Total CO2 32.2H, Arterial Blood Oxygen Saturation 100, Arterial Blood Base Excess 9.4H , Jorge Test YES-POS, Blood Gas Ventilator Setting NO, Blood Gas Inspired Oxygen 50% 04/03/18 06:08: White Blood Count 9.2, Red Blood Count 4.31L, Hemoglobin 14.4, Hematocrit 44, Mean Corpuscular Volume 101H, Mean Corpuscular Hemoglobin 33, Mean Corpuscular Hemoglobin Concent 33, Red Cell Distribution Width 14.9H, Platelet Count 202, Mean Platelet Volume 8.3, Neutrophils (%) (Auto) 95H, Lymphocytes (%) (Auto) 1L , Monocytes (%) (Auto) 4, Eosinophils (%) (Auto) 0, Basophils (%) (Auto) 0, Neutrophils # (Auto) 8.8H, Lymphocytes # (Auto) 0.1L, Monocytes # (Auto) 0.3, Eosinophils # (Auto) 0.0, Basophils # (Auto) 0.0, Sodium Level 136, Potassium Level 4.1, Chloride Level 96L, Carbon Dioxide Level 31, Anion Gap 9, Blood Urea Nitrogen 24H, Creatinine 0.80, Estimat Glomerular Filtration Rate > 60, BUN/ Creatinine Ratio 30, Glucose Level 152H, Calcium Level 8.7 04/04/18 03:50: White Blood Count 11.6H, Red Blood Count 4.33L, Hemoglobin 14.7, Hematocrit 45, Mean Corpuscular Volume 103H, Mean Corpuscular Hemoglobin 34, Mean Corpuscular Hemoglobin Concent 33, Red Cell Distribution Width 14.5, Platelet Count 179, Mean Platelet Volume 8.1, Neutrophils (%) (Auto) 85H, Lymphocytes (%) (Auto) 6L , Monocytes (%) (Auto) 9, Eosinophils (%) (Auto) 0, Basophils (%) (Auto) 0, Neutrophils # (Auto) 9.9H, Lymphocytes # (Auto) 0.7L, Monocytes # (Auto) 1.0, Eosinophils # (Auto) 0.0, Basophils # (Auto) 0.0, Sodium Level 137, Potassium Level 3.9, Chloride Level 96L, Carbon Dioxide Level 31, Anion Gap 10, Blood Urea Nitrogen 17, Creatinine 0.75, Estimat Glomerular Filtration Rate > 60, BUN/ Creatinine Ratio 23, Glucose Level 89, Calcium Level 8.9, Neutrophils % (Manual ) 84, Lymphocytes % (Manual) 7, Monocytes % (Manual) 9, Macrocytosis SLIGHT 04/04/18 05:35: White Blood Count 12.4H, Red Blood Count 4.17L, Hemoglobin 14.2, Hematocrit 43, Mean Corpuscular Volume 103H, Mean Corpuscular Hemoglobin 34, Mean Corpuscular Hemoglobin Concent 33, Red Cell Distribution Width 14.5, Platelet Count 167, Mean Platelet Volume 8.3, Neutrophils (%) (Auto) 87H, Lymphocytes (%) (Auto) 5L , Monocytes (%) (Auto) 8, Eosinophils (%) (Auto) 0, Basophils (%) (Auto) 0, Neutrophils # (Auto) 10.8H, Lymphocytes # (Auto) 0.6L, Monocytes # (Auto) 1.0, Eosinophils # (Auto) 0.0, Basophils # (Auto) 0.0, Sodium Level 138, Potassium Level 3.9, Chloride Level 97L, Carbon Dioxide Level 33H, Anion Gap 8, Blood Urea Nitrogen 18, Creatinine 0.74, Estimat Glomerular Filtration Rate > 60, BUN/ Creatinine Ratio 24, Glucose Level 88, Calcium Level 8.7, Corrected Calcium 9.3 , Total Bilirubin 0.7, Aspartate Amino Transf (AST/SGOT) 19, Alanine Aminotransferase (ALT/SGPT) 23, Alkaline Phosphatase 40, Total Protein 5.1L, Albumin 3.2 04/05/18 05:35: White Blood Count 7.6, Red Blood Count 4.23L, Hemoglobin 14.0, Hematocrit 44, Mean Corpuscular Volume 104H, Mean Corpuscular Hemoglobin 33, Mean Corpuscular Hemoglobin Concent 32, Red Cell Distribution Width 14.3, Platelet Count 187, Mean Platelet Volume 8.2, Neutrophils (%) (Auto) 80H, Lymphocytes (%) (Auto) 9L , Monocytes (%) (Auto) 11, Eosinophils (%) (Auto) 1, Basophils (%) (Auto) 0, Neutrophils # (Auto) 6.1, Lymphocytes # (Auto) 0.7L, Monocytes # (Auto) 0.9, Eosinophils # (Auto) 0.1, Basophils # (Auto) 0.0, Sodium Level 139, Potassium Level 4.0, Chloride Level 98, Carbon Dioxide Level 34H, Anion Gap 7, Blood Urea Nitrogen 15, Creatinine 0.71, Estimat Glomerular Filtration Rate > 60, BUN/ Creatinine Ratio 21, Glucose Level 87, Calcium Level 9.0, Corrected Calcium 9.7 , Total Bilirubin 0.8, Aspartate Amino Transf (AST/SGOT) 16, Alanine Aminotransferase (ALT/SGPT) 21, Alkaline Phosphatase 39L, Total Protein 5.1L, Albumin 3.1L, B-Type Natriuretic Peptide 128.5H Microbiology 04/01/18 Blood Culture - Final, Complete No growth 04/01/18 Urine Culture - Final, Complete NO GROWTH Laboratory Tests 04/01/18 17:05 04/02/18 03:20 04/03/18 06:08 04/04/18 03:50 04/04/18 05:35 04/05/18 05:35 Pending Labs Microbiology Date/Time Source Procedure Growth Status 04/01/18 17:30 Peripheral Rt Ac Blood Culture - Final No growth Complete 04/01/18 17:05 Peripheral Lt Hand Blood Culture - Final No growth Complete 04/01/18 18:40 Urine Clean Catch Urine Culture - Final NO GROWTH Complete Laboratory Tests 04/01/18 17:05: White Blood Count 8.6, Red Blood Count 4.73, Hemoglobin 15.8, Hematocrit 48, Mean Corpuscular Volume 102, Mean Corpuscular Hemoglobin 33, Mean Corpuscular Hemoglobin Concent 33, Red Cell Distribution Width 14.2, Platelet Count 265, Mean Platelet Volume 8.1, Neutrophils (%) (Auto) 80, Lymphocytes (%) (Auto) 7, Monocytes (%) (Auto) 12, Eosinophils (%) (Auto) 1, Basophils (%) (Auto) 0, Neutrophils # (Auto) 6.8, Lymphocytes # (Auto) 0.6, Monocytes # (Auto) 1.0, Eosinophils # (Auto) 0.1, Basophils # (Auto) 0.0, Neutrophils % (Manual) 74, Lymphocytes % (Manual) 12, Monocytes % (Manual) 11, Eosinophils % (Manual) 3, Basophils % (Manual) 0, Band Neutrophils 0, Blood Morphology Comment NORMAL, Prothrombin Time 12.7, INR Comment 1.0, Activated Partial Thromboplast Time 28, Sodium Level 130, Potassium Level 4.7, Chloride Level 83, Carbon Dioxide Level 37, Anion Gap 10, Blood Urea Nitrogen 44, Creatinine 1.25, Estimat Glomerular Filtration Rate 58, BUN/Creatinine Ratio 35, Glucose Level 87, Lactic Acid Level 1.62, Calcium Level 9.8, Corrected Calcium 9.7, Total Bilirubin 0.5, Aspartate Amino Transf (AST/SGOT) 23, Alanine Aminotransferase (ALT/SGPT) 26, Alkaline Phosphatase 61, Troponin I < 0.30, Total Protein 6.8, Albumin 4.1 04/01/18 17:09: Blood Gas Puncture Site RT. BRACHIAL, Blood Gas Patient Temperature 99.3, Arterial Blood pH 7.33, Arterial Blood Partial Pressure CO2 77, Arterial Blood Partial Pressure O2 171, Arterial Blood HCO3 39, Arterial Blood Total CO2 41.7, Arterial Blood Oxygen Saturation 100, Arterial Blood Base Excess 13.1, Jorge Test NA, Blood Gas Ventilator Setting NO, Blood Gas Inspired Oxygen 10L 04/01/18 18:15: Lab Scanned Report Referred Lab Report 04/01/18 18:40: Urine Color YELLOW, Urine Clarity CLEAR, Urine pH 6, Urine Specific King 1.015, Urine Protein 1+, Urine Glucose (UA) NEGATIVE, Urine Ketones NEGATIVE, Urine Nitrite NEGATIVE, Urine Bilirubin NEGATIVE, Urine Urobilinogen 1, Urine Leukocyte Esterase NEGATIVE, Urine RBC (Auto) NEGATIVE, Urine RBC 0-2, Urine WBC 0-2, Urine Squamous Epithelial Cells NONE, Urine Crystals NONE, Urine Bacteria NEGATIVE, Urine Casts PRESENT, Urine Hyaline Casts 2-5, Urine Mucus NEGATIVE, Urine Culture Indicated NO 04/02/18 03:20: White Blood Count 4.8, Red Blood Count 4.48, Hemoglobin 15.1, Hematocrit 44, Mean Corpuscular Volume 98, Mean Corpuscular Hemoglobin 34, Mean Corpuscular Hemoglobin Concent 34, Red Cell Distribution Width 13.6, Platelet Count 194, Mean Platelet Volume 8.4, Neutrophils (%) (Auto) 95, Lymphocytes (%) (Auto) 3, Monocytes (%) (Auto) 2, Eosinophils (%) (Auto) 0, Basophils (%) (Auto) 0, Neutrophils # (Auto) 4.5, Lymphocytes # (Auto) 0.2, Monocytes # (Auto) 0.1, Eosinophils # (Auto) 0.0, Basophils # (Auto) 0.0, Sodium Level 133, Potassium Level 4.6, Chloride Level 89, Carbon Dioxide Level 29, Anion Gap 15, Blood Urea Nitrogen 34, Creatinine 1.03, Estimat Glomerular Filtration Rate > 60, BUN/ Creatinine Ratio 33, Glucose Level 138, Calcium Level 9.5, Corrected Calcium 9.8 , Phosphorus Level 1.5, Magnesium Level 2.0, Total Bilirubin 0.6, Aspartate Amino Transf (AST/SGOT) 19, Alanine Aminotransferase (ALT/SGPT) 25, Alkaline Phosphatase 53, Total Protein 5.9, Albumin 3.6, Thyroid Stimulating Hormone (TSH ) 1.61 04/02/18 05:34: Blood Gas Puncture Site RIGHT RADIAL, Blood Gas Patient Temperature 98.8, Arterial Blood pH 7.67, Arterial Blood Partial Pressure CO2 27, Arterial Blood Partial Pressure O2 106, Arterial Blood HCO3 31, Arterial Blood Total CO2 32.2, Arterial Blood Oxygen Saturation 100, Arterial Blood Base Excess 9.4, Jorge Test YES-POS, Blood Gas Ventilator Setting NO, Blood Gas Inspired Oxygen 50% 04/03/18 06:08: White Blood Count 9.2, Red Blood Count 4.31, Hemoglobin 14.4, Hematocrit 44, Mean Corpuscular Volume 101, Mean Corpuscular Hemoglobin 33, Mean Corpuscular Hemoglobin Concent 33, Red Cell Distribution Width 14.9, Platelet Count 202, Mean Platelet Volume 8.3, Neutrophils (%) (Auto) 95, Lymphocytes (%) (Auto) 1, Monocytes (%) (Auto) 4, Eosinophils (%) (Auto) 0, Basophils (%) (Auto) 0, Neutrophils # (Auto) 8.8, Lymphocytes # (Auto) 0.1, Monocytes # (Auto) 0.3, Eosinophils # (Auto) 0.0, Basophils # (Auto) 0.0, Sodium Level 136, Potassium Level 4.1, Chloride Level 96, Carbon Dioxide Level 31, Anion Gap 9, Blood Urea Nitrogen 24, Creatinine 0.80, Estimat Glomerular Filtration Rate > 60, BUN/ Creatinine Ratio 30, Glucose Level 152, Calcium Level 8.7 04/04/18 03:50: White Blood Count 11.6, Red Blood Count 4.33, Hemoglobin 14.7, Hematocrit 45, Mean Corpuscular Volume 103, Mean Corpuscular Hemoglobin 34, Mean Corpuscular Hemoglobin Concent 33, Red Cell Distribution Width 14.5, Platelet Count 179, Mean Platelet Volume 8.1, Neutrophils (%) (Auto) 85, Lymphocytes (%) (Auto) 6, Monocytes (%) (Auto) 9, Eosinophils (%) (Auto) 0, Basophils (%) (Auto) 0, Neutrophils # (Auto) 9.9, Lymphocytes # (Auto) 0.7, Monocytes # (Auto) 1.0, Eosinophils # (Auto) 0.0, Basophils # (Auto) 0.0, Sodium Level 137, Potassium Level 3.9, Chloride Level 96, Carbon Dioxide Level 31, Anion Gap 10, Blood Urea Nitrogen 17, Creatinine 0.75, Estimat Glomerular Filtration Rate > 60, BUN/ Creatinine Ratio 23, Glucose Level 89, Calcium Level 8.9, Neutrophils % (Manual ) 84, Lymphocytes % (Manual) 7, Monocytes % (Manual) 9, Macrocytosis SLIGHT 04/04/18 05:35: White Blood Count 12.4, Red Blood Count 4.17, Hemoglobin 14.2, Hematocrit 43, Mean Corpuscular Volume 103, Mean Corpuscular Hemoglobin 34, Mean Corpuscular Hemoglobin Concent 33, Red Cell Distribution Width 14.5, Platelet Count 167, Mean Platelet Volume 8.3, Neutrophils (%) (Auto) 87, Lymphocytes (%) (Auto) 5, Monocytes (%) (Auto) 8, Eosinophils (%) (Auto) 0, Basophils (%) (Auto) 0, Neutrophils # (Auto) 10.8, Lymphocytes # (Auto) 0.6, Monocytes # (Auto) 1.0, Eosinophils # (Auto) 0.0, Basophils # (Auto) 0.0, Sodium Level 138, Potassium Level 3.9, Chloride Level 97, Carbon Dioxide Level 33, Anion Gap 8, Blood Urea Nitrogen 18, Creatinine 0.74, Estimat Glomerular Filtration Rate > 60, BUN/ Creatinine Ratio 24, Glucose Level 88, Calcium Level 8.7, Corrected Calcium 9.3 , Total Bilirubin 0.7, Aspartate Amino Transf (AST/SGOT) 19, Alanine Aminotransferase (ALT/SGPT) 23, Alkaline Phosphatase 40, Total Protein 5.1, Albumin 3.2 04/05/18 05:35: White Blood Count 7.6, Red Blood Count 4.23, Hemoglobin 14.0, Hematocrit 44, Mean Corpuscular Volume 104, Mean Corpuscular Hemoglobin 33, Mean Corpuscular Hemoglobin Concent 32, Red Cell Distribution Width 14.3, Platelet Count 187, Mean Platelet Volume 8.2, Neutrophils (%) (Auto) 80, Lymphocytes (%) (Auto) 9, Monocytes (%) (Auto) 11, Eosinophils (%) (Auto) 1, Basophils (%) (Auto) 0, Neutrophils # (Auto) 6.1, Lymphocytes # (Auto) 0.7, Monocytes # (Auto) 0.9, Eosinophils # (Auto) 0.1, Basophils # (Auto) 0.0, Sodium Level 139, Potassium Level 4.0, Chloride Level 98, Carbon Dioxide Level 34, Anion Gap 7, Blood Urea Nitrogen 15, Creatinine 0.71, Estimat Glomerular Filtration Rate > 60, BUN/ Creatinine Ratio 21, Glucose Level 87, Calcium Level 9.0, Corrected Calcium 9.7 , Total Bilirubin 0.8, Aspartate Amino Transf (AST/SGOT) 16, Alanine Aminotransferase (ALT/SGPT) 21, Alkaline Phosphatase 39, Total Protein 5.1, Albumin 3.1, B-Type Natriuretic Peptide 128.5 Discharge Home Medications: Active Scripts Active Hydrochlorothiazide 25 Mg Tablet 25 Mg PO DAILY@0900 30 Days Prednisone 10 Mg Tab 10 Mg PO UD TAKE 3 TABLETS SUNDAY THEN 2 TABLETS SUNDAY THEN 1 TABLET SUNDAY THEN STOP Reported Ventolin Hfa (Albuterol Sulfate) 18 Gm Hfa.aer.ad 2 Puff INH Q4H PRN Levothyroxine Sodium 25 Mcg Tablet 25 Mcg PO DAILY TAKES ALONG WITH 200MCG TABLET Lisinopril-Hctz 20-25 mg Tab (Lisinopril/Hydrochlorothiazide) 1 Each Tablet 1 Tab PO DAILY Tramadol HCl 50 Mg Tablet 100 Mg PO TID PRN TAKES 2 (50MG) TABLETS Levothyroxine Sodium 200 Mcg Tablet 200 Mcg PO DAILY TAKES ALONG WITH 25MCG TABLET Trazodone HCl 150 Mg Tablet 150 Mg PO HS Aspirin EC (Aspirin) 325 Mg Tablet.dr 325 Mg PO TID PRN Vitamin B-12 (Cyanocobalamin (Vitamin B-12)) 5,000 Mcg Tab.subl 5,000 Mcg SL DAILY Daily Multiple Vitamin (Multivitamin) 1 Each Tablet 1 Tab PO DAILY Prilosec Otc (Omeprazole Magnesium) 20 Mg Tablet.dr 20 Mg PO DAILY Citalopram HBr (Citalopram Hydrobromide) 20 Mg Tablet 20 Mg PO HS Instructions to patient/family Please see electronic discharge instructions given to patient. Clinical Quality Measures DVT/VTE Risk/Contraindication: Risk Factor Score Per Nursin RFS Level Per Nursing on Admit: 4+=Very High Contraindications-Mechi: Other *list below* Other: PATIENT IS ON LOVENOX BUT REFUSED SCD'S EDDIE MCDERMOTT DO Apr 10, 2018 06:38
== END 2018-04-05 13:00 | disposition home or self-care (01) | DRG 189 ==
LOC: EDUNIT# 16:21 → ER 16:24 → ICU 18:15 → 4TH 04-02 21:57
PROVIDERS: ADMIT Family Medicine; ATTEND Family Medicine
DX: J96.22 Acute and chronic respiratory failure with hypercapnia (principal); J44.1 Chronic obstructive pulmonary disease with (acute) exacerbation; J98.11 Atelectasis; J90 Pleural effusion, not elsewhere classified; R41.0 Disorientation, unspecified; I10 Essential (primary) hypertension; F17.210 Nicotine dependence, cigarettes, uncomplicated; E89.0 Postprocedural hypothyroidism; R00.8 Other abnormalities of heart beat; I45.10 Unspecified right bundle-branch block; G47.9 Sleep disorder, unspecified; F41.9 Anxiety disorder, unspecified; F32.9 Major depressive disorder, single episode, unspecified; R53.1 Weakness; R53.81 Other malaise; J30.9 Allergic rhinitis, unspecified; E83.39 Other disorders of phosphorus metabolism; F03.90 Unspecified dementia, unspecified severity, without behavioral disturbance, psychotic disturbance, mood disturbance, and anxiety; F10.20 Alcohol dependence, uncomplicated
CPT/HCPCS: 36415; 51701; 71045; 71046; 71275; 80048; 80053; 81000; 82805; 83605; 83735; 83880; 84100; 84443; 84484; 85007; 85025; 85027; 85610; 85730; 87040; 87088; 93005; 94640; 94644; 94660; 94664; 94760; 96361; 96365; 96375

== ENCOUNTER → 2021-09-28 | Outpatient (CLI) | payer MEDICARE, OTHER ==
[~2021-09-28] MED LIST changes: +ALBU18HF2 INH; +HYDR25TA4 PO; +LEVO25TA5 PO; -LISI1TAB10 PO; +LISI1TAB48 PO; -LISI40TA PO; +LISI40TA9 PO; +PRD10T PO; +PRD20T PO; -TRAM50TA2 PO; +TRM50T PO
--- NOTE | 2021-09-28 15:52 | Diagnostic Imaging Report ---
CLINICAL INDICATION: Patient with chronic low back pain. EXAM: MRI of the lumbar spine without contrast. Sequences include sagittal T2, sagittal T1, sagittal T2 fat-sat, and axial T2. COMPARISON: MRI of the lumbar spine without contrast dated 10/04/2016. FINDINGS: There is no acute lumbar spine fracture. There is interval progression of the chronic compression fracture deformity involving the L4 and L5 vertebrae. Stable likely perineural cyst in the right T12-L1 neural foraminal region, which measures 1.6 cm x 3.0 cm x 3.4 cm (AP x Trans x CC). There is also stable bony remodeling of the adjacent bony structures. Since no right-sided nerve root is seen, a pseudomeningocele also cannot be completely excluded. There are hypertrophic spurs seen throughout the lumbar spine. There is lower lumbar spine facet arthropathy. The visualized portions of the distal thoracic spinal cord, conus medullaris, and cauda equina nerve roots are unremarkable. The conus medullaris tip is seen at the lower L1 vertebral body level. There is no significant paraspinal soft tissue abnormality. Left renal cyst is partially visualized. T12-L1: There is development of a minimal-sized disc bulge posteriorly. There is mild central canal narrowing due to the right-sided cystic structure. There is no significant neural foramen narrowing as visualized. L1-L2: There is mild diffuse disc bulge which has slightly progressed in the interim. There is mild bilateral facet arthropathy. There is no significant central spinal canal or neural foramen narrowing. L2-L3: There is progression of mild diffuse disc bulge with slight increased size of disc spurs in the left foraminal region. There is mild left neural foramen narrowing which has slightly progressed. There is no significant right neural foramen narrowing. There is mild bilateral facet arthropathy and ligamentum flavum buckling again noted. There is mild central canal narrowing which has minimally progressed. L3-L4: Again seen diffuse disc bulge with disc spurs extending into the foraminal regions bilaterally. There is interval development of an annular tear involving the right anterior aspect of the disc. There is moderate bilateral facet arthropathy and progression of ligamentum flavum buckling. There is [id number] central canal stenosis which has progressed. There is mild bilateral neural foramen narrowing which has slightly progressed. L4-L5: Again seen diffuse disc bulge with slight increased size of the disc spurs extending posteriorly and into the foraminal regions bilaterally. There is mild loss of disc space height. There is severe right neural foramen narrowing and moderate left neural foramen narrowing which has progressed. There is severe bilateral facet arthropathy with hypertrophic changes on the right side and ligamentum flavum buckling. There is severe central canal stenosis which has minimally progressed. L5-S1: There is a diffuse disc bulge with increased size of the posterior disc herniation component. There is severe bilateral facet arthropathy. There is severe right neural foramen narrowing and [id number] left neural foramen narrowing which has progressed. There is at least mild central canal stenosis. IMPRESSION: 1: There is no acute lumbar spine fracture. There is interval progression of chronic compression fracture deformities involving the L4 and L5 vertebrae. 2: There is [id number] multilevel lumbar spine degenerative disc disease which has progressed in the interim; this is described above. Dictated by: Dictated on workstation # [id number]
== END ==
LOC: RAD 13:15
PROVIDERS: ATTEND Nurse Practitioner
DX: M48.07 Spinal stenosis, lumbosacral region (principal); M51.27 Other intervertebral disc displacement, lumbosacral region; M48.56XA Collapsed vertebra, not elsewhere classified, lumbar region, initial encounter for fracture; M47.817 Spondylosis without myelopathy or radiculopathy, lumbosacral region; M51.36 Other intervertebral disc degeneration, lumbar region; M48.05 Spinal stenosis, thoracolumbar region; N28.1 Cyst of kidney, acquired; G96.191 Perineural cyst
CPT/HCPCS: 72148

== ENCOUNTER 2022-07-13 09:20 | Inpatient (IN) | payer MEDICARE ==
[~2022-07-13] VITALS: Ht 187.9 cm; Wt 116.5 kg
[~2022-07-13 09:20] MED LIST changes: +ALBU8.5H6 INH
[2022-07-13 10:29] LABS: BASOPHILS # (AUTO) 0.1 10^3/uL (0.0-0.1); BASOPHILS % (AUTO) 1 % (0-10); EOSINOPHILS # (AUTO) 0.1 10^3/uL (0.0-0.3); EOSINOPHILS % (AUTO) 1 % (0-10); HEMATOCRIT 36 % (40-54); HEMOGLOBIN 12.4 g/dL (13.3-17.7); LYMPHOCYTES # (AUTO) 0.5 10^3/uL (1.0-4.0); LYMPHOCYTES % (AUTO) 6 % (12-44); MEAN CORPUSCULAR HEMOGLOBIN 33 pg (25-34); MEAN CORPUSCULAR HGB CONC 34 g/dL (32-36); MEAN CORPUSCULAR VOLUME 98 fL (80-99); MEAN PLATELET VOLUME 8.4 fL (9.0-12.2); MONOCYTES % (AUTO) 12 % (0-12); NEUTROPHILS # (AUTO) 7.2 10^3/uL (1.8-7.8); NEUTROPHILS % (AUTO) 81 % (42-75); PLATELET COUNT 305 10^3/uL (130-400); WHITE BLOOD COUNT 8.9 10^3/uL (4.3-11.0)
[2022-07-13 10:41] LABS: ALBUMIN 3.5 GM/DL (3.2-4.5); CHLORIDE 104 MMOL/L (98-107)
[2022-07-13 10:42] LABS: POTASSIUM 3.7 MMOL/L (3.6-5.0); SODIUM 139 MMOL/L (135-145)
[2022-07-13 10:43] LABS: CALCIUM 9.1 MG/DL (8.5-10.1)
[2022-07-13 10:44] LABS: GLUCOSE 91 MG/DL (70-105); TOTAL PROTEIN 6.2 GM/DL (6.4-8.2)
[2022-07-13 10:45] LABS: CARBON DIOXIDE 29 MMOL/L (21-32); LYMPHOCYTES % (MANUAL) 5 %; MONOCYTES % (MANUAL) 9 %; NEUTROPHILS % (MANUAL) 86 %; RBC MORPH NORMAL
[2022-07-13 10:46] LABS: BILIRUBIN,TOTAL 0.5 MG/DL (0.1-1.0)
[2022-07-13 10:48] LABS: ALKALINE PHOSPHATASE 59 U/L (40-136); CREATININE SERUM 0.97 MG/DL (0.60-1.30); GFR ESTIMATED 84
[2022-07-13 10:49] LABS: BUN/CREATININE RATIO 14
[2022-07-13 10:51] LABS: ALANINE AMINOTRANSFERASE 27 U/L (0-55); MAGNESIUM 1.8 MG/DL (1.6-2.4)
--- NOTE | 2022-07-13 13:19 | Diagnostic Imaging Report ---
CHEST 1 VIEW, AP/PA ONLY Indication: Trauma. Comparison: 04/04/2018 Findings: Left basilar linear atelectasis. No pleural effusion or pneumothorax. Normal mediastinal contours. Stable mild enlargement of cardiac silhouette. No displaced fracture within the visible ribs. Impression: 1. No acute cardiopulmonary process by portable radiography. Dictated by: Dictated on workstation # [id number]
--- NOTE | 2022-07-13 13:20 | Diagnostic Imaging Report ---
PELVIS WITH LEFT HIP 2-3 VIEWS INDICATION: Left hip pain after fall. COMPARISON: 09/24/2016 TECHNIQUE: AP pelvis with AP and lateral views of the hip. FINDINGS: Left hip is normal alignment. There is no acute fracture in the proximal left femur. In addition, there is no displaced fracture within the osseous pelvis. Laparotomy dot are noted. SI joints are normal. IMPRESSION: No acute fracture about the left hip. Dictated by: Dictated on workstation # [id number]
[2022-07-13 13:42] LABS: BILIRUBIN,URINE 1+ (NEGATIVE); CLARITY,URINE SL CLOUDY; COLOR,URINE ORANGE; GLUCOSE, URINE (UA) NEGATIVE (NEGATIVE); KETONES,URINE 2+ (NEGATIVE); LEUKOCYTE ESTERASE ,URINE NEGATIVE (NEGATIVE); NITRITE,URINE NEGATIVE (NEGATIVE); PROTEIN,URINE TRACE (NEGATIVE)
[2022-07-13 13:52] LABS: AMORPHOUS SEDIMENT,UR LARGE AMOR PHOSPHATE /LPF; BACTERIA,URINE NEGATIVE /HPF
[2022-07-13 13:53] LABS: BENZODIAZEPINES SCREEN URINE POSITIVE (NEGATIVE)
[2022-07-13 13:54] LABS: AMPHETAMINE SCREEN, URINE NEGATIVE (NEGATIVE); BARBITURATE SCREEN URINE NEGATIVE (NEGATIVE); CANNABINOID SCREEN, URINE NEGATIVE (NEGATIVE); COCAINE SCREEN URINE NEGATIVE (NEGATIVE); METHADONE STAT NEGATIVE (NEGATIVE); OPIATE SCREEN URINE NEGATIVE (NEGATIVE); OXYCODONE STAT POSITIVE (NEGATIVE); PROPOXYPHENE STAT NEGATIVE (NEGATIVE); TRICYCLIC ANTIDEPRESSANTS SCRE POSITIVE (NEGATIVE)
[2022-07-13] MEDS ORDERED: LACTATED RINGERS 1,000 ML IV ONE (15:45)
--- NOTE | 2022-07-13 16:17 | ED General ---
General Chief Complaint: General Problems/Pain Stated Complaint: INCREASED WEAKNESS Nursing Triage Note: PATIENT ARRIVES VIA EMS FROM HOME WITH A C/O INCREASED WEAKNESS. WAS FOUND SITTING ON THE FLOOR AT HOME. DENIES FALLING. PATIENT STATES HE IS A DAILY DRINKER Source of Information: Patient Exam Limitations: No Limitations (DA MCGARRY MD) History of Present Illness Date Seen by Provider: Jul 13, 2022 Time Seen by Provider: 09:21 Initial Comments This is 72-year-old gentleman presents to the emergency room via EMS with primary complaint of of weakness. He recently underwent back surgery at [facility] (he believes on 07/04/22) and is receiving home health services. He lives alone. Today home health reportedly found him on the floor. He has become progressively weak. He denies any significant trauma or injury from falling and denies head or neck injury. He complains of some pain in his left hip. Home health was not able to assist him to standing so they activated emergency services. His incisional wound appears clean, dry, intact with dot, without any inflammatory changes or drainage. He apparently has plans to transition to [facility]. He is alert, oriented and conversational at this time. Patient reports he usually drinks 3 beers a day and has not consumed alcohol today. He is wearing an LSO brace that has slid up his torso. Patient describes no focal neurologic deficits. He retains sensation and movement below the level of surgery. Patient identifies Dr. Lara as his primary care provider. (DA MCGARRY MD) Allergies and Home Medications Allergies Coded Allergies: No Known Drug Allergies (Unverified , 10/23/16) Patient Home Medication List Home Medication List Reviewed: Yes (DA MCGARRY MD) Albuterol Sulfate (Ventolin Hfa) 18 Gm Hfa.aer.ad, 2 PUFF INH Q4H PRN for SHORTNESS OF BREATH, (Reported) Entered as Reported by: TREY GONZALEZ on 04/02/18 1206 Aspirin (Aspirin EC) 325 Mg Tablet.dr, 325 MG PO TID PRN for HEADACHE, (Reported) Entered as Reported by: TREY GONZALEZ on 09/25/16 0949 Citalopram Hydrobromide (Citalopram HBr) 20 Mg Tablet, 20 MG PO HS, (Reported) Entered as Reported by: PRISCILLA GALLEGOS on 09/24/16 1109 Cyanocobalamin (Vitamin B-12) (Vitamin B-12) 5,000 Mcg Tab.subl, 5,000 MCG SL DAILY, (Reported) Entered as Reported by: TREY GONZALEZ on 09/25/16 0949 Hydrochlorothiazide (Hydrochlorothiazide) 25 Mg Tablet, 25 MG PO DAILY@0900 Prescribed by: BAUTISTA DONNELLY on 04/05/18 1121 Last Action: Continued Levothyroxine Sodium (Levothyroxine Sodium) 200 Mcg Tablet, 200 MCG PO DAILY, (Reported) Entered as Reported by: TREY GONZALEZ on 10/23/16 1108 Levothyroxine Sodium (Levothyroxine Sodium) 25 Mcg Tablet, 25 MCG PO DAILY, (Reported) Entered as Reported by: TREY GONZALEZ on 04/02/18 1206 Last Action: Continued Lisinopril/Hydrochlorothiazide (Lisinopril-Hctz 20-25 mg Tab) 1 Each Tablet, 1 TAB PO DAILY, (Reported) Entered as Reported by: TREY GONZALEZ on 04/02/18 1159 Multivitamin (Daily Multiple Vitamin) 1 Each Tablet, 1 TAB PO DAILY, (Reported) Entered as Reported by: TREY GONZALEZ on 09/25/16 09 Omeprazole Magnesium (Prilosec Otc) 20 Mg Tablet.dr, 20 MG PO DAILY, (Reported) Entered as Reported by: TREY GONZALEZ on 09/25/16 0949 Prednisone (Prednisone) 10 Mg Tab, 10 MG PO UD Prescribed by: BAUTISTA DONNELLY on 04/05/18 1105 Tramadol HCl (Tramadol HCl) 50 Mg Tablet, 100 MG PO TID PRN for PAIN-MODERATE, (Reported) Entered as Reported by: TREY GONZALEZ on 11/14/16 0917 Trazodone HCl (Trazodone HCl) 150 Mg Tablet, 150 MG PO HS, (Reported) Entered as Reported by: TREY GONZALEZ on 09/25/16 0949 Review of Systems Review of Systems Constitutional: no symptoms reported EENTM: no symptoms reported Respiratory: no symptoms reported Cardiovascular: no symptoms reported Gastrointestinal: no symptoms reported Genitourinary: no symptoms reported Musculoskeletal: see HPI Skin: see HPI Psychiatric/Neurological: See HPI Hematologic/Lymphatic: No Symptoms Reported Immunological/Allergic: no symptoms reported (DA MCGARRY MD) Past Vhhkhhl-Ssrswl-Ggaabv Hx Patient Social History Tobacco Use?: Yes Tobacco type used: Cigars Smoking Status: Current Everyday Smoker Use of E-Cig and/or Vaping dev: No Substance use?: No Alcohol Use?: Yes Alcohol type: Beer Alcohol Frequency: Daily Pt feels they are or have been: No (DA MCGARRY MD) Immunizations Up To Date Tetanus Booster (TDap): Unknown PED Vaccines UTD: No Influenza Vaccine Up-to-Date: Yes; Up-to-Date First/Initial COVID19 Vaccinat: 2020 Second COVID19 Vaccination Nelson: 2020 (DA MCGARRY MD) Seasonal Allergies Seasonal Allergies: No (DA MCGARRY MD) Past Medical History Surgery/Hospitalization HX: lumbar surgery 07/04/22 Surgeries: Yes Orthopedic (thoracolumbar spine), Thyroidectomy Respiratory: Yes Asthma, Chronic Bronchitis, COPD Currently Using CPAP: No Currently Using BIPAP: No Cardiac: Yes Hypertension Neurological: No Reproductive Disorders: No Sexually Transmitted Disease: No HIV/AIDS: No Genitourinary: No Gastrointestinal: No Musculoskeletal: Yes (chronic debility, walks with a walker) Endocrine: Yes (Thyroid SX related to CA) Hypothyroidsim HEENT: No Loss of Vision: Denies Cancer: Yes Thyroid Did You Recieve Any Treatments: Yes What Type of Treatment Did You: Surgical Intervention Psychosocial: Yes Sleep Difficulties, Anxiety, Depression Integumentary: No Blood Disorders: No Adverse Reaction/Blood Tranf: No (DA MCGARRY MD) Family Medical History Patient reports no known family medical history. No Pertinent Family Hx (DA MCGARRY MD) Physical Exam Vital Signs Vital Signs - First Documented 07/13/22 09:20 Temp 36.6 Pulse 94 Resp 18 B/P (MAP) 153/82 (105) Pulse Ox 97 O2 Delivery Room Air (DEMETRI BENNETT) Vital Signs Capillary Refill : Less Than 3 Seconds (DA MCGARRY MD) Height, Weight, BMI Height: 5'8.00" Weight: 253lbs. 5.0oz. 114.994206mg; 37.2 BMI Method:Stated General Appearance: No Apparent Distress, WD/WN HEENT: PERRL/EOMI, Normal ENT Inspection Neck: Normal Inspection, Non Tender Respiratory: Lungs Clear, Normal Breath Sounds, No Accessory Muscle Use Cardiovascular: Regular Rate, Rhythm, No Edema, No Murmur Gastrointestinal: Non Tender, Soft; No Distended Back: Other (Long incision on the thoracolumbar spine intact with dot. ) Extremity: Normal Inspection, No Pedal Edema, Other (Tenderness over the left hip with no aparent injury and no pain with rotation. Pedal pulses and cap refill intact bilaterally. Moves feet equally.) Neurologic/Psychiatric: Alert, Oriented x3 (cognition dulled but alert and conversational), Normal Mood/Affect, Motor Weakness (generally week but moves all extemities equally) Skin: Normal Color, Warm/Dry (DA MCGARRY MD) Progress/Results/Core Measures Suspected Sepsis SIRS Temperature: Pulse: 94 Respiratory Rate: 18 Laboratory Tests 07/13/22 10:20: White Blood Count 8.9 Blood Pressure 153 /82 Mean: 105 Laboratory Tests 07/13/22 10:20: Creatinine 0.97, Platelet Count 305, Total Bilirubin 0.5 (DA MCGARRY MD) Results/Orders Lab Results Laboratory Tests Test 07/13/22 10:20 07/13/22 13:30 Range/Units White Blood Count 8.9 4.3-11.0 10^3/uL Red Blood Count 3.71 L 4.30-5.52 10^6/uL Hemoglobin 12.4 L 13.3-17.7 g/dL Hematocrit 36 L 40-54 % Mean Corpuscular Volume 98 80-99 fL Mean Corpuscular Hemoglobin 33 25-34 pg Mean Corpuscular Hemoglobin Concent 34 32-36 g/dL Red Cell Distribution Width 11.8 10.0-14.5 % Platelet Count 305 130-400 10^3/uL Mean Platelet Volume 8.4 L 9.0-12.2 fL Immature Granulocyte % (Auto) 1 % Neutrophils (%) (Auto) 81 H 42-75 % Lymphocytes (%) (Auto) 6 L 12-44 % Monocytes (%) (Auto) 12 0-12 % Eosinophils (%) (Auto) 1 0-10 % Basophils (%) (Auto) 1 0-10 % Neutrophils # (Auto) 7.2 1.8-7.8 10^3/uL Lymphocytes # (Auto) 0.5 L 1.0-4.0 10^3/uL Monocytes # (Auto) 1.0 0.0-1.0 10^3/uL Eosinophils # (Auto) 0.1 0.0-0.3 10^3/uL Basophils # (Auto) 0.1 0.0-0.1 10^3/uL Immature Granulocyte # (Auto) 0.1 0.0-0.1 10^3/uL Neutrophils % (Manual) 86 % Lymphocytes % (Manual) 5 % Monocytes % (Manual) 9 % Blood Morphology Comment NORMAL Sodium Level 139 135-145 MMOL/L Potassium Level 3.7 3.6-5.0 MMOL/L Chloride Level 104 98-107 MMOL/L Carbon Dioxide Level 29 21-32 MMOL/L Anion Gap 6 5-14 MMOL/L Blood Urea Nitrogen 14 7-18 MG/DL Creatinine 0.97 0.60-1.30 MG/DL Estimat Glomerular Filtration Rate 84 BUN/Creatinine Ratio 14 Glucose Level 91 70-105 MG/DL Calcium Level 9.1 8.5-10.1 MG/DL Corrected Calcium 9.5 8.5-10.1 MG/DL Magnesium Level 1.8 1.6-2.4 MG/DL Total Bilirubin 0.5 0.1-1.0 MG/DL Aspartate Amino Transf (AST/SGOT) 34 5-34 U/L Alanine Aminotransferase (ALT/SGPT) 27 0-55 U/L Alkaline Phosphatase 59 40-136 U/L C-Reactive Protein High Sensitivity 4.54 H 0.00-0.50 MG/DL Total Protein 6.2 L 6.4-8.2 GM/DL Albumin 3.5 3.2-4.5 GM/DL Thyroid Stimulating Hormone (TSH) 8.34 H 0.35-4.94 UIU/ML Free Thyroxine 0.77 0.70-1.48 NG/DL Serum Alcohol < 10 <10 MG/DL Urine Color ORANGE Urine Clarity SL CLOUDY Urine pH 7.0 5-9 Urine Specific [place] 1.015 L 1.016-1.022 Urine Protein TRACE H NEGATIVE Urine Glucose (UA) NEGATIVE NEGATIVE Urine Ketones 2+ H NEGATIVE Urine Nitrite NEGATIVE NEGATIVE Urine Bilirubin 1+ H NEGATIVE Urine Urobilinogen 1.0 < = 1.0 MG/DL Urine Leukocyte Esterase NEGATIVE NEGATIVE Urine RBC (Auto) NEGATIVE NEGATIVE Urine RBC NONE /HPF Urine WBC NONE /HPF Urine Crystals PRESENT H /LPF Urine Amorphous Sediment LARGE PATRICK PHOSPHATE H /LPF Urine Bacteria NEGATIVE /HPF Urine Casts NONE /LPF Urine Mucus NEGATIVE /LPF Urine Culture Indicated NO Urine Opiates Screen NEGATIVE NEGATIVE Urine Oxycodone Screen POSITIVE H NEGATIVE Urine Methadone Screen NEGATIVE NEGATIVE Urine Propoxyphene Screen NEGATIVE NEGATIVE Urine Barbiturates Screen NEGATIVE NEGATIVE Ur Tricyclic Antidepressants Screen POSITIVE H NEGATIVE Urine Phencyclidine Screen NEGATIVE NEGATIVE Urine Amphetamines Screen NEGATIVE NEGATIVE Urine Methamphetamines Screen NEGATIVE NEGATIVE Urine Benzodiazepines Screen POSITIVE H NEGATIVE Urine Cocaine Screen NEGATIVE NEGATIVE Urine Cannabinoids Screen NEGATIVE NEGATIVE (DEMETRI BENNETT) Medications Given in ED Current Medications Medications Dose Ordered Sig/Christiano Route Start Time Stop Time Status Last Admin Dose Admin Lactated Ringer's 1,000 ml @ 0 mls/hr Q0M ONCE IV 07/13/22 15:45 07/13/22 15:46 DC 07/13/22 16:24 1,000 MLS/HR (DEMETRI BENNETT) Vital Signs/I&O 07/13/22 09:20 Temp 36.6 Pulse 94 Resp 18 B/P (MAP) 153/82 (105) Pulse Ox 97 O2 Delivery Room Air (DEMETRI BENNETT) Vital Signs/I&O Capillary Refill : Less Than 3 Seconds (DA MCGARRY MD) Blood Pressure Mean: 105 Progress Note : Progress Note Patient was seen, interviewed, and evaluated upon arrival. He was alert and conversational at that time. Work-up revealed no traumatic injuries, specifically to the left hip. Conversation regarding placement at [facility] [place] [facility] was ongoing. Definite arrangements could not be made for today. It was noted through patient's time in the ER that his blood pressure was creeping up and he seemed to be developing delirium. Nursing staff noted this and in conversation with his brother noted this is a change from baseline. MS Sherrie Beck Bennett also evaluated the patient later in his ER course and noted that at that time he was not able to follow instructions well enough to complete a full neurologic exam. The delirium and worsening blood pressure was presumed to be related to alcohol withdraw. No focal motor deficits were observed by any of the care team during his stay. CT of the head was obtained after worsening delirium was noted and there were no intracranial injuries, hemorrhages, or ischemic changes noted. He did receive Ativan 0.5 mg while still in the ER which improved his blood pressure. Dr. Eaton was provided updates at the time of admission. I discussed the situation with Sabrina ([phone]) who will continue to work on his long term placement authorization. (DA MCGARRY MD) Progress Note : Time: 17:30 Progress Note Pt is more confused from baseline AOx2 Unable to complete CN exam, patient unable to follow commands. Pupillary reflex intact (DEMETRI BENNETT) Diagnostic Imaging Diagonstic Imaging: Xray Plain Films/CT/US/NM/MRI: chest Comments NAME: JAMIE CARVAJAL [facility] REC#: [id number] PT STATUS: ADM Keven : 1950 PHYSICIAN: DA MCGARRY MD ADMIT DATE: 07/13/22 Signed Date of Exam:07/13/22 CHEST 1 VIEW, AP/PA ONLY CHEST 1 VIEW, AP/PA ONLY Indication: Trauma. Comparison: 04/04/2018 Findings: Left basilar linear atelectasis. No pleural effusion or pneumothorax. Normal mediastinal contours. Stable mild enlargement of cardiac silhouette. No displaced fracture within the visible ribs. Impression: 1. No acute cardiopulmonary process by portable radiography. Dictated by: Dictated on workstation # [id number] Dict: 07/13/22 1317 Trans: 07/14/22 075 [id number] Interpreted by: GAURAV OCHOA MD Electronically signed by: GAURAV OCHOA MD 07/14/22 0756 Diagonstic Imaging: Xray Plain Films/CT/US/NM/MRI: pelvis, hip Comments NAME: JAMIE CARVAJAL [facility] REC#: [id number] PT STATUS: ADM Keven : 1950 PHYSICIAN: DA MCGARRY MD ADMIT DATE: 07/13/22 Signed Date of Exam:07/13/22 PELVIS WITH LEFT HIP 2-3 VIEWS PELVIS WITH LEFT HIP 2-3 VIEWS INDICATION: Left hip pain after fall. COMPARISON: 09/24/2016 TECHNIQUE: AP pelvis with AP and lateral views of the hip. FINDINGS: Left hip is normal alignment. There is no acute fracture in the proximal left femur. In addition, there is no displaced fracture within the osseous pelvis. Laparotomy dot are noted. SI joints are normal. IMPRESSION: No acute fracture about the left hip. Dictated by: Dictated on workstation # [id number] Dict: 07/13/22 1318 Trans: 07/14/22 0758 [id number] Interpreted by: GAURAV OCHOA MD Electronically signed by: GAURAV OCHOA MD 07/14/22 0758 Diagonstic Imaging: CT Comments NAME: JAMIE CARVAJAL [facility] REC#: [id number] PT STATUS: REG ER : 1950 PHYSICIAN: DA MCGARRY MD ADMIT DATE: 07/13/22/ER Signed Date of Exam:07/13/22 CT HEAD WO-R/O STROKE PROCEDURE: CT head wo r/o stroke. TECHNIQUE: Multiple contiguous axial images were obtained through the brain without the use of intravenous contrast. Auto Exposure Controls were utilized during the CT exam to meet ALARA standards for radiation dose reduction. INDICATION: Stroke, neural deficit. COMPARISON: 09/24/2016. FINDINGS: Examination is slightly limited secondary to motion. Moderate atrophy. No intracranial hemorrhage. Multiple chronic lacunar infarctions are identified within the bilateral basal ganglia. Additional periventricular and subcortical white matter hypodensities are present, most consistent with mild background chronic small vessel white matter ischemic disease. No definite CT evidence of an acute ischemic infarction. The orbits are unremarkable. Background vascular calcifications. Mucosal thickening within the left maxillary sinus. Opacification of the right frontal sinus extending into the right frontoethmoidal recess with additional opacities within scattered ethmoidal air cells. IMPRESSION: No acute intracranial abnormality within the limits of the exam. Moderate atrophy with moderate background chronic ischemic changes as above. Right-sided paranasal sinus disease, including involving the right frontal sinus and right ethmoidal air cells. Should there remain a high clinical concern for underlying recent infarction, further evaluation with MRI of the brain would be recommended. Dictated by: Dictated on workstation # [id number] Dict: 07/13/221751 Trans: 07/13/22 1800 [id number] Interpreted by: SUSAN RIOS MD Electronically signed by: SUSAN RIOS MD 07/13/22 1800 (DA MCGARRY MD) Departure Communication (Admissions) Time/Spoke to Admitting Phy: 18:30 Dr. Eaton (DA MCGARRY MD) Impression Primary Impression: Generalized weakness Additional Impressions: Altered mental status Qualified Codes: R41.82 - Altered mental status, unspecified Alcohol withdrawal Qualified Codes: F10.939 - Alcohol use, unspecified with withdrawal, unspecified Disposition: ADMITTED INPATIENT Condition: Stable Admissions Decision to Admit Reason: Admit from ER (General) Decision to Admit/Date: Jul 13, 2022 Time/Decision to Admit Time: 18:30 (DA MCGARRY MD) Departure-Patient Inst. Referrals: EDDIE MCDERMOTT DO (PCP/Family) Primary Care Physician DA MCGARRY MD Jul 13, 2022 16:17 DEMETRI BENNETT Jul 13, 2022 17:34
[2022-07-13 17:08] LABS: FREE T4 (FREE THYROXINE) 0.77 NG/DL (0.70-1.48)
--- NOTE | 2022-07-13 17:58 | Diagnostic Imaging Report ---
PROCEDURE: CT head wo r/o stroke. TECHNIQUE: Multiple contiguous axial images were obtained through the brain without the use of intravenous contrast. Auto Exposure Controls were utilized during the CT exam to meet ALARA standards for radiation dose reduction. INDICATION: Stroke, neural deficit. COMPARISON: 09/24/2016. FINDINGS: Examination is slightly limited secondary to motion. Moderate atrophy. No intracranial hemorrhage. Multiple chronic lacunar infarctions are identified within the bilateral basal ganglia. Additional periventricular and subcortical white matter hypodensities are present, most consistent with mild background chronic small vessel white matter ischemic disease. No definite CT evidence of an acute ischemic infarction. The orbits are unremarkable. Background vascular calcifications. Mucosal thickening within the left maxillary sinus. Opacification of the right frontal sinus extending into the right frontoethmoidal recess with additional opacities within scattered ethmoidal air cells. IMPRESSION: No acute intracranial abnormality within the limits of the exam. Moderate atrophy with moderate background chronic ischemic changes as above. Right-sided paranasal sinus disease, including involving the right frontal sinus and right ethmoidal air cells. Should there remain a high clinical concern for underlying recent infarction, further evaluation with MRI of the brain would be recommended. Dictated by: Dictated on workstation # [id number]
[2022-07-13] MEDS ORDERED: LORazepam 0.5 MG (ATIVAN) TABLET PO ONE (18:00)
[2022-07-13 20:12] VITALS: BP 195/93
[2022-07-13 20:54] VITALS: BP 171/95
[2022-07-13] MEDS ORDERED: 1/2 NS IV SOLUTION 1,000 ML IV PRN (22:00)
[2022-07-13] MEDS ORDERED: D5 1/2 NS 1000 ML IV SOLUTION 1,000 ML IV PRN (22:00)
[2022-07-13] MEDS ORDERED: ONDANSETRON 4 MG (ZOFRAN) ORAL DISSOLVE TAB SL PRN (22:00)
[2022-07-13] MEDS ORDERED: ONDANSETRON 4 MG/2 ML (SDV) Z0FRAN IV PRN (22:00)
[2022-07-13] MEDS ORDERED: oxyCODONE/APAP 5/325MG (PERCOCET 5) TABLET PO PRN (22:00)
[2022-07-13] MEDS ORDERED: SENNA W/DOCUSATE (SENOKOT S) TABLET PO PRN (22:00)
[2022-07-13] MEDS ORDERED: LORazepam INJ 2 MG/ML (ATIVAN) VIAL IM/IV PRN (22:00)
[2022-07-13] MEDS: LORazepam 1 MG (ATIVAN) TAB PO PRN ×2 (22:07→23:23)
[2022-07-13 23:17] VITALS: BP 193/104
[2022-07-14] VITALS (13 sets, daily range): BP systolic 127–216; BP diastolic 85–110
[2022-07-14] MEDS: LORazepam INJ 2 MG/ML (ATIVAN) VIAL IV PRN ×7 (02:07→23:49)
[2022-07-14] MEDS: oxyCODONE/APAP 5/325MG (PERCOCET 5) TABLET PO PRN ×3 (03:52→23:49)
[2022-07-14] MEDS: cloNIDine 0.1 MG (CATAPRES) TAB PO PRN (03:52)
[2022-07-14] MEDS: MULTIVIT W/MINERALS TAB (THERAGRAN M) PO SCH (06:06)
[2022-07-14] MEDS: LEVOTHYROXINE 100 MCG (LEVOTHROID) TAB PO SCH (06:06)
[2022-07-14] MEDS: THIAMINE 100 MG (VITAMIN B-1) TAB PO SCH (06:06)
[2022-07-14] MEDS: RT-ALBUTEROL/IPRATROPIUM 3 ML (DUONEB) VIAL INH SCH ×3 (07:31→19:46)
[2022-07-14] MEDS: LEVOTHYROXINE 25 MCG (LEVOTHROID) TAB PO SCH (08:50)
[2022-07-14] MEDS: lisINopril 20 MG (PRINIVIL) TABLET PO SCH (08:51)
[2022-07-14] MEDS: FOLIC ACID 1 MG TAB PO SCH (08:51)
[2022-07-14] MEDS: MAGNESIUM OXIDE (MAG-OX)400 MG TAB PO SCH ×2 (08:51→20:17)
--- NOTE | 2022-07-14 11:55 | History & Physical ---
HPI History of Present Illness: Unable to obtain any history from patient. When asked orientation questions, he states his name but is difficult to understand. He doesn't answer as to location or date, but on why he is in the hospital he says something about his hip and hurting. Per ER, when he came in he was able to have a conversation and looked a t his phone to look at when he had surgery. He had back surgery around Jul 04. He has not been doing well at home and outpatient they were working on placement in senior living. He does drink regularly, per what was told ER, he drinks around 3 drinks per day and had not drank today. He came to the ER because home health found him on the floor. He was having some pain in his left hip. 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 Patients Allergies have been reviewed. Allergies Coded Allergies: No Known Drug Allergies (Unverified , 10/23/16) UIU-[id number]-Biwjci Hx Patient Social History Smoking Status: Current Everyday Smoker Recent Hopitalizations: No Alcohol Use?: Unable to obtain Tobacco type used: Cigars Have you traveled recently?: No Immunizations Up To Date Tetanus Booster (TDap): Unknown Influenza Vaccine Up-to-Date: Yes; Up-to-Date First/Initial COVID19 Vaccinat: 2020 Second COVID19 Vaccination Nelson: 2020 Past Medical History PMHx: HTN Alcohol dependence COPD Hypothyroidism Depression Hyponatremia SurgHx: Thyroidectomy Lumbar spine surgery Family Medical History Family History: Patient reports no known family medical history. Review of Systems ([facility]) Constitutional: other (unable to obtain) Reviewed Test Results Reviewed Test Results Lab Laboratory Tests Test 07/13/22 10:20 07/13/22 13:30 Range/Units White Blood Count 8.9 4.3-11.0 10^3/uL Red Blood Count 3.71 L 4.30-5.52 10^6/uL Hemoglobin 12.4 L 13.3-17.7 g/dL Hematocrit 36 L 40-54 % Mean Corpuscular Volume 98 80-99 fL Mean Corpuscular Hemoglobin 33 25-34 pg Mean Corpuscular Hemoglobin Concent 34 32-36 g/dL Red Cell Distribution Width 11.8 10.0-14.5 % Platelet Count 305 130-400 10^3/uL Mean Platelet Volume 8.4 L 9.0-12.2 fL Immature Granulocyte % (Auto) 1 % Neutrophils (%) (Auto) 81 H 42-75 % Lymphocytes (%) (Auto) 6 L 12-44 % Monocytes (%) (Auto) 12 0-12 % Eosinophils (%) (Auto) 1 0-10 % Basophils (%) (Auto) 1 0-10 % Neutrophils # (Auto) 7.2 1.8-7.8 10^3/uL Lymphocytes # (Auto) 0.5 L 1.0-4.0 10^3/uL Monocytes # (Auto) 1.0 0.0-1.0 10^3/uL Eosinophils # (Auto) 0.1 0.0-0.3 10^3/uL Basophils # (Auto) 0.1 0.0-0.1 10^3/uL Immature Granulocyte # (Auto) 0.1 0.0-0.1 10^3/uL Neutrophils % (Manual) 86 % Lymphocytes % (Manual) 5 % Monocytes % (Manual) 9 % Blood Morphology Comment NORMAL Sodium Level 139 135-145 MMOL/L Potassium Level 3.7 3.6-5.0 MMOL/L Chloride Level 104 98-107 MMOL/L Carbon Dioxide Level 29 21-32 MMOL/L Anion Gap 6 5-14 MMOL/L Blood Urea Nitrogen 14 7-18 MG/DL Creatinine 0.97 0.60-1.30 MG/DL Estimat Glomerular Filtration Rate 84 BUN/Creatinine Ratio 14 Glucose Level 91 70-105 MG/DL Calcium Level 9.1 8.5-10.1 MG/DL Corrected Calcium 9.5 8.5-10.1 MG/DL Magnesium Level 1.8 1.6-2.4 MG/DL Total Bilirubin 0.5 0.1-1.0 MG/DL Aspartate Amino Transf (AST/SGOT) 34 5-34 U/L Alanine Aminotransferase (ALT/SGPT) 27 0-55 U/L Alkaline Phosphatase 59 40-136 U/L C-Reactive Protein High Sensitivity 4.54 H 0.00-0.50 MG/DL Total Protein 6.2 L 6.4-8.2 GM/DL Albumin 3.5 3.2-4.5 GM/DL Thyroid Stimulating Hormone (TSH) 8.34 H 0.35-4.94 UIU/ML Free Thyroxine 0.77 0.70-1.48 NG/DL Serum Alcohol < 10 <10 MG/DL Urine Color ORANGE Urine Clarity SL CLOUDY Urine pH 7.0 5-9 Urine Specific Craig 1.015 L 1.016-1.022 Urine Protein TRACE H NEGATIVE Urine Glucose (UA) NEGATIVE NEGATIVE Urine Ketones 2+ H NEGATIVE Urine Nitrite NEGATIVE NEGATIVE Urine Bilirubin 1+ H NEGATIVE Urine Urobilinogen 1.0 < = 1.0 MG/DL Urine Leukocyte Esterase NEGATIVE NEGATIVE Urine RBC (Auto) NEGATIVE NEGATIVE Urine RBC NONE /HPF Urine WBC NONE /HPF Urine Crystals PRESENT H /LPF Urine Amorphous Sediment LARGE PATRICK PHOSPHATE H /LPF Urine Bacteria NEGATIVE /HPF Urine Casts NONE /LPF Urine Mucus NEGATIVE /LPF Urine Culture Indicated NO Urine Opiates Screen NEGATIVE NEGATIVE Urine Oxycodone Screen POSITIVE H NEGATIVE Urine Methadone Screen NEGATIVE NEGATIVE Urine Propoxyphene Screen NEGATIVE NEGATIVE Urine Barbiturates Screen NEGATIVE NEGATIVE Ur Tricyclic Antidepressants Screen POSITIVE H NEGATIVE Urine Phencyclidine Screen NEGATIVE NEGATIVE Urine Amphetamines Screen NEGATIVE NEGATIVE Urine Methamphetamines Screen NEGATIVE NEGATIVE Urine Benzodiazepines Screen POSITIVE H NEGATIVE Urine Cocaine Screen NEGATIVE NEGATIVE Urine Cannabinoids Screen NEGATIVE NEGATIVE Radiology 07/13/22 CXR: Impression: 1. No acute cardiopulmonary process by portable radiography. 07/13/22: CT head "IMPRESSION: No acute intracranial abnormality within the limits of the exam. Moderate atrophy with moderate background chronic ischemic changes as above. Right-sided paranasal sinus disease, including involving the right frontal sinus and right ethmoidal air cells. Should there remain a high clinical concern for underlying recent infarction, further evaluation with MRI of the brain would be recommended." 07/13/22 Left hip/pelvis xray: IMPRESSION: No acute fracture about the left hip Physical Exam-([facility]) Physical Exam Vital Signs VS - Last 72 Hours, by Label 07/13/22 07/13/22 07/13/22 07/13/22 09:20 19:50 20:12 20:36 Temp 36.6 36.4 Pulse 94 87 90 Resp 18 22 B/P (MAP) 153/82 (105) 165/96 195/93 (127) Pulse Ox 97 96 99 99 O2 Delivery Room Air Room Air Room Air 07/13/22 07/13/22 07/13/22 07/14/22 20:54 20:54 23:17 00:35 Temp 36.9 Pulse 90 87 82 Resp 22 B/P (MAP) 171/95 (120) 193/104 (133) 160/88 (112) Pulse Ox 94 97 O2 Delivery Room Air Room Air 07/14/22 07/14/22 07/14/22 07/14/22 00:40 01:00 03:01 03:21 Temp 37.0 Pulse 94 102 88 Resp 20 B/P (MAP) 216/110 (145) Pulse Ox 94 93 94 O2 Delivery Room Air O2 Flow Rate 0.00 FiO2 07/14/22 07/14/22 07/14/22 07/14/22 05:00 06:27 07:00 07:18 Temp 37.3 37.3 Pulse 95 94 95 Resp B/P (MAP) 189/98 (128) 171/89 (116) 171/89 (116) Pulse Ox 93 93 O2 Delivery Room Air Room Air O2 Flow Rate 0.00 0.00 07/14/22 07/14/22 07/14/22 07/14/22 08:00 08:08 09:54 10:45 Temp 37.0 37.5 Pulse 98 97 95 Resp B/P (MAP) 181/103 (129) 165/90 (115) 177/94 (121) Pulse Ox 99 90 94 O2 Delivery Room Air Room Air Room Air 07/14/22 07/14/22 07/14/22 07/14/22 12:57 13:00 14:40 14:54 Temp 37.4 Pulse 100 100 98 Resp 58 44 B/P (MAP) 185/102 (129) 158/93 (114) Pulse Ox 93 94 98 O2 Delivery Room Air Room Air Room Air O2 Flow Rate 0.00 07/14/22 16:15 Temp 37.2 Pulse 99 Resp 36 B/P (MAP) 127/85 (99) Pulse Ox 94 O2 Delivery Room Air Capillary Refill : Less Than 3 Seconds General Appearance: other (mumbling, difficult to understand, picking at clothes, oriented to self only, says in hospital due to hurting hip) Respiratory: lungs clear, normal breath sounds Cardiovascular: regular rate, rhythm, no edema Gastrointestinal: normal bowel sounds, non tender, soft Neurologic/Psychiatric: other (alert, mumbling, unable to follow commands for neuro exam, no facial droop) Skin: warm/dry Assessment/Plan Assessment/Plan Admission Status: Observation (1) Altered mental status Status: Acute Assessment & Plan: Unclear etiology. CT head okay. UA without infection, CXR okay, no obvious infectious source. Consider alcohol withdrawal. Consider MRI given hypertension concern for stroke, however has generalized symptoms and progressive slow onset without localization. Uncertain if we can get MRI with his recent spinal surgery. Monitor closely, reorient as needed. Qualifiers: Qualified Codes: R41.82 - Altered mental status, unspecified (2) Hypertension Status: Chronic Assessment & Plan: Resume home lisinopril. Clonidine given overnight due to hypertension. Consider alcohol withdrawal as cause of acute elevation. Ativan in itially seemed to help, but BP back up again. Qualifiers: Qualified Codes: I10 - Essential (primary) hypertension (3) COPD (chronic obstructive pulmonary disease) Status: Chronic Assessment & Plan: Duonebs as needed. (4) Hypothyroidism Status: Chronic Assessment & Plan: Resume home levothyroxine (5) Previous back surgery Status: Acute Assessment & Plan: Uncertain exact hardware, etc, done recently, per ER exam incision clean and dry without evidence of infection. (6) Alcohol abuse Status: Chronic Assessment & Plan: Alcohol level negative on admit, uncertain amount of recent intake or last use. Alcohol withdrawal protocol ordered. (7) DVT prophylaxis Status: Acute Assessment & Plan: Enoxaparin IVON EATON MD Jul 14, 2022 11:55
[2022-07-14] MEDS ORDERED: hydrALAZINE (APESOLINE) 20 MG/ML VIAL IV NR (13:30)
[2022-07-14] MEDS: ENOXAPARIN 40 MG/0.4 ML (LOVENOX) SYR SQ SCH (15:14)
[2022-07-14] MEDS ORDERED: LISI20TA26 PO (15:32)
[2022-07-15] VITALS (8 sets, daily range): BP systolic 137–170; BP diastolic 83–100
[2022-07-15] MEDS ORDERED: RT-ALBUTEROL/IPRATROPIUM 3 ML (DUONEB) VIAL ONE (00:10)
[2022-07-15] MEDS ORDERED: NS IV 1000 ML 1,000 ML ONE (00:26)
[2022-07-15] MEDS: LORazepam INJ 2 MG/ML (ATIVAN) VIAL IV PRN ×3 (00:32→02:21)
[2022-07-15] MEDS: NS IV 1000 ML 1,000 ML IV SCH ×2 (00:32→10:09)
[2022-07-15 00:46] LABS: ABG BASE EXCESS 3.8 MMOL/L (-2.5-2.5); ABG OXYGEN SATURATION 95 % (94-100); ABG PCO2 49 MMHG (35-45); ABG PH 7.39 (7.37-7.43); ABG PO2 71 MMHG (79-93); ALLENS TEST YES-POS
[2022-07-15 00:47] LABS: INSPIRED O2 RA; PATIENT TEMP 37.1; VENTILATOR NO
[2022-07-15 01:26] LABS: BASOPHILS # (AUTO) 0.1 10^3/uL (0.0-0.1); BASOPHILS % (AUTO) 1 % (0-10); EOSINOPHILS # (AUTO) 0.2 10^3/uL (0.0-0.3); EOSINOPHILS % (AUTO) 2 % (0-10); HEMATOCRIT 37 % (40-54); HEMOGLOBIN 12.8 g/dL (13.3-17.7); LYMPHOCYTES % (AUTO) 10 % (12-44); MEAN CORPUSCULAR HEMOGLOBIN 33 pg (25-34); MEAN CORPUSCULAR HGB CONC 34 g/dL (32-36); MEAN CORPUSCULAR VOLUME 97 fL (80-99); MONOCYTES % (AUTO) 10 % (0-12); NEUTROPHILS # (AUTO) 7.5 10^3/uL (1.8-7.8); NEUTROPHILS % (AUTO) 77 % (42-75); PLATELET COUNT 324 10^3/uL (130-400); WHITE BLOOD COUNT 9.7 10^3/uL (4.3-11.0)
[2022-07-15 01:28] LABS: ALBUMIN 3.5 GM/DL (3.2-4.5); BILIRUBIN,TOTAL 0.6 MG/DL (0.1-1.0); CALCIUM 8.7 MG/DL (8.5-10.1); CREATININE SERUM 0.77 MG/DL (0.60-1.30); POTASSIUM 3.3 MMOL/L (3.6-5.0)
[2022-07-15] MEDS: RT-ALBUTEROL/IPRATROPIUM 3 ML (DUONEB) VIAL INH SCH ×5 (02:25→22:08)
[2022-07-15] MEDS ORDERED: RT-ALBUTEROL/IPRATROPIUM 3 ML (DUONEB) VIAL INH ONE (04:30)
[2022-07-15] MEDS: LEVOTHYROXINE 100 MCG (LEVOTHROID) TAB PO SCH (05:34)
[2022-07-15] MEDS: LEVOTHYROXINE 25 MCG (LEVOTHROID) TAB PO SCH (05:34)
--- NOTE | 2022-07-15 05:57 | Diagnostic Imaging Report ---
INDICATION: Dyspnea. TECHNIQUE: Single view chest 4:57 AM. CORRELATION STUDY: 07/13/2022 FINDINGS: Limited depth of inspiration. Results in some crowding at lung bases, particularly on the right. Infiltrate or atelectasis at the right lung base. Heart size and mediastinum are enlarged and prominent. Borderline vasculature. IMPRESSION: 1. Suspect basilar atelectasis and/or infiltrate, right greater than left. 2. Cardiac enlargement without overt failure. Dictated by: Dictated on workstation # [id number]
[2022-07-15 06:21] LABS: BASOPHILS # (AUTO) 0.1 10^3/uL (0.0-0.1); BASOPHILS % (AUTO) 1 % (0-10); EOSINOPHILS # (AUTO) 0.2 10^3/uL (0.0-0.3); EOSINOPHILS % (AUTO) 2 % (0-10); HEMATOCRIT 37 % (40-54); HEMOGLOBIN 12.5 g/dL (13.3-17.7); LYMPHOCYTES # (AUTO) 0.8 10^3/uL (1.0-4.0); LYMPHOCYTES % (AUTO) 9 % (12-44); MEAN CORPUSCULAR HEMOGLOBIN 33 pg (25-34); MEAN CORPUSCULAR HGB CONC 34 g/dL (32-36); MEAN CORPUSCULAR VOLUME 98 fL (80-99); MEAN PLATELET VOLUME 9.3 fL (9.0-12.2); MONOCYTES % (AUTO) 11 % (0-12); NEUTROPHILS % (AUTO) 77 % (42-75); PLATELET COUNT 336 10^3/uL (130-400); WHITE BLOOD COUNT 9.1 10^3/uL (4.3-11.0)
[2022-07-15 06:37] LABS: ALBUMIN 3.4 GM/DL (3.2-4.5); BILIRUBIN,TOTAL 0.6 MG/DL (0.1-1.0); CALCIUM 8.6 MG/DL (8.5-10.1); CREATININE SERUM 0.77 MG/DL (0.60-1.30); PHOSPHORUS 3.2 MG/DL (2.3-4.7); POTASSIUM 2.9 MMOL/L (3.6-5.0); TOTAL PROTEIN 5.9 GM/DL (6.4-8.2)
--- NOTE | 2022-07-15 06:40 | Progress Note - Hospitalist ---
Subjective HPI/CC On Admission Date Seen by Provider: Jul 15, 2022 Time Seen by Provider: 11:00 Subjective/Events-last exam Requiring BiPAP Moved to ICU early this morning Altered mental status had continued to decline IV steroids initiated eICU appreciated Focused Exam Lactate Level 07/15/22 06:56: Lactic Acid Level 0.66 Objective Exam Vital Signs Vital Signs Date Time Temp Pulse Resp B/P (MAP) Pulse Ox O2 Delivery O2 Flow Rate FiO2 07/15/22 13:00 73 24 160/97 (118) 97 OxyMask 5.00 07/15/22 12:35 30 07/15/22 11:59 37.1 Capillary Refill : Less Than 3 Seconds General Appearance: Chronically ill, Obese, Other (On BiPAP) Respiratory: No Accessory Muscle Use, No Respiratory Distress, Decreased Breath Sounds Cardiovascular: Regular Rate, Rhythm Results/Procedures Lab Laboratory Tests 07/15/22 00:59 07/15/22 04:05 Patient resulted labs reviewed. Assessment/Plan Assessment and Plan Assess & Plan/Chief Complaint (1) Altered mental status Status: Acute Assessment & Plan: Unclear etiology. CT head okay. UA without infection, CXR okay, no obvious infectious source. Consider alcohol withdrawal. Consider MRI given hypertension concern for stroke, however has generalized symptoms and progressive slow onset without localization. Uncertain if we can get MRI with his recent spinal surgery. Monitor closely, reorient as needed. Qualifiers: Qualified Codes: R41.82 - Altered mental status, unspecified (2) Hypertension Status: Chronic Assessment & Plan: Resume home lisinopril. Clonidine given overnight due to hypertension. Consider alcohol withdrawal as cause of acute elevation. Ativan initially seemed to help, but BP back up again. Qualifiers: Qualified Codes: I10 - Essential (primary) hypertension (3) COPD (chronic obstructive pulmonary disease) Status: Chronic Assessment & Plan: Duonebs as needed. (4) Hypothyroidism Status: Chronic Assessment & Plan: Resume home levothyroxine (5) Previous back surgery Status: Acute Assessment & Plan: Uncertain exact hardware, etc, done recently, per ER exam incision clean and dry without evidence of infection. (6) Alcohol abuse Status: Chronic Assessment & Plan: Alcohol level negative on admit, uncertain amount of recent intake or last use. Alcohol withdrawal protocol ordered. (7) DVT prophylaxis Status: Acute Assessment & Plan: Enoxaparin Plan: ICU BiPAP IV steroids Detox protocol JOSE HOLGUIN DO Jul 15, 2022 06:40
[2022-07-15] MEDS ORDERED: NS IV 500 ML 500 ML IV PRN (07:00)
[2022-07-15] MEDS: POTASSIUM CL 10MEQ/50ML IVPB 50 ML IV SCH ×3 (07:56→08:58)
--- NOTE | 2022-07-15 08:37 | Tele-ICU Progress Note ---
Subjective Date Seen by a Provider: Jul 15, 2022 Subjective/Events-last exam This virtual visit was conducted using real time audio/video. Thank you for asking us to see this patient for respiratory insufficiency due to COPD. admitted w alc withdrawal/AMS. PE: Obese, appears comfortable on camera. VSS. O2 sat 97% on 5LPM. HEENT: No obvious masses, adenopathy or JVD. Chest:diminished and wheezy on auscultation. CV: RRR S1 S2 No murmur or added sounds. Abd: Non-tender. Bowel sounds Y. : Unremarkable. Bowman N. DUMPSTER OPERATOR/psychiatric: Grossly intact. No obvious focal findings. Extremities: No edema. Capillary refill < 3 seconds. Skin: unremarkable. Results: Decreased Hb 12.5, K 2.9. B.39/49/71. CXR: Poor insp., hyperinflaed, bibasal atel.. Available chart/ vitals / labs / images reviewed. Video assessment done using teleICU camera, rest of exam as per RN. A/P: Respiratory insufficiency: Continue present management with O2, duonebs. Will give 1 dose Medrol. Monitor for increasing oxygenation needs and/or need for intubation. Critical Care: critically ill patient. Cont. DEVIN, damaso., lisin., celexa Discussed with FINN Rogers. Asked RN to reach out to eICU if any questions or concerns later. Time spent with patient/coordination of care with other health professionals (mins): 20 Sepsis Event Evaluation Height, Weight, BMI Height: 5'8.00" Weight: 253lbs. 5.0oz. 114.797766pt; 32.99 BMI Method:Stated Focused Exam Lactate Level 07/15/22 06:56: Lactic Acid Level 0.66 Lactic Acid Level Laboratory Tests Test 07/15/22 06:56 Lactic Acid Level 0.66 MMOL/L (0.50-2.00) Exam Exam Patient acknowledged, consented, and participated in this virtual visit which was conducted using real time audio/video Vital Signs Date Time Temp Pulse Resp B/P (MAP) Pulse Ox O2 Delivery O2 Flow Rate FiO2 07/15/22 07:52 36.4 07/15/22 07:00 90 07/15/22 06:00 93 36 122/83 (96) 97 OxyMask 5.00 07/15/22 05:00 82 37 107/73 (84) 97 OxyMask 5.00 07/15/22 04:30 95 37 130/84 (99) 98 OxyMask 5.00 07/15/22 04:15 99 37 135/90 (105) 99 OxyMask 5.00 07/15/22 04:00 100 31 98 OxyMask 5.00 07/15/22 04:00 98 OxyMask 5.00 07/15/22 03:45 101 31 146/98 (114) 98 OxyMask 5.00 07/15/22 03:15 36.9 101 52 144/88 (106) 99 Nasal Cannula 5.00 07/15/22 02:25 96 Room Air 07/15/22 01:10 36.8 98 48 152/84 (106) 95 Room Air 07/15/22 01:00 103 07/15/22 00:12 96 Room Air 07/14/22 23:48 48 07/14/22 23:10 37.1 96 44 176/98 (124) 96 Room Air 07/14/22 21:50 94 Room Air 07/14/22 19:46 95 Room Air 0.00 07/14/22 19:36 36.0 94 36 161/88 (112) 94 Room Air 07/14/22 19:20 32 96 Room Air 07/14/22 19:00 100 07/14/22 16:15 37.2 99 36 127/85 (99) 94 Room Air 07/14/22 14:54 98 Room Air 0.00 07/14/22 14:40 37.4 98 44 158/93 (114) 94 Room Air 07/14/22 13:00 100 07/14/22 12:57 100 58 185/102 (129) 93 Room Air 07/14/22 10:45 37.5 95 22 177/94 (121) 94 Room Air 07/14/22 09:54 97 165/90 (115) I & O0 07/15/22 07:00 Intake Total 350 ml Output Total 250 ml Balance 100 ml Height & Weight Height: 5'8.00" Weight: 253lbs. 5.0oz. 114.954058dm; 32.99 BMI Method:Stated General Appearance: No Apparent Distress, WD/WN HEENT: PERRL/EOMI, Normal ENT Inspection Neck: Normal Inspection, Non Tender Respiratory: Lungs Clear, Normal Breath Sounds, No Accessory Muscle Use Cardiovascular: Regular Rate, Rhythm, No Edema, No Murmur Capillary Refill: Less Than 3 Seconds Gastrointestinal: normal bowel sounds, non tender, soft Extremity: Normal Inspection, No Pedal Edema, Other (Tenderness over the left hip with no aparent injury and no pain with rotation. Pedal pulses and cap refill intact bilaterally. Moves feet equally.) Neurologic/Psychiatric: Alert, Oriented x3 (cognition dulled but alert and conversational), Normal Mood/Affect, Motor Weakness (generally week but moves all extemities equally) Skin: Normal Color, Warm/Dry Results Lab Laboratory Tests 07/13/22 10:20 07/15/22 00:59 07/15/22 04:05 Assessment/Plan Assessment/Plan See free text. Critical Care: Critically Ill Patient ISAI STARKS MD Jul 15, 2022 08:37
[2022-07-15] MEDS ORDERED: methylPREDNISolone 125 MG (Solu-MEDROL) VIAL IVP ONE (08:45)
[2022-07-15] MEDS: lisINopril 20 MG (PRINIVIL) TABLET PO SCH (09:24)
[2022-07-15] MEDS: FOLIC ACID 1 MG TAB PO SCH (09:24)
[2022-07-15] MEDS: MAGNESIUM OXIDE (MAG-OX)400 MG TAB PO SCH ×2 (09:24→20:16)
[2022-07-15] MEDS: THIAMINE 100 MG (VITAMIN B-1) TAB PO SCH (09:25)
[2022-07-15] MEDS: MULTIVIT W/MINERALS TAB (THERAGRAN M) PO SCH (09:25)
[2022-07-15] MEDS: THIAMINE INJECTION 100 MG, FOLIC ACID INJECTION 1 MG, VITAMIN MULTI INJECTION 10 ML, MA... IV SCH ×5 (10:55)
--- NOTE | 2022-07-15 11:28 | Diagnostic Imaging Report ---
PROCEDURE: US right lower extremity venous. TECHNIQUE: Multiple real-time grayscale images were obtained over the right lower extremity in various projections. Additional spectral analysis and color Doppler duplex images were also obtained. INDICATION: Leg pain. Evaluate for deep venous anastomosis. FINDINGS: There is normal compression flow and augmentation demonstrated from the common femoral vein to the popliteal vein. The greater saphenous junction is patent. The visualized calf veins are patent. IMPRESSION: 1. No sonographic evidence of right lower extremity deep venous thrombosis. Dictated by: Dictated on workstation # [id number]
[2022-07-15] MEDS: methylPREDNISolone 40 MG/ML (Solu-MEDROL) VIAL IV SCH ×2 (11:59→17:33)
[2022-07-15 12:10] LABS: ABG OXYGEN SATURATION 98 % (94-100); ABG PCO2 42 MMHG (35-45); ABG PH 7.41 (7.37-7.43); ABG PO2 88 MMHG (79-93); ABG TCO2 27.7 MMOL/L (21.0-31.0)
[2022-07-15 12:12] LABS: ALLENS TEST YES-POS; INSPIRED O2 30%; PATIENT TEMP 36.4; VENTILATOR NO
[2022-07-15] MEDS ORDERED: LABETALOL HCL 20 MG/4 ML VIAL IV PRN (13:00)
[2022-07-15] MEDS: ENOXAPARIN 40 MG/0.4 ML (LOVENOX) SYR SQ SCH (14:41)
[2022-07-15] MEDS ORDERED: methylPREDNISolone 125 MG (Solu-MEDROL) VIAL IM ONE (15:00)
[2022-07-15] MEDS ORDERED: RT-ALBUTEROL/IPRATROPIUM 3 ML (DUONEB) VIAL INH PRN (16:00)
[2022-07-16] MEDS: NS IV 1000 ML 1,000 ML IV SCH ×2 (00:33→06:08)
[2022-07-16] MEDS: methylPREDNISolone 40 MG/ML (Solu-MEDROL) VIAL IV SCH ×2 (00:33→06:07)
[2022-07-16 02:18] VITALS: BP 141/83
[2022-07-16] MEDS: RT-ALBUTEROL/IPRATROPIUM 3 ML (DUONEB) VIAL INH SCH ×6 (02:18→23:30)
[2022-07-16 03:45] LABS: CALCIUM 8.3 MG/DL (8.5-10.1); CREATININE SERUM 0.7 MG/DL (0.60-1.30); MAGNESIUM 2.2 MG/DL (1.6-2.4); POTASSIUM 4.2 MMOL/L (3.6-5.0)
[2022-07-16 04:04] LABS: BASOPHILS % (AUTO) 0 % (0-10); EOSINOPHILS % (AUTO) 0 % (0-10); HEMATOCRIT 37 % (40-54); HEMOGLOBIN 12.7 g/dL (13.3-17.7); LYMPHOCYTES # (AUTO) 0.2 10^3/uL (1.0-4.0); LYMPHOCYTES % (AUTO) 3 % (12-44); MEAN CORPUSCULAR HEMOGLOBIN 33 pg (25-34); MEAN CORPUSCULAR HGB CONC 34 g/dL (32-36); MEAN CORPUSCULAR VOLUME 97 fL (80-99); MEAN PLATELET VOLUME 9.3 fL (9.0-12.2); MONOCYTES # (AUTO) 0.1 10^3/uL (0.0-1.0); MONOCYTES % (AUTO) 1 % (0-12); NEUTROPHILS # (AUTO) 7.7 10^3/uL (1.8-7.8); NEUTROPHILS % (AUTO) 95 % (42-75); PLATELET COUNT 317 10^3/uL (130-400); WHITE BLOOD COUNT 8.1 10^3/uL (4.3-11.0)
[2022-07-16 05:01] LABS: LYMPHOCYTES % (MANUAL) 3 %; MONOCYTES % (MANUAL) 2 %; NEUTROPHILS % (MANUAL) 95 %
[2022-07-16 05:02] LABS: RBC MORPH NORMAL
[2022-07-16] MEDS ORDERED: MAGNESIUM 1 GM/100 ML IVPB 100 ML IV SCH (06:00)
[2022-07-16] MEDS ORDERED: KCL 20 MEQ TAB (K-DUR) PO SCH (06:00)
[2022-07-16] MEDS ORDERED: POTASSIUM CL 10MEQ/50ML IVPB 50 ML IV SCH (06:00)
[2022-07-16] MEDS: LEVOTHYROXINE 100 MCG (LEVOTHROID) TAB PO SCH (06:07)
[2022-07-16] MEDS: LEVOTHYROXINE 25 MCG (LEVOTHROID) TAB PO SCH (06:07)
[2022-07-16] MEDS: THIAMINE 100 MG (VITAMIN B-1) TAB PO SCH (06:07)
--- NOTE | 2022-07-16 06:23 | Progress Note - Hospitalist ---
Subjective HPI/CC On Admission Date Seen by Provider: Jul 16, 2022 Time Seen by Provider: 11:00 Subjective/Events-last exam Much improved status Off bipap Very apathetic Chronically ill No pain Review of Systems General: Fatigue, Malaise Focused Exam Lactate Level 07/15/22 06:56: Lactic Acid Level 0.66 Objective Exam Vital Signs Vital Signs Date Time Temp Pulse Resp B/P (MAP) Pulse Ox O2 Delivery O2 Flow Rate FiO2 07/16/22 15:39 37.0 92 20 123/56 (78) 93 Room Air 07/16/22 15:23 0.00 07/16/22 04:00 30 Capillary Refill : Less Than 3 Seconds General Appearance: No Apparent Distress, WD/WN, Chronically ill Respiratory: Lungs Clear Cardiovascular: Regular Rate, Rhythm Neurologic/Psychiatric: Alert, Oriented x3, No Motor/Sensory Deficits, Normal Mood/Affect Results/Procedures Lab Laboratory Tests 07/16/22 03:19 Patient resulted labs reviewed. Assessment/Plan Assessment and Plan Assess & Plan/Chief Complaint (1) Altered mental status Status: Acute Assessment & Plan: Unclear etiology. CT head okay. UA without infection, CXR okay, no obvious infectious source. Consider alcohol withdrawal. Consider MRI given hypertension concern for stroke, however has generalized symptoms and progressive slow onset without localization. Uncertain if we can get MRI with his recent spinal surgery. Monitor closely, reorient as needed. Qualifiers: Qualified Codes: R41.82 - Altered mental status, unspecified (2) Hypertension Status: Chronic Assessment & Plan: Resume home lisinopril. Clonidine given overnight due to hypertension. Consider alcohol withdrawal as cause of acute elevation. Ativan initially seemed to help, but BP back up again. Qualifiers: Qualified Codes: I10 - Essential (primary) hypertension (3) COPD (chronic obstructive pulmonary disease) Status: Chronic Assessment & Plan: Duonebs as needed. (4) Hypothyroidism Status: Chronic Assessment & Plan: Resume home levothyroxine (5) Previous back surgery Status: Acute Assessment & Plan: Uncertain exact hardware, etc, done recently, per ER exam incision clean and dry without evidence of infection. (6) Alcohol abuse Status: Chronic Assessment & Plan: Alcohol level negative on admit, uncertain amount of recent intake or last use. Alcohol withdrawal protocol ordered. (7) DVT prophylaxis Status: Acute Assessment & Plan: Enoxaparin Plan: 4th floor BiPAP IV steroids tirated Detox protocol Critical Care Critically Ill Patient JOSE HOLGUIN DO Jul 16, 2022 06:23
[2022-07-16] MEDS: KCL 20 MEQ TAB (K-DUR) PO SCH ×2 (07:03→07:04)
[2022-07-16] MEDS: MULTIVIT W/MINERALS TAB (THERAGRAN M) PO SCH (08:21)
[2022-07-16] MEDS: THIAMINE INJECTION 100 MG, FOLIC ACID INJECTION 1 MG, VITAMIN MULTI INJECTION 10 ML, MA... IV SCH ×5 (08:22)
[2022-07-16] MEDS: FOLIC ACID 1 MG TAB PO SCH (08:22)
[2022-07-16] MEDS: lisINopril 20 MG (PRINIVIL) TABLET PO SCH (08:22)
[2022-07-16] MEDS: MAGNESIUM OXIDE (MAG-OX)400 MG TAB PO SCH ×2 (08:22→19:59)
--- NOTE | 2022-07-16 08:43 | Tele-ICU Progress Note ---
Progress Note video rounds completed 72 y/o male admitted with alclucy wilderl Also has a hx of COPD currently no DTs PE: currently talking on phone, comfortable all VSS Focused Exam Lactate Level 07/15/22 06:56: Lactic Acid Level 0.66 Height, Weight, BMI Height: 5'8.00" Weight: 253lbs. 5.0oz. 114.045221nm; 32.99 BMI Method:Stated Labs Laboratory Tests 07/16/22 03:19 Results Results/Procedures Labs Laboratory Tests 07/15/22 00:59 07/15/22 04:05 07/16/22 03:19 Patient resulted labs reviewed. Results Labs Labs Laboratory Tests 07/15/22 12:04: Blood Gas Puncture Site RIGHT BRACHIAL, Blood Gas Patient Temperature 36.4, Daja rial Blood pH 7.41, Arterial Blood Partial Pressure CO2 42, Arterial Blood Partial Pressure O2 88, Arterial Blood HCO3 26, Arterial Blood Total CO2 27.7, Arterial Blood Oxygen Saturation 98, Arterial Blood Base Excess 2.0, Jorge Test YES-POS, Blood Gas Ventilator Setting NO, Blood Gas Inspired Oxygen 30% 07/16/22 03:19: White Blood Count 8.1, Red Blood Count 3.82L, Hemoglobin 12.7L, Hematocrit 37L, Mean Corpuscular Volume 97, Mean Corpuscular Hemoglobin 33, Mean Corpuscular Hemoglobin Concent 34, Red Cell Distribution Width 11.5, Platelet Count 317, Mean Platelet Volume 9.3, Immature Granulocyte % (Auto) 1, Neutrophils (%) (Auto) 95H, Lymphocytes (%) (Auto) 3L, Monocytes (%) (Auto) 1, Eosinophils (%) (Auto) 0, Basophils (%) (Auto) 0, Neutrophils # (Auto) 7.7, Lymphocytes # (Auto) 0.2L, Monocytes # (Auto) 0.1, Eosinophils # (Auto) 0.0, Basophils # (Auto) 0.0, Immature Granulocyte # (Auto) 0.0, Neutrophils % (Manual) 95, Lymphocytes % (Manual) 3, Monocytes % (Manual) 2, Blood Morphology Comment NORMAL, Sodium Level 136, Potassium Level 4.2, Chloride Level 103, Carbon Dioxide Level 21, Anion Gap 12, Blood Urea Nitrogen 16, Creatinine 0.70, Estimat Glomerular Filtration Rate 99, BUN/Creatinine Ratio 23, Glucose Level 147H, Calcium Level 8.3L, Magnesium Level 2.2 Impression & Plan Impression & Plan imp: alcohol withdrawl, controllled No DTs Received thiamine on admission COPD: on steroids and nebs PLAN: continue present management overall improved Time spent 15 minutes JAMIE BREWER MD Jul 16, 2022 08:43
[2022-07-16 11:58] VITALS: BP 146/75
[2022-07-16] MEDS: ANTACID SUSP 30 ML UDC (MYLANTA) PO PRN ×2 (12:28→19:59)
[2022-07-16] MEDS: ENOXAPARIN 40 MG/0.4 ML (LOVENOX) SYR SQ SCH (14:39)
[2022-07-16 15:39] VITALS: BP 123/56
[2022-07-16 19:31] VITALS: BP 168/80
[2022-07-16] MEDS: oxyCODONE/APAP 5/325MG (PERCOCET 5) TABLET PO PRN (19:59)
[2022-07-17] VITALS (7 sets, daily range): BP systolic 133–180; BP diastolic 71–97
[2022-07-17] MEDS: RT-ALBUTEROL/IPRATROPIUM 3 ML (DUONEB) VIAL INH SCH ×6 (02:28→21:45)
[2022-07-17 05:51] LABS: BASOPHILS % (AUTO) 0 % (0-10); EOSINOPHILS % (AUTO) 0 % (0-10); HEMATOCRIT 34 % (40-54); HEMOGLOBIN 11.4 g/dL (13.3-17.7); LYMPHOCYTES # (AUTO) 0.9 10^3/uL (1.0-4.0); LYMPHOCYTES % (AUTO) 8 % (12-44); MEAN CORPUSCULAR HEMOGLOBIN 33 pg (25-34); MEAN CORPUSCULAR HGB CONC 34 g/dL (32-36); MEAN CORPUSCULAR VOLUME 97 fL (80-99); MEAN PLATELET VOLUME 9.1 fL (9.0-12.2); MONOCYTES # (AUTO) 0.7 10^3/uL (0.0-1.0); MONOCYTES % (AUTO) 7 % (0-12); NEUTROPHILS # (AUTO) 9.4 10^3/uL (1.8-7.8); NEUTROPHILS % (AUTO) 85 % (42-75); PLATELET COUNT 295 10^3/uL (130-400); WHITE BLOOD COUNT 11.1 10^3/uL (4.3-11.0)
[2022-07-17 06:27] LABS: BILIRUBIN,TOTAL 0.3 MG/DL (0.1-1.0); CREATININE SERUM 0.76 MG/DL (0.60-1.30); POTASSIUM 3.4 MMOL/L (3.6-5.0); TOTAL PROTEIN 5.2 GM/DL (6.4-8.2)
[2022-07-17] MEDS: MULTIVIT W/MINERALS TAB (THERAGRAN M) PO SCH (06:39)
[2022-07-17] MEDS: LEVOTHYROXINE 100 MCG (LEVOTHROID) TAB PO SCH (06:39)
[2022-07-17] MEDS: LEVOTHYROXINE 25 MCG (LEVOTHROID) TAB PO SCH (06:39)
[2022-07-17] MEDS: predniSONE 20 MG TAB PO SCH (06:39)
[2022-07-17] MEDS: lisINopril 20 MG (PRINIVIL) TABLET PO SCH (08:41)
[2022-07-17] MEDS: FOLIC ACID 1 MG TAB PO SCH (08:41)
[2022-07-17] MEDS: KCL 20 MEQ TAB (K-DUR) PO SCH ×2 (10:11→18:37)
[2022-07-17] MEDS: MONTELUKAST 10 MG (SINGULAIR) TAB PO SCH (10:12)
[2022-07-17] MEDS: BENZONATATE 100 MG (TESSALON) CAPSULE PO SCH ×3 (10:12→20:19)
--- NOTE | 2022-07-17 10:31 | Diagnostic Imaging Report ---
INDICATION: Cough COMPARISON: 07/15/2022 FINDINGS: Single frontal view of the chest demonstrates normal heart size and pulmonary vascularity. Lungs continue to show low inspiratory volumes. There is prominent airspace opacity within the medial right mid to lower lung field. Left lung is clear. No large effusion or pneumothorax is seen. Osseous structures show no gross acute abnormalities. IMPRESSION: 1. Prominent airspace opacity within the medial right mid to lower lung field. This may be artifact and related to prominent pericardial/mediastinal fat superimposed on crowded pulmonary vessels. Underlying mass or pneumonia cannot be excluded. May want to consider correlation with CT. Dictated by: Dictated on workstation # [id number]
--- NOTE | 2022-07-17 11:15 | Physical Therapy Evaluation ---
PT Evaluation-General Medical Diagnosis Admission Date Jul 15, 2022 at 17:27 Medical Diagnosis: weakness/AMS/alcohol withdrawl Onset Date: Jul 15, 2022 Therapy Diagnosis Therapy Diagnosis: debility/weakness Height/Weight Height (Feet): 5 Height (Inches): 8.00 Weight (Pounds): 253 Weight (Ounces): 5.0 Precautions Precautions/Isolations: Standard Precautions Referral Physician: Stephen Reason for Referral: Evaluation/Treatment Medical History Pertinent Medical History: Alcoholism, Angioma, COPD, HTN, Hypothroidism, Smoking Additional Medical History back surgery 07/04/22 per patient Current History EMS secondary to found on floor by home health. Reviewed History: Yes Social History Home: Single Level Current Living Status: Alone Entry Into Home: Stairs With Railing PT Steps Into Home: 3 Prior Prior Level of Function SCALE: Activities may be completed with or without assistive devices. 0-Vprstnnusq-fugbbiq completes the activity by him/herself with no assistance from a helper. 5-Set-up or Clean-up Assistance-helper sets up or cleans up; patient completes activity. [place] assists only prior to or following the activity. 4-Supervision or Touching Assistance-helper provides verbal cues and/or touching/steadying and/or contact guard assistance as patient completes activity. Assistance may be provided throughout the activity or intermittently. 3-Partial/Moderate Assistance-helper does LESS THAN HALF the effort. [place] lifts, holds or supports trunk or limbs, but provides less than half the effort. 2-Substantial/Maximal Assistance-helper does MORE THAN HALF the effort. [place] lifts or holds trunk or limbs and provides more than half the effort. 7-Hzjauvmzj-hdscdn does ALL the effort. Patient does none of the effort to complete the activity. Or, the assistance of 2 or more helpers is required for the patient to complete the activity. If activity was not attempted, code reason: 7-Patient Refused. 9-Not Applicable-not attempted and the patient did not perform the activity before the current illness, exacerbation or injury. 10-Not Attempted due to Environmental Limitations-(lack of equipment, weather restraints, etc.). 88-Not Attempted due to Medical Conditions or Safety Concerns. Bed Mobility: 6 Transfers (B,C,W/C): 6 Gait: 6 Stairs: 6 Indoor Mobility (Ambulation): Independent Stairs: Independent Prior Devices Use: Walker, Other-see list below Prior Device Use: cane PT Evaluation-Current Subjective Patient denies pain at this time. He states he hopes to go home soon. Agrees to therapy. Dons LSO with set up Pain Numeric Pain Scale: 0-No Pain Location: No Pain Reported Objective Patient Orientation: Normal For Age ROM/Strength ROM Lower Extremities bilateral LE WFL Strength Lower Extremities 4/5 grossly bilateral LE all planes Integumentary/Posture Integumentary refer to nursing notes Bowel Incontinence: No Bladder Incontinence: No Posture WFL Neuromuscular (Tone, Coordination, Reflexes) grossly intact Sensory Vision: Functional Hearing: Functional Transfers Lying to Sitting/Side of Bed(Q: 6 Sit to Stand (QC): 4 Chair/Xhb-ya-Ojcog Xfer(QC): 4 Gait Mode of Locomotion: Walk Anticipated Mode of Locomotion: Walk Walk 10 feet (QC): 4 Walk 50 ft with 2 Turns(QC): 4 Walk 150 ft (QC): 4 Distance: 250' Gait Assistive Device: FWW Comments/Gait Description safe and functional with no deviation Balance Sitting Static: Normal Sitting Dynamic: Normal Standing Static: Normal Standing Dynamic: Normal Assessment/Needs Patient will benefit from short term skilled PT to address functional strength and mobility to improve current LOF to safely return to home at maximum LOF. Patient reports he has a "caregiver/friend" that assists when needed. Rehab Potential: Fair Post Rehab Potential-Barriers: compliance PT Senior Living Goals Tech Ed/Woodshop Teacher Goals PT Tech Ed/Woodshop Teacher Goals Time Frame: Jul 29, 2022 Roll Left & Right (QC): 6 Sit to Lying (QC): 6 Lying-Sitting on Side/Bed(QC): 6 Sit to Stand (QC): 6 Chair/Vzq-vl-Eeeip Xfer(QC): 6 Toilet Transfer (QC): 6 Walk 10 feet (QC): 6 Walk 50ft with 2 Turns (QC): 6 Walk 150 ft (QC): 6 PT Plan Problem List Problem List: Activity Tolerance, Functional Strength, Safety, Balance, Gait, Transfer Treatment/Plan Treatment Plan: Continue Plan of Care Treatment Plan: Education, Functional Activity Mya, Functional Strength, Gait, Safety, Therapeutic Exercise, Transfers Treatment Duration: Jul 29, 2022 Frequency: 6 times per week Estimated Hrs Per Day: .25 hour per day Patient and/or Family Agrees t: Yes Time Time In: 1046 Time Out: 1056 DATE: Jul 17, 2022 Total Billed Treatment Time: 10 Total Billed Treatment 1 visit EVModC 10 min SAI BILLINGSLEY PT Jul 17, 2022 11:15
--- NOTE | 2022-07-17 12:13 | Occupational Therapy Eval ---
OT Evaluation-General/PLF Medical Diagnosis Admission Date Jul 15, 2022 at 17:27 Medical Diagnosis: weakness/AMS/alcohol withdrawl Onset Date: Jul 15, 2022 Therapy Diagnosis Therapy Diagnosis: reduced strength, endurance, adls Height/Weight Height (Feet): 5 Height (Inches): 8.00 Weight (Pounds): 253 Weight (Ounces): 5.0 Precautions Precautions/Isolations: Fall Prevention, Standard Precautions Referral Physician: Stephen Referral Reason: Evaluation/Treatment Medical History Pertinent Medical History: Alcoholism, Angioma, COPD, HTN, Hypothroidism, Smoking Current History Pt presented to hospital with weakness. Per chart, he was found on floor at home by home health. Per patient, he lives alone in a single story home. He states he was indep with adls and iadls but has a friend that provides transportation and assist with getting groceries. Pt "sometimes" used a walker. He recently had back surgery (July 04) but unaware of spinal precautions. He does have a LSO brace that should be worn when up. Social History Home: Single Level Current Living Status: Alone Entry Into Home: Stairs With Railing Steps Into Home: 3 ADL-Prior Level of Function SCALE: Activities may be completed with or without assistive devices. 2-Rmwvmxklas-gdoiezx completes the activity by him/herself with no assistance from a helper. 5-Set-up or Clean-up Assistance-helper sets up or cleans up; patient completes activity. [place] assists only prior to or following the activity. 4-Supervision or Touching Assistance-helper provides verbal cues and/or to uching/steadying and/or contact guard assistance as patient completes activity. Assistance may be provided throughout the activity or intermittently. 3-Partial/Moderate Assistance-helper does LESS THAN HALF the effort. [place] lifts, holds or supports trunk or limbs, but provides less than half the effort. 2-Substantial/Maximal Assistance-helper does MORE THAN HALF the effort. [place] lifts or holds trunk or limbs and provides more than half the effort. 8-Xhacczlgk-ieuhjs does ALL the effort. Patient does none of the effort to complete the activity. Or, the assistance of 2 or more helpers is required for the patient to complete the activity. If activity was not attempted, code reason: 7-Patient Refused. 9-Not Applicable-not attempted and the patient did not perform the activity before the current illness, exacerbation or injury. 10-Not Attempted due to Environmental Limitations-(lack of equipment, weather restraints, etc.). 88-Not Attempted due to Medical Conditions or Safety Concerns. Self Care: Independent Functional Cognition: Unknown DME/Equipment: Bath Chair, Tub/Shower Drive Self: No OT Current Status Subjective Pt denies pain, agreeable to evaluation. Appearance Pt left sitting in recliner, all needs within reach. Mental Status/Objective Patient Orientation: Person, Confused, Place, Situation Attachments: IV, Other-See Comments (LSO brace) ADL-Treatment Upper Body Dressing (QC): 5 Lower Body Dressing (QC): 3 On/Off Footwear (QC): 3 Supine>sit: SBA. Pt is impulsive with all transfers/mobility, requires cues for safety and slowing speed. When cued to adjust socks, pt immediately bends forward to complete. Education on spinal precautions. Poor follow through or processing observed. Pt likely would require assist to initiate socks over toes as he appeared to struggle just adjusting sock over heel. Set up assist to don LSO brace. Quick to stand, CGA needed for safety. Mild unsteadiness observed when removing BUE support from walker but no LOB. Pt ambulated around unit with SBA-CGA and use of walker. Cues for safety needed. Pt could benefit from short term OT to address adls with spinal precautions. Education OT Patient Education: Correct positioning, Energy conservation, Purpose of tx/functional activities, Reviewed precautions, Rehab process, Safety issues, Transfer techniques Teaching Recipient: Patient Teaching Methods: Discussion Response to Teaching: Reinforcement Needed OT Fdc Goals [place] Operator Goals Time Frame: Jul 28, 2022 Eating (QC): 6 Oral Hygiene (QC): 5 Toileting Hygiene (QC): 6 Shower/Bathe Self (QC): 5 Upper Body Dressing (QC): 6 Lower Body Dressing (QC): 5 On/Off Footwear (QC): 5 Additional Goals: 1-Demonstrate ADL Tasks, 2-Verbalize Understanding, 3- ImproveStrength/Mya 1=Demonstrate adherence to instructed precautions during ADL tasks. 2=Patient will verbalize/demonstrate understanding of assistive devices/modifications for ADL. 3=Patient will improve strength/tolerance for activity to enable patient to perform ADL's. OT Education/Plan Problem List/Assessment Assessment: Decreased Activ Tolerance, Decreased Safety Aware, Impaired Cognition, Impaired Funct Balance, Impaired I ADL's, Impaired Self-Care Skills Discharge Recommendations Plan/Recommendations: Continue POC Therapy Discharge Recommendati: Post Acute OT (Home health OT ) Equpiment Recommendations-D/C: Double End Trimmer, Sock Aide Treatment Plan/Plan of Care Treatment,Training & Education: Yes Patient would benefit from OT for education, treatment and training to promote independence in ADL's, mobility, safety and/or upper extremity function for ADL's. Plan of Care: ADL Retraining, Cognitive Retraining, Functional Mobility, Group Exercise/Act as Ind, Orthotic Fitting/Training, UE Funct Exercise/Act Treatment Duration: Jul 28, 2022 Frequency: 3 times per week (3-5x/week ) Estimated Hrs Per Day: .25 hour per day Rehab Potential: Fair Time Start Time: 10:44 Stop Time: 10:54 DATE: Jul 17, 2022 Total Time Billed (hr/min): 10 Billed Treatment Time 1 visit Adriana Barker OT Jul 17, 2022 12:13
--- NOTE | 2022-07-17 12:28 | Progress Note - Hospitalist ---
[facility] 07/17/22 1228: Subjective HPI/CC On Admission Date Seen by Provider: Jul 17, 2022 Time Seen by Provider: 09:50 Subjective/Events-last exam Milan is a 72 y WM who presented to ED on 07/13/22 with weakness after he was found on the floor by home health. Today he reports a new cough that started yesterday. He does not know what the sputum looks like. He does not use oxygen at home. client services administrator met with him and the plan is to have him go to [facility]. Review of Systems General: No Chills HEENT: No Head Aches Pulmonary: Cough Cardiovascular: No: Chest Pain, Palpitations Gastrointestinal: No: Nausea, Abdominal Pain Genitourinary: No Dysuria, No Frequency Focused Exam Lactate Level 07/15/22 06:56: Lactic Acid Level 0.66 Objective Exam Vital Signs Vital Signs Date Time Temp Pulse Resp B/P (MAP) Pulse Ox O2 Delivery O2 Flow Rate FiO2 07/17/22 11:31 36.7 87 18 156/76 (102) 94 07/17/22 10:27 Room Air 07/17/22 02:29 0.00 07/16/22 04:00 30 Capillary Refill : Less Than 3 Seconds General Appearance: No Apparent Distress, Other (apathetic) HEENT: PERRL/EOMI Neck: Non Tender, Supple Respiratory: Chest Non Tender, Lungs Clear, Normal Breath Sounds, No Accessory Muscle Use, No Respiratory Distress Cardiovascular: Regular Rate, Rhythm, No Edema, Normal Peripheral Pulses Gastrointestinal: Non Tender, Soft Extremity: Normal Capillary Refill, No Pedal Edema Neurologic/Psychiatric: Alert, Oriented x3 Skin: Normal Color, Warm/Dry Results/Procedures Lab Laboratory Tests 07/17/22 05:40 Patient resulted labs reviewed. Assessment/Plan Assessment and Plan Assess & Plan/Chief Complaint Assessment: AMS - Unclear etiology. CT head okay. UA without infection, CXR okay, no obvious infectious source. Likely alcohol withdrawal. Consider MRI given hypertension concern for stroke, however has generalized symptoms and progressive slow onset without localization. Uncertain if we can get MRI with his recent spinal surgery. HTN - acute elevation possibly d/t alcohol wd COPD Hypothyroidism Hx of back surgery Alcohol abuse Hypokalemia Plan: CXR ordered Start Airduo Start K replacement IV steroids titrated Home meds Detox protocol DVT Prophylaxis JOSE HOLGUIN DO 07/18/22 0500: Objective Exam General Appearance: No Apparent Distress, WD/WN, Chronically ill Respiratory: Lungs Clear, Normal Breath Sounds Cardiovascular: Regular Rate, Rhythm Supervisory-Addendum Brief Verification & Attestation Participated in pt care: history, MDM, physical Personally performed: exam, history, MDM, supervision of care Care discussed with: Medical Student Procedures: n/a Results interpretation: Verified all documentation Verification and Attestation of Medical Student E/M Service A medical student performed and documented this service in my presence. I reviewed and verified all information documented by the medical student and made modifications to such information, when appropriate. I personally performed the physical exam and medical decision making. Jose Holguin, Jul 18, 2022,04:59 MARK FORRESTER Jul 17, 2022 12:28 JOSE HOLGUIN DO Jul 18, 2022 05:00
[2022-07-17] MEDS: ENOXAPARIN 40 MG/0.4 ML (LOVENOX) SYR SQ SCH (15:13)
[2022-07-17] MEDS: cloNIDine 0.1 MG (CATAPRES) TAB PO PRN (15:52)
[2022-07-17] MEDS: ANTACID SUSP 30 ML UDC (MYLANTA) PO PRN ×2 (15:52→20:19)
[2022-07-17] MEDS ORDERED: FLU QUAD HIGH DOSE 240 MCG/0.7 ML 2022-23 (FLUZONE) IM ONE (18:45)
[2022-07-17] MEDS ORDERED: amLODIPine 5 MG (NORVASC) TAB PO ONE (20:30)
[2022-07-17] MEDS ORDERED: ADVAIR HFA 115/21 MCG INHALER 8 GM IH SCH (21:00)
[2022-07-17] MEDS: RT--FLUTICASONE/SALMETEROL 113-14 (AIRDUO RespiCLICK) IH SCH (21:45)
[2022-07-18] VITALS (8 sets, daily range): BP systolic 136–170; BP diastolic 72–98
[2022-07-18] MEDS: RT-ALBUTEROL/IPRATROPIUM 3 ML (DUONEB) VIAL INH SCH ×5 (02:41→21:36)
[2022-07-18] MEDS: MULTIVIT W/MINERALS TAB (THERAGRAN M) PO SCH (05:51)
[2022-07-18] MEDS: predniSONE 20 MG TAB PO SCH (05:51)
[2022-07-18] MEDS: LEVOTHYROXINE 100 MCG (LEVOTHROID) TAB PO SCH (05:52)
[2022-07-18] MEDS: LEVOTHYROXINE 25 MCG (LEVOTHROID) TAB PO SCH (05:52)
[2022-07-18 06:05] LABS: BASOPHILS % (AUTO) 0 % (0-10); EOSINOPHILS # (AUTO) 0.1 10^3/uL (0.0-0.3); EOSINOPHILS % (AUTO) 1 % (0-10); HEMATOCRIT 35 % (40-54); HEMOGLOBIN 11.8 g/dL (13.3-17.7); LYMPHOCYTES # (AUTO) 1.1 10^3/uL (1.0-4.0); LYMPHOCYTES % (AUTO) 15 % (12-44); MEAN CORPUSCULAR HEMOGLOBIN 33 pg (25-34); MEAN CORPUSCULAR HGB CONC 34 g/dL (32-36); MEAN CORPUSCULAR VOLUME 99 fL (80-99); MEAN PLATELET VOLUME 9.6 fL (9.0-12.2); MONOCYTES # (AUTO) 0.8 10^3/uL (0.0-1.0); MONOCYTES % (AUTO) 10 % (0-12); NEUTROPHILS # (AUTO) 5.6 10^3/uL (1.8-7.8); NEUTROPHILS % (AUTO) 74 % (42-75); PLATELET COUNT 314 10^3/uL (130-400); WHITE BLOOD COUNT 7.6 10^3/uL (4.3-11.0)
[2022-07-18 06:18] LABS: ALBUMIN 3.1 GM/DL (3.2-4.5); POTASSIUM 3.6 MMOL/L (3.6-5.0)
[2022-07-18 06:19] LABS: CALCIUM 8.1 MG/DL (8.5-10.1)
[2022-07-18 06:20] LABS: TOTAL PROTEIN 5.1 GM/DL (6.4-8.2)
[2022-07-18 06:22] LABS: BILIRUBIN,TOTAL 0.3 MG/DL (0.1-1.0)
[2022-07-18 06:24] LABS: CREATININE SERUM 0.74 MG/DL (0.60-1.30)
[2022-07-18] MEDS: FOLIC ACID 1 MG TAB PO SCH (07:31)
[2022-07-18] MEDS: lisINopril 20 MG (PRINIVIL) TABLET PO SCH (07:31)
[2022-07-18] MEDS: amLODIPine 5 MG (NORVASC) TAB PO SCH (07:31)
[2022-07-18] MEDS: MONTELUKAST 10 MG (SINGULAIR) TAB PO SCH (07:31)
[2022-07-18] MEDS: KCL 20 MEQ TAB (K-DUR) PO SCH ×2 (07:31→17:17)
[2022-07-18] MEDS: BENZONATATE 100 MG (TESSALON) CAPSULE PO SCH ×3 (07:32→21:15)
[2022-07-18] MEDS: RT--FLUTICASONE/SALMETEROL 113-14 (AIRDUO RespiCLICK) IH SCH ×2 (07:34→21:36)
--- NOTE | 2022-07-18 09:27 | Occupational Ther Daily Note ---
OT Current Status-Daily Note Subjective Pt alert, ambulating into room with PT. Pt agrees to therapy. No c/o pain. Mental Status/Objective Patient Orientation: Person, Place, Time, Situation Attachments: IV ADL-Treatment Pt stands at sink stabilizing with counter to complete oral care independently. Pt has tendency to leave walker but with reminder will use without difficulty. Pt independent with eating. Bed mobility independent. After session, pt lying in bed with call light/phone in reach. Safety measures in place. All needs met. Therapy Code Descriptions/Definitions Functional [place] Measure: 0=Not Assessed/NA 4=Minimal Assistance 1=Total Assistance 5=Supervision or Setup 2=Maximal Assistance 6=Modified [place] 3=Moderate Assistance 7=Complete IndependenceSCALE: Activities may be completed with or without assistive devices. 9-Zyeehslxkc-ndusakp completes the activity by him/herself with no assistance from a helper. 5-Set-up or Clean-up Assistance-helper sets up or cleans up; patient completes activity. [place] assists only prior to or following the activity. 4-Supervision or Touching Assistance-helper provides verbal cues and/or touching/steadying and/or contact guard assistance as patient completes activity. Assistance may be provided throughout the activity or intermittently. 3-Partial/Moderate Assistance-helper does LESS THAN HALF the effort. [place] lifts, holds or supports trunk or limbs, but provides less than half the effort. 2-Substantial/Maximal Assistance-helper does MORE THAN HALF the effort. [place] lifts or holds trunk or limbs and provides more than half the effort. 9-Lcmciqfdz-bdlzit does ALL the effort. Patient does none of the effort to complete the activity. Or, the assistance of 2 or more helpers is required for the patient to complete the activity. If activity was not attempted, code reason: 7-Patient Refused. 9-Not Applicable-not attempted and the patient did not perform the activity before the current illness, exacerbation or injury. 10-Not Attempted due to Environmental Limitations-(lack of equipment, weather restraints, etc.). 88-Not Attempted due to Medical Conditions or Safety Concerns. Eating (QC): 6 Oral Hygiene (QC): 6 OT Residential Goals Residential Goals Time Frame: Jul 28, 2022 Eating (QC): 6 Oral Hygiene (QC): 5 Toileting Hygiene (QC): 6 Shower/Bathe Self (QC): 5 Upper Body Dressing (QC): 6 Lower Body Dressing (QC): 5 On/Off Footwear (QC): 5 Additional Goals: 1-Demonstrate ADL Tasks, 2-Verbalize Understanding, 3- ImproveStrength/Mya 1=Demonstrate adherence to instructed precautions during ADL tasks. 2=Patient will verbalize/demonstrate understanding of assistive devices/modifications for ADL. 3=Patient will improve strength/tolerance for activity to enable patient to perform ADL's. OT Education/Plan Problem List/Assessment Assessment: Decreased Activ Tolerance, Decreased Safety Aware Discharge Recommendations Plan/Recommendations: Continue POC Treatment Plan/Plan of Care Patient would benefit from OT for education, treatment and training to promote independence in ADL's, mobility, safety and/or upper extremity function for ADL's. Plan of Care: ADL Retraining, Cognitive Retraining, Functional Mobility, Group Exercise/Act as Ind, Orthotic Fitting/Training, UE Funct Exercise/Act Treatment Duration: Jul 28, 2022 Frequency: 3 times per week (3-5x/week ) Estimated Hrs Per Day: .25 hour per day Rehab Potential: Fair Time Start Time: 09:05 Stop Time: 09:20 DATE: Jul 18, 2022 Total Time Billed (hr/min): 15 Billed Treatment Time 1 visit-ADL 1 (15 min) KANE ADAMES Jul 18, 2022 09:27
[2022-07-18] MEDS ORDERED: SUCRALFATE 1 GM (CARAFATE) TAB PO PRN (10:15)
[2022-07-18] MEDS ORDERED: PANTOPRAZOLE 40 MG (PROTONIX) TAB PO NR (10:30)
--- NOTE | 2022-07-18 10:43 | Physical Therapy Daily Note ---
PT Daily Note-Current Subjective Patient very agreeable to participate with PT. Pain Numeric Pain Scale: 0-No Pain Location: No Pain Reported Section J - Health Conditions 1. Rarely or not at all 2. Occasionally 3. Frequently 4. Almost constantly 8. Unable to answer Pain Effect on Sleep: 1 Pain Interference with Therapy: 1 Pain Interference w/Day-to-Day: 1 Mental Status Patient Orientation: Normal For Age Transfers SCALE: Activities may be completed with or without assistive devices. 2-Cxhmlmtzry-upcyvyh completes the activity by him/herself with no assistance from a helper. 5-Set-up or Clean-up Assistance-helper sets up or cleans up; patient completes activity. [place] assists only prior to or following the activity. 4-Supervision or Touching Assistance-helper provides verbal cues and/or touching/steadying and/or contact guard assistance as patient completes activity. Assistance may be provided throughout the activity or intermittently. 3-Partial/Moderate Assistance-helper does LESS THAN HALF the effort. [place] lifts, holds or supports trunk or limbs, but provides less than half the effort. 2-Substantial/Maximal Assistance-helper does MORE THAN HALF the effort. [place] lifts or holds trunk or limbs and provides more than half the effort. 5-Myoijauxt-otbnrq does ALL the effort. Patient does none of the effort to complete the activity. Or, the assistance of 2 or more helpers is required for the patient to complete the activity. If activity was not attempted, code reason: 7-Patient Refused. 9-Not Applicable-not attempted and the patient did not perform the activity before the current illness, exacerbation or injury. 10-Not Attempted due to Environmental Limitations-(lack of equipment, weather restraints, etc.). 88-Not Attempted due to Medical Conditions or Safety Concerns. Lying to Sitting/Side of Bed(Q: 6 Sit to Stand (QC): 4 Chair/Vll-ys-Gxicr Xfer(QC): 4 Gait Training Distance: 500' Walk 10 feet (QC): 4 Walk 50 ft with 2 Turns(QC): 4 Walk 150 ft (QC): 4 Gait Assistive Device: FWW safe and functional with no deviation Assessment Patient tolerated treatment well and is currently with OT upon PT session completion. Per , plan dismissal to [place] this week. PT Liquefier Goals Liquefier Goals PT Correction Goals Time Frame: Jul 29, 2022 Roll Left & Right (QC): 6 Sit to Lying (QC): 6 Lying-Sitting on Side/Bed(QC): 6 Sit to Stand (QC): 6 Chair/Tdv-qf-Ivzse Xfer(QC): 6 Toilet Transfer (QC): 6 Walk 10 feet (QC): 6 Walk 50ft with 2 Turns (QC): 6 Walk 150 ft (QC): 6 PT Plan Treatment/Plan Treatment Plan: Continue Plan of Care Treatment Plan: Education, Functional Activity Mya, Functional Strength, Gait, Safety, Therapeutic Exercise, Transfers Treatment Duration: Jul 29, 2022 Frequency: 6 times per week Estimated Hrs Per Day: .25 hour per day Patient and/or Family Agrees t: Yes Time Time In: 850 Time Out: 908 DATE: Jul 18, 2022 Total Billed Treatment Time: 18 Total Billed Treatment 1 visit FA 18 min SAI BILLINGSLEY PT Jul 18, 2022 10:43
--- NOTE | 2022-07-18 11:52 | Progress Note - Hospitalist ---
[facility] 1152: Subjective HPI/CC On Admission Date Seen by Provider: Jul 18, 2022 Time Seen by Provider: 09:50 Subjective/Events-last exam Milan is a 72 y WM who presented to ED on 07/13/22 with weakness after he was found on the floor by home health. Today he reports his cough is much improved after Airduo and Duoneb were added as well as Tessalon. Pt does complain of heartburn that is not resolved with Mylanta. He had a formed BM yesterday without blood or pain and is urinating without issue. He states he would prefer to have a home health aid rather than go to a long-term facility. CXR 07/07 revealed prominent airspace opacity within the medial right mid to lower lung field. This may be artifact and related to prominent pericardial/mediastinal fat superimposed on crowded pulmonary vessels. Underlying mass or pneumonia cannot be excluded. Review of Systems Pulmonary: No Dyspnea; Cough (improved) Cardiovascular: No: Chest Pain Gastrointestinal: Other (heartburn); No: Hematochezia Genitourinary: No Dysuria, No Frequency Objective Exam Vital Signs Vital Signs Date Time Temp Pulse Resp B/P (MAP) Pulse Ox O2 Delivery O2 Flow Rate FiO2 07/18/22 11:24 37.0 82 17 160/74 (102) 93 Room Air 07/18/22 07:06 2.00 07/16/22 04:00 30 Capillary Refill : Less Than 3 Seconds General Appearance: No Apparent Distress, WD/WN HEENT: PERRL/EOMI, Moist Mucous Membranes Neck: Full Range of Motion, Non Tender, Supple Respiratory: Chest Non Tender, Lungs Clear, Normal Breath Sounds, No Accessory Muscle Use, No Respiratory Distress Cardiovascular: Regular Rate, Rhythm, No Edema, No Gallop, No JVD, No Murmur, Normal Peripheral Pulses Gastrointestinal: Normal Bowel Sounds, Non Tender, Soft Extremity: Normal Capillary Refill, Normal Inspection, Non Tender, No Calf Tenderness, No Pedal Edema Neurologic/Psychiatric: Alert, Oriented x3, No Motor/Sensory Deficits, Normal Mood/Affect Skin: Normal Color, Warm/Dry Lymphatic: No Adenopathy Results/Procedures Lab Laboratory Tests 07/18/22 05:11 Patient resulted labs reviewed. Assessment/Plan Assessment and Plan Assess & Plan/Chief Complaint Assessment: AMS - Unclear etiology. CT head okay. UA without infection, CXR okay, no obvious infectious source. Likely alcohol withdrawal. Consider MRI given hypertension concern for stroke, however has generalized symptoms and progressive slow onset without localization. Uncertain if we can get MRI with his recent spinal surgery. HTN - acute elevation possibly d/t alcohol wd COPD Hypothyroidism Hx of back surgery Alcohol abuse Hypokalemia Dyspepsia Plan: Continue Airduo and Duoneb, Tessalon as needed Continue K replacement IV steroids titrated Home meds Detox protocol DVT Prophylaxis Start Protonix and Carafate Plan for home health upon d/c- social work job titles appreciated TAMMY HOLGUIN DO 07/19/22 0438: Supervisory-Addendum Brief Verification & Attestation Participated in pt care: history, MDM, physical Personally performed: exam, history, MDM, supervision of care Care discussed with: Medical Student Procedures: n/a Results interpretation: Verified all documentation Verification and Attestation of Medical Student E/M Service A medical student performed and documented this service in my presence. I reviewed and verified all information documented by the medical student and made modifications to such information, when appropriate. I personally performed the physical exam and medical decision making. Tamym Holguin, Jul 19, 2022,04:38 MARK FORRESTER Jul 18, 2022 11:52 TAMMY HOLGUIN DO Jul 19, 2022 04:38
[2022-07-18] MEDS: ENOXAPARIN 40 MG/0.4 ML (LOVENOX) SYR SQ SCH (15:17)
[2022-07-18] MEDS: ANTACID SUSP 30 ML UDC (MYLANTA) PO PRN (17:17)
[2022-07-19 00:15] VITALS: BP 157/78
[2022-07-19] MEDS: RT-ALBUTEROL/IPRATROPIUM 3 ML (DUONEB) VIAL INH SCH ×2 (03:06→09:47)
[2022-07-19 04:20] VITALS: BP 163/82
[2022-07-19] MEDS: LEVOTHYROXINE 25 MCG (LEVOTHROID) TAB PO SCH (05:11)
[2022-07-19] MEDS: oxyCODONE/APAP 5/325MG (PERCOCET 5) TABLET PO PRN (05:11)
[2022-07-19] MEDS: predniSONE 20 MG TAB PO SCH (05:11)
[2022-07-19] MEDS: LEVOTHYROXINE 100 MCG (LEVOTHROID) TAB PO SCH (05:12)
[2022-07-19] MEDS: MULTIVIT W/MINERALS TAB (THERAGRAN M) PO SCH (05:12)
[2022-07-19 05:55] LABS: BASOPHILS % (AUTO) 0 % (0-10); EOSINOPHILS # (AUTO) 0.2 10^3/uL (0.0-0.3); EOSINOPHILS % (AUTO) 2 % (0-10); HEMATOCRIT 37 % (40-54); HEMOGLOBIN 12.6 g/dL (13.3-17.7); LYMPHOCYTES # (AUTO) 1.2 10^3/uL (1.0-4.0); LYMPHOCYTES % (AUTO) 14 % (12-44); MEAN CORPUSCULAR HEMOGLOBIN 33 pg (25-34); MEAN CORPUSCULAR HGB CONC 34 g/dL (32-36); MEAN CORPUSCULAR VOLUME 97 fL (80-99); MEAN PLATELET VOLUME 9.6 fL (9.0-12.2); MONOCYTES # (AUTO) 0.9 10^3/uL (0.0-1.0); MONOCYTES % (AUTO) 10 % (0-12); NEUTROPHILS # (AUTO) 6.5 10^3/uL (1.8-7.8); NEUTROPHILS % (AUTO) 73 % (42-75); PLATELET COUNT 337 10^3/uL (130-400); WHITE BLOOD COUNT 8.8 10^3/uL (4.3-11.0)
[2022-07-19 06:31] LABS: ALBUMIN 3.4 GM/DL (3.2-4.5); BILIRUBIN,TOTAL 0.4 MG/DL (0.1-1.0); CALCIUM 8.4 MG/DL (8.5-10.1); CREATININE SERUM 0.73 MG/DL (0.60-1.30); TOTAL PROTEIN 5.9 GM/DL (6.4-8.2)
[2022-07-19 08:20] VITALS: BP 169/85
[2022-07-19] MEDS: BENZONATATE 100 MG (TESSALON) CAPSULE PO SCH ×2 (08:35→13:40)
[2022-07-19] MEDS: FOLIC ACID 1 MG TAB PO SCH (08:35)
[2022-07-19] MEDS: amLODIPine 5 MG (NORVASC) TAB PO SCH (08:35)
[2022-07-19] MEDS: lisINopril 20 MG (PRINIVIL) TABLET PO SCH (08:35)
[2022-07-19] MEDS: KCL 20 MEQ TAB (K-DUR) PO SCH (08:35)
[2022-07-19] MEDS: MONTELUKAST 10 MG (SINGULAIR) TAB PO SCH (08:35)
[2022-07-19] MEDS ORDERED: PANTOPRAZOLE 40 MG (PROTONIX) TAB PO SCH (09:00)
--- NOTE | 2022-07-19 09:38 | Physical Therapy Daily Note ---
PT Daily Note-Current Subjective Patient lying supine in bed upon PT arrival, agreeable to treatment. Patient rates pain at 0/10 currently. Pain Section J - Health Conditions 1. Rarely or not at all 2. Occasionally 3. Frequently 4. Almost constantly 8. Unable to answer Pain Effect on Sleep: 1 Pain Interference with Therapy: 1 Pain Interference w/Day-to-Day: 1 Mental Status Patient Orientation: Person, Place, Time, Situation Transfers SCALE: Activities may be completed with or without assistive devices. 9-Mzsvbgryqa-kvfvlzy completes the activity by him/herself with no assistance from a helper. 5-Set-up or Clean-up Assistance-helper sets up or cleans up; patient completes activity. [place] assists only prior to or following the activity. 4-Supervision or Touching Assistance-helper provides verbal cues and/or touching/steadying and/or contact guard assistance as patient completes activity. Assistance may be provided throughout the activity or intermittently. 3-Partial/Moderate Assistance-helper does LESS THAN HALF the effort. [place] lifts, holds or supports trunk or limbs, but provides less than half the effort. 2-Substantial/Maximal Assistance-helper does MORE THAN HALF the effort. [place] lifts or holds trunk or limbs and provides more than half the effort. 2-Yqimgorpc-iabveg does ALL the effort. Patient does none of the effort to complete the activity. Or, the assistance of 2 or more helpers is required for the patient to complete the activity. If activity was not attempted, code reason: 7-Patient Refused. 9-Not Applicable-not attempted and the patient did not perform the activity before the current illness, exacerbation or injury. 10-Not Attempted due to Environmental Limitations-(lack of equipment, weather restraints, etc.). 88-Not Attempted due to Medical Conditions or Safety Concerns. Roll Left & Right (QC): 6 Sit to Lying (QC): 6 Lying to Sitting/Side of Bed(Q: 6 Sit to Stand (QC): 6 Chair/Gqw-pu-Mpoyp Xfer(QC): 6 Toilet Transfer (QC): 6 Gait Training Does the Patient Walk?: Yes Distance: 500 feet Walk 10 feet (QC): 6 Walk 50 ft with 2 Turns(QC): 6 Walk 150 ft (QC): 6 Gait Assistive Device: FWW Assessment Current Status: Good Progress Patient tolerated treatment well. Performs all observed bed mobility and transfers with [place]. Patient ambulates 500 feet with FWW with complete independence. Patient independent with donning/doffing LSO. Patient in chair post treatment with all needs met, nursing notified, call light in hand. PT Boiler Coverer Helper Goals Alf Goals PT Boiler Coverer Helper Goals Time Frame: Jul 29, 2022 Roll Left & Right (QC): 6 Sit to Lying (QC): 6 Lying-Sitting on Side/Bed(QC): 6 Sit to Stand (QC): 6 Chair/Yvz-fn-Bdbsg Xfer(QC): 6 Toilet Transfer (QC): 6 Walk 10 feet (QC): 6 Walk 50ft with 2 Turns (QC): 6 Walk 150 ft (QC): 6 PT Plan Treatment/Plan Treatment Plan: Continue Plan of Care Treatment Plan: Education, Functional Activity Mya, Functional Strength, Gait, Safety, Therapeutic Exercise, Transfers Treatment Duration: Jul 29, 2022 Frequency: 6 times per week Estimated Hrs Per Day: .25 hour per day Patient and/or Family Agrees t: Yes Safety Risks/Education Patient Education: Gait Training Teaching Recipient: Patient Teaching Methods: Demonstration, Discussion Response to Teaching: Verbalize Understanding, Return Demonstration Time Time In: 914 Time Out: 924 DATE: Jul 19, 2022 Total Billed Treatment Time: 10 Total Billed Treatment Visit, MAREN Valentin PT Jul 19, 2022 09:38
[2022-07-19] MEDS: RT--FLUTICASONE/SALMETEROL 113-14 (AIRDUO RespiCLICK) IH SCH (09:47)
[2022-07-19] MEDS ORDERED: MONT-40 PO (10:06)
[2022-07-19] MEDS ORDERED: PANT40TA52 PO (10:06)
[2022-07-19] MEDS ORDERED: OXYC1TAB87 PO (10:06)
[2022-07-19] MEDS ORDERED: AMLO-250 PO (10:06)
[2022-07-19] MEDS ORDERED: MULT-1137 PO (10:06)
--- NOTE | 2022-07-19 10:08 | Discharge Summary ---
Discharge Summary Hospital Course Was the Problem List Reviewed?: Yes Problems/Dx: (1) Altered mental status Status: Acute Qualifiers: Qualified Codes: R41.82 - Altered mental status, unspecified (2) Generalized weakness Status: Acute (3) Alcohol withdrawal Status: Acute Qualifiers: Qualified Codes: F10.939 - Alcohol use, unspecified with withdrawal, unspecified Hospital Course Date of Admission: Jul 15, 2022 at 17:27 Admission Diagnosis : Family Physician/Provider: Shaheed Lara MD Date of Discharge: 07/19/22 Discharge Diagnosis: [ ] Hospital Course: Lengthy hospital course due to significant altered mental status after a fall following lumbar spine surgery. Patient required ICU transfer and placed on BiPAP with exacerbation COPD meds which resolved quickly and he was moved back to fourth floor. He completed alcohol withdrawal protocol and participated in therapy and was able to gain enough strength in order to return home with home care. Labs and Pending Lab Test: Laboratory Tests 07/19/22 05:05: White Blood Count 8.8, Red Blood Count 3.82L, Hemoglobin 12.6L, Hematocrit 37L, Mean Corpuscular Volume 97, Mean Corpuscular Hemoglobin 33, Mean Corpuscular Hemoglobin Concent 34, Red Cell Distribution Width 11.5, Platelet Count 337, Mean Platelet Volume 9.6, Immature Granulocyte % (Auto) 1, Neutrophils (%) (Auto) 73, Lymphocytes (%) (Auto) 14, Monocytes (%) (Auto) 10, Eosinophils (%) (Auto) 2, Basophils (%) (Auto) 0, Neutrophils # (Auto) 6.5, Lymphocytes # (Auto) 1.2, Monocytes # (Auto) 0.9, Eosinophils # (Auto) 0.2, Basophils # (Auto) 0.0, Immature Granulocyte # (Auto) 0.1, Sodium Level 134L, Potassium Level 4.0, Chloride Level 101, Carbon Dioxide Level 26, Anion Gap 7, Blood Urea Nitrogen 11, Creatinine 0.73, Estimat Glomerular Filtration Rate 98, BUN/Creatinine Ratio 15, Glucose Level 92, Calcium Level 8.4L, Corrected Calcium 8.9, Total Bilirubin 0.4, Aspartate Amino Transf (AST/SGOT) 28, Alanine Aminotransferase (ALT/SGPT) 39, Alkaline Phosphatase 53, Total Protein 5.9L, Albumin 3.4 Microbiology 07/15/22 MRSA Screen - Final, Complete MRSA not isolated Home Meds Active Tab-A-Nancy Multivit with Iron (Multivitamin/Iron/Folic Acid) 18 Mg Iron-400 Mcg Tablet 1 Ea PO DAILY@0700 Pantoprazole Sodium 40 Mg Tablet.dr 40 Mg PO DAILY Montelukast Sodium 10 Mg Tablet 10 Mg PO DAILY@0900 Percocet 5-325 mg Tablet (Oxycodone HCl/Acetaminophen) 1 Each Tablet 1 Tab PO Q6H PRN Amlodipine Besylate 5 Mg Tablet 5 Mg PO DAILY Reported Lisinopril 20 Mg Tablet 20 Mg PO DAILY Ventolin Hfa (Albuterol Sulfate) 18 Gm Hfa.aer.ad 2 Puff INH Q4H PRN Levothyroxine Sodium 25 Mcg Tablet 25 Mcg PO DAILY TAKES ALONG WITH 200MCG TABLET Levothyroxine Sodium 200 Mcg Tablet 200 Mcg PO DAILY TAKES ALONG WITH 25MCG TABLET Trazodone HCl 150 Mg Tablet 150 Mg PO HS PRN Citalopram HBr (Citalopram Hydrobromide) 20 Mg Tablet 20 Mg PO DAILY Assessment/Pt Instructions PCP in 1 week Discharge Planning: <30 minutes discharge planning Discharge Instructions Discharge Diet: No Restrictions Discharge Physical Examination Vital Signs Vital Signs Date Time Temp Pulse Resp B/P (MAP) Pulse Ox O2 Delivery O2 Flow Rate FiO2 07/19/22 09:47 93 Room Air 0.00 07/19/22 08:20 36.7 80 19 169/85 (113) 07/16/22 04:00 30 General Appearance: No Apparent Distress, WD/WN, Chronically ill, Other (Flat affect) Allergies: Coded Allergies: No Known Drug Allergies (Unverified , 10/23/16) Discharge Summary Date of Admission Jul 15, 2022 at 17:27 Date of Discharge Discharge Date: Jul 19, 2022 Discharge Diagnosis (1) Altered mental status Status: Acute Assessment & Plan: Unclear etiology. CT head okay. UA without infection, CXR okay, no obvious infectious source. Consider alcohol withdrawal. Consider MRI given hypertension concern for stroke, however has generalized symptoms and progressive slow onset without localization. Uncertain if we can get MRI with his recent spinal surgery. Monitor closely, reorient as needed. Qualifiers: Qualified Codes: R41.82 - Altered mental status, unspecified (2) Hypertension Status: Chronic Assessment & Plan: Resume home lisinopril. Clonidine given overnight due to hypertension. Consider alcohol withdrawal as cause of acute elevation. Ativan initially seemed to help, but BP back up again. Qualifiers: Qualified Codes: I10 - Essential (primary) hypertension (3) COPD (chronic obstructive pulmonary disease) Status: Chronic Assessment & Plan: Duonebs as needed. (4) Hypothyroidism Status: Chronic Assessment & Plan: Resume home levothyroxine (5) Previous back surgery Status: Acute Assessment & Plan: Uncertain exact hardware, etc, done recently, per ER exam incision clean and dry without evidence of infection. (6) Alcohol abuse Status: Chronic Assessment & Plan: Alcohol level negative on admit, uncertain amount of recent intake or last use. Alcohol withdrawal protocol ordered. (7) DVT prophylaxis Status: Acute Assessment & Plan: Enoxaparin Plan: 4th floor BiPAP IV steroids tirated Detox protocol JOSE HOLGUIN DO Jul 19, 2022 10:08
--- NOTE | 2022-07-19 10:08 | D/C HH Face to Face Order ---
D/C Face to Face Orders Reconcile Patient Problems Problems Reviewed?: Yes Instructions for Patient Via [facility], Patient Instructions/FollowUp: pcp 1 week Physician to follow Patient: chc Discharge Diet for Home: No Restrictions Patient Problems: Debility Patient Data-Allergies,Ht & Wt Patient Allergies: Coded Allergies: No Known Drug Allergies (Unverified , 10/23/16) Height (Feet): 5 Height (Inches): 8.00 Weight (Pounds): 253 Weight (Ounces): 5.0 Home Health Need/Face to Face Date of Face to Face: Jul 19, 2022 Clinical Findings: Generalized weakness and fatigue, Muscle weakness, Unsteady gait I have seen Pt nvbe-[id number]: Yes Discharged To: Home Diagnosis/Conditions: Debility Patient is Homebound due to: Muscle weakness Homebound Status Due to the above stated illness, injury or surgical procedure (medical condition or diagnosis) and associated clinical findings, the patient is homebound because of his/her inability to leave home except with aid of a supportive device and/or person AND leaving the home requires a considerable and taxing effort or is medically contraindicated. Pt req the following assistanc: Walker Home Health Nursing Orders Home Health Services Order: Nursing Services, Control Systems Developer-Evaluate & Treat, Physical Therapy-Evaluate & Treat Home Health Infusion Therapy Line Start Date: Jul 13, 2022 Certify Stmt I certify that this patient is under my care and that I, a nurse practitioner or a physician; a tax accounting assistant working with me, had a face to face encounter that - meets the physician face to face encounter requirements with this patient as dated. JOSE HOLGUIN DO Jul 19, 2022 10:08
[2022-07-19] MEDS ORDERED: ALBU18HF2 INH (10:19)
[2022-07-19] MEDS: ENOXAPARIN 40 MG/0.4 ML (LOVENOX) SYR SQ SCH (13:41)
[2022-07-19 14:47] VITALS: BP 169/89
[2022-07-19 14:50] VITALS: BP 169/89
--- NOTE | 2022-07-20 14:33 | Physician Query Clarification ---
PQ-Link Manifestation-Etiology Admission/Discharge Admission Date: Jul 15, 2022 at 17:27 Discharge Date: Jul 19, 2022 at 14:50 Dr. Mitchell, The medical record reflects the following clinical scenario: History/Risk Factors: AMS, Alcohol withdrawal, COPD AE Clinical Findings: weakness. delirium, blood alcohol level <10, worsening blood pressure Treatment: IVF, Ativan, Thiamine Question: Can you specify if the AMS is due to/associated with alcohol withdrawal? Please document a response in the Progress Note or Discharge Summary. 1. Yes - AMS is due to/associated with alcohol withdrawal 2. No - AMS is due to/associated with alcohol withdrawal 3. Other, with explanation of the clinical findings. 4. Clinically undetermined, no explanation for the clinical findings. PHYSICIAN RESPONSE Manifestation due to/assoic: Yes In responding to this query, please exercise your independent professional judg ment. The purpose of this communication is to more accurately reflect the complexity of your patients condition. The fact that a question is asked does not imply that any particular answer is desired or expected. Thank you for your timely response to this clarification. Requestors name: Dory THIS PHYSICIAN QUERY FORM IS A PERMANENT PART OF THE MEDICAL RECORD DORY DOUGLAS Jul 20, 2022 14:33 JOSE MITCHELL DO Jul 20, 2022 20:22
== END 2022-07-19 14:50 | disposition home health service (06) | DRG 897 ==
LOC: EDUNIT# 09:20 → ER 09:21 → 4TH 19:00 → ICU 07-15 03:50 → OBSVTOIN 07-15 17:27 → 4TH 07-16 11:05
PROVIDERS: ADMIT Family Medicine; ATTEND Internal Medicine
PROC: 5A09357 Assistance with Respiratory Ventilation, Less than 24 Consecutive Hours, Continuous Positive Airway Pressure (ICD-10-PCS; principal; 2022-07-15)
DX: F10.231 Alcohol dependence with withdrawal delirium (principal); E87.1 Hypo-osmolality and hyponatremia; J44.1 Chronic obstructive pulmonary disease with (acute) exacerbation; R41.82 Altered mental status, unspecified; Y90.0 Blood alcohol level of less than 20 mg/100 ml; R53.1 Weakness; E87.6 Hypokalemia; M25.552 Pain in left hip; F17.210 Nicotine dependence, cigarettes, uncomplicated; I10 Essential (primary) hypertension; E89.0 Postprocedural hypothyroidism; F41.9 Anxiety disorder, unspecified; F32.A Depression, unspecified; R10.13 Epigastric pain; Z85.850 Personal history of malignant neoplasm of thyroid; Z79.82 Long term (current) use of aspirin; Z79.52 Long term (current) use of systemic steroids
CPT/HCPCS: 36415; 36600; 70450; 71045; 80048; 80053; 80306; 80320; 81000; 82550; 82805; 83605; 83735; 84100; 84145; 84439; 84443; 85007; 85025; 85027; 85379; 86141; 87081; 94640; 94660; 94760; G0378

== ENCOUNTER 2022-10-04 14:51 | Outpatient (CLI) | payer MEDICARE ==
[~2022-10-04] VITALS: Ht 187.9 cm; Wt 116.5 kg
[~2022-10-04 14:51] MED LIST changes: +AMLO-250 PO; +LISI20TA26 PO; +MONT-40 PO; +MULT-1137 PO; +OXYC1TAB87 PO; +PANT40TA52 PO
--- NOTE | 2022-10-04 16:15 | Diagnostic Imaging Report ---
INDICATION: Post thoracentesis. COMPARISON: Radiograph of 07/17/2022. FINDINGS: The right chest shows no pleural fluid or pneumothorax. There is at least a moderate left pleural effusion with subjacent basilar consolidation. There is no pneumothorax. IMPRESSION: Left pleural effusion and subjacent consolidation. The right chest is negative. There is no pneumothorax. Dictated by: Dictated on workstation # [id number]
[2022-10-04 17:08] LABS: BODY FLUID RBC COUNT 0.032 10^6/uL; BODY FLUID WBC TOTAL COUNT 0.853 10^3/uL
[2022-10-04 17:11] LABS: BODY FLUID APPEARENCE MOD BLDY; BODY FLUID COLOR RED; BODY FLUID SOURCE PLEURAL
[2022-10-04 17:15] VITALS: BP 142/90
[2022-10-04 17:25] LABS: GLUCOSE,BODY FLUID 88 MG/DL
--- NOTE | 2022-10-05 01:18 | OPERATIVE REPORT ---
DATE OF SERVICE: 10/04/2022 PREOPERATIVE DIAGNOSIS: Left pleural effusion. POSTOPERATIVE DIAGNOSIS: Left pleural effusion. PROCEDURE: Left thoracentesis, ultrasound-guided. SURGEON: Irina Adam DO ANESTHESIA: A 1% lidocaine 3 mL. COMPLICATIONS: None. INDICATIONS: The patient is a 72-year-old male who had a large left pleural effusion. He understands risks and benefits of procedure and wished to proceed. Consent was signed in chart. DESCRIPTION OF PROCEDURE: The patient was in sitting position. Ultrasound was used to isolate the largest pocket. This was then marked. The area was prepped and draped in sterile fashion. Timeout was performed. Local anesthetic was infiltrated into the surrounding tissues and through the chest wall. An 11 blade scalpel was used to make a small skin incision. [id number] needle and catheter was then advanced through the chest wall until slightly serosanguineous fluid was withdrawn. The catheter was then advanced. A total of 2650 mL of fluid was withdrawn. The catheter was removed. Sterile bandage was applied and chest x-ray was ordered. The patient tolerated the procedure well without any complications. Fluid sent for cytology and chemistries. The patient will follow up with me in one week. Any change in condition to be seen at that time. Job ID: [id number] DocumentID: [id number] Dictated Date: 10/04/2022 20:46:49 Carton Folder Date: 10/04/2022 23:15:00 Dictated By: IRINA ADAM DO
== END 2022-10-04 17:15 | disposition home or self-care (01) ==
LOC: SDC 14:51
PROVIDERS: ATTEND Surgery
DX: J90 Pleural effusion, not elsewhere classified (principal)
CPT/HCPCS: 32555; 71045; 82945; 84157; 87070; 87075; 87205; 89051